=== PATIENT | male | born 1970 | race Caucasian/White ===

== ENCOUNTER → 2016-08-28 | Outpatient (CLI) | payer BC ==
--- NOTE | 2016-08-28 12:12 | EST ---
DATE OF SERVICE: 08/28/2016 AGE: 46Y SEX: M HT: 70" WT: 300 lbs. Protocol Robert: X Other: Stress Stage: 3 Dur. of Exercise: 9:00 *Heart Rate Blood Pressure *Rest: 78 Rest: 154/67 * *Max. Achieved: 151 Maximum BP: 208/93 85% PMHR: 148 100% PMHR: 174 *METS: 10.3 INDICATIONS: Chest pain. MEDICATIONS: Melatonin. Baseline EKG revealed a normal sinus rhythm without significant ST-T changes. Patient walked on standard Robert protocol for 9 minutes, achieved a maximum heart rate of 151 beats per minute, which is more than 85% of predicted maximum. Developed fatigue and shortness of breath, but did not have any angina or arrhythmia. Resting blood pressure was 154/67. Peak heart rate was 151 beats per minute and peak blood pressure was 208/93. By EKG criteria, this is a negative stress test with fair exercise capacity. Patient had a slightly hypertensive response to exercise. There was no evidence of any angina or arrhythmia.
== END | disposition home or self-care (01) ==
LOC: RADNMMAIN 10:29
PROVIDERS: ATTEND Family Medicine
DX: R07.9 Chest pain, unspecified (principal)
CPT/HCPCS: 93017

== ENCOUNTER 2016-11-29 15:57 | Emergency (ER) | payer BC ==
[2016-11-29 16:05] VITALS: RESP 18
[2016-11-29] MEDS ORDERED: RX INFO: IV CONTRAST WAS GIVEN 1 EACH MISC MISCELLANE PRN (16:14)
[2016-11-29] MEDS ORDERED: PANTOPRAZOLE 40 MG/10 ML VIAL IVP STA (16:14)
[2016-11-29] MEDS ORDERED: ONDANSETRON 4 MG/2 ML VIAL IVP STA (16:14)
--- NOTE | 2016-11-29 16:21 | ED ---
Abdominal Pain HPI - General Chief Complaint: Abdominal Pain Stated Complaint: abdominal pain Time Seen by Provider: 11/29/16 16:07 Source: patient Mode of arrival: ambulatory Limitations: no limitations - History of Present Illness Initial Comments: This 46-year-old white male presents complaining of some abdominal pain. This is in his upper abdomen at the midline. He states that he went from a lying to sitting position approximately 4 days ago and felt a pop. He states that the pain has been worse with certain movements and also with any eating or drinking. 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 He states that it is somewhat worse with these activities. He's had multiple previous abdominal surgeries during childhood for Hirschsprung's disease. He has chronic diarrhea and denies any change in his stools. He's had nausea but no vomiting. He denies any fevers or chills. He denies any previous similar incidents. No other complaints or modifying factors. - Related Data Home Medications Medication Instructions Recorded Confirmed Amitriptyline HCl [Elavil] 10 mg PO HS 11/29/16 11/29/16 Previous Rx's Medication Instructions Recorded Naproxen [Naprosyn] 500 mg PO Q12HR #60 tab 05/04/15 Omeprazole [PriLOSEC] 40 mg PO DAILY #30 capsule. 11/29/16 Ondansetron [Zofran ODT] 8 mg PO Q8HR PRN #12 tab 11/29/16 traMADol HCl [Ultram] 50 - 100 mg PO Q6H PRN #15 tab 11/29/16 Allergies Allergy/AdvReac Type Severity Reaction Status Date / Time No Known Allergies Allergy Verified 11/29/16 17:08 Review of Systems ROS Statement: Those systems with pertinent positive or pertinent negative responses have been documented in the HPI. ROS Other: All systems not noted in ROS Statement are negative. Past Medical History Past Medical History: No Reported History Additional Past Medical History / Comment(s): hirshprung disease History of Any Multi-Drug Resistant Organisms: None Reported Past Surgical History: Orthopedic Surgery Additional Past Surgical History / Comment(s): five abdominal surgery, BL knees , right forearm, right ring finger, left shoulder Past Psychological History: No Psychological Hx Reported Smoking Status: Never smoker Past Alcohol Use History: None Reported Past Drug Use History: None Reported General Exam - General Exam Comments Initial Comments: GENERAL: The patient is well nourished and well hydrated. VITAL SIGNS: Heart rate, blood pressure, respiratory rate reviewed as recorded in nurse's notes. EYES: Pupils are round and reactive. Extraocular movements are intact. No conjunctival / lid redness or swelling. ENT: No external evidence of injury, swelling, or ecchymosis. Airway is patent. Throat is clear. NECK: Nontender. No swelling or evidence of injury. No subcutaneous emphysema. Trachea is midline. No thyroid mass. HEART: Regular rate and rhythm. Good peripheral pulses. LUNGS/CHEST: Breath sounds clear and equal bilaterally. No rales, rhonchi, or wheezes. No ecchymosis, subcutaneous emphysema, or tenderness. ABDOMEN: There is some mild tenderness present to the upper abdomen at midline. There is no gross identifiable hernia. There are multiple surgical scars to lower abdomen. No palpable masses or organomegaly. No peritoneal signs. No abdominal wall swelling or ecchymosis. EXTREMITIES: No extremity tenderness. Normal muscle tone and function. No thoracolumbar tenderness. NEUROLOGIC: Sensation is grossly intact. Cranial nerve exam reveals face is symmetrical, tongue is midline, speech is clear. SKIN: No abrasions or ecchymosis is noted. No induration or masses noted. PSYCHIATRIC: Alert and oriented. Appropriate behavior and judgment. Limitations: no limitations Course Vital Signs 11/29/16 11/29/16 16:01 17:39 Temperature 97.2 F L 98.5 F Pulse Rate 85 81 Respiratory 18 18 Rate Blood Pressure 171/108 129/60 O2 Sat by Pulse 97 96 Oximetry Medical Decision Making - Medical Decision Making The patient was seen and examined. All diagnostics were reviewed. The EKG was completed and shows a normal sinus rhythm at a rate of 81. There is no acute ST -T wave changes identified. The CA interval is 184, QRS duration is 94, and the QTc interval is 432. The computed tomography scan showed an abnormal hypodensity/mass on the left kidney and recommended follow-up is warranted. The patient is made aware of this finding and will be given urology follow-up in this regard. He doesn't is standard the possibility of an underlying mass is plausible and is very vital that he follow-up as directed. Overall, it is not felt as though this would be causing his current symptomatology. He has point tenderness to his anterior abdominal wall and is felt that he likely does have an abdominal muscle wall strain. The possibility of an early ventral hernia developing in this area is possible as well. This is not noted on computed tomography scan. They also note that he has a fatty liver on computed tomography scan. He has normal laboratory workup. An IV was started and he did receive some Protonix and Zofran. He is in no distress on recheck. Possibility of some gastritis or peptic ulcer disease certainly is plausible as well. Is felt that he stable for discharge and leaves in no identifiable distress. Return parameters are discussed. - Lab Data Result diagrams: 11/29/16 16:50 11/29/16 16:50 Lab Results 11/29/16 11/29/16 11/29/16 Range/Units 16:50 16:50 16:50 WBC 10.0 (3.8-10.6) k/uL RBC 5.43 (4.30-5.90) m/uL Hgb 16.2 (13.0-17.5) gm/dL Hct 47.5 (39.0-53.0) % MCV 87.4 (80.0-100.0) fL MCH 29.8 (25.0-35.0) pg MCHC 34.1 (31.0-37.0) g/dL RDW 14.6 (11.5-15.5) % Plt Count 206 (150-450) k/uL Neutrophils % 61 % Lymphocytes % 27 % Monocytes % 5 % Eosinophils % 3 % Basophils % 1 % Neutrophils # 6.1 (1.3-7.7) k/uL Lymphocytes # 2.7 (1.0-4.8) k/uL Monocytes # 0.5 (0-1.0) k/uL Eosinophils # 0.3 (0-0.7) k/uL Basophils # 0.1 (0-0.2) k/uL Sodium 140 (137-145) mmol/L Potassium 4.3 (3.5-5.1) mmol/L Chloride 103 (98-107) mmol/L Carbon Dioxide 26 (22-30) mmol/L Anion Gap 11 mmol/L BUN 20 (9-20) mg/dL Creatinine 1.08 (0.66-1.25) mg/dL Est GFR (MDRD) Af Amer >60 (>60 ml/min/1.73 sqM) Est GFR (MDRD) Non-Af >60 (>60 ml/min/1.73 sqM) Glucose 95 (74-99) mg/dL Calcium 9.7 (8.4-10.2) mg/dL Total Bilirubin 0.8 (0.2-1.3) mg/dL AST 40 (17-59) U/L ALT 46 (21-72) U/L Alkaline Phosphatase 91 (38-126) U/L Total Protein 7.3 (6.3-8.2) g/dL Albumin 4.3 (3.5-5.0) g/dL Amylase 56 (30-110) U/L Lipase 67 (23-300) U/L Urine Color Yellow Urine Appearance Clear (Clear) Urine pH 6.5 (5.0-8.0) Ur Specific [place] 1.015 (1.001-1.035) Urine Protein Negative (Negative) Urine Glucose (UA) Negative (Negative) Urine Ketones Negative (Negative) Urine Blood Negative (Negative) Urine Nitrite Negative (Negative) Urine Bilirubin Negative (Negative) Urine Urobilinogen <2.0 (<2.0) mg/dL Ur Leukocyte Esterase Negative (Negative) Disposition Clinical Impression: Abdominal pain, Abdominal muscle strain, Nausea, Renal mass Disposition: HOME SELF-CARE Condition: Good Instructions: Abdominal Pain (ED) Additional Instructions: Please avoid any Motrin, Aleve, aspirin, or Naprosyn medications. The radiologist also noted an abnormality on her left kidney. We would like you to follow-up with the urologist in this regard. Prescriptions: Omeprazole [PriLOSEC] 40 mg PO DAILY #30 capsule. Ondansetron [Zofran ODT] 8 mg PO Q8HR PRN #12 tab PRN Reason: Nausea traMADol HCl [Ultram] 50 - 100 mg PO Q6H PRN #15 tab PRN Reason: Pain Referrals: Nehemias Dorantes MD [STAFF PHYSICIAN] - 12/01/16 Cristopher Bauman MD [Primary Care Provider] - 12/01/16 Time of Disposition: 18:20
[2016-11-29 17:04] LABS: Appearance,Urine Clear (Clear); Basophils # (A) 0.1 k/uL (0-0.2); Basophils % (A) 1 %; Bilirubin,Urine Negative (Negative); CHCM 34.5; Eosinophils # (A) 0.3 k/uL (0-0.7); Eosinophils % (A) 3 %; Glucose,Urine (UA) Negative (Negative); HCT 47.5 % (39.0-53.0); HDW 2.85; HGB 16.2 gm/dL (13.0-17.5); Ketones,Urine Negative (Negative); Leukocyte Esterase,Urine Negative (Negative); Luc # (Auto) 0.24; Luc % (Auto) 2; Lymphocytes # (A) 2.7 k/uL (1.0-4.8); Lymphocytes % (A) 27 %; MCH 29.8 pg (25.0-35.0); MCHC 34.1 g/dL (31.0-37.0); MCV 87.4 fL (80.0-100.0); Mean Platelet Volume 7.2; Monocytes # (A) 0.5 k/uL (0-1.0); Monocytes % (A) 5 %; Neutrophils # (A) 6.1 k/uL (1.3-7.7); Neutrophils % (A) 61 %; Nitrite,Urine Negative (Negative); PH, Urine 6.5 (5.0-8.0); Protein,Urine Negative (Negative); RBC 5.43 m/uL (4.30-5.90); RDW 14.6 % (11.5-15.5); Specific Gravity,Urine 1.015 (1.001-1.035); UA Billing (MACRO vs. MICRO) CHEM; Urobilinogen,Urine <2.0 mg/dL (<2.0); WBC (Perox) 9.88
[2016-11-29 17:16] LABS: ALT 46 U/L (21-72); AST 40 U/L (17-59); Alkaline Phosphatase 91 U/L (38-126); Amylase 56 U/L (30-110); Anion Gap 11 mmol/L; Blood Urea Nitrogen 20 mg/dL (9-20); Calcium 9.7 mg/dL (8.4-10.2); Carbon Dioxide 26 mmol/L (22-30); Chloride 103 mmol/L (98-107); Glucose 95 mg/dL (74-99); Non-African American GFR(MDRD) >60 (>60 ml/min/1.73 sqM); Potassium 4.3 mmol/L (3.5-5.1); Sodium 140 mmol/L (137-145); Total Bilirubin 0.8 mg/dL (0.2-1.3); Total Protein 7.3 g/dL (6.3-8.2)
[2016-11-29 17:40] VITALS: BP 129/60; PULSE 81; TEMP 98.5
--- NOTE | 2016-11-29 17:49 | CT ---
EXAMINATION TYPE: CT abdomen pelvis w con DATE OF EXAM: 11/29/2016 5:33 PM COMPARISON: Previous exam CT abdomen pelvis 03 August 2015 HISTORY: Patient complains of epigastric pain, nausea, and diarrhea. Patient has history of hirschsp rungs disease. CT DLP: 2133.7 mGycm Automated exposure control for dose reduction was used. TECHNIQUE: Helical acquisition of images was performed from the lung bases through the pelvis. CONTRAST: Performed without Oral Contrast and with IV Contrast, patient injected with 100 mL of Omnipaque 300. FINDINGS: LUNG BASES: No significant abnormality is appreciated. LIVER/GB: Liver shows low attenuation possibly due to fatty infiltration. Gallbladder is contracted. PANCREAS: No significant abnormality is seen. SPLEEN: No significant abnormality is seen. ADRENALS: No significant abnormality is seen. KIDNEYS: Small hypodense focus better seen on delayed imaging within the anterior left renal cortex a xial image 36 measures 13 mm and is indeterminate, not felt to be simple cystic RETROPERITONEAL ADENOPATHY: None visualized REPRODUCTIVE ORGANS: No significant abnormality is seen URINARY BLADDER: Somewhat aberrant and appearance is stable extending somewhat cephalad from the pel vis as on prior exam PELVIC ADENOPATHY: None visualized. OSSEOUS STRUCTURES: Stable BOWEL: There are fluid-filled loops of small bowel present. 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 No evident bowel obstruction. OTHER: No pneumoperitoneum. Postop change or possible scar along the anterior abdominal wall to the r ight of midline as on prior exam is stable. IMPRESSION: INDETERMINATE HYPODENSITY IN THE LEFT KIDNEY, FOLLOW-UP IS RECOMMENDED FOR POSSIBLE MASS. POSSIBLE FA TTY INFILTRATION OF LIVER. PARTIAL MALROTATION OF THE MIDGUT.
== END 2016-11-29 18:30 | disposition home or self-care (01) ==
LOC: EC 15:57
DX: S39.011A Strain of muscle, fascia and tendon of abdomen, initial encounter (principal); R11.0 Nausea; N28.89 Other specified disorders of kidney and ureter; K76.0 Fatty (change of) liver, not elsewhere classified; Z79.899 Other long term (current) drug therapy; X50.9XXA Other and unspecified overexertion or strenuous movements or postures, initial encounter
CPT/HCPCS: 99284; 96374; 96375; 36415; 93005; 80053; 82150; 83690; 85025; 81003; 74177; J2405; Q9967; C9113

== ENCOUNTER → 2018-10-06 | Outpatient (CLI) | payer BC ==
--- NOTE | 2018-10-06 14:55 | CONS ---
CONSULTATION DATE OF SERVICE: 10/06/2018 A 48-year-old gentleman who has been evaluated in the sleep center for possible obstructive sleep apnea-hypopnea syndrome. HISTORY OF PRESENT ILLNESS/SLEEP-WAKE EVALUATION: Patient's sleep schedule is fluctuating depending what time he is to start his work. He has to wake up at 5:00 am he goes to bed around 9 or 10 pm no problem with falling asleep, although she has TV in bedroom. He usually sleeps on the side position with his with loud snoring and witnessed episodes of stopped breathing during the sleep. The patient wakes up from sleep around 3 times with nocturia, grinding his teeth in the morning. He wakes up tired, falling asleep during the day. Has episodes of claustrophobia. [place] Sleepiness Scale increased to 10. PAST MEDICAL HISTORY: 1. Jose disease and episodes of increasing blood pressure. 2. Aspirin. PAST SURGICAL HISTORY: Surgery for his lung disease. SOCIAL HISTORY: Negative for smoking. Alcohol consumption rarely. FAMILY HISTORY: Hypertension, heart problems, hyperlipidemia, stroke, fibromyalgia, arthritis, asthma, cancer, snoring, sleep apnea, lung problems, liver problems, diabetes, acid reflux, mental illness. REVIEW OF SYSTEMS: Awakenings from sleep, sleepiness during the day. PHYSICAL EXAM: gentleman without distress. BP 174/117 with repeated measurements more than 200. Neck is heart rate 80, RR 18, height 5 feet 10 inches, weight 323.8 pounds, body mass index 46.3, temperature 98.1, oxygen saturation at room air 95%. OROPHARYNX: Low position of soft palate. Restriction of nasal breathing. Wide neck 20 inches in circumference. ABDOMEN: Obese. EXTREMITIES: Very minimal up to 1+ ankle edema bilaterally. Neck Supple, no JVD. Thyroid is not palpable. LUNGS Clear to percussion and to auscultation. Good air exchange. No wheezing or rhonchi. HEART S1, S2 regular. No murmurs, gallops, or rubs. 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 Cranial nerves 2 to 7 intact. There is no fasciculation or atrophy. noted. No focal deficits observed. MEDICATIONS: Amitriptyline at bedtime, Motrin. IMPRESSION: 1. Snoring, witnessed episodes of stopped breathing during the sleep, low position of soft palate, wide neck, excessive daytime sleepiness, obstructive sleep apnea- hypopnea syndrome. 2. Obesity, body mass index 46.3. 3. Hypertension. 4. History of Hirschsprung disease, status post surgical treatment. 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 PLAN: 1. Polysomnography for evaluation of patient's breathing during sleep. 2. CPAP/BiPAP titration if sleep study confirms obstructive sleep apnea-hypopnea syndrome. 3. Preferable position during sleep on the side. No driving if patient feels any sleepiness. 4. Follow up with the primary care for treatment of hypertension, low-sodium diet, monitoring of blood pressure. 5. I will see patient for follow up visit to explain results of testing and following plan. Thank you very much for referring this patient for consultation. Sincerely, Odilon Gibbs MD, PhD, FAASM Diplomat of [employer] Scientific Programmer Analyst of [facility] [place] MMODL / ANDRESN: [id number] /
== END | disposition home or self-care (01) ==
LOC: SLEEP 13:33
PROVIDERS: ATTEND Internal Medicine
DX: G47.33 Obstructive sleep apnea (adult) (pediatric) (principal); R35.1 Nocturia; F40.240 Claustrophobia; E66.9 Obesity, unspecified; I10 Essential (primary) hypertension; Z68.42 Body mass index [BMI] 45.0-49.9, adult; Z87.19 Personal history of other diseases of the digestive system; Z98.890 Other specified postprocedural states; Z79.82 Long term (current) use of aspirin; Z79.1 Long term (current) use of non-steroidal anti-inflammatories (NSAID); Z79.899 Other long term (current) drug therapy
CPT/HCPCS: 99211

== ENCOUNTER 2019-03-13 13:40 | Emergency (ER) | payer BC ==
[2019-03-13 13:46] VITALS: BP 149/84; PULSE 71; RESP 18; TEMP 98
[2019-03-13] MEDS ORDERED: DEXAMETHASONE SOD PHOSPHATE 10 MG/ML 1 ML VIAL IM STA (14:04)
--- NOTE | 2019-03-13 14:13 | ED ---
General Adult HPI - General Chief complaint: Skin/Abscess/Foreign Body Stated complaint: Bee sting Time Seen by Provider: 03/13/19 13:48 Source: patient Limitations: no limitations - History of Present Illness Initial comments: Patient is a 48-year-old male presents emergency Department with a bee sting. Patient reports he was riding his motorcycle yesterday when he received the bee sting near the right supraorbital region. Patient reports his front removed the stinger and no immediate ALLERGIC reaction occurred but when he woke up this morning he noticed edema at the site. Patient denies any pain with extra ocular movements. Patient denies headache, nausea, vomiting, dyspnea, dysphagia or swelling of the pharynx. Patient reports taking Benadryl earlier today with minimal improvement. - Related Data Home Medications Medication Instructions Recorded Confirmed Amitriptyline HCl [Elavil] 10 mg PO HS 11/29/16 11/29/16 Previous Rx's Medication Instructions Recorded Naproxen [Naprosyn] 500 mg PO Q12HR #60 tab 05/04/15 Omeprazole [PriLOSEC] 40 mg PO DAILY #30 capsule. 11/29/16 Ondansetron [Zofran ODT] 8 mg PO Q8HR PRN #12 tab 11/29/16 traMADol HCl [Ultram] 50 - 100 mg PO Q6H PRN #15 tab 11/29/16 Cephalexin [Keflex] 500 mg PO Q6HR #40 cap 03/13/19 Allergies Allergy/AdvReac Type Severity Reaction Status Date / Time No Known Allergies Allergy Verified 11/29/16 17:08 Review of Systems ROS Statement: Those systems with pertinent positive or pertinent negative responses have been documented in the HPI. ROS Other: All systems not noted in ROS Statement are negative. Past Medical History Past Medical History: No Reported History Additional Past Medical History / Comment(s): hirshprung disease History of Any Multi-Drug Resistant Organisms: None Reported Past Surgical History: Orthopedic Surgery Additional Past Surgical History / Comment(s): five abdominal surgery, BL knees, right forearm, right ring finger, left shoulder Past Psychological History: No Psychological Hx Reported Smoking Status: Never smoker Past Alcohol Use History: None Reported Past Drug Use History: None Reported General Exam - General Exam Comments Initial Comments: General: Well-developed well-nourished distress HEENT: Normocephalic/atraumatic, PERLL, no pain with extraocular movements, oropharyngeal exam exam unremarkable, mild edema near the right supraorbital region extending near the right eye, no periorbital ecchymosis Neck: Supple, nontender, trachea midline Chest/Lungs: Normal respirations, no signs of respiratory distress clear to auscultation bilaterally no wheezes, rales, rhonchi Cardiac: Regular rate and rhythm, normal S1-S2, no murmurs rubs or gallops Abdomen/GI: Soft nontender, bowel sounds equal or quadrant x4, no guarding, no rebound no CVA tenderness Musculoskeletal: Nontender, full range of motion, no edema, strength equal bilaterally Skin: Warmth, no rashes or lesions, no cyanosis or diaphoresis Neurologic: AAO x 3, CN 2-12 intact, Psychiatric: Mood and affect normal, judgment normal Limitations: no limitations Course Vital Signs 03/13/19 13:41 Temperature 98 F Pulse Rate 71 Respiratory 18 Rate Blood Pressure 149/84 O2 Sat by Pulse 99 Oximetry Medical Decision Making - Medical Decision Making She is a 48-year-old male presents emergency Department with a bee sting. Patient was given 10 mg of Decadron with mild immediate improvement. Patient will be discharged with Keflex in case he develops cellulitis. Antibiotic is prescribed based on watch and wait basis. Strict return parameters were thor oughly discussed patient is understanding and agreeable. Patient advised to follow with primary care. Case discussed physician. Disposition Clinical Impression: Bee sting reaction Disposition: HOME SELF-CARE Condition: Stable Instructions (If sedation given, give patient instructions): Insect Bite or Sting (ED) Additional Instructions: Please follow primary care. Please take prescribed medication if symptoms do not improve in 2-3 days. Please return to emergency department if symptoms worsen. Prescriptions: Cephalexin [Keflex] 500 mg PO Q6HR #40 cap Is patient prescribed a controlled substance at d/c from ED?: No Referrals: Cristopher Bauman MD [Primary Care Provider] - 1-2 days Time of Disposition: 14:13
== END 2019-03-13 14:42 | disposition home or self-care (01) ==
LOC: EC 13:40
DX: T63.441A Toxic effect of venom of bees, accidental (unintentional), initial encounter (principal); Z79.899 Other long term (current) drug therapy; Y92.89 Other specified places as the place of occurrence of the external cause
CPT/HCPCS: 99283; 96372; J1100

== ENCOUNTER 2019-10-31 | Emergency (ER) | payer BC | END 2019-10-31 13:27 | disposition home or self-care (01) | CPT/HCPCS: 71046; 87502; 99284 ==

== ENCOUNTER 2020-09-13 09:48 | Emergency (ER) | payer BC ==
[2020-09-13 09:55] VITALS: RESP 18; TEMP 97.6
[2020-09-13] MEDS ORDERED: HYDROmorphone 0.5 MG/0.5 ML SYRINGE IVP STA ×2 (10:23→11:17)
[2020-09-13] MEDS ORDERED: SODIUM CHLORIDE 0.9% 500 ML 500 ML IV STA (10:24)
--- NOTE | 2020-09-13 10:30 | ED ---
General Adult HPI - General Chief complaint: Neck Pain/Injury Stated complaint: neck pain Time Seen by Provider: 09/13/20 10:01 Source: patient Mode of arrival: ambulatory Limitations: no limitations - History of Present Illness Initial comments: 50-year-old male with a past medical history of Hirschsprung's disease presents to the emergency room for a chief complaint of right neck pain. Patient reports the last night it was a little sore. However for the past 2 hours and has been excruciating. Patient states it is a sharp pain in the anterior lateral part of his right neck. States it hurts to press on the area or turn his head. States it radiates down his arm. He has difficulty moving his arm secondary to the pain but denies weakness in the arm. 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 Patient denies any chest pain.Patient has no other complaints at this time including shortness of breath, chest pain, abdominal pain, nausea or vomiting, headache, or visual changes. - Related Data Home Medications Medication Instructions Recorded Confirmed Amitriptyline HCl [Elavil] 10 mg PO QAM 11/29/16 09/13/20 Losartan Potassium 50 mg PO QAM 09/13/20 09/13/20 Meloxicam [Mobic] 15 mg PO QAM 09/13/20 09/13/20 Previous Rx's Medication Instructions Recorded Cyclobenzaprine [Flexeril] 10 mg PO TID #20 tab 09/13/20 Allergies Allergy/AdvReac Type Severity Reaction Status Date / Time No Known Allergies Allergy Verified 09/13/20 11:13 Review of Systems ROS Statement: Those systems with pertinent positive or pertinent negative responses have been documented in the HPI. ROS Other: All systems not noted in ROS Statement are negative. Past Medical History Past Medical History: No Reported History Additional Past Medical History / Comment(s): hirshprung disease History of Any Multi-Drug Resistant Organisms: None Reported Past Surgical History: Orthopedic Surgery Additional Past Surgical History / Comment(s): five abdominal surgery, BL knees, right forearm, right ring finger, left shoulder Past Psychological History: No Psychological Hx Reported Smoking Status: Never smoker Past Alcohol Use History: None Reported Past Drug Use History: None Reported General Exam Limitations: no limitations General appearance: alert Head exam: Present: atraumatic Eye exam: Present: normal appearance, PERRL, EOMI. Absent: scleral icterus ENT exam: Present: normal exam, normal oropharynx, mucous membranes moist Neck exam: Present: tenderness (Tenderness noted to the anterior lateral aspect of patient's right side neck, SCM distribution. There is no tenderness midline to the cervical spine or paraspinal muscles.). Absent: full ROM (Patient has 45 of rotation to the left however range of motion is significantly limited to the right to about 15.), other Respiratory exam: Present: normal lung sounds bilaterally. Absent: respiratory distress, wheezes, chest wall tenderness, other (There is no edema of the chest wall or right arm) Cardiovascular Exam: Present: regular rate, normal rhythm, normal heart sounds. Absent: systolic murmur, diastolic murmur, rubs, gallop, clicks GI/Abdominal exam: Present: soft, normal bowel sounds. Absent: distended, tenderness, guarding, rebound, rigid Extremities exam: Present: normal capillary refill (Capillary refill less than 2 seconds in the right upper extremity, radial pulse 2+,). Absent: full ROM (Patient unable to abduct or flex shoulder past 90 secondary to pain.), joint swelling (No edema in the right arm) Neurological exam: Present: alert, oriented X3 Course Vital Signs 09/13/20 09:49 Temperature 97.6 F Pulse Rate 88 Respiratory 18 Rate Blood Pressure 154/78 O2 Sat by Pulse 98 Oximetry Medical Decision Making - Medical Decision Making Vitals are stable. Patient has right-sided neck tenderness and pain along the distribution of SCM. He is unable to rotate neck laterally to the right side. No neuro deficits in the right arm. Radial pulse 2+. Pain worsens with movement of the right arm or neck. CBC does show minimal leukocytosis however there is no evidence of infection. There is no erythema of the neck. CT soft tissue neck was obtained which was normal. Given pain worsening with movement, inability to rotate neck to the right, and tenderness to touch symptoms are likely torticollis and muscle spasm. Dr. Nunes also evaluated patient and is agreeable to this. Recommends Motrin, Tylenol 3, and Flexeril. On reevaluation patient is sitting up in a chair feeling much improved. Patient we discharged him to follow up with primary care. If he has any worsening symptoms he will return here to the emergency room. - Lab Data Result diagrams: 09/13/20 10:44 09/13/20 10:44 Lab Results 09/13/20 09/13/20 Range/Units 10:44 10:44 WBC 13.8 H (3.8-10.6) k/uL RBC 5.89 (4.30-5.90) m/uL Hgb 17.7 H (13.0-17.5) gm/dL Hct 53.8 H (39.0-53.0) % MCV 91.4 (80.0-100.0) fL MCH 30.1 (25.0-35.0) pg MCHC 32.9 (31.0-37.0) g/dL RDW 13.8 (11.5-15.5) % Plt Count 239 (150-450) k/uL MPV 7.4 Neutrophils % 66 % Lymphocytes % 16 % Monocytes % 6 % Eosinophils % 10 % Basophils % 1 % Neutrophils # 9.1 H (1.3-7.7) k/uL Lymphocytes # 2.2 (1.0-4.8) k/uL Monocytes # 0.8 (0-1.0) k/uL Eosinophils # 1.4 H (0-0.7) k/uL Basophils # 0.2 (0-0.2) k/uL Sodium 136 L (137-145) mmol/L Potassium 4.3 (3.5-5.1) mmol/L Chloride 106 (98-107) mmol/L Carbon Dioxide 21 L (22-30) mmol/L Anion Gap 9 mmol/L BUN 16 (9-20) mg/dL Creatinine 0.93 (0.66-1.25) mg/dL Est GFR (CKD-EPI)AfAm >90 (>60 ml/min/1.73 sqM) Est GFR (CKD-EPI)NonAf >90 (>60 ml/min/1.73 sqM) Glucose 91 (74-99) mg/dL Calcium 9.0 (8.4-10.2) mg/dL Total Bilirubin 0.8 (0.2-1.3) mg/dL AST 56 (17-59) U/L ALT 82 H (4-49) U/L Alkaline Phosphatase 62 (38-126) U/L Total Protein 6.7 (6.3-8.2) g/dL Albumin 3.8 (3.5-5.0) g/dL Disposition Clinical Impression: Neck pain Disposition: HOME SELF-CARE Condition: Good Instructions (If sedation given, give patient instructions): Spasmodic Torticollis (ED), Muscle Spasm (ED) Additional Instructions: Please take Motrin for pain. If pain is severe take Tylenol 3. Take Flexeril as well. You cannot drive while taking Tylenol 3 or Flexeril. Follow-up with your doctor. If you have any worsening symptoms return to the emergency room. Prescriptions: Cyclobenzaprine [Flexeril] 10 mg PO TID #20 tab Is patient prescribed a controlled substance at d/c from ED?: No Referrals: Cristopher Bauman MD [Primary Care Provider] - 1-2 days Time of Disposition: 12:56
[2020-09-13 11:04] LABS: Basophils # (A) 0.2 k/uL (0-0.2); Basophils % (A) 1 %; Eosinophils # (A) 1.4 k/uL (0-0.7); Eosinophils % (A) 10 %; HCT 53.8 % (39.0-53.0); HGB 17.7 gm/dL (13.0-17.5); Lymphocytes # (A) 2.2 k/uL (1.0-4.8); Lymphocytes % (A) 16 %; MCH 30.1 pg (25.0-35.0); MCHC 32.9 g/dL (31.0-37.0); MCV 91.4 fL (80.0-100.0); Mean Platelet Volume 7.4; Monocytes # (A) 0.8 k/uL (0-1.0); Monocytes % (A) 6 %; Neutrophils # (A) 9.1 k/uL (1.3-7.7); Neutrophils % (A) 66 %; Platelet Count 239 k/uL (150-450); RBC 5.89 m/uL (4.30-5.90); RDW 13.8 % (11.5-15.5); WBC 13.8 k/uL (3.8-10.6)
[2020-09-13 11:15] LABS: ALT 82 U/L (4-49); AST 56 U/L (17-59); African American GFR (CKD) >90 (>60 ml/min/1.73 sqM); Albumin 3.8 g/dL (3.5-5.0); Alkaline Phosphatase 62 U/L (38-126); Anion Gap 9 mmol/L; Blood Urea Nitrogen 16 mg/dL (9-20); Carbon Dioxide 21 mmol/L (22-30); Chloride 106 mmol/L (98-107); Glucose 91 mg/dL (74-99); Non-African American GFR(CKD) >90 (>60 ml/min/1.73 sqM); Potassium 4.3 mmol/L (3.5-5.1); Sodium 136 mmol/L (137-145); Total Bilirubin 0.8 mg/dL (0.2-1.3); Total Protein 6.7 g/dL (6.3-8.2)
[2020-09-13] MEDS ORDERED: HYDROmorphone 1 MG/ML 1 ML SYRINGE IVP STA (11:16)
--- NOTE | 2020-09-13 12:24 | CT ---
EXAMINATION TYPE: CT soft tissue neck w con DATE OF EXAM: 09/13/2020 COMPARISON: None HISTORY: Right sided neck pain and spasm CT DLP: 1075.1 mGycm CONTRAST: Patient injected with 100 mL of Isovue 300. TECHNIQUE: Axial images at 3 mm thick sections. Reconstructed images in the coronal plane and sagitt al plane are reviewed. FINDINGS: Limited CT sections are obtained the lung apices. The lung apices appear clear. CT neck: The torus tubarius and fossa of Rosenmuller are normal. Weaver Wire Loom spaces are normal. Para nasal sinuses and mastoid air cells are clear. Parotid glands appear normal and symmetrical. Submandibular glands, are normal. Parapharyngeal spac es are normal. No suspicious adenopathy is evident. The hypopharynx appears within normal limits. Vocal cord level appear symmetrical. Thyroid as visualized is normal. Subglottic airway is normal. Osseous structures are normal. Muscle density appears unremarkable. No muscle asymmetry is evident. IMPRESSIONS: 1. Normal soft tissue neck
[2020-09-13] MEDS ORDERED: KETOROLAC 15 MG/ML 1 ML VIAL IVP STA (12:31)
[2020-09-13] MEDS ORDERED: ORPHENADRINE 30 MG/ML 2 ML VIAL IVP STA (12:40)
[2020-09-13] MEDS ORDERED: ACET/COD 300 MG/30 MG STARTER PACK 6 TAB BTL PO STA (12:56)
[2020-09-13 13:23] VITALS: BP 146/91; PULSE 89
== END 2020-09-13 13:23 | disposition home or self-care (01) ==
LOC: EC 09:48
DX: M54.2 Cervicalgia (principal); D72.829 Elevated white blood cell count, unspecified; Z79.1 Long term (current) use of non-steroidal anti-inflammatories (NSAID); Z79.899 Other long term (current) drug therapy
CPT/HCPCS: 36415; 80053; 85025; 70491; 99284; 96374; 96375 ×2; 96376; 96361; J2360; J1170 ×2; J1885; Q9967

== ENCOUNTER 2020-09-14 12:25 | Inpatient (IN) | payer BC ==
[2020-09-14] MEDS ORDERED: diphenhydrAMINE 50 MG/ML 1 ML VIAL IVP STA (13:07)
[2020-09-14] MEDS ORDERED: SODIUM CHLORIDE 0.9% 1,000 ML IV STA (13:07)
[2020-09-14] MEDS ORDERED: DEXAMETHASONE SOD PHOSPHATE 10 MG/ML 1 ML VIAL IV STA (13:13)
[2020-09-14] MEDS ORDERED: FAMOTIDINE 20 MG/2 ML VIAL IV STA (13:16)
[2020-09-14] MEDS ORDERED: propofoL 50 ML IV ONE (13:34)
[2020-09-14 13:41] LABS: Basophils # (A) 0.1 k/uL (0-0.2); Basophils % (A) 1 %; Eosinophils # (A) 1.2 k/uL (0-0.7); Eosinophils % (A) 13 %; HCT 53.6 % (39.0-53.0); HGB 17.4 gm/dL (13.0-17.5); Lymphocytes % (A) 21 %; MCH 30.1 pg (25.0-35.0); MCHC 32.4 g/dL (31.0-37.0); MCV 92.8 fL (80.0-100.0); Mean Platelet Volume 7.8; Monocytes # (A) 0.5 k/uL (0-1.0); Monocytes % (A) 6 %; Neutrophils # (A) 5.7 k/uL (1.3-7.7); Neutrophils % (A) 58 %; Platelet Count 223 k/uL (150-450); RBC 5.78 m/uL (4.30-5.90); RDW 13.7 % (11.5-15.5); WBC 9.7 k/uL (3.8-10.6)
[2020-09-14 13:55] LABS: ALT 77 U/L (4-49); AST 48 U/L (17-59); African American GFR (CKD) >90 (>60 ml/min/1.73 sqM); Albumin 3.8 g/dL (3.5-5.0); Alkaline Phosphatase 56 U/L (38-126); Anion Gap 8 mmol/L; Blood Urea Nitrogen 14 mg/dL (9-20); Calcium 8.9 mg/dL (8.4-10.2); Carbon Dioxide 24 mmol/L (22-30); Chloride 105 mmol/L (98-107); Glucose 86 mg/dL (74-99); Magnesium 1.8 mg/dL (1.6-2.3); Non-African American GFR(CKD) 88 (>60 ml/min/1.73 sqM); Potassium 4.8 mmol/L (3.5-5.1); Sodium 137 mmol/L (137-145); Total Bilirubin 0.8 mg/dL (0.2-1.3); Total Protein 6.6 g/dL (6.3-8.2)
[2020-09-14 13:56] LABS: INR 1.4 (<1.2); Partial Thromboplastin Time 26.7 sec (22.0-30.0); Prothrombin Time 13.8 sec (9.0-12.0)
[2020-09-14] MEDS ORDERED: MIDAZOLAM 1 MG/ML 5 ML VIAL IV STA (14:08)
--- NOTE | 2020-09-14 14:23 | XR ---
EXAMINATION TYPE: XR chest 1V DATE OF EXAM: 09/14/2020 COMPARISON: Chest x-ray 10/31/2019 HISTORY: Intubated TECHNIQUE: Single frontal view of the chest is obtained. FINDINGS: Endotracheal tube and NG tube have been place, distal tip the NG tube is coursing towards the stomach, endotracheal tube is overlying the tracheal air column. No evident pneumothorax or pleur al effusion. Heart is enlarged. Lung volumes are low. Prominence of the superior mediastinum may be t echnical. Patchy bilateral airspace disease is suspected. IMPRESSION: No evident comp occasions status post intubation. Correlate for pneumonia.
[2020-09-14] MEDS ORDERED: AMPICILLIN-SULBACTAM 3 GM in SODIUM CHLORIDE 0.9% 100 ML IVPB STA (14:40)
--- NOTE | 2020-09-14 14:42 | ED ---
General Adult HPI - General Chief complaint: ENT Stated complaint: revisit - dental infection Time Seen by Provider: 09/14/20 13:02 Source: patient, RN notes reviewed, old records reviewed Mode of arrival: ambulatory Limitations: no limitations - History of Present Illness Initial comments: 50-year-old male presenting for reevaluation of right-sided neck pain. Patient states he developed a sore throat and has a muffled voice. He is seen just shortly after arrival to the emergency department and noted to have a massively enlarged uvula with concern for airway compromise. He was prescribed a muscle relaxer and pain medication with his visit to the emergency department yesterday. At that time he had a CT performed which was negative for an infe ctious process or any acute findings. He denies fever or chills. He is currently on losartan for high blood pressure, no ADÁN inhibitor. - Related Data Home Medications Medication Instructions Recorded Confirmed Amitriptyline HCl [Elavil] 10 mg PO QAM 11/29/16 09/14/20 Losartan Potassium 50 mg PO QAM 09/13/20 09/14/20 Meloxicam [Mobic] 15 mg PO QAM 09/13/20 09/14/20 Previous Rx's Medication Instructions Recorded Cyclobenzaprine [Flexeril] 10 mg PO TID #20 tab 09/13/20 Allergies Allergy/AdvReac Type Severity Reaction Status Date / Time No Known Allergies Allergy Verified 09/14/20 13:37 Review of Systems ROS Statement: Those systems with pertinent positive or pertinent negative responses have been documented in the HPI. ROS Other: All systems not noted in ROS Statement are negative. Past Medical History Past Medical History: No Reported History Additional Past Medical History / Comment(s): hirshprung disease History of Any Multi-Drug Resistant Organisms: None Reported Past Surgical History: Orthopedic Surgery Additional Past Surgical History / Comment(s): five abdominal surgery, BL knees, right forearm, right ring finger, left shoulder Past Psychological History: No Psychological Hx Reported Smoking Status: Never smoker Past Alcohol Use History: None Reported Past Drug Use History: None Reported General Exam Limitations: no limitations General appearance: alert, in distress Head exam: Present: atraumatic, normocephalic Eye exam: Present: normal appearance, PERRL ENT exam: Present: other (There is soft tissue fullness in the right peritonsillar region and a erythematous and swollen uvula measuring at least 3-4 cm across) Neck exam: Present: tenderness (Tenderness over the right sternocleidomastoid) Respiratory exam: Present: normal lung sounds bilaterally, other (Speech is muffled.). Absent: respiratory distress, wheezes, rales, stridor Cardiovascular Exam: Present: normal rhythm, tachycardia GI/Abdominal exam: Present: soft. Absent: distended, tenderness, guarding, rebound Extremities exam: Present: normal inspection, normal capillary refill. Absent: calf tenderness Neurological exam: Present: alert, oriented X3, CN II-XII intact. Absent: motor sensory deficit Psychiatric exam: Present: anxious Skin exam: Present: warm, dry, intact Course Vital Signs 09/14/20 09/14/20 09/14/20 12:40 13:40 13:50 Temperature 98.7 F Pulse Rate 93 118 H 111 H Respiratory 18 20 Rate Blood Pressure 196/96 175/96 O2 Sat by Pulse 95 100 99 Oximetry 09/14/20 09/14/20 09/14/20 14:12 14:25 14:31 Temperature Pulse Rate 109 H 110 H 108 H Respiratory 20 20 20 Rate Blood Pressure 153/83 158/84 124/66 O2 Sat by Pulse 100 98 98 Oximetry 09/14/20 09/14/20 15:09 15:37 Temperature Pulse Rate 114 H 114 H Respiratory 20 20 Rate Blood Pressure 155/79 155/79 O2 Sat by Pulse 99 100 Oximetry - Reevaluation(s) Reevaluation #1: 09/14/20 1400 Anesthesia he is able to intubate the patient without issue. Medical Decision Making - Medical Decision Making Due to the patient's body habitus and massive uvular edema and swelling he is intubated by anesthesia without any difficulty. Laboratory studies are repeated, he has a mild elevation in CRP, as well as blood cell count is down trending. Otherwise his labs are unremarkable. Chest x-ray performed after intubation which shows satisfactory placement of endotracheal tube. He was intubated for airway protection. ENT recommends Decadron 10 mg every 8 after initial dose of 10. Patient has been started on this additionally recommending FFP with chest patient has been given. I did discuss case with the admitting physician Dr. Conti, the ICU traffic rate clerk Dr. Ashley, and the ENT surgeon Dr. Pittman. - Lab Data Result diagrams: 09/14/20 13:30 09/14/20 13:30 Lab Results 09/14/20 09/14/20 09/14/20 Range/Units 13:30 13:30 13:30 WBC 9.7 (3.8-10.6) k/uL RBC 5.78 (4.30-5.90) m/uL Hgb 17.4 (13.0-17.5) gm/dL Hct 53.6 H (39.0-53.0) % MCV 92.8 (80.0-100.0) fL MCH 30.1 (25.0-35.0) pg MCHC 32.4 (31.0-37.0) g/dL RDW 13.7 (11.5-15.5) % Plt Count 223 (150-450) k/uL MPV 7.8 Neutrophils % 58 % Lymphocytes % 21 % Monocytes % 6 % Eosinophils % 13 % Basophils % 1 % Neutrophils # 5.7 (1.3-7.7) k/uL Lymphocytes # 2.0 (1.0-4.8) k/uL Monocytes # 0.5 (0-1.0) k/uL Eosinophils # 1.2 H (0-0.7) k/uL Basophils # 0.1 (0-0.2) k/uL PT 13.8 H (9.0-12.0) sec INR 1.4 H (<1.2) APTT 26.7 (22.0-30.0) sec Sodium 137 (137-145) mmol/L Potassium 4.8 (3.5-5.1) mmol/L Chloride 105 (98-107) mmol/L Carbon Dioxide 24 (22-30) mmol/L Anion Gap 8 mmol/L BUN 14 (9-20) mg/dL Creatinine 0.99 (0.66-1.25) mg/dL Est GFR (CKD-EPI)AfAm >90 (>60 ml/min/1.73 sqM) Est GFR (CKD-EPI)NonAf 88 (>60 ml/min/1.73 sqM) Glucose 86 (74-99) mg/dL Plasma Lactic Acid Joselito (0.7-2.0) mmol/L Calcium 8.9 (8.4-10.2) mg/dL Magnesium 1.8 (1.6-2.3) mg/dL Total Bilirubin 0.8 (0.2-1.3) mg/dL AST 48 (17-59) U/L ALT 77 H (4-49) U/L Alkaline Phosphatase 56 (38-126) U/L C-Reactive Protein 36.0 H (<10.0) mg/L Total Protein 6.6 (6.3-8.2) g/dL Albumin 3.8 (3.5-5.0) g/dL 09/14/20 Range/Units 13:30 WBC (3.8-10.6) k/uL RBC (4.30-5.90) m/uL Hgb (13.0-17.5) gm/dL Hct (39.0-53.0) % MCV (80.0-100.0) fL MCH (25.0-35.0) pg MCHC (31.0-37.0) g/dL RDW (11.5-15.5) % Plt Count (150-450) k/uL MPV Neutrophils % % Lymphocytes % % Monocytes % % Eosinophils % % Basophils % % Neutrophils # (1.3-7.7) k/uL Lymphocytes # (1.0-4.8) k/uL Monocytes # (0-1.0) k/uL Eosinophils # (0-0.7) k/uL Basophils # (0-0.2) k/uL PT (9.0-12.0) sec INR (<1.2) APTT (22.0-30.0) sec Sodium (137-145) mmol/L Potassium (3.5-5.1) mmol/L Chloride (98-107) mmol/L Carbon Dioxide (22-30) mmol/L Anion Gap mmol/L BUN (9-20) mg/dL Creatinine (0.66-1.25) mg/dL Est GFR (CKD-EPI)AfAm (>60 ml/min/1.73 sqM) Est GFR (CKD-EPI)NonAf (>60 ml/min/1.73 sqM) Glucose (74-99) mg/dL Plasma Lactic Acid Joselito 1.5 (0.7-2.0) mmol/L Calcium (8.4-10.2) mg/dL Magnesium (1.6-2.3) mg/dL Total Bilirubin (0.2-1.3) mg/dL AST (17-59) U/L ALT (4-49) U/L Alkaline Phosphatase (38-126) U/L C-Reactive Protein (<10.0) mg/L Total Protein (6.3-8.2) g/dL Albumin (3.5-5.0) g/dL Critical Care Time Critical Care Time: Yes Total Critical Care Time: 35 Disposition Clinical Impression: Angioedema, Uvulitis Disposition: ADMITTED IP TO THIS [facility] Condition: Serious Is patient prescribed a controlled substance at d/c from ED?: No Referrals: Cristopher Bauman MD [Primary Care Provider] - 1-2 days Decision to Admit Reason: Admit from EC Decision Date: 09/14/20 Decision Time: 15:40
--- NOTE | 2020-09-14 15:12 | P.PN ---
Progress Note - Text Progress Note Date: 09/14/20 (0962) Anesthesiology Called to see patient by the ER doctor to help place airway for airway pro tection. Patient has apparent dental infection and upper airway swelling. Obvious swelling of the uvula. Currently patient is not short of breath able to breathe well through the nose. Satting 99% on room air. Due to the potential of decompensation quickly, requested to place endotracheal tube. Interviewed patient and has a history of blood pressure and testosterone replacement therapy. No ALLERGIES Time out 1346 for intubation, patient agreed. Verbally consented answered all questions. 175/96 heart rate of 112 stat 100% on 100% nonrebreather Nonrebreather was placed with 100% oxygen for the previous 5 minutes. When all tools were at the ready, propofol was given 200 mg IV push immediately followed by 140 mg of succinylcholine. [place] scope blade size 4 was used in one attempt to place a 7.5 endotracheal tube at 24 cm. Secured with tape and left and care of nurses. Patient tolerated procedure well blood pressure after was 178/112 heart rate 1:15 satting 99. Sat never dropped below 95% during intubation. Signed out to ER physician
--- NOTE | 2020-09-14 15:17 | CT ---
EXAMINATION TYPE: CT soft tissue neck w con DATE OF EXAM: 09/14/2020 HISTORY: Neck/uvula swelling COMPARISON: CT neck [address] DLP: 858.5 mGycm. Automated Exposure Control for Dose Reduction was Utilized. TECHNIQUE: CT scan of the neck is performed with IV Contrast, patient injected with 100 mL of Isovue 300, axial images are obtained, coronal and sagittal reformatted images are reviewed. FINDINGS: Airway: Endotracheal tube terminates at the level of aortic knob above jessica. Visualized portion of the nasogastric tube unremarkable. Secretions in the nasopharynx are present. There is artifact from patient motion and cavitary fillings makes evaluation of the oral pharynx suboptimal. Epiglottis is n ot well-visualized. Thyroid gland within normal limits. Fullness in her level of the tongue base coul d reflect tonsillar hypertrophy. Visualized upper lungs grossly clear. Parotid/submandibular glands: Suboptimal evaluation, no obvious abnormality seen. Carotid/Vascular Structures: Suboptimal evaluation. Osseous Structures: Suboptimal evaluation, underlying levoconvex scoliosis . Mild to moderate disc sp valorie narrowing and spurring C5-C6 and C6-C7 levels Other: No obvious abnormal greater than 1 cm adenopathy. IMPRESSION: Suboptimal significantly limited study. Satisfactory appearance of new nasogastric and en dotracheal tubes. No obvious mass or adenopathy on study 1 day earlier. Difficult to exclude [place] oedema on current study.
[2020-09-14] MEDS ORDERED: NALOXONE 0.4 MG/ML 1 ML VIAL IV PRN (15:19)
[2020-09-14] MEDS: MIDAZOLAM HCL 50 MG in SODIUM CHLORIDE 0.9% 40 ML IV SCH ×2 (15:41→22:44)
--- NOTE | 2020-09-14 15:42 | P.CNPUL ---
History of Present Illness Consult date: 09/14/20 Requesting physician: Og Rosenbaum Reason for consult: other (Acute hypoxic respiratory failure, acute uvulitis.) Chief complaint: Shortness of breath and neck discomfort History of present illness: This is a 50-year-old white male seen in the ER yesterday mostly with acute onset of right sided neck pain and discomfort, patient was prescribed a muscle relaxant and pain medication and advised to come back to the ER if his condition gets any worse. At that time the patient had a CT performed, was negative for any acute findings. Patient had no fever no chills, he is normally maintained o n losartan for high blood pressure. Patient was prescribed Flexeril yesterday, and milligrams twice a day, however today the patient developed worsening discomfort in the right neck, sore throat, and muffled voice. According to the ER physician, upon examination, he was noted to have extremely large and inflamed uvula. He recommended immediate intubation this was done by SPEECH CLINICIAN. And apparently there was no mention of any difficult intubation. Patient was intubated easily with a glido scope. Based on the note from the SPEECH CLINICIAN, there was no mention of swelling of the vocal cords, and no mention of the uvula being swollen. Patient was intubated with a 7.5 endotracheal tube placed on mechanica l ventilation. Repeat CT of the neck was basically unremarkable. Patient will be admitted to the ICU, I saw him in the ER, I will recommend starting the patient empirically on antibiotics, and on Decadron. As the exact etiology of his uvulitis could be infectious, or could be ALLERGIC in nature. According to the at bedside, patient had no symptoms of fever or chills, no symptoms to suggest any recent infection. The only complaint he had was mostly right neck pain and discomfort described as a muscle spasm in the right neck area. Patient had no symptoms to suggest severe GERD, he does have history of obstructive sleep apnea not very compliant with his CPAP. Labs in the ER including CBC, basic metabolic profile, renal profile were all normal. C-reactive protein was elevated at 36. Review of Systems ROS unobtainable: due to endotracheal tube Past Medical History Past Medical History: No Reported History Additional Past Medical History / Comment(s): hirshprung disease History of Any Multi-Drug Resistant Organisms: None Reported Past Surgical History: Orthopedic Surgery Additional Past Surgical History / Comment(s): five abdominal surgery, BL knees, right forearm, right ring finger, left shoulder Past Psychological History: No Psychological Hx Reported Smoking Status: Never smoker Past Alcohol Use History: None Reported Past Drug Use History: None Reported Medications and Allergies Home Medications Medication Instructions Recorded Confirmed Type Amitriptyline HCl [Elavil] 10 mg PO QAM 11/29/16 09/14/20 History Cyclobenzaprine [Flexeril] 10 mg PO TID #20 tab 09/13/20 09/14/20 Rx Losartan Potassium 50 mg PO QAM 09/13/20 09/14/20 History Meloxicam [Mobic] 15 mg PO QAM 09/13/20 09/14/20 History Allergies Allergy/AdvReac Type Severity Reaction Status Date / Time No Known Allergies Allergy Verified 09/14/20 13:37 Physical Exam Vitals: Vital Signs Temp Pulse Resp BP Pulse Ox 09/14/20 15:09 114 H 20 155/79 99 09/14/20 14:31 108 H 20 124/66 98 09/14/20 14:25 110 H 20 158/84 98 09/14/20 14:12 109 H 20 153/83 100 09/14/20 13:50 111 H 99 09/14/20 13:40 118 H 20 175/96 100 09/14/20 12:40 98.7 F 93 18 196/96 95 Intake and Output 09/14/20 09/14/20 09/14/20 06:59 14:59 22:59 Intake Total 4.626 Balance 4.626 Intake: Intake, IV Titration 4.626 Amount propofoL 500 mg In Empty 4.626 Bag 1 bag @ Titrate IV . Q0M ONE Rx#:[id number] Other: Weight 136.078 kg Physical Exam: Revealed a 50-year-old white male, obese, intubated, sedated, on mechanical ventilation, and on propofol. Head: Atraumatic, normocephalic. Endotracheal tube and orogastric tube are intact. HEENT: Short obese neck. [Neck is supple.] [No neck masses.] [No thyromegaly.] [No JVD.] No evidence of swelling of lips, or tongue. Chest: [Crackles and rhonchi noted bilaterally. No wheezing. Symmetrical chest expansion. Cardiac Exam: [Normal S1 and S2, no S3 gallop, no murmur.] Abdomen: [Obese, Soft, nontender, no megaly, no rebound, no guarding, normal bowel sounds.] Extremities: [No clubbing, no edema, no cyanosis.] Neurological Exam: Could not assess, patient is on propofol, sedated. Psychiatric: Could not assess, patient is sedated maintained on propofol. Skin: No rashes, no cyanosis. Results - Laboratory Findings CBC and BMP: 09/14/20 13:30 09/14/20 13:30 PT/INR, D-dimer PT 13.8 sec (9.0-12.0) H 09/14/20 13:30 INR 1.4 (<1.2) H 09/14/20 13:30 Abnormal lab findings: Abnormal Labs 09/14/20 09/14/20 09/14/20 13:30 13:30 13:30 Hct 53.6 H Eosinophils # 1.2 H PT 13.8 H INR 1.4 H ALT 77 H C-Reactive Protein 36.0 H - Diagnostic Findings Additional studies: CT of the soft tissues of the neck was reviewed, no evidence of significant abnormality. Chest x-ray showed bilateral atelectasis, cannot rule out underlying infiltrates. Assessment and Plan Assessment: Impression: Acute hypoxic respiratory failure requiring intubation and mechanical venti lation. Acute uvulitis, differential diagnoses for acute uvulitis will include infectious or ALLERGIC process. Or possibly angioedema, or could be related to GERD History of benign essential hypertension, not on valorie inhibitors, patient is maintained on losartan. History of obstructive sleep apnea Neck pain, likely secondary to cervical strain or muscle spasm. CT of the neck is reassuring. Recommendation: Continue ventilatory support. Adjust ventilator settings based on next ABG pH Transfer patient to ICU. Start patient empirically on antibiotics and on Medrol. GI and DVT prophylaxis. Reevaluated in the morning for possible weaning and extubation. We'll continue to follow. Time with Patient: Greater than 30
[2020-09-14 15:45] LABS: ABG Base Excess -0.2 mmol/L; ABG HCO3 28 mmol/L (21-25); ABG PCO2 68 mmHg (35-45); ABG PH 7.22 (7.35-7.45); ABG PO2 286 mmHg (83-108); ABG TCO2 30 mmol/L (19-24); Allen Test Performed? Yes
[2020-09-14] MEDS: SODIUM CHLORIDE 0.9% 1,000 ML IV SCH (15:57)
[2020-09-14 16:44] LABS: Glucose,Whole Blood 132 mg/dL (75-99)
[2020-09-14] MEDS ORDERED: INSULIN ASPART (NovoLOG) 100 UNIT/ML VIAL SQ SCH (17:30)
[2020-09-14] MEDS ORDERED: DEXAMETHASONE SOD PHOSPHATE 4 MG/ML 1 ML VIAL IV SCH (18:00)
[2020-09-14] MEDS: INSULIN ASPART (NovoLOG) 100 UNIT/ML VIAL SQ SCH ×2 (18:24→23:32)
[2020-09-14] MEDS: DEXAMETHASONE SOD PHOSPHATE 10 MG/ML 1 ML VIAL IV SCH ×2 (18:24→23:32)
[2020-09-14 19:02] LABS: Glucose,Whole Blood 97 mg/dL (75-99)
[2020-09-14 19:32] LABS: ABG Base Excess -1.1 mmol/L; ABG HCO3 24 mmol/L (21-25); ABG PCO2 41 mmHg (35-45); ABG PH 7.37 (7.35-7.45); ABG PO2 91 mmHg (83-108); ABG TCO2 25 mmol/L (19-24); Allen Test Performed? Yes
--- NOTE | 2020-09-14 19:36 | HP ---
HISTORY AND PHYSICAL DATE OF SERVICE: 09/14/2020 CHIEF COMPLAINTS: Throat swelling and respiratory difficulties. HISTORY OF PRESENT ILLNESS: This 50-year-old gentleman with a past medical history of multiple medical problems, including history of Hirschsprung's disease, history of abdominal surgeries, bilateral DJD, being followed by Dr. 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 The patient is apparently healthy, according to his fiancee, who recently relocated from [place]. The patient apparently came back from a trip to [place] through , and the patient was complaining of pain in the right ear area as well as muscle spasms. Patient came to the ER yesterday. Patient was given pain medications and also Flexeril. The patient took it, and this morning the patient was complaining of significant pain in the throat as well as swelling of the uvula. His voice was also muffled. The patient was complaining of sore throat also. Massively enlarged uvula was visualized. Because of concerns about airway compromise, the patient has been intubated at this time and sedated. Evaluation by Dr. Ashley is also ongoing. The possibility of angioneurotic edema was also being considered. Repeat CT scan of the neck was showing no acute abnormality. The patient is being transferred to the ICU at this time. The patient is unable to give a coherent history. Most of the history is taken from my discussion with the staff, ER physician, review of the chart and discussion with the patient's fiancee at the bedside. The ICU physician is following the patient closely. The patient was also taking losartan previously. There is no history of any fever or rigors. No history of contact with a COVID-19 patient. PAST MEDICAL HISTORY: History of Hirschsprung's disease with 5 abdominal surgeries, DJD. HOME MEDICATIONS: Mobic, losartan, Flexeril, Elavil. ALLERGIES: NONE. Family history, social history, review of systems could not be taken because of the patient's mental status. PHYSICAL EXAMINATION: Patient is mechanically intubated. Vent settings are noted. Pulse 108, blood pressure 155/70, respiration 18, temperature normal, pulse ox 97% on mechanical ventilation. HEENT: Conjunctivae normal. Oral mucosa moist. Endotracheal tube in situ. Throat is hard to visualize. NECK: No jugular venous distention. No carotid bruit. No lymph node enlargement. Minimal swelling appreciated. No erythema. No tenderness. CARDIOVASCULAR SYSTEM: S1, S2 muffled. No S3. No S4. RESPIRATORY SYSTEM: Breath sounds diminished at the bases. No rhonchi. No crackles. ABDOMEN: Soft, obese, non-tender. No mass palpable. LEGS: No edema. No swelling. NERVOUS SYSTEM: Patient is sedated. SKIN: No ulcer, rash, bleeding. JOINTS: No active deforming arthropathy. LYMPHATICS: No lymph node palpable in neck, axillae or groin. LABS: Labs at this time show WBC 9.7, hemoglobin 17.4. INR is 1.4. ABGs noted. AST is 48, ALT 77. C-reactive protein 36. Glucose 132. COVID-19 is negative. ASSESSMENT: 1. Acute hypoxic respiratory failure, possibly secondary to uvular swelling and possible angioneurotic edema. 2. Mild coagulopathy. INR 1.4. 3. Acute hypoxic respiratory failure, on mechanical ventilation. 4. Elevated ALT. 5. Elevated CRP. 6. History of Hirschsprung's disease and multiple abdominal surgeries. 7. History of degenerative joint disease. 8. Obesity with body mass index of 41.8. 9. FULL CODE. RECOMMENDATIONS AND DISCUSSION: In this 50-year-old gentleman who presented with multiple medical issues, at this time I recommend to continue the current medications, continue symptomatic treatment. Stop losartan. Treat with empiric steroids and empiric antibiotics. Otherwise, monitor in ICU. Repeat labs will be arranged. Cultures also will be sought. COVID-19 is negative, as mentioned earlier. Prognosis extremely guarded because of multiple complex medical issues. Further recommendations to follow. A copy of this dictation is being forwarded to Dr. Bauman, who is the primary physician. MMODL / IJN: [id number] /
[2020-09-14] MEDS: FAMOTIDINE 20 MG/2 ML VIAL IV SCH (19:57)
[2020-09-14] MEDS: HEPARIN SODIUM,PORCINE 5,000 UNIT/ML 1 ML VIAL SQ SCH (19:58)
[2020-09-14 20:01] LABS: Appearance,Urine Clear (Clear); Bilirubin,Urine Negative (Negative); Blood,Urine Negative (Negative); Color,Urine Yellow; Glucose,Urine (UA) Negative (Negative); Ketones,Urine Negative (Negative); Leukocyte Esterase,Urine Negative (Negative); Nitrite,Urine Negative (Negative); Protein,Urine Trace (Negative); Urobilinogen,Urine <2.0 mg/dL (<2.0)
[2020-09-14 20:16] LABS: Amphetamine Screen,Urine Not Detected (NotDetected); Barbiturate Screen,Urine Not Detected (NotDetected); Benzodiazepines Screen,Urine Not Detected (NotDetected); Cocaine Screen,Urine Not Detected (NotDetected); Methadone Screen, Urine Not Detected (NotDetected); Opiate Screen,Urine Detected (NotDetected); Oxycodone Screen, Urine Not Detected (NotDetected); Phencyclidine Screen,Urine Not Detected (NotDetected); Tricyclic Antidepressant,Urine Detected (NotDetected); Urn Cannabinoid Scrn Not Detected (NotDetected)
[2020-09-14 23:32] LABS: Glucose,Whole Blood 128 mg/dL (75-99)
[2020-09-14] MEDS: AMPICILLIN-SULBACTAM 3 GM in SODIUM CHLORIDE 0.9% 100 ML IVPB SCH (23:32)
[2020-09-14] MEDS: fentaNYL (PF) 1,000 MCG in SODIUM CHLORIDE 0.9% 80 ML IV SCH (23:40)
[2020-09-15] MEDS: SODIUM CHLORIDE 0.9% 1,000 ML IV SCH ×2 (01:28→12:10)
[2020-09-15 04:21] LABS: Basophils # (A) 0.1 k/uL (0-0.2); Basophils % (A) 1 %; Eosinophils # (A) 0.1 k/uL (0-0.7); Eosinophils % (A) 1 %; HCT 53.9 % (39.0-53.0); HGB 17.4 gm/dL (13.0-17.5); Lymphocytes # (A) 0.8 k/uL (1.0-4.8); Lymphocytes % (A) 6 %; MCH 30.5 pg (25.0-35.0); MCHC 32.4 g/dL (31.0-37.0); MCV 94.3 fL (80.0-100.0); Mean Platelet Volume 7.6; Monocytes # (A) 0.2 k/uL (0-1.0); Monocytes % (A) 1 %; Neutrophils # (A) 12.4 k/uL (1.3-7.7); Neutrophils % (A) 91 %; Platelet Count 235 k/uL (150-450); RBC 5.71 m/uL (4.30-5.90); RDW 13.5 % (11.5-15.5); WBC 13.6 k/uL (3.8-10.6)
[2020-09-15 04:28] LABS: Allen Test Performed? Yes
[2020-09-15 04:29] LABS: ABG Base Excess -1.4 mmol/L; ABG HCO3 24 mmol/L (21-25); ABG PCO2 45 mmHg (35-45); ABG PH 7.34 (7.35-7.45); ABG PO2 104 mmHg (83-108); ABG TCO2 26 mmol/L (19-24)
[2020-09-15 05:02] LABS: Amorphous Sediment,Urine Occasional /hpf; Appearance,Urine Turbid (Clear); Bilirubin,Urine Negative (Negative); Blood,Urine Negative (Negative); Color,Urine Light Red; Glucose,Urine (UA) Negative (Negative); Ketones,Urine Negative (Negative); Leukocyte Esterase,Urine Negative (Negative); Mucus,Urine Rare /hpf; Nitrite,Urine Negative (Negative); Protein,Urine 1+ (Negative); RBC,Urine 12 /hpf (0-5); Urobilinogen,Urine <2.0 mg/dL (<2.0); WBC,Urine 3 /hpf (0-5)
[2020-09-15 05:05] LABS: ALT 77 U/L (4-49); AST 48 U/L (17-59); African American GFR (CKD) >90 (>60 ml/min/1.73 sqM); Albumin 3.5 g/dL (3.5-5.0); Alkaline Phosphatase 50 U/L (38-126); Anion Gap 8 mmol/L; Blood Urea Nitrogen 20 mg/dL (9-20); Calcium 8.4 mg/dL (8.4-10.2); Carbon Dioxide 19 mmol/L (22-30); Chloride 106 mmol/L (98-107); Glucose 128 mg/dL (74-99); Non-African American GFR(CKD) >90 (>60 ml/min/1.73 sqM); Potassium 5.6 mmol/L (3.5-5.1); Sodium 133 mmol/L (137-145); Total Bilirubin 0.5 mg/dL (0.2-1.3); Total Protein 6.4 g/dL (6.3-8.2)
[2020-09-15 05:12] LABS: Specific Gravity,Urine 1.047 (1.001-1.035)
[2020-09-15] MEDS: INSULIN ASPART (NovoLOG) 100 UNIT/ML VIAL SQ SCH ×3 (05:22→18:36)
--- NOTE | 2020-09-15 08:05 | XR ---
EXAMINATION TYPE: XR chest 1V portable DATE OF EXAM: 09/15/2020 COMPARISON: Chest x-ray 09/14/2019 HISTORY: Intubated TECHNIQUE: Single frontal view of the chest is obtained. FINDINGS: Endotracheal tube and NG tube are overlying appropriate positions. No evident pneumothorax or sizable effusion. Bibasilar density is noted within the lungs. Cardiac mediastinal silhouette is within normal limits. Lung volumes are low and the patient is rotated. There are overlying leads. IMPRESSION: Bibasilar atelectasis, correlate to exclude pneumonia.
[2020-09-15] MEDS: HEPARIN SODIUM,PORCINE 5,000 UNIT/ML 1 ML VIAL SQ SCH ×2 (08:24→21:58)
[2020-09-15] MEDS: CHLORHEXIDINE GLUCONATE 15 ML CUP MUCOUS MEM SCH ×2 (08:24→21:58)
[2020-09-15] MEDS: DEXAMETHASONE SOD PHOSPHATE 10 MG/ML 1 ML VIAL IV SCH ×2 (08:24→16:26)
[2020-09-15] MEDS: AMPICILLIN-SULBACTAM 3 GM in SODIUM CHLORIDE 0.9% 100 ML IVPB SCH ×2 (08:24→16:25)
[2020-09-15] MEDS: FAMOTIDINE 20 MG/2 ML VIAL IV SCH ×2 (08:24→22:01)
[2020-09-15] MEDS: fentaNYL (PF) 1,000 MCG in SODIUM CHLORIDE 0.9% 80 ML IV SCH (11:04)
[2020-09-15 11:39] LABS: Glucose,Whole Blood 103 mg/dL (75-99)
--- NOTE | 2020-09-15 12:40 | P.PN ---
Subjective Progress Note Date: 09/15/20 Principal diagnosis: Acute hypoxic respiratory failure secondary to uvulitis This is a 50-year-old white male seen in the ER yesterday mostly with acute onset of right sided neck pain and discomfort, patient was prescribed a muscle relaxant and pain medication and advised to come back to the ER if his condition gets any worse. At that time the patient had a CT performed, was negative for any acute findings. Patient had no fever no chills, he is normally maintained on losartan for high blood pressure. Patient was prescribed Flexeril yesterday, and milligrams twice a day, however today the patient developed worsening discomfort in the right neck, sore throat, and muffled voice. According to the ER physician, upon examination, he was noted to have extremely large and inflamed uvula. He recommended immediate intubation this was done by SAFETY RELIEF VALVE TECHNICIAN. And apparently there was no mention of any difficult intubation. Patient was intubated easily with a glido scope. Based on the note from the SAFETY RELIEF VALVE TECHNICIAN, there was no mention of swelling of the vocal cords, and no mention of the uvula being swollen. Patient was intubated with a 7.5 endotracheal tube placed on mechanical ventilation. Repeat CT of the neck was basically unremarkable. Patient will be admitted to the ICU, I saw him in the ER, I will recommend starting the patient empirically on antibiotics, and on Decadron. As the exact etiology of his uvulitis could be infectious, or could be ALLERGIC in nature. According to the at bedside, patient had no symptoms of fever or chills, no symptoms to suggest any recent infection. The only complaint he had was mostly right neck pain and discomfort described as a muscle spasm in the right neck area. Patient had no symptoms to suggest severe GERD, he does have history of obstructive sleep apnea not very compliant with his CPAP. Labs in the ER including CBC, basic metabolic profile, renal profile were all normal. C- reactive protein was elevated at 36. The patient is seen today 09/15/2020 in follow-up in the intensive care unit. He remains intubated on mechanical ventilator. Current settings CMV at a rate of 20, tidal volume 500, FiO2 50% and a PEEP of 5. Morning blood gases reveal a pO2 104, pCO2 45, pH 7.34 on 50% FiO2. He remains sedated on propofol at 65 mcg/kg/m. He is on fentanyl at 0.5 mcg/kg/m. 0.9 normal saline at 100 ML's per hour. Antibiotics in the form of Unasyn. He remains on Decadron 10 mg IV every 8 hours. Chest x-ray reveals bibasilar atelectasis. Endo tube repositioned. Nasogastric tube in place. White count 13.6. Hemoglobin 17.4. Sodium 133. Potassium 5.6. Bicarb 19. Creatinine 0.96. Objective - Vital Signs Vital signs: Vital Signs Temp 98.5 F 09/15/20 12:00 Pulse 87 09/15/20 12:00 Resp 26 H 09/15/20 12:00 BP 114/54 09/15/20 12:00 Pulse Ox 94 L 09/15/20 12:00 Intake & Output 09/14/20 09/15/20 09/15/20 18:59 06:59 18:59 Intake Total 481.163 1749.002 830.308 Output Total 375 855 645 Balance 41.791 824.002 185.308 Weight 136.078 kg 140.6 kg 140.6 kg Intake: IV 300 1300 600 Ampicillin-Sulbactam 3 gm 100 In Sodium Chloride 0.9% 100 ml @ 200 mls/hr IVPB ONCE STA Rx#:[id number] Sodium Chloride 0.9% 1, 300 1300 500 000 ml @ 100 mls/hr IV . Q10H [facility] Rx#:[id number] Intake, IV Titration 116.791 379.002 230.308 Amount Midazolam HCl 50 mg In 0.25 21.283 Sodium Chloride 0.9% 40 ml @ 1 MG/HR 1 mls/hr IV .Q24H [facility] Rx#:[id number] fentaNYL (PF) 1,000 mcg 77.566 In Sodium Chloride 0.9% 80 ml @ Per Protocol IV . Q0M BETY Rx#:[id number] propofoL 500 mg In Empty 4.626 Bag 1 bag @ Titrate IV . Q0M ONE Rx#:[id number] propofoL 500 mg In Empty 111.915 357.719 152.742 Bag 1 bag @ Titrate IV . Q0M BETY Rx#:[id number] Output: Urine 375 855 645 Other: Voiding Method Indwelling Catheter Indwelling Catheter Indwelling Catheter - Exam GENERAL EXAM: Intubated, sedated 50-year-old gentleman,, comfortable in no apparent distress. HEAD: Normocephalic. EYES: Normal reaction of pupils, equal size. NOSE: Clear with pink turbinates. THROAT: Endotracheal and gastric tube secured in place. NECK: No masses, no JVD. CHEST: No chest wall deformity. LUNGS: Equal air entry with no crackles, wheeze, rhonchi or dullness. CVS: S1 and S2 normal with no audible murmur, regular rhythm. ABDOMEN: No hepatosplenomegaly, normal bowel sounds, no guarding or rigidity. SPINE: No scoliosis or deformity SKIN: No rashes CENTRAL NERVOUS SYSTEM: Sedated, tone is normal in all 4 extremities. EXTREMITIES: There is no peripheral edema. No clubbing, no cyanosis. Peripheral pulses are intact. - Labs CBC & Chem 7: 09/15/20 04:06 09/15/20 04:00 Labs: Abnormal Lab Results - Last 24 Hours (Table) 09/14/20 09/14/20 09/14/20 Range/Units 13:30 13:30 13:30 WBC (3.8-10.6) k/uL Hct 53.6 H (39.0-53.0) % Neutrophils # (1.3-7.7) k/uL Lymphocytes # (1.0-4.8) k/uL Eosinophils # 1.2 H (0-0.7) k/uL PT 13.8 H (9.0-12.0) sec INR 1.4 H (<1.2) ABG pH (7.35-7.45) ABG pCO2 (35-45) mmHg ABG pO2 (83-108) mmHg ABG HCO3 (21-25) mmol/L ABG Total CO2 (19-24) mmol/L ABG O2 Saturation (94-97) % Sodium (137-145) mmol/L Potassium (3.5-5.1) mmol/L Carbon Dioxide (22-30) mmol/L Glucose (74-99) mg/dL POC Glucose (mg/dL) (75-99) mg/dL ALT 77 H (4-49) U/L C-Reactive Protein 36.0 H (<10.0) mg/L Ur Specific [place] (1.001-1.035) Urine Protein (Negative) Urine RBC (0-5) /hpf Amorphous Sediment (None) /hpf Urine Mucus (None) /hpf Urine Opiates Screen (NotDetected) U Tricyclic Antidepress (NotDetected) 09/14/20 09/14/20 09/14/20 Range/Units 15:28 16:42 19:23 WBC (3.8-10.6) k/uL Hct (39.0-53.0) % Neutrophils # (1.3-7.7) k/uL Lymphocytes # (1.0-4.8) k/uL Eosinophils # (0-0.7) k/uL PT (9.0-12.0) sec INR (<1.2) ABG pH 7.22 L (7.35-7.45) ABG pCO2 68 H (35-45) mmHg ABG pO2 286 H (83-108) mmHg ABG HCO3 28 H (21-25) mmol/L ABG Total CO2 30 H 25 H (19-24) mmol/L ABG O2 Saturation 100.0 H 98.0 H (94-97) % Sodium (137-145) mmol/L Potassium (3.5-5.1) mmol/L Carbon Dioxide (22-30) mmol/L Glucose (74-99) mg/dL POC Glucose (mg/dL) 132 H (75-99) mg/dL ALT (4-49) U/L C-Reactive Protein (<10.0) mg/L Ur Specific [place] (1.001-1.035) Urine Protein (Negative) Urine RBC (0-5) /hpf Amorphous Sediment (None) /hpf Urine Mucus (None) /hpf Urine Opiates Screen (NotDetected) U Tricyclic Antidepress (NotDetected) 09/14/20 09/14/20 09/15/20 Range/Units 19:56 23:31 04:00 WBC (3.8-10.6) k/uL Hct (39.0-53.0) % Neutrophils # (1.3-7.7) k/uL Lymphocytes # (1.0-4.8) k/uL Eosinophils # (0-0.7) k/uL PT (9.0-12.0) sec INR (<1.2) ABG pH (7.35-7.45) ABG pCO2 (35-45) mmHg ABG pO2 (83-108) mmHg ABG HCO3 (21-25) mmol/L ABG Total CO2 (19-24) mmol/L ABG O2 Saturation (94-97) % Sodium 133 L (137-145) mmol/L Potassium 5.6 H (3.5-5.1) mmol/L Carbon Dioxide 19 L (22-30) mmol/L Glucose 128 H (74-99) mg/dL POC Glucose (mg/dL) 128 H (75-99) mg/dL ALT 77 H (4-49) U/L C-Reactive Protein (<10.0) mg/L Ur Specific [place] 1.050 H (1.001-1.035) Urine Protein Trace H (Negative) Urine RBC (0-5) /hpf Amorphous Sediment (None) /hpf Urine Mucus (None) /hpf Urine Opiates Screen Detected H (NotDetected) U Tricyclic Antidepress Detected H (NotDetected) 09/15/20 09/15/20 09/15/20 Range/Units 04:06 04:20 04:43 WBC 13.6 H (3.8-10.6) k/uL Hct 53.9 H (39.0-53.0) % Neutrophils # 12.4 H (1.3-7.7) k/uL Lymphocytes # 0.8 L (1.0-4.8) k/uL Eosinophils # (0-0.7) k/uL PT (9.0-12.0) sec INR (<1.2) ABG pH 7.34 L (7.35-7.45) ABG pCO2 (35-45) mmHg ABG pO2 (83-108) mmHg ABG HCO3 (21-25) mmol/L ABG Total CO2 26 H (19-24) mmol/L ABG O2 Saturation (94-97) % Sodium (137-145) mmol/L Potassium (3.5-5.1) mmol/L Carbon Dioxide (22-30) mmol/L Glucose (74-99) mg/dL POC Glucose (mg/dL) (75-99) mg/dL ALT (4-49) U/L C-Reactive Protein (<10.0) mg/L Ur Specific [place] 1.047 H (1.001-1.035) Urine Protein 1+ H (Negative) Urine RBC 12 H (0-5) /hpf Amorphous Sediment Occasional H (None) /hpf Urine Mucus Rare H (None) /hpf Urine Opiates Screen (NotDetected) U Tricyclic Antidepress (NotDetected) 09/15/20 Range/Units 11:37 WBC (3.8-10.6) k/uL Hct (39.0-53.0) % Neutrophils # (1.3-7.7) k/uL Lymphocytes # (1.0-4.8) k/uL Eosinophils # (0-0.7) k/uL PT (9.0-12.0) sec INR (<1.2) ABG pH (7.35-7.45) ABG pCO2 (35-45) mmHg ABG pO2 (83-108) mmHg ABG HCO3 (21-25) mmol/L ABG Total CO2 (19-24) mmol/L ABG O2 Saturation (94-97) % Sodium (137-145) mmol/L Potassium (3.5-5.1) mmol/L Carbon Dioxide (22-30) mmol/L Glucose (74-99) mg/dL POC Glucose (mg/dL) 103 H (75-99) mg/dL ALT (4-49) U/L C-Reactive Protein (<10.0) mg/L Ur Specific [place] (1.001-1.035) Urine Protein (Negative) Urine RBC (0-5) /hpf Amorphous Sediment (None) /hpf Urine Mucus (None) /hpf Urine Opiates Screen (NotDetected) U Tricyclic Antidepress (NotDetected) Microbiology - Last 24 Hours (Table) 09/15/20 01:35 Sputum Culture - Preliminary Sputum Assessment and Plan Assessment: 1 Acute hypoxic respiratory failure requiring intubation and mechanical ventilation. 2 Acute uvulitis, differential diagnoses for acute uvulitis will include infectious or ALLERGIC process. Or possibly angioedema, or could be related to GERD 3 History of benign essential hypertension, not on valorie inhibitors, patient is maintained on losartan. 4 History of obstructive sleep apnea 5 Neck pain, likely secondary to cervical strain or muscle spasm. CT of the neck is reassuring. 6 History of Hirschsprung's disease Plan: The patient was seen and evaluated by Dr. Ashley Chest x-ray, ABGs and labs reviewed We will increase the respiratory rate to 22 Decrease the FiO2 to 45% Continue the current treatment plan for now Awaiting ENT consult Continue Unasyn and Decadron Initiate tube feeds Daily interruption of sedation We will continue to follow and make further recommendations based on his clinical status Critical care time 38 minutes. I, the cosigning physician, performed a history & physical examination of the patient. Lungs sounds are clear. Maintaining good O2 saturations in the 90s on 50% FiO2 via the mechanical ventilator. I discussed the assessment and plan of care with my nurse practitioner, Eva Navarro. I attest to the above note as dictated by her.
[2020-09-15] MEDS ORDERED: CISATRACURIUM 2 MG/ML 5 ML VIAL IV ONE (14:15)
[2020-09-15 18:36] LABS: Glucose,Whole Blood 107 mg/dL (75-99)
--- NOTE | 2020-09-15 20:22 | PN ---
PROGRESS NOTE DATE OF SERVICE: 09/15/2020 This 50-year-old gentleman who was admitted with significant acute hypoxic respiratory failure, had features of throat swelling, possibly indicative of anaphylactic reaction, uvulitis or infective pathology is not completely ruled out. The soft tissue of the neck did not show any significant abnormality, study was suboptimal. The most recent chest x-ray which was done today was reviewed by me personally and shows minimal infiltrates. Past medical history and review of systems could not be taken, the patient mechanically sedated. CURRENT MEDICATIONS: Reviewed include Unasyn, Peridex, Decadron, Pepcid, Narcan, propofol. PHYSICAL EXAM: Patient is mechanically sedated. Pulse is 91, blood pressure 128/60, respiration 20, temperature 98.9, pulse ox 94% on 40% FIO2. HEENT: Conjunctivae normal. Oral mucosa moist. NECK: No jugular venous distention. No lymph node enlargement. CARDIOVASCULAR: S1, S2, muffled. No S3, no S4, RESPIRATORY: Diminished breath sounds at the bases. Bilateral scattered rhonchi and crackles. ABDOMEN: Soft. Multiple healing scars of surgery. LEGS: No edema, no swelling. NERVOUS SYSTEM: Mechanically sedated. LAB STUDIES: WBC 13.6, hemoglobin 17.4, sodium 133, potassium 5.6. UA shows some RBCs. ASSESSMENT: 1. Acute hypoxic respiratory failure possibly secondary to uvular swelling and possible angioneurotic edema. 2. Mild coagulopathy, INR 1.4. 3. Acute hypoxic respiratory failure on mechanical ventilation. 4. Elevated ALT. 5. Elevated CRP. 6. Hirschsprung's disease with multiple abdominal surgeries. 7. History of degenerative joint disease. 8. Obesity with body mass index of 41.8. 9. Hyponatremia. 10.Hyperkalemia. 11.FULL CODE. RECOMMENDATIONS AND DISCUSSION: Recommend to continue current management and symptomatic treatment. Continue with IV steroids. Monitor blood sugars closely. IV Unasyn has been initiated and the cultures are negative so far. I would also recommend Infectious Disease and ENT consultation. Prognosis guarded. Further recommendations to follow. MMODL / IJN: [id number] /
--- NOTE | 2020-09-15 21:07 | CONS ---
CONSULTATION DATE OF ADMISSION: 09/14/2020. DATE OF THE CONSULTATION: September 15, 2020. REASON FOR CONSULTATION: Edema of the uvula, uvulitis. HISTORY OF PRESENT ILLNESS: This patient is a 50-year-old male who is currently in the ICU and is intubated and therefore is not available for any historical information. The historical information has been gleaned from the patient's chart and from the nurses. The patient was apparently seen in the emergency room on September 13, complaining of a sore neck soft tissue x-ray, CT scan were unremarkable and the patient was discharged on Flexeril and Motrin and advised to follow up with his family physician. However, the following day on 09/14/2020, the patient returned to the emergency room and at that time was complaining of having a difficulty swallowing and a formed large foreign body sensation in his throat. The ER physician examined the patient and noted that there was significant soft tissue edema involving the soft palate and the uvula. Both of these structures were tremendously enlarged. A CT scan of the neck only revealed soft tissue swelling of the uvula, but no evidence of any laryngeal edema or base of tongue edema which might suggest any type of mass abscess or epiglottitis. The patient was intubated and I was consulted by the ER physician and advised that the patient would be admitted to the intensive care unit. The patient was intubated on an emergency basis because of concern about his airway. I advised the ER physician that the patient should be covered with some broad-spectrum antibiotic in the event that infection was the source of the tremendous swelling, although this is doubtful. In addition to this, I recommended the patient be placed on a regimen of dexamethasone 10 mg IV q.8 hours x3 doses, followed by 5 mg IV q.8 hours x3 doses, followed by 2 mg IV q.8 hours x3 doses, then stop. The patient remains intubated and sedated. PAST MEDICAL HISTORY: Reveals he has no known allergies. MEDICATIONS: His home medications include Mobic, losartan, Elavil, and the Flexeril that he was given in the emergency room to take at home. IT IS QUITE POSSIBLE THAT HE MAY HAVE HAD AN ALLERGIC REACTION TO THE FLEXERIL. REVIEW OF SYSTEMS: Reveals the cardiovascular system is positive for hypertension and musculoskeletal system is positive for osteoarthritis. The remainder of review of systems is unremarkable. PHYSICAL EXAMINATION: This patient is a 50-year-old male who is currently intubated, on the ventilator, and is sedated and therefore is not available for any historical information. He is afebrile at this time. HEENT examination: Patient is normocephalic. Tympanic membranes are normal. Middle ear spaces are free of any fluid or infection. Intranasal examination reveals moderate septal deviation with compensatory hypertrophy inferior turbinates. Examination of oropharynx with endotracheal tube is intact. Palpation of neck is negative without any neck masses or lymphadenopathy. Attempt to examine the patient's oropharynx, after the patient was given a short-acting paralytic medication intravenously, however, this was suboptimal because of the patient's very short neck and I was not able to get his mouth open very wide. With a little bit of the soft palate that I could see, still remained somewhat edematous. However, there did not appear to be any pushing of the tongue anteriorly by the swelling. Therefore, it is possible that the swelling has started to decrease secondary to the dexamethasone. The remainder of the head and neck exam done unremarkable. Chest/cardiovascular: Lung durán are clear to percussion and auscultation. Patient is in regular sinus rhythm. S1, S2 are present. No murmurs. Abdomen is without any masses, megaly or tenderness. The abdomen is soft. The remainder of physical exam is unremarkable. IMPRESSION: Suspect angioneurotic edema of the soft palate and uvula versus uvulitis secondary to allergic reaction from possibly Flexeril versus allergy ? PLAN: The patient will continue the dexamethasone regimen as outlined above and is currently on an intravenous antibiotic, Unasyn. I will see the patient tomorrow and at that time, we will most likely try giving the patient a slightly larger dose of the paralytic agent. It is quite possible that because of this patient's large size and rather heavy musculature that the dosage of the paralytic that we gave was essentially not large enough to be effective with respect to allowing the patient's jaw muscles to relax. Since the patient is intubated, certainly it is safe to give this patient the short-acting muscle paralytic. I will see the patient on a daily basis and advise with regards to extubation. I want to take this opportunity to thank you for allowing me to participate in the care of your patient. If I could be of any further assistance, please feel free to contact my office. MMODL / IJN: [id number] / MTDD
[2020-09-16 00:04] LABS: Glucose,Whole Blood 114 mg/dL (75-99)
[2020-09-16] MEDS: INSULIN ASPART (NovoLOG) 100 UNIT/ML VIAL SQ SCH ×4 (00:11→17:22)
[2020-09-16] MEDS: AMPICILLIN-SULBACTAM 3 GM in SODIUM CHLORIDE 0.9% 100 ML IVPB SCH ×3 (01:01→15:58)
[2020-09-16] MEDS: DEXAMETHASONE SOD PHOSPHATE 10 MG/ML 1 ML VIAL IV SCH ×4 (01:02→17:25)
[2020-09-16] MEDS: SODIUM CHLORIDE 0.9% 1,000 ML IV SCH ×3 (01:02→18:08)
[2020-09-16] MEDS: fentaNYL (PF) 1,000 MCG in SODIUM CHLORIDE 0.9% 80 ML IV SCH ×2 (02:15→16:16)
[2020-09-16 03:46] LABS: Basophils % (A) 0 %; Eosinophils # (A) 0.1 k/uL (0-0.7); Eosinophils % (A) 0 %; HCT 48.8 % (39.0-53.0); HGB 15.5 gm/dL (13.0-17.5); Lymphocytes # (A) 0.8 k/uL (1.0-4.8); Lymphocytes % (A) 7 %; MCH 29.8 pg (25.0-35.0); MCHC 31.8 g/dL (31.0-37.0); MCV 93.8 fL (80.0-100.0); Mean Platelet Volume 8.2; Monocytes # (A) 0.4 k/uL (0-1.0); Monocytes % (A) 4 %; Neutrophils # (A) 10.3 k/uL (1.3-7.7); Neutrophils % (A) 89 %; Platelet Count 231 k/uL (150-450); RBC 5.21 m/uL (4.30-5.90); RDW 13.4 % (11.5-15.5); WBC 11.6 k/uL (3.8-10.6)
[2020-09-16 03:55] LABS: ALT 65 U/L (4-49); AST 57 U/L (17-59); African American GFR (CKD) >90 (>60 ml/min/1.73 sqM); Albumin 3.1 g/dL (3.5-5.0); Alkaline Phosphatase 40 U/L (38-126); Anion Gap 6 mmol/L; Blood Urea Nitrogen 23 mg/dL (9-20); Carbon Dioxide 23 mmol/L (22-30); Chloride 105 mmol/L (98-107); Glucose 125 mg/dL (74-99); Non-African American GFR(CKD) 81 (>60 ml/min/1.73 sqM); Potassium 5.3 mmol/L (3.5-5.1); Sodium 134 mmol/L (137-145); Total Bilirubin 0.4 mg/dL (0.2-1.3); Total Protein 5.7 g/dL (6.3-8.2)
[2020-09-16 05:41] LABS: ABG Base Excess 0.9 mmol/L; ABG HCO3 26 mmol/L (21-25); ABG Oxygen Saturation 95.8 % (94-97); ABG PCO2 45 mmHg (35-45); ABG PH 7.37 (7.35-7.45); ABG PO2 77 mmHg (83-108); ABG TCO2 28 mmol/L (19-24); Allen Test Performed? Yes
[2020-09-16 06:59] LABS: Glucose,Whole Blood 111 mg/dL (75-99)
--- NOTE | 2020-09-16 07:27 | XR ---
EXAMINATION TYPE: XR chest 1V portable DATE OF EXAM: 09/16/2020 COMPARISON: 09/15/2020 HISTORY: Intubated TECHNIQUE: Single frontal view of the chest is obtained. FINDINGS: Endotracheal tube, NG tube are overlying appropriate positions. Pleural parenchymal change s are similar to prior exam. IMPRESSION: No significant interval change. Correlate for pneumonia, edema, atelectasis
[2020-09-16] MEDS ORDERED: DEXAMETHASONE SOD PHOSPHATE 10 MG/ML 1 ML VIAL IV PRN (09:01)
[2020-09-16] MEDS: CHLORHEXIDINE GLUCONATE 15 ML CUP MUCOUS MEM SCH ×2 (09:27→21:27)
[2020-09-16] MEDS: FAMOTIDINE 20 MG/2 ML VIAL IV SCH ×2 (09:28→21:27)
[2020-09-16] MEDS: HEPARIN SODIUM,PORCINE 5,000 UNIT/ML 1 ML VIAL SQ SCH ×2 (09:28→21:27)
[2020-09-16 11:26] LABS: Glucose,Whole Blood 113 mg/dL (75-99)
[2020-09-16 12:52] LABS: Glucose,Whole Blood 110 mg/dL (75-99)
--- NOTE | 2020-09-16 12:52 | P.PN ---
Subjective Progress Note Date: 09/16/20 Principal diagnosis: Acute hypoxic respiratory failure secondary to airways compromise secondary to acute uvulitis, possible angioedema This is a 50-year-old white male seen in the ER yesterday mostly with acute onset of right sided neck pain and discomfort, patient was prescribed a muscle relaxant and pain medication and advised to come back to the ER if his condition gets any worse. At that time the patient had a CT performed, was negative for any acute findings. Patient had no fever no chills, he is normally maintained on losartan for high blood pressure. Patient was prescribed Flexeril yesterday, and milligrams twice a day, however today the patient developed worsening discomfort in the right neck, sore throat, and muffled voice. According to the ER physician, upon examination, he was noted to have extremely large and inflamed uvula. He recommended immediate intubation this was done by STORAGE WORKER. And apparently there was no mention of any difficult intubation. Patient was intubated easily with a glido scope. Based on the note from the STORAGE WORKER, there was no mention of swelling of the vocal cords, and no mention of the uvula being swollen. Patient was intubated with a 7.5 endotracheal tube placed on mechanical ventilation. Repeat CT of the neck was basically unremarkable. Patient will be admitted to the ICU, I saw him in the ER, I will recommend starting the patient empirically on antibiotics, and on Decadron. As the exact etiology of his uvulitis could be infectious, or could be ALLERGIC in nature. According to the at bedside, patient had no symptoms of fever or chills, no symptoms to suggest any recent infection. The only complaint he had was mostly right neck pain and discomfort described as a muscle spasm in the right neck area. Patient had no symptoms to suggest severe GERD, he does have history of obstructive sleep apnea not very compliant with his CPAP. Labs in the ER including CBC, basic metabolic profile, renal profile were all normal. C- reactive protein was elevated at 36. The patient is seen today 09/15/2020 in follow-up in the intensive care unit. He remains intubated on mechanical ventilator. Current settings CMV at a rate of 20, tidal volume 500, FiO2 50% and a PEEP of 5. Morning blood gases reveal a pO2 104, pCO2 45, pH 7.34 on 50% FiO2. He remains sedated on propofol at 65 mcg/kg/m. He is on fentanyl at 0.5 mcg/kg/m. 0.9 normal saline at 100 ML's per hour. Antibiotics in the form of Unasyn. He remains on Decadron 10 mg IV every 8 hours. Chest x-ray reveals bibasilar atelectasis. Endo tube repositioned. Nasogastric tube in place. White count 13.6. Hemoglobin 17.4. Sodium 133. Potassium 5.6. Bicarb 19. Creatinine 0.96. Patient was reevaluated today on 09/16/2020, remains in the ICU, intubated and mechanically ventilated. Patient is on assist control rate of 22 tidal volume is 500 FiO2 is 45% and PEEP of 5. ABG showed pO2 of 77 pCO2 of 45 pH of 7.37, hence no changes were made with the ventilator settings. Chest x-ray showed mostly bibasilar atelectasis, no evidence of clear-cut pneumonia. Patient remains on propofol at 55 mcg/kg/m, fentanyl at 0.5 mcg/kg/h, and today he was noted to have significant increase in residual from enteral feeding/nasogastric tube. Hence I went ahead and recommended holding the tube feeding, reviewed the notes from the ENT yesterday, he believes that the patient continues to have significant upper airways edema and uvula remains inflamed enlargement. According to him there is slight improvement but he is planning to take another look today, and determine whether we could start addressing weaning and extubation on this patient. Earlier, the restroom therapist noted that there was no evidence of cuff leak. Hence that may imply that the patient continues to have significant airway swelling, and I would hold on weaning and extubation unless notified by ENT that the swelling is significantly improved. In the meantime I plan to continue Decadron, he is now on 6 mg IV push every 8 hours, and I held enteral feeding. Kept him on propofol and fentanyl drip. Objective - Vital Signs Vital signs: Vital Signs Temp 99.9 F H 09/16/20 11:46 Pulse 90 09/16/20 11:00 Resp 22 09/16/20 11:00 BP 106/51 09/16/20 11:00 Pulse Ox 94 L 09/16/20 11:00 Intake & Output 09/15/20 09/16/20 09/16/20 18:59 06:59 18:59 Intake Total 3731.279 8549.385 626.513 Output Total 1100 730 300 Balance 697.084 1098.385 326.513 Weight 140.6 kg Intake: IV 1200 1200 500 Ampicillin-Sulbactam 3 gm 100 In Sodium Chloride 0.9% 100 ml @ 200 mls/hr IVPB ONCE STA Rx#:[id number] Sodium Chloride 0.9% 1, 1100 1200 500 000 ml @ 100 mls/hr IV . Q10H BETY Rx#:[id number] Intake, IV Titration 442.506 460.385 116.513 Amount fentaNYL (PF) 1,000 mcg 77.566 106.464 65.318 In Sodium Chloride 0.9% 80 ml @ Per Protocol IV . Q0M BETY Rx#:[id number] propofoL 500 mg In Empty 364.940 353.921 51.195 Bag 1 bag @ Titrate IV . Q0M BETY Rx#:[id number] Tube Feeding 20 120 10 Other 90 Output: Urine 1100 730 300 Other: Voiding Method Indwelling Catheter Indwelling Catheter Indwelling Catheter - Exam Physical Exam: Revealed a 50-year-old white male, obese, intubated, sedated, on mechanical ventilation, on propofol and fentanyl. Head: Atraumatic, normocephalic. Endotracheal tube and orogastric tube are intact. HEENT: Short obese neck. [Neck is supple.] [No neck masses.] [No thyromegaly.] [No JVD.] No evidence of swelling of lips, or tongue. Chest: [Crackles and rhonchi noted bilaterally. No wheezing. Symmetrical chest expansion. Cardiac Exam: [Normal S1 and S2, no S3 gallop, no murmur.] Abdomen: [Obese, Soft, nontender, no megaly, no rebound, no guarding, normal bowel sounds.] Extremities: [No clubbing, no edema, no cyanosis.] Neurological Exam: Could not assess, patient is on propofol, sedated. Psychiatric: Could not assess, patient is sedated maintained on propofol. Skin: No rashes, no cyanosis. - Labs CBC & Chem 7: 09/16/20 03:03 09/16/20 03:03 Labs: Abnormal Lab Results - Last 24 Hours (Table) 09/15/20 09/15/20 09/15/20 Range/Units 18:16 18:17 18:34 WBC (3.8-10.6) k/uL Neutrophils # (1.3-7.7) k/uL Lymphocytes # (1.0-4.8) k/uL D-Dimer 1.66 H (<0.60) mg/L FEU ABG pO2 (83-108) mmHg ABG HCO3 (21-25) mmol/L ABG Total CO2 (19-24) mmol/L Sodium (137-145) mmol/L Potassium (3.5-5.1) mmol/L BUN (9-20) mg/dL Glucose (74-99) mg/dL POC Glucose (mg/dL) 107 H (75-99) mg/dL Calcium (8.4-10.2) mg/dL ALT (4-49) U/L C-Reactive Protein 24.4 H (<10.0) mg/L Total Protein (6.3-8.2) g/dL Albumin (3.5-5.0) g/dL 09/16/20 09/16/20 09/16/20 Range/Units 00:02 03:03 03:03 WBC 11.6 H (3.8-10.6) k/uL Neutrophils # 10.3 H (1.3-7.7) k/uL Lymphocytes # 0.8 L (1.0-4.8) k/uL D-Dimer (<0.60) mg/L FEU ABG pO2 (83-108) mmHg ABG HCO3 (21-25) mmol/L ABG Total CO2 (19-24) mmol/L Sodium 134 L (137-145) mmol/L Potassium 5.3 H (3.5-5.1) mmol/L BUN 23 H (9-20) mg/dL Glucose 125 H (74-99) mg/dL POC Glucose (mg/dL) 114 H (75-99) mg/dL Calcium 8.0 L (8.4-10.2) mg/dL ALT 65 H (4-49) U/L C-Reactive Protein (<10.0) mg/L Total Protein 5.7 L (6.3-8.2) g/dL Albumin 3.1 L (3.5-5.0) g/dL 09/16/20 09/16/20 09/16/20 Range/Units 05:32 06:57 11:26 WBC (3.8-10.6) k/uL Neutrophils # (1.3-7.7) k/uL Lymphocytes # (1.0-4.8) k/uL D-Dimer (<0.60) mg/L FEU ABG pO2 77 L (83-108) mmHg ABG HCO3 26 H (21-25) mmol/L ABG Total CO2 28 H (19-24) mmol/L Sodium (137-145) mmol/L Potassium (3.5-5.1) mmol/L BUN (9-20) mg/dL Glucose (74-99) mg/dL POC Glucose (mg/dL) 111 H 113 H (75-99) mg/dL Calcium (8.4-10.2) mg/dL ALT (4-49) U/L C-Reactive Protein (<10.0) mg/L Total Protein (6.3-8.2) g/dL Albumin (3.5-5.0) g/dL Microbiology - Last 24 Hours (Table) 09/15/20 01:35 Gram Stain - Preliminary Sputum Sputum Culture - Preliminary 09/14/20 13:30 Blood Culture - Preliminary Blood No Growth after 24 hours Assessment and Plan Assessment: Impression: Acute hypoxic respiratory failure requiring intubation and mechanical ventilation. Acute uvulitis, differential diagnoses for acute uvulitis will include infectious or ALLERGIC process. Or possibly angioedema, or could be related to GERD History of benign essential hypertension, not on valorie inhibitors, patient is maintained on losartan. History of obstructive sleep apnea Neck pain, likely secondary to cervical strain or muscle spasm. CT of the neck is reassuring. Recommendation: Continue ventilatory support. ENT to reevaluate his upper airways today again. Continue to monitor in the ICU. Hold enteral feeding because of high residual. Continue Decadron. Presently on 6 mg IV push every 8 hours. May address weaning parameters and weaning trials later today, otherwise most likely will be left for the next 24 hours. Continue Unasyn. Continue GI and DVT prophylaxis. Patient remains critically ill, and will remain in the ICU Critical care time is 35 minutes We'll continue to follow. Time with Patient: Greater than 30
[2020-09-16] MEDS ORDERED: CISATRACURIUM 2 MG/ML 5 ML VIAL IV ONE (14:58)
[2020-09-16] MEDS ORDERED: DEXAMETHASONE SOD PHOSPHATE 4 MG/ML 1 ML VIAL IV SCH ×2 (16:00)
--- NOTE | 2020-09-16 16:39 | PN ---
PROGRESS NOTE DATE OF SERVICE: 09/16/2020 This 50-year-old gentleman was admitted with significant acute hypoxic respiratory failure with significant throat swelling and uvula swelling and possibly allergic reaction or infection. The patient was mechanically intubated because of acute hypoxic respiratory failure and protection of airway. ENT is following the patient. He is on IV steroids also. The patient being closely monitored. Past medical history reviewed. REVIEW OF SYSTEMS: Could not be taken. The patient mechanically ventilated and sedated. CURRENT MEDICATIONS: Reviewed and include: Unasyn, Peridex, Decadron, Pepcid, Narcan. PHYSICAL EXAMINATION: Patient is mechanically sedated. Vent settings are noted. Pulse 91, blood pressure 122/60. Respiration 22. Temperature 99.9, pulse ox 99% on 40% FiO2. HEENT: Conjunctivae normal. Facial puffiness present. CARDIOVASCULAR: S1, S2. RESPIRATIONS: Breath sounds diminished in the bases. A few scattered rhonchi. ABDOMEN: Soft. Obese. LEGS: No edema. No swelling. NERVOUS SYSTEM sedated. LABS: WBC 11.6. ABG, pH of 7.37, sodium 134, potassium 5.3. Heterophile antibody was negative and D-dimer was 1.66. INR is 1.4. ASSESSMENT: 1. Acute hypoxic respiratory failure possibly secondary to uvula swelling and possible angioneurotic edema. 2. Mild coagulopathy. INR 1.4. 3. Elevated D-dimer. 4. Acute hypoxic respiratory failure on mechanical ventilation. 5. Elevated ALT. 6. Elevated CRP. 7. 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 8. History of degenerative joint disease. 9. Obesity with body mass index of 41.8. 10.Hyponatremia. 11.Hyperkalemia. 12.FULL CODE. RECOMMENDATIONS AND DISCUSSION: I recommend to continue current medications. Continue with monitoring. Symptomatic treatment. Otherwise at this time, continue the mechanical ventilation and consider CT angio of the chest and ultrasound of the legs because of the elevated D-dimer. Otherwise further recommendations regarding mechanical ventilation per Dr. Ashley. Closely follow with ENT and Infectious Disease. Guarded prognosis because of multiple complex medical issues. Further recommendations to follow. MMODL / IJN: [id number] / MTDJose
--- NOTE | 2020-09-16 16:50 | US ---
EXAMINATION TYPE: US venous doppler duplex LE BI DATE OF EXAM: 09/16/2020 4:23 PM COMPARISON: NONE CLINICAL HISTORY: Rule out DVT . ICU patient. Leg swelling. SIDE PERFORMED: Bilateral TECHNIQUE: The lower extremity deep venous system is examined utilizing real time linear array sonog gage with graded compression, doppler sonography and color-flow sonography. VESSELS IMAGED: Common Femoral Vein Deep Femoral Vein Greater Saphenous Vein * Femoral Vein Popliteal Vein Small Saphenous Vein * Proximal Calf Veins (* superficial vessels) Right Leg: Negative for DVT Left Leg: Negative for DVT IMPRESSION: No evidence of deep vein thrombosis in both legs.
[2020-09-16 17:23] LABS: Glucose,Whole Blood 102 mg/dL (75-99)
[2020-09-17 00:05] LABS: Glucose,Whole Blood 104 mg/dL (75-99)
[2020-09-17] MEDS: DEXAMETHASONE SOD PHOSPHATE 10 MG/ML 1 ML VIAL IV SCH ×4 (00:27→23:40)
[2020-09-17] MEDS: AMPICILLIN-SULBACTAM 3 GM in SODIUM CHLORIDE 0.9% 100 ML IVPB SCH ×4 (00:27→23:42)
[2020-09-17] MEDS: INSULIN ASPART (NovoLOG) 100 UNIT/ML VIAL SQ SCH ×5 (00:33→23:42)
[2020-09-17] MEDS: fentaNYL (PF) 1,000 MCG in SODIUM CHLORIDE 0.9% 80 ML IV SCH (03:41)
[2020-09-17 04:03] LABS: Basophils % (A) 0 %; Eosinophils # (A) 0.2 k/uL (0-0.7); Eosinophils % (A) 2 %; HCT 51.8 % (39.0-53.0); HGB 16.8 gm/dL (13.0-17.5); Lymphocytes # (A) 0.9 k/uL (1.0-4.8); Lymphocytes % (A) 8 %; MCH 30.5 pg (25.0-35.0); MCHC 32.5 g/dL (31.0-37.0); Mean Platelet Volume 8.1; Monocytes # (A) 0.4 k/uL (0-1.0); Monocytes % (A) 3 %; Neutrophils % (A) 87 %; Platelet Count 223 k/uL (150-450); RBC 5.52 m/uL (4.30-5.90); WBC 11.6 k/uL (3.8-10.6)
[2020-09-17 04:28] LABS: ALT 56 U/L (4-49); AST 53 U/L (17-59); African American GFR (CKD) >90 (>60 ml/min/1.73 sqM); Albumin 3.2 g/dL (3.5-5.0); Alkaline Phosphatase 30 U/L (38-126); Anion Gap 7 mmol/L; Blood Urea Nitrogen 28 mg/dL (9-20); Calcium 8.1 mg/dL (8.4-10.2); Carbon Dioxide 27 mmol/L (22-30); Chloride 104 mmol/L (98-107); Glucose 113 mg/dL (74-99); Non-African American GFR(CKD) >90 (>60 ml/min/1.73 sqM); Sodium 138 mmol/L (137-145); Total Bilirubin 0.7 mg/dL (0.2-1.3); Total Protein 6.1 g/dL (6.3-8.2)
[2020-09-17 04:35] LABS: Potassium 6.3 mmol/L (3.5-5.1)
[2020-09-17 05:24] LABS: ABG Base Excess 3.3 mmol/L; ABG HCO3 28 mmol/L (21-25); ABG Oxygen Saturation 99.1 % (94-97); ABG PCO2 42 mmHg (35-45); ABG PH 7.43 (7.35-7.45); ABG PO2 119 mmHg (83-108); ABG TCO2 29 mmol/L (19-24); Allen Test Performed? Yes
--- NOTE | 2020-09-17 05:41 | PN ---
PROGRESS NOTE DATE OF SERVICE: 09/16/2020 SUBJECTIVE: Vital signs stable. Patient remains intubated/sedated and on the ventilator. OBJECTIVE: Because of the positioning of the endotracheal tube and its fixation to the patient's upper lip/face, this precluded examination of the soft palate and uvula because the endotracheal tube elevated the soft palate out of view. Therefore, with the assistance of the respiratory therapist, the patient's nurse, and an additional nurse, we were able to temporarily remove the current endotracheal tube strap/brace, with care being taken to guard against dislodging the endotracheal tube. The patient was given a sufficient amount of paralytic agent so as to relax the jaw muscles. Using a metal tongue depressor and with adequate lighting I was able to finally see the patient's soft palate and uvula by simply being able to depress the endotracheal tube along with the patient's tongue. Again care was taken not to dislodge the endotracheal tube. Immediately one could see that all of the swelling of the soft palate and the uvula had resolved. That is to say the soft palate and the uvula appeared to be completely normal. In addition to this, I did not see any evidence of any unusual erythema, edema, or swelling in the region of the tonsils. With respect to the appearance of the uvula and the soft palate, all of the medical personnel present, that is to say the respiratory therapist, the patient's nurse, and an additional nurse, also were able to visualize exactly when I saw and agreed that the soft palate and the uvula appeared to be completely normal and that all of the edema had completely resolved. The remainder of the head and neck exam and chest and cardiovascular exam is unchanged as well. ASSESSMENT: Uvulitis, resolved. PLAN: Recommending continuing whatever medical treatment that the pulmonary/ICU manager documentation considers appropriate at this time. I will sign off from this case since the uvulitis has resolved. My opinion is that the source of the uvulitis was allergic and does not represent any type of infectious process either in the head and neck or elsewhere in the body. Certainly, the patient has been well covered with intravenous antibiotics to cover any type of infection of the head, neck, sinus, etc. If necessary, I may be reconsulted. Again, I would like to take this opportunity to thank you very much for allowing me to assist you in the care of this interesting patient. If I could be of any further assistance, do not hesitate to call my office. MMODL / IJN: [id number] /
[2020-09-17] MEDS ORDERED: SODIUM BICARB 8.4% 50 ML SYR (1 MEQ/ML) IV STA (06:18)
[2020-09-17] MEDS ORDERED: FUROSEMIDE 10 MG/ML 4 ML VIAL IV STA (06:18)
[2020-09-17] MEDS ORDERED: INSULIN REGULAR 100 UNIT/ML VIAL IV ONE (06:18)
[2020-09-17] MEDS ORDERED: CALCIUM GLUCONATE 1 GM in SODIUM CHLORIDE 0.9% 100 ML IVPB ONE (06:30)
[2020-09-17 06:36] LABS: Glucose,Whole Blood 100 mg/dL (75-99)
[2020-09-17] MEDS ORDERED: DEXTROSE 50% SYRINGE 50 ML IVP STA (07:44)
[2020-09-17] MEDS: SODIUM CHLORIDE 0.9% 1,000 ML IV SCH ×2 (07:57→21:59)
[2020-09-17] MEDS: HEPARIN SODIUM,PORCINE 5,000 UNIT/ML 1 ML VIAL SQ SCH ×2 (09:00→21:59)
[2020-09-17] MEDS: CHLORHEXIDINE GLUCONATE 15 ML CUP MUCOUS MEM SCH (09:01)
[2020-09-17] MEDS: FAMOTIDINE 20 MG/2 ML VIAL IV SCH ×2 (09:01→21:59)
--- NOTE | 2020-09-17 10:24 | XR ---
EXAMINATION TYPE: XR chest 1V portable DATE OF EXAM: 09/17/2020 COMPARISON: Chest x-ray 09/16/2020 HISTORY: Intubated TECHNIQUE: Single frontal view of the chest is obtained. FINDINGS: Endotracheal tube and NG tube overlying appropriate positions. There is no evident pneumot horax. Bibasilar increased density is noted, cardiac mediastinal silhouette is stable. Lung volumes a re low and the patient is rotated. There are overlying leads. IMPRESSION: Findings are similar to prior exam. May be basilar pneumonia versus edema, atelectasis, difficult to exclude effusion.
--- NOTE | 2020-09-17 10:56 | P.PN ---
Subjective Progress Note Date: 09/17/20 Principal diagnosis: Acute hypoxic respiratory failure secondary to airway compromise secondary to acute uvulitis possible angioedema This is a 50-year-old white male seen in the ER yesterday mostly with acute onset of right sided neck pain and discomfort, patient was prescribed a muscle relaxant and pain medication and advised to come back to the ER if his condition gets any worse. At that time the patient had a CT performed, was negative for any acute findings. Patient had no fever no chills, he is normally maintained on losartan for high blood pressure. Patient was prescribed Flexeril yesterday, and milligrams twice a day, however today the patient developed worsening discomfort in the right neck, sore throat, and muffled voice. According to the ER physician, upon examination, he was noted to have extremely large and inflamed uvula. He recommended immediate intubation this was done by STATION MANAGER. And apparently there was no mention of any difficult intubation. Patient was intubated easily with a glido scope. Based on the note from the STATION MANAGER, there was no mention of swelling of the vocal cords, and no mention of the uvula being swollen. Patient was intubated with a 7.5 endotracheal tube placed on mechanical ventilation. Repeat CT of the neck was basically unremarkable. Patient will be admitted to the ICU, I saw him in the ER, I will recommend starting the patient empirically on antibiotics, and on Decadron. As the exact etiology of his uvulitis could be infectious, or could be ALLERGIC in nature. According to the at bedside, patient had no symptoms of fever or chills, no symptoms to suggest any recent infection. The only complaint he had was mostly right neck pain and discomfort described as a muscle spasm in the right neck area. Patient had no symptoms to suggest severe GERD, he does have history of obstructive sleep apnea not very compliant with his CPAP. Labs in the ER including CBC, basic metabolic profile, renal profile were all normal. C- reactive protein was elevated at 36. The patient is seen today 09/15/2020 in follow-up in the intensive care unit. He remains intubated on mechanical ventilator. Current settings CMV at a rate of 20, tidal volume 500, FiO2 50% and a PEEP of 5. Morning blood gases reveal a pO2 104, pCO2 45, pH 7.34 on 50% FiO2. He remains sedated on propofol at 65 mcg/kg/m. He is on fentanyl at 0.5 mcg/kg/m. 0.9 normal saline at 100 ML's per hour. Antibiotics in the form of Unasyn. He remains on Decadron 10 mg IV every 8 hours. Chest x-ray reveals bibasilar atelectasis. Endo tube repositioned. Nasogastric tube in place. White count 13.6. Hemoglobin 17.4. Sodium 133. Potassium 5.6. Bicarb 19. Creatinine 0.96. Patient was reevaluated today on 09/16/2020, remains in the ICU, intubated and mechanically ventilated. Patient is on assist control rate of 22 tidal volume is 500 FiO2 is 45% and PEEP of 5. ABG showed pO2 of 77 pCO2 of 45 pH of 7.37, hence no changes were made with the ventilator settings. Chest x-ray showed mostly bibasilar atelectasis, no evidence of clear-cut pneumonia. Patient remains on propofol at 55 mcg/kg/m, fentanyl at 0.5 mcg/kg/h, and today he was noted to have significant increase in residual from enteral feeding/nasogastric tube. Hence I went ahead and recommended holding the tube feeding, reviewed the notes from the ENT yesterday, he believes that the patient continues to have significant upper airways edema and uvula remains inflamed enlargement. According to him there is slight improvement but he is planning to take another look today, and determine whether we could start addressing weaning and extubation on this patient. Earlier, the restroom therapist noted that there was no evidence of cuff leak. Hence that may imply that the patient continues to have significant airway swelling, and I would hold on weaning and extubation unless notified by ENT that the swelling is significantly improved. In the meantime I plan to continue Decadron, he is now on 6 mg IV push every 8 hours, and I held enteral feeding. Kept him on propofol and fentanyl drip. On 09/17/2020 patient seen in follow-up in the intensive care unit, patient remains sedated and intubated currently on assist control mode of ventilation with a rate of 22, tacrolimus 500, FiO2 45% and PEEP of 5, this morning his blood gases show pO2 of 119, pCO2 42 and pH is 7.43. Current IVs include 0.9 normal saline at a rate of 75 ML per hour, Diprivan and is at 50 mics per kilo per minute, and fentanyl is at 0.5 mics per kilo per hour. No tube feedings. Patient is not requiring any vasopressor support. Remains on antibiotics in the form of Unasyn, and patient sputum and blood cultures remain negative thus far. Patient remains on dexamethasone 6 mg every 8 hours. ENT specialist note that the uvulitis was ALLERGIC in nature, and not infectious, and had resolved at this time. Patient continues on IV Decadron, and intravenous antibiotics. Chest x-ray today shows bibasilar density, atelectasis, possible effusion. His labs have been reviewed showing white blood cell count of 11.6, hemoglobin is 16.8, sodium is 138, potassium is 6.3, chloride was 104, CO2 is 27, BUN of 28, creatinine 0.94. Hyperkalemia was treated with 1 dose of IV Lasix, 50% dext laura, 10 units of regular insulin, calcium gluconate and repeat the BMP will be done at 12:30 Objective - Vital Signs Vital signs: Vital Signs Temp 98.3 F 09/17/20 08:00 Pulse 78 09/17/20 10:00 Resp 22 09/17/20 10:00 BP 136/68 09/17/20 10:00 Pulse Ox 96 09/17/20 10:00 Intake & Output 09/16/20 09/17/20 09/17/20 18:59 06:59 18:59 Intake Total 0430.004 5731.799 536.364 Output Total 800 1160 2150 Balance 597.219 395.799 -1613.636 Intake: IV 1025 1050 300 Calcium Gluconate 1 gm In 100 Sodium Chloride 0.9% 100 ml @ 100 mls/hr IVPB ONCE ONE Rx#:[id number] Sodium Chloride 0.9% 1, 1025 900 300 000 ml @ 75 mls/hr IV . [id number] [facility] Rx#:[id number] sodium bicarb amp 50 Intake, IV Titration 362.219 505.799 236.364 Amount Ampicillin-Sulbactam 3 gm 100 In Sodium Chloride 0.9% 100 ml @ 200 mls/hr IVPB Q8HR [facility] Rx#:[id number] fentaNYL (PF) 1,000 mcg 93.536 77.679 42.865 In Sodium Chloride 0.9% 80 ml @ Per Protocol IV . Q0M [facility] Rx#:[id number] propofoL 500 mg In Empty 268.683 428.12 93.499 Bag 1 bag @ Titrate IV . Q0M [facility] Rx#:[id number] Tube Feeding 10 Output: Gastric Drainage 200 50 Urine 837 211 3905 Other: Voiding Method Indwelling Catheter Indwelling Catheter Indwelling Catheter - Exam GENERAL EXAM: sedated, 50-year-old white male on assist-control mode of ventilation with FiO2 of 45% and PEEP of 5 comfortable in no apparent distress. HEAD: Normocephalic/atraumatic. EYES: Normal reaction of pupils, equal size. Conjunctiva pink, sclera white. NOSE: Clear with pink turbinates. THROAT: No erythema or exudates. NECK: No masses, no JVD, no thyroid enlargement, no adenopathy. CHEST: No chest wall deformity. Symmetrical expansion. LUNGS: Equal air entry with no crackles, wheeze, rhonchi or dullness. CVS: Regular rate and rhythm, normal S1 and S2, no gallops, no murmurs, no rubs ABDOMEN: Soft, nontender. No hepatosplenomegaly, normal bowel sounds, no guarding or rigidity. EXTREMITIES: No clubbing, appears generally swollen no cyanosis, 2+ pulses and upper and lower extremities. MUSCULOSKELETAL: Muscle strength and tone normal. SPINE: No scoliosis or deformity SKIN: No rashes CENTRAL NERVOUS SYSTEM: Sedated, intubated. No focal deficits, tone is normal in all 4 extremities. - Labs CBC & Chem 7: 09/17/20 03:27 09/17/20 03:27 Labs: Abnormal Lab Results - Last 24 Hours (Table) 09/16/20 09/16/20 09/16/20 Range/Units 11:26 12:51 17:22 WBC (3.8-10.6) k/uL Neutrophils # (1.3-7.7) k/uL Lymphocytes # (1.0-4.8) k/uL ABG pO2 (83-108) mmHg ABG HCO3 (21-25) mmol/L ABG Total CO2 (19-24) mmol/L ABG O2 Saturation (94-97) % Potassium (3.5-5.1) mmol/L BUN (9-20) mg/dL Glucose (74-99) mg/dL POC Glucose (mg/dL) 113 H 110 H 102 H (75-99) mg/dL Calcium (8.4-10.2) mg/dL ALT (4-49) U/L Alkaline Phosphatase (38-126) U/L Total Protein (6.3-8.2) g/dL Albumin (3.5-5.0) g/dL 09/17/20 09/17/20 09/17/20 Range/Units 00:02 03:27 03:27 WBC 11.6 H (3.8-10.6) k/uL Neutrophils # 10.0 H (1.3-7.7) k/uL Lymphocytes # 0.9 L (1.0-4.8) k/uL ABG pO2 (83-108) mmHg ABG HCO3 (21-25) mmol/L ABG Total CO2 (19-24) mmol/L ABG O2 Saturation (94-97) % Potassium 6.3 H* (3.5-5.1) mmol/L BUN 28 H (9-20) mg/dL Glucose 113 H (74-99) mg/dL POC Glucose (mg/dL) 104 H (75-99) mg/dL Calcium 8.1 L (8.4-10.2) mg/dL ALT 56 H (4-49) U/L Alkaline Phosphatase 30 L (38-126) U/L Total Protein 6.1 L (6.3-8.2) g/dL Albumin 3.2 L (3.5-5.0) g/dL 09/17/20 09/17/20 Range/Units 05:12 06:33 WBC (3.8-10.6) k/uL Neutrophils # (1.3-7.7) k/uL Lymphocytes # (1.0-4.8) k/uL ABG pO2 119 H (83-108) mmHg ABG HCO3 28 H (21-25) mmol/L ABG Total CO2 29 H (19-24) mmol/L ABG O2 Saturation 99.1 H (94-97) % Potassium (3.5-5.1) mmol/L BUN (9-20) mg/dL Glucose (74-99) mg/dL POC Glucose (mg/dL) 100 H (75-99) mg/dL Calcium (8.4-10.2) mg/dL ALT (4-49) U/L Alkaline Phosphatase (38-126) U/L Total Protein (6.3-8.2) g/dL Albumin (3.5-5.0) g/dL Microbiology - Last 24 Hours (Table) 09/15/20 01:35 Gram Stain - Final Sputum Sputum Culture - Final 09/14/20 13:30 Blood Culture - Preliminary Blood No Growth after 48 hours Assessment and Plan Plan: Assessment: #1. Acute hypoxic rest or a failure requiring intubation and mechanical ventilation related to acute uvulitis, the possibilities including ALLERGIC or infectious, could also be related to angioedema or related to GERD/reflux #2. Elevated d-dimer, ultrasound lower extremities was negative for DVT #3. Morbid obesity #4. History of hypertension #5. Hyperkalemia, was treated with calcium gluconate, Lasix, D50, and insulin, follow-up BMP is pending #6. History of DJD #7. 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 Continue current dose of Decadron, and antibiotics. Continue GI and DVT prophylaxis. BMP will be repeated at 12:30 to follow-up on the serum potassium level of 6.3 after he has been treated. Cultures remained negative thus far, patient has had no fevers. Chest x-ray has been reviewed. We'll try to get the patient extubated today. I performed a history & physical examination of the patient and discussed their management with my nurse practitioner, Bella Riddle. I reviewed the nurse practitioner's note and agree with the documented findings and plan of care. Lung sounds are positive for diminished breath sounds. The findings and the impression was discussed with the patient. I attest to the documentation by the nurse practitioner. Time with Patient: Greater than 30
[2020-09-17 11:24] LABS: Glucose,Whole Blood 87 mg/dL (75-99)
[2020-09-17 12:58] LABS: African American GFR (CKD) >90 (>60 ml/min/1.73 sqM); Anion Gap 5 mmol/L; Blood Urea Nitrogen 29 mg/dL (9-20); Calcium 8.3 mg/dL (8.4-10.2); Carbon Dioxide 28 mmol/L (22-30); Chloride 104 mmol/L (98-107); Glucose 104 mg/dL (74-99); Non-African American GFR(CKD) 87 (>60 ml/min/1.73 sqM); Potassium 4.8 mmol/L (3.5-5.1); Sodium 137 mmol/L (137-145)
--- NOTE | 2020-09-17 15:54 | PN ---
PROGRESS NOTE DATE OF SERVICE: 09/17/2020 This 50-year-old gentleman who was admitted with acute hypoxic respiratory failure possibly secondary to uvular swelling, possibly angioneurotic edema also possibly has an infection also. The patient is extubated. Patient is slightly confused. The patient possibly has oral thrush also. Most recent chest x-ray which was reviewed personally by me showed bibasilar infiltrates/atelectasis and a venous Doppler showed no evidence of DVT. PAST MEDICAL HISTORY: Reviewed. REVIEW OF SYSTEMS: Review of systems could not be taken, the patient is mildly confused. CURRENT MEDICATIONS: Current medications are reviewed and include Unasyn IV, Pepcid, fentanyl, Dilaudid, propofol. PHYSICAL EXAMINATION: Patient is conscious, stuporous, was just extubated. Pulse is 94, blood pressure 152/81, respiration 18, temperature normal, pulse ox 93% on 3 L. HEENT: Conjunctivae normal. NECK: No jugular venous distention. CARDIOVASCULAR: S1, S2 muffled. RESPIRATORY: Breath sounds diminished at the bases. A few scattered rhonchi and crackles. ABDOMEN: Soft, nontender. LEGS: No edema, no swelling. NERVOUS SYSTEM: Diffusely weak. LABS: WBC 11.6, hemoglobin 16.8. Potassium 6.3, and 4.8. ASSESSMENT: 1. Acute hypoxic respiratory failure possibly secondary to uvula swelling and possibly angioneurotic edema and allergic reaction. 2. Rule out uvulitis and infection. 3. Mild coagulopathy. INR 1.4. 4. Status post mechanical ventilation. 5. Change in mental status, metabolic encephalopathy, multifactorial. 6. Acute hypoxic respiratory failure secondary to above. 7. Elevated D-Dimer with no evidence of deep vein thrombosis. 8. Increased ALT. 9. Increased CRP. 10.Hirschsprung's disease history with multiple abdominal surgeries. 11.History of degenerative joint disease. 12.Obesity with body mass index of 41.8. 13.Hyponatremia. 14.Hyperkalemia. 15.FULL CODE. RECOMMENDATIONS AND DISCUSSION: Recommend to continue current medications, continue with monitoring and symptomatic treatment. Otherwise continue with empiric antibiotics. Continue with steroids. Monitor closely. Guarded prognosis because of multiple complex medical issues. Closely follow with Dr. Lin. Further recommendations to follow. MMODL / IJN: [id number] /
[2020-09-17 18:23] LABS: Glucose,Whole Blood 96 mg/dL (75-99)
[2020-09-17] MEDS: NYSTATIN 100,000 UNIT/ML SUSP 500,000 UNIT/5 ML CUP PO SCH ×2 (18:24→22:09)
[2020-09-17] MEDS: HYDROmorphone 0.5 MG/0.5 ML SYRINGE IVP PRN (19:26)
[2020-09-17] MEDS ORDERED: hydrALAZINE HCL 20 MG/ML 1 ML VIAL IVP PRN (21:22)
[2020-09-17] MEDS ORDERED: cloNIDine 0.1 MG/24HR PATCH TRANSDERM SCH (22:00)
[2020-09-17 23:37] LABS: Glucose,Whole Blood 98 mg/dL (75-99)
[2020-09-18] MEDS ORDERED: ONDANSETRON 4 MG/2 ML VIAL IVP PRN (00:50)
[2020-09-18] MEDS: HYDROmorphone 0.5 MG/0.5 ML SYRINGE IVP PRN (03:59)
[2020-09-18 04:08] LABS: Basophils # (A) 0.1 k/uL (0-0.2); Basophils % (A) 0 %; Eosinophils # (A) 0.1 k/uL (0-0.7); Eosinophils % (A) 1 %; HGB 17.1 gm/dL (13.0-17.5); Lymphocytes # (A) 0.7 k/uL (1.0-4.8); Lymphocytes % (A) 6 %; MCH 30.9 pg (25.0-35.0); MCHC 34.1 g/dL (31.0-37.0); MCV 90.6 fL (80.0-100.0); Mean Platelet Volume 7.4; Monocytes # (A) 0.6 k/uL (0-1.0); Monocytes % (A) 5 %; Neutrophils # (A) 10.2 k/uL (1.3-7.7); Neutrophils % (A) 87 %; Platelet Count 270 k/uL (150-450); RBC 5.52 m/uL (4.30-5.90); WBC 11.7 k/uL (3.8-10.6)
[2020-09-18 04:16] LABS: ALT 69 U/L (4-49); AST 68 U/L (17-59); African American GFR (CKD) >90 (>60 ml/min/1.73 sqM); Albumin 3.5 g/dL (3.5-5.0); Alkaline Phosphatase 41 U/L (38-126); Anion Gap 7 mmol/L; Blood Urea Nitrogen 35 mg/dL (9-20); Calcium 8.4 mg/dL (8.4-10.2); Carbon Dioxide 28 mmol/L (22-30); Chloride 105 mmol/L (98-107); Glucose 121 mg/dL (74-99); Non-African American GFR(CKD) 87 (>60 ml/min/1.73 sqM); Potassium 4.5 mmol/L (3.5-5.1); Sodium 140 mmol/L (137-145); Total Bilirubin 0.8 mg/dL (0.2-1.3); Total Protein 6.2 g/dL (6.3-8.2)
--- NOTE | 2020-09-18 06:02 | PN ---
PROGRESS NOTE DATE OF SERVICE: 09/18/2020 REASON FOR FOLLOWUP: Uveitis and possible angioedema. INTERVAL HISTORY: Patient is currently afebrile. The patient remains to be intubated on the vent. The patient is hemodynamically stable not on pressor support. No significant purulent secretion that has been reported or any diarrhea. PHYSICAL EXAMINATION: Blood pressure is 154/85 with a pulse of 97, temperature 98.1, he is 94% on 4 L nasal cannula. General description is a middle-aged male intubated on the vent. Respiratory system: Unlabored breathing, decreased breath sounds in the bases, no wheeze. Heart S1, S2. Regular rate and rhythm. Abdomen is soft, no tenderness. LABS: Hemoglobin is 15, white count 11.6, BUN of 29, creatinine 1.0. Sputum has been negative. Blood culture so far negative. DIAGNOSTIC IMPRESSION AND PLAN: Patient admitted to the hospital with acute uveitis, concern for possible allergic reaction. X-ray which shows pneumonia versus edema. The patient's culture has been negative so far and is covered with Unasyn to continue while waiting for condition to stabilize and monitor clinical course closely. MMODL / IJN: [id number] /
[2020-09-18 06:04] LABS: Glucose,Whole Blood 105 mg/dL (75-99)
[2020-09-18] MEDS: INSULIN ASPART (NovoLOG) 100 UNIT/ML VIAL SQ SCH ×4 (06:07→23:57)
--- NOTE | 2020-09-18 08:12 | XR ---
EXAMINATION TYPE: XR chest 1V portable DATE OF EXAM: 09/18/2020 COMPARISON: Chest x-ray 09/17/2020 HISTORY: Extubated, abnormal chest x-ray TECHNIQUE: Single frontal view of the chest is obtained. FINDINGS: There is improved aeration at the lung bases, interval improved visualization of the left hemidiaphragm. There is motion on the exam. Costophrenic angles not entirely included on the film. En dotracheal and NG tube have been removed. There are overlying leads. Heart size is stable and enlarge d. Interstitium mildly increased. IMPRESSION: Interval extubation, improvement in aeration.
--- NOTE | 2020-09-18 09:22 | P.PN ---
Subjective Progress Note Date: 09/18/20 Principal diagnosis: Acute hypoxic respiratory failure secondary to airway compromise secondary to acute uvulitis possible angioedema This is a 50-year-old white male seen in the ER yesterday mostly with acute onset of right sided neck pain and discomfort, patient was prescribed a muscle relaxant and pain medication and advised to come back to the ER if his condition gets any worse. At that time the patient had a CT performed, was negative for any acute findings. Patient had no fever no chills, he is normally maintained on losartan for high blood pressure. Patient was prescribed Flexeril yesterday, and milligrams twice a day, however today the patient developed worsening discomfort in the right neck, sore throat, and muffled voice. According to the ER physician, upon examination, he was noted to have extremely large and inflamed uvula. He recommended immediate intubation this was done by LAB REP. And apparently there was no mention of any difficult intubation. Patient was intubated easily with a glido scope. Based on the note from the LAB REP, there was no mention of swelling of the vocal cords, and no mention of the uvula being swollen. Patient was intubated with a 7.5 endotracheal tube placed on mechanical ventilation. Repeat CT of the neck was basically unremarkable. Patient will be admitted to the ICU, I saw him in the ER, I will recommend starting the patient empirically on antibiotics, and on Decadron. As the exact etiology of his uvulitis could be infectious, or could be ALLERGIC in nature. According to the at bedside, patient had no symptoms of fever or chills, no symptoms to suggest any recent infection. The only complaint he had was mostly right neck pain and discomfort described as a muscle spasm in the right neck area. Patient had no symptoms to suggest severe GERD, he does have history of obstructive sleep apnea not very compliant with his CPAP. Labs in the ER including CBC, basic metabolic profile, renal profile were all normal. C- reactive protein was elevated at 36. The patient is seen today 09/15/2020 in follow-up in the intensive care unit. He remains intubated on mechanical ventilator. Current settings CMV at a rate of 20, tidal volume 500, FiO2 50% and a PEEP of 5. Morning blood gases reveal a pO2 104, pCO2 45, pH 7.34 on 50% FiO2. He remains sedated on propofol at 65 mcg/kg/m. He is on fentanyl at 0.5 mcg/kg/m. 0.9 normal saline at 100 ML's per hour. Antibiotics in the form of Unasyn. He remains on Decadron 10 mg IV every 8 hours. Chest x-ray reveals bibasilar atelectasis. Endo tube repositioned. Nasogastric tube in place. White count 13.6. Hemoglobin 17.4. Sodium 133. Potassium 5.6. Bicarb 19. Creatinine 0.96. Patient was reevaluated today on 09/16/2020, remains in the ICU, intubated and mechanically ventilated. Patient is on assist control rate of 22 tidal volume is 500 FiO2 is 45% and PEEP of 5. ABG showed pO2 of 77 pCO2 of 45 pH of 7.37, hence no changes were made with the ventilator settings. Chest x-ray showed mostly bibasilar atelectasis, no evidence of clear-cut pneumonia. Patient remains on propofol at 55 mcg/kg/m, fentanyl at 0.5 mcg/kg/h, and today he was noted to have significant increase in residual from enteral feeding/nasogastric tube. Hence I went ahead and recommended holding the tube feeding, reviewed the notes from the ENT yesterday, he believes that the patient continues to have significant upper airways edema and uvula remains inflamed enlargement. According to him there is slight improvement but he is planning to take another look today, and determine whether we could start addressing weaning and extubation on this patient. Earlier, the restroom therapist noted that there was no evidence of cuff leak. Hence that may imply that the patient continues to have significant airway swelling, and I would hold on weaning and extubation unless notified by ENT that the swelling is significantly improved. In the meantime I plan to continue Decadron, he is now on 6 mg IV push every 8 hours, and I held enteral feeding. Kept him on propofol and fentanyl drip. On 09/17/2020 patient seen in follow-up in the intensive care unit, patient remains sedated and intubated currently on assist control mode of ventilation with a rate of 22, tacrolimus 500, FiO2 45% and PEEP of 5, this morning his blood gases show pO2 of 119, pCO2 42 and pH is 7.43. Current IVs include 0.9 normal saline at a rate of 75 ML per hour, Diprivan and is at 50 mics per kilo per minute, and fentanyl is at 0.5 mics per kilo per hour. No tube feedings. Patient is not requiring any vasopressor support. Remains on antibiotics in the form of Unasyn, and patient sputum and blood cultures remain negative thus far. Patient remains on dexamethasone 6 mg every 8 hours. ENT specialist note that the uvulitis was ALLERGIC in nature, and not infectious, and had resolved at this time. Patient continues on IV Decadron, and intravenous antibiotics. Chest x-ray today shows bibasilar density, atelectasis, possible effusion. His labs have been reviewed showing white blood cell count of 11.6, hemoglobin is 16.8, sodium is 138, potassium is 6.3, chloride was 104, CO2 is 27, BUN of 28, creatinine 0.94. Hyperkalemia was treated with 1 dose of IV Lasix, 50% dext laura, 10 units of regular insulin, calcium gluconate and repeat the BMP will be done at 12:30. On 09/18/2020 patient seen in follow-up in the intensive care unit, yesterday she was successfully weaned and extubated from the mechanical ventilator, tolerating extubation well so far, he is on 3 L per nasal cannula his pulse ox is 92-93%, he is breathing comfortably, does not appear to be in any acute distress, no stridor, no neck swelling, no lip swelling. No fever or chills, not on any vasopressor support. He continues on IV Decadron 6 mg every 6 hours, which we can discontinue now. Patient is a little encephalopathic, he opens eyes spontaneously however he tends to stare off into space, and at times he may be slow to respond, but no focal neurological deficits noted. Patient thought brandon hopper was at home, he is disoriented to time. But able to answer simple questions, denies any difficulty breathing, no cough, lung sounds are clear, diminished at the bases. Chest x-ray has been reviewed showing improvement in aeration. Today's labs have been reviewed showing white blood cell count 11.7, hemoglobin is 17.1, electrolytes are within normal limits and B1 is 35 with creatinine of 1. His sputum and blood cultures have been negative, he remains on Unasyn for antibiotic coverage. Objective - Vital Signs Vital signs: Vital Signs Temp 98 F 09/18/20 04:00 Pulse 101 H 09/18/20 08:00 Resp 18 09/18/20 08:00 BP 138/82 09/18/20 08:00 Pulse Ox 92 L 09/18/20 08:00 Intake & Output 09/17/20 09/18/20 09/18/20 18:59 06:59 18:59 Intake Total 1275.170 960 75 Output Total 2755 1300 100 Balance -1479.830 -340 -25 Weight 140.1 kg Intake: IV 900 960 75 Ampicillin-Sulbactam 3 gm 325 In Sodium Chloride 0.9% 100 ml @ 200 mls/hr IVPB Q8HR BETY Rx#:[id number] Sodium Chloride 0.9% 1, 900 635 75 000 ml @ 75 mls/hr IV . [id number] BETY Rx#:[id number] Intake, IV Titration 375.170 Amount Ampicillin-Sulbactam 3 gm 200 In Sodium Chloride 0.9% 100 ml @ 200 mls/hr IVPB Q8HR BETY Rx#:[id number] fentaNYL (PF) 1,000 mcg 42.865 In Sodium Chloride 0.9% 80 ml @ Per Protocol IV . Q0M BETY Rx#:[id number] propofoL 500 mg In Empty 132.305 Bag 1 bag @ Titrate IV . Q0M BETY Rx#:[id number] Output: Gastric Drainage 50 Urine 2705 1250 100 Emesis 50 Other: Voiding Method Indwelling Catheter Indwelling Catheter Indwelling Catheter - Exam GENERAL EXAM: Slightly encephalopathic 50-year-old white male on 2 L of oxygen and the pulse ox of 92-93%, a bit slow to respond, opens eyes spontaneously HEAD: Normocephalic/atraumatic. EYES: Normal reaction of pupils, equal size. Conjunctiva pink, sclera white. NOSE: Clear with pink turbinates. THROAT: No erythema or exudates. NECK: No masses, no JVD, no thyroid enlargement, no adenopathy. CHEST: No chest wall deformity. Symmetrical expansion. LUNGS: Equal air entry with no crackles, wheeze, rhonchi or dullness. CVS: Regular rate and rhythm, normal S1 and S2, no gallops, no murmurs, no rubs ABDOMEN: Soft, nontender. No hepatosplenomegaly, normal bowel sounds, no guarding or rigidity. EXTREMITIES: No clubbing, appears generally swollen no cyanosis, 2+ pulses and upper and lower extremities. MUSCULOSKELETAL: Muscle strength and tone normal. SPINE: No scoliosis or deformity SKIN: No rashes CENTRAL NERVOUS SYSTEM: Sedated, intubated. No focal deficits, tone is normal in all 4 extremities. - Labs CBC & Chem 7: 09/18/20 03:51 09/18/20 03:51 Labs: Abnormal Lab Results - Last 24 Hours (Table) 09/17/20 09/18/20 09/18/20 Range/Units 12:29 03:51 03:51 WBC 11.7 H (3.8-10.6) k/uL Neutrophils # 10.2 H (1.3-7.7) k/uL Lymphocytes # 0.7 L (1.0-4.8) k/uL BUN 29 H 35 H (9-20) mg/dL Glucose 104 H 121 H (74-99) mg/dL POC Glucose (mg/dL) (75-99) mg/dL Calcium 8.3 L (8.4-10.2) mg/dL AST 68 H (17-59) U/L ALT 69 H (4-49) U/L Total Protein 6.2 L (6.3-8.2) g/dL 09/18/20 Range/Units 06:01 WBC (3.8-10.6) k/uL Neutrophils # (1.3-7.7) k/uL Lymphocytes # (1.0-4.8) k/uL BUN (9-20) mg/dL Glucose (74-99) mg/dL POC Glucose (mg/dL) 105 H (75-99) mg/dL Calcium (8.4-10.2) mg/dL AST (17-59) U/L ALT (4-49) U/L Total Protein (6.3-8.2) g/dL Microbiology - Last 24 Hours (Table) 09/14/20 13:30 Blood Culture - Preliminary Blood No Growth after 72 hours 09/15/20 01:35 Gram Stain - Final Sputum Sputum Culture - Final Assessment and Plan Plan: Assessment: #1. Acute hypoxic rest or a failure requiring intubation and mechanical ventilation related to acute uvulitis, the possibilities including ALLERGIC or infectious, could also be related to angioedema or related to GERD/reflux #2. Elevated d-dimer, ultrasound lower extremities was negative for DVT #3. Morbid obesity #4. History of hypertension #5. Hyperkalemia, was treated with calcium gluconate, Lasix, D50, and insulin, follow-up BMP is pending #6. History of DJD #7. 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 If he is tolerating oral intake we will Hep-Lock his IV fluids. Continue antibiotics for now per ID service recommendations, from pulmonary/critical care perspective patient is stable for transfer out of intensive care unit to general medical floor today. Continue GI and DVT prophylaxis. I performed a history & physical examination of the patient and discussed their management with my nurse practitioner, Bella Riddle. I reviewed the nurse practitioner's note and agree with the documented findings and plan of care. Lung sounds are positive for diminished breath sounds. The findings and the impression was discussed with the patient. I attest to the documentation by the nurse practitioner. Time with Patient: Less than 30
[2020-09-18] MEDS: FAMOTIDINE 20 MG/2 ML VIAL IV SCH ×2 (09:31→23:41)
[2020-09-18] MEDS: AMPICILLIN-SULBACTAM 3 GM in SODIUM CHLORIDE 0.9% 100 ML IVPB SCH ×3 (09:31→23:54)
[2020-09-18] MEDS: HEPARIN SODIUM,PORCINE 5,000 UNIT/ML 1 ML VIAL SQ SCH ×2 (09:31→23:41)
[2020-09-18] MEDS: NYSTATIN 100,000 UNIT/ML SUSP 500,000 UNIT/5 ML CUP PO SCH ×4 (09:32→23:41)
[2020-09-18 10:26] VITALS: BMI 43.0
[2020-09-18] MEDS: SODIUM CHLORIDE 0.9% 1,000 ML IV SCH ×2 (12:06→23:57)
--- NOTE | 2020-09-18 13:35 | CT ---
EXAMINATION TYPE: CT brain wo con DATE OF EXAM: 09/18/2020 COMPARISON: None INDICATION: AMS DLP: 1123.4 mGycm, Automated exposure control for dose reduction was used. CONTRAST: None CT of the brain is performed utilizing 3 mm thick sections through the posterior fossa and 3 mm thick sections through the remaining calvarium. Study is performed within 24 hours of arrival to the hosp [facility]. No abnormal hyperdensity is present to suggest an acute intracranial hemorrhage. No mass lesion is evident. No acute infarcts are evident. Ventricles and sulci are appropriate for the patient age. Paranasal sinuses and mastoid air cells within the [id number] are clear. IMPRESSIONS: 1. No acute intracranial process.
[2020-09-18] MEDS ORDERED: ASPIRIN 300 MG SUPP RECTAL SCH (15:00)
--- NOTE | 2020-09-18 15:00 | P.CNNES ---
History of Present Illness Consult date: 09/18/20 Requesting physician: Namrata Conti Reason for Consult: altered mental status History of Present Illness: This is a 50-year-old gentleman medical history of hypertention, obstructive sleep apnea and noncompliant with the CPAP Hirschsprung's disease that presented to the emergency department on 09/14/2020 for revaluation of worsening of right neck pain. History was obtained from medical records and the patient's nurse s ari patient could not provide me with that information. Neurology is consulted for altered mental status. The patient developed sore throat a muffled voice. He was previously given muscle relaxants then and pain medication and advised to come back to the ER of his condition gets worse. He was noted to have massively enlarged uvula and inflamed with concern for airway compromise on this visit. The patient is not on any ADÁN inhibitor's. He is on losartan for high blood pressure. As a result the patient had immediate intubation. Also was noted in the medical record there is no swelling of the vocal cords and there is no mention of the uvula being swollen from RECOOPERER note. Per the ICU note it was felt that patient had Acute uvulitis with a possibly including ALLERGIC or infection and it could be related to angioedema or GERD as a result causing acute hypoxia requiring intubation. The patient was started on Decadron. He is on Decadron 6 mg IV every 6 hours. Also the patient is on Unasyn IV every hours. While the patient was intubated and on ventilator the patient was on sedation (Diprivan and Fentanyl IV) Yesterday the patient was extubated and sedation was stopped but seemed to be altered mentation and slow to respond but there is no focal neurological deficits as noted by the ICU team. His Decadron was discontinued. Per the patient nurse and he seems to be staring off but there is no fixed gaze deviation or any seizure-like activity. Workup in the hospital consisted of: On initial presentation the patient's white blood cell was 9.7 and the last one blood cell is 11.7. His most recent the electrolytes is the sodium is 140 which is normal. The BUN is 35 which is slightly elevated from the day prior but the creatinine is 1.0 which is normal. The serum glucose is 121. The AST is 68 and the ALT is 69. On presentation the AST was 48. And that ALT on presentation is 77 Calcium is 8.4. Urinalysis is negative for urinary tract infection. On presentation the urine toxicology screen is positive for opiates as well as tricyclic antidepressant that. Coronavirus PCR was checked twice and is negative. TSH is 2.43 and the free T4 is 1.10 and both are normal and dose were performed on 09-29-2019. Hemoglobin A1c is 5.2 and that was checked on 09-29-2019. Review of Systems Review of system: The 12 point system was reviewed and apparent positive and negative per HPI. Past Medical History Past Medical History: No Reported History Additional Past Medical History / Comment(s): hirshprung disease, HTN,. Per pts daughter, pt takes testosterone shots, he was also in stage 3 kidney failure at one time and has a mass on liver. History of Any Multi-Drug Resistant Organisms: None Reported Past Surgical History: Orthopedic Surgery Additional Past Surgical History / Comment(s): five abdominal surgery, BL knees, right forearm, right ring finger, left shoulder Past Psychological History: No Psychological Hx Reported Smoking Status: Never smoker Past Alcohol Use History: None Reported Past Drug Use History: None Reported Medications and Allergies Home Medications Medication Instructions Recorded Confirmed Type Amitriptyline HCl [Elavil] 10 mg PO QAM 11/29/16 09/14/20 History Cyclobenzaprine [Flexeril] 10 mg PO TID #20 tab 09/13/20 09/14/20 Rx Losartan Potassium 50 mg PO QAM 09/13/20 09/14/20 History Meloxicam [Mobic] 15 mg PO QAM 09/13/20 09/14/20 History Allergies Allergy/AdvReac Type Severity Reaction Status Date / Time No Known Allergies Allergy Verified 09/14/20 13:37 Physical Examination - Vital Signs Vital Signs: Vital Signs Temp Pulse Resp BP Pulse Ox 09/18/20 08:00 101 H 18 138/82 92 L 09/18/20 07:00 105 H 13 142/82 93 L 09/18/20 06:00 104 H 13 151/94 92 L 09/18/20 05:00 113 H 15 148/83 93 L 09/18/20 04:00 98 F 106 H 16 159/87 92 L 09/18/20 03:00 97 13 150/82 93 L 09/18/20 02:00 100 13 176/93 92 L 09/18/20 01:00 124 H 22 176/93 92 L 09/18/20 00:00 98.3 F 111 H 13 148/89 93 L 09/17/20 23:00 106 H 14 161/95 94 L 09/17/20 22:00 92 12 173/97 93 L 09/17/20 21:00 98 13 162/94 94 L 09/17/20 20:00 99.1 F 97 12 154/85 94 L 09/17/20 19:00 101 H 18 152/82 95 09/17/20 18:00 103 H 19 155/85 93 L 09/17/20 17:00 105 H 16 160/93 93 L 09/17/20 16:00 99.1 F 97 16 161/98 93 L 09/17/20 15:00 115 H 14 151/91 95 09/17/20 14:00 94 18 152/81 93 L Intake and Output 09/17/20 09/18/20 09/18/20 22:59 06:59 14:59 Intake Total 700 660 75 Output Total 545 955 100 Balance 155 -295 -25 Intake: IV 600 660 75 Ampicillin-Sulbactam 3 gm 325 In Sodium Chloride 0.9% 100 ml @ 200 mls/hr IVPB Q8HR BETY Rx#:[id number] Sodium Chloride 0.9% 1, 600 335 75 000 ml @ 75 mls/hr IV . [id number] BETY Rx#:[id number] Intake, IV Titration 100 Amount Ampicillin-Sulbactam 3 gm 100 In Sodium Chloride 0.9% 100 ml @ 200 mls/hr IVPB Q8HR BETY Rx#:[id number] Output: Urine 545 905 100 Emesis 50 Other: Voiding Method Indwelling Catheter Indwelling Catheter Indwelling Catheter Weight 140.1 kg 140.1 kg GENERAL: The patient is lying in bed and seems somewhat in distress. CHEST: The heart rate is regular rate rhythm. No murmurs to auscultation. No carotid bruit bilaterally. LUNG: Clear to auscultation bilaterally no wheezing noted throughout. Not labored breathing. ABDOMEN/GI: Bowel sounds present in all 4 quadrants. No tenderness to palpation throughout. NEUROLOGICAL: Higher mental function: The patient is awake, alert, oriented to self. But could not tell me the place or time. Patient is able to identify objects such as pen, cup and glassess. Patient is following simple commands but seem slow to respond. He has preservation. Which is very limited. No neglect. Cranial nerves: The pupils are round, equal and reactive to light. Visual durán are full to threat throughout. Extraocular movement is limited but upon looking to far right or left there is no nystagmus noted. Facial sensation is normal to touch throughout. The facial strength is normal throughout. Hearing is normal bilaterally to hand rub. Tongue is midline and moved [id number] without any difficulty. No dysarthria is noted from limited language. Shoulder shrug is normal bilaterally. Motor: Gait is deferred. The strength is 5 over 5 throughout. Normal tone and bulk. Cerebellum: Normal finger to nose bilaterally. Sensation: Sensation is normal to touch throughout. Reflexes (right/left): 3+ bilateral ankles but 2+ throughout. Plantars are downgoing bilaterally. Results - Laboratory Findings CBC and BMP: 09/18/20 03:51 09/18/20 03:51 Abnormal Lab Findings: Abnormal Labs 09/14/20 09/14/20 09/14/20 13:30 13:30 13:30 WBC Hct 53.6 H Neutrophils # Lymphocytes # Eosinophils # 1.2 H PT 13.8 H INR 1.4 H D-Dimer ABG pH ABG pCO2 ABG pO2 ABG HCO3 ABG Total CO2 ABG O2 Saturation Sodium Potassium Carbon Dioxide BUN Glucose POC Glucose (mg/dL) Calcium AST ALT 77 H Alkaline Phosphatase C-Reactive Protein 36.0 H Total Protein Albumin Ur Specific Cascade Urine Protein Urine RBC Amorphous Sediment Urine Mucus Urine Opiates Screen U Tricyclic Antidepress 09/14/20 09/14/20 09/14/20 15:28 16:42 19:23 WBC Hct Neutrophils # Lymphocytes # Eosinophils # PT INR D-Dimer ABG pH 7.22 L ABG pCO2 68 H ABG pO2 286 H ABG HCO3 28 H ABG Total CO2 30 H 25 H ABG O2 Saturation 100.0 H 98.0 H Sodium Potassium Carbon Dioxide BUN Glucose POC Glucose (mg/dL) 132 H Calcium AST ALT Alkaline Phosphatase C-Reactive Protein Total Protein Albumin Ur Specific Cascade Urine Protein Urine RBC Amorphous Sediment Urine Mucus Urine Opiates Screen U Tricyclic Antidepress 09/14/20 09/14/20 09/15/20 19:56 23:31 04:00 WBC Hct Neutrophils # Lymphocytes # Eosinophils # PT INR D-Dimer ABG pH ABG pCO2 ABG pO2 ABG HCO3 ABG Total CO2 ABG O2 Saturation Sodium 133 L Potassium 5.6 H Carbon Dioxide 19 L BUN Glucose 128 H POC Glucose (mg/dL) 128 H Calcium AST ALT 77 H Alkaline Phosphatase C-Reactive Protein Total Protein Albumin Ur Specific Cascade 1.050 H Urine Protein Trace H Urine RBC Amorphous Sediment Urine Mucus Urine Opiates Screen Detected H U Tricyclic Antidepress Detected H 09/15/20 09/15/20 09/15/20 04:06 04:20 04:43 WBC 13.6 H Hct 53.9 H Neutrophils # 12.4 H Lymphocytes # 0.8 L Eosinophils # PT INR D-Dimer ABG pH 7.34 L ABG pCO2 ABG pO2 ABG HCO3 ABG Total CO2 26 H ABG O2 Saturation Sodium Potassium Carbon Dioxide BUN Glucose POC Glucose (mg/dL) Calcium AST ALT Alkaline Phosphatase C-Reactive Protein Total Protein Albumin Ur Specific Cascade 1.047 H Urine Protein 1+ H Urine RBC 12 H Amorphous Sediment Occasional H Urine Mucus Rare H Urine Opiates Screen U Tricyclic Antidepress 09/15/20 09/15/20 09/15/20 11:37 18:16 18:17 WBC Hct Neutrophils # Lymphocytes # Eosinophils # PT INR D-Dimer 1.66 H ABG pH ABG pCO2 ABG pO2 ABG HCO3 ABG Total CO2 ABG O2 Saturation Sodium Potassium Carbon Dioxide BUN Glucose POC Glucose (mg/dL) 103 H Calcium AST ALT Alkaline Phosphatase C-Reactive Protein 24.4 H Total Protein Albumin Ur Specific Cascade Urine Protein Urine RBC Amorphous Sediment Urine Mucus Urine Opiates Screen U Tricyclic Antidepress 09/15/20 09/16/20 09/16/20 18:34 00:02 03:03 WBC 11.6 H Hct Neutrophils # 10.3 H Lymphocytes # 0.8 L Eosinophils # PT INR D-Dimer ABG pH ABG pCO2 ABG pO2 ABG HCO3 ABG Total CO2 ABG O2 Saturation Sodium Potassium Carbon Dioxide BUN Glucose POC Glucose (mg/dL) 107 H 114 H Calcium AST ALT Alkaline Phosphatase C-Reactive Protein Total Protein Albumin Ur Specific Cascade Urine Protein Urine RBC Amorphous Sediment Urine Mucus Urine Opiates Screen U Tricyclic Antidepress 09/16/20 09/16/20 09/16/20 03:03 05:32 06:57 WBC Hct Neutrophils # Lymphocytes # Eosinophils # PT INR D-Dimer ABG pH ABG pCO2 ABG pO2 77 L ABG HCO3 26 H ABG Total CO2 28 H ABG O2 Saturation Sodium 134 L Potassium 5.3 H Carbon Dioxide BUN 23 H Glucose 125 H POC Glucose (mg/dL) 111 H Calcium 8.0 L AST ALT 65 H Alkaline Phosphatase C-Reactive Protein Total Protein 5.7 L Albumin 3.1 L Ur Specific Cascade Urine Protein Urine RBC Amorphous Sediment Urine Mucus Urine Opiates Screen U Tricyclic Antidepress 09/16/20 09/16/20 09/16/20 11:26 12:51 17:22 WBC Hct Neutrophils # Lymphocytes # Eosinophils # PT INR D-Dimer ABG pH ABG pCO2 ABG pO2 ABG HCO3 ABG Total CO2 ABG O2 Saturation Sodium Potassium Carbon Dioxide BUN Glucose POC Glucose (mg/dL) 113 H 110 H 102 H Calcium AST ALT Alkaline Phosphatase C-Reactive Protein Total Protein Albumin Ur Specific Cascade Urine Protein Urine RBC Amorphous Sediment Urine Mucus Urine Opiates Screen U Tricyclic Antidepress 09/17/20 09/17/20 09/17/20 00:02 03:27 03:27 WBC 11.6 H Hct Neutrophils # 10.0 H Lymphocytes # 0.9 L Eosinophils # PT INR D-Dimer ABG pH ABG pCO2 ABG pO2 ABG HCO3 ABG Total CO2 ABG O2 Saturation Sodium Potassium 6.3 H* Carbon Dioxide BUN 28 H Glucose 113 H POC Glucose (mg/dL) 104 H Calcium 8.1 L AST ALT 56 H Alkaline Phosphatase 30 L C-Reactive Protein Total Protein 6.1 L Albumin 3.2 L Ur Specific Cascade Urine Protein Urine RBC Amorphous Sediment Urine Mucus Urine Opiates Screen U Tricyclic Antidepress 09/17/20 09/17/20 09/17/20 05:12 06:33 12:29 WBC Hct Neutrophils # Lymphocytes # Eosinophils # PT INR D-Dimer ABG pH ABG pCO2 ABG pO2 119 H ABG HCO3 28 H ABG Total CO2 29 H ABG O2 Saturation 99.1 H Sodium Potassium Carbon Dioxide BUN 29 H Glucose 104 H POC Glucose (mg/dL) 100 H Calcium 8.3 L AST ALT Alkaline Phosphatase C-Reactive Protein Total Protein Albumin Ur Specific Cascade Urine Protein Urine RBC Amorphous Sediment Urine Mucus Urine Opiates Screen U Tricyclic Antidepress 09/18/20 09/18/20 09/18/20 03:51 03:51 06:01 WBC 11.7 H Hct Neutrophils # 10.2 H Lymphocytes # 0.7 L Eosinophils # PT INR D-Dimer ABG pH ABG pCO2 ABG pO2 ABG HCO3 ABG Total CO2 ABG O2 Saturation Sodium Potassium Carbon Dioxide BUN 35 H Glucose 121 H POC Glucose (mg/dL) 105 H Calcium AST 68 H ALT 69 H Alkaline Phosphatase C-Reactive Protein Total Protein 6.2 L Albumin Ur Specific Cascade Urine Protein Urine RBC Amorphous Sediment Urine Mucus Urine Opiates Screen U Tricyclic Antidepress Assessment and Plan Assessment: This is a 50-year-old gentleman that presented to the emergency department on 09/14/2020 for reevaluation of worsening right neck pain. Was noted that the patient's had massively enlarged uvula and was inflamed by the ED team concerning for airway compromise. As a result the patient was intubated and was started on IV Decadron as well as IV Unasyn. Patient seems to have preservation and slow to response as well as I felt there is hypointensity over the left frontal on the CT of the head. Therefore I feel possibly the patient had acute/subacute ischemic stroke Also component of Altered mental status seems component of Toxic-metabolic encephalopathy (elevated LFT's, and use of Decadron). Acute uvulitis with a possibly including ALLERGIC or infection and it could be related to angioedema or GERD as a result causing acute hypoxia requied intubation History of hypertension History of Hirschsprung's disease status post multiple abdominal surgeries History of Osteoarthritis Morbid obesity Plan: CT of the head is ordered by the primary team and was reported as no acute intracranial process. I personally reviewed the CT of the head and felt there is hypointensity over the left frontal and the that seemed to be subacute to acute. I personally reviewed the images with the reading radiologist and he does agree there is some subtotal hypointensity and he felt like it was nonspecific. However he did feel like acute ischemic change however could be considered with a differential. I ordered MRI of the brain URGENT. I ordered lipid panel Per the patient nurse the patient cannot swallow at this time and will be further evaluated by speech therapy. In the meantime I'll start the patient on rectal aspirin 300 mg daily until the patient can handle by mouth as well as the once the patient is able to swallow was struck the Lipitor 40 mg daily. Physical therapy, occupational therapy, and speech therapy are CONSULTED. I'll order a routine EEG. I'll not start the patient on antiepileptic drugs unless there is epidural from discharges or seizure on the EEG. I ordered ammonia level and TSH. Infection disease team is on board. We'll defer the rest of the medical measure to the primary team and ICU team. The plan was discussed with the patient's nurse. Thank you for the consultation. Jason Lin MD Neuro-Hospitalist Time with Patient: Greater than 30
--- NOTE | 2020-09-18 15:08 | PN ---
PROGRESS NOTE DATE OF SERVICE: 09/18/2020 This 50-year-old gentleman was admitted with acute hypoxic respiratory failure, had significant swelling of the uvula, the possible allergic reaction or uvulitis is being considered. The patient is extubated. Patient is confused. Patient being closely monitored. PAST MEDICAL HISTORY: Reviewed. REVIEW OF SYSTEMS: Could not be taken, the patient is still confused. CURRENT MEDICATIONS: Current medications are reviewed and include Unasyn, q.6, clonidine, Pepcid, heparin, Apresoline, NovoLog, Narcan, Mycostatin, Zofran. PHYSICAL EXAMINATION: The patient is conscious, confused. Pulse is 101, restless. Blood pressure is 138/82, respiration 18, temperature normal, pulse ox 92% on 2 L. HEENT: Conjunctivae normal. NECK: No jugular venous distention. CARDIOVASCULAR: S1, S2 muffled. RESPIRATORY SYSTEM: Breath sounds diminished at the bases. A few scattered rhonchi and crackles. ABDOMEN: Soft. NERVOUS SYSTEM: Diffusely weak. LABS: WBC 11.7, hemoglobin 17.1, sodium 140, potassium 4.5 and AST 68, ALT 69. ASSESSMENT: 1. Acute hypoxic respiratory failure secondary to uvula swelling and possibly angioneurotic edema and allergic reaction. 2. Rule out uvulitis and infection. 3. Mild coagulopathy. INR 1.4. 4. Change in mental status, metabolic encephalopathy. 5. Status post mechanical ventilation. 6. Acute hypoxic respiratory failure secondary to above. 7. Elevated D-dimer with no evidence of deep vein thrombosis. 8. Increased ALT. 9. Increased CRP. 10.Hirschsprung's disease history with multiple abdominal surgeries. 11.History of degenerative joint disease. 12.Obesity with body mass index 41.8. 13.Hyponatremia. 14.Hyperkalemia. 15.FULL CODE. RECOMMENDATIONS AND DISCUSSION: Recommend to continue current medications and continue symptomatic treatment. Otherwise, continue with empiric antibiotics. Continue with steroids. Otherwise, I would also recommend a CT scan of the brain, which will be repeated and also a neurology evaluation also. Closely follow with Pulmonary and closely follow with Infectious Disease as well. ENT has already seen the patient. The cultures are negative so far. Prognosis guarded. Further recommendations to follow. MMODL / IJN: [id number] /
--- NOTE | 2020-09-18 17:04 | US ---
EXAMINATION TYPE: US carotid duplex BILAT DATE OF EXAM: 09/18/2020 COMPARISON: NONE CLINICAL HISTORY: stroke. AMS EXAM MEASUREMENTS: RIGHT: Peak Systolic Velocity (PSV) cm/sec ----- Right CCA: 167.3 ----- Right ICA: 121.0 ----- Right ECA: 206.5 ICA/CCA ratio: 0.7 RIGHT: End Diastole cm/sec ----- Right CCA: 25.4 ----- Right ICA: 9.5 ----- Right ECA: 20.7 LEFT: Peak Systolic Velocity (PSV) cm/sec ----- Left CCA: 139.7 ----- Left ICA: 73.6 ----- Left ECA: 157.4 ICA/CCA ratio: 0.5 LEFT: End Diastole cm/sec ----- Left CCA: 9.7 ----- Left ICA: 19.3 ----- Left ECA: 31.3 VERTEBRALS (direction of flow): Right Vertebral: Antegrade Left Vertebral: Antegrade Rhythm: Normal Technical limitations, ICU patient, unable to hold still. Generally increased velocities bilaterall y. IMPRESSION: There is antegrade flow in the vertebral arteries. The images and measurements suggest 50-70% stenosi s in the right internal and common carotid artery as well as the left common carotid artery. There is mild to moderate plaque formation. Limited exam. Criteria for Assigning % of Stenosis / Diameter reduction (Estimation based on the indirect measurements of the internal carotid artery velocities (ICA PSV). 1. Normal (no stenosis)=ICA PSV < 125 cm/s: ratio < 2.0: ICA EDV<40 cm/s. 2. Less than 50% stenosis=ICA PSV < 125 cm/s: ratio < 2.0: ICA EDV<40 cm/s. 3. 50 to 69% stenosis=ICA PSV of 125 to 230 cm/s: ration 2.0 ? 4.0: ICA EDV 40-100 cm/s. 4. Greater than 70% stenosis to near occlusion= ICA PSV > 230 cm/s: ratio > 4.0: ICA EDV > 100 cm/s. 5. Near occlusion= ICA PSV velocities may be low or undetectable: variable ratio and ICA EDV. 6. Total occlusion=unable to detect flow.
--- NOTE | 2020-09-18 17:44 | PN ---
PROGRESS NOTE DATE OF SERVICE: 09/18/2020 REASON FOR FOLLOWUP: 1. Uveitis. 2. pain. INTERVAL HISTORY: The patient was extubated yesterday. The patient seemed to have some confusion that has been noticed. The patient specifically denies having any headache. No chest pain. No cough. No abdominal pain. No diarrhea. Now specifically when he is where he is, he will not answer. No bloody diarrhea or any changes reported by the nursing staff. PHYSICAL EXAMINATION: Blood pressure 132/82 with a pulse of 101, temperature 98. He is 92% on 2 L nasal cannula. General description is a middle-aged male lying in bed in no distress. RESPIRATORY SYSTEM: Unlabored breathing with decreased intensity of breath sounds. No wheeze. HEART: S1, S2. Regular rate and rhythm. ABDOMEN: Soft. No tenderness. LABS: Hemoglobin is 17.9, white count 11.7 and BUN of 35. Creatinine 1.0. DIAGNOSTIC IMPRESSION AND PLAN: Patient with uveitis in this patient who was intubated, status post extubation. Sputum has been negative. Now with concern for mental status changes. He did have an abnormal CT. An MRI is pending. Will keep the patient on Unasyn. The patient neck rigidity or fever. Suspicion is low for meningitis or encephalitis; however, if MRI is negative, may recommended doing an LP. Will discuss further with the primary team. Continue supportive care. GORDON / EDUARDA: [id number] /
[2020-09-18 17:50] LABS: Glucose,Whole Blood 85 mg/dL (75-99)
[2020-09-18] MEDS: LACTULOSE 20 GM/30 ML CUP PO SCH ×2 (18:27→23:41)
--- NOTE | 2020-09-18 18:46 | EEG ---
ELECTROENCEPHALOGRAM REPORT DATE OF SERVICE: 09/18/2020. CLINICAL HISTORY: This is a 50-year-old gentleman with altered mental status. This video EEG is obtained to evaluate for seizure and epileptiform activity. RELEVANT MEDICATION: The patient is not on any antiepileptic drug. EEG TYPE: A routine 21-channel EEG is performed with video using the 10/20 electrode placement system. DESCRIPTION: Only wakefulness is obtained. There is no posterior-dominant rhythm seen. During wakefulness, the background consists of diffuse moderate voltage 1.5 to 2.5 hertz nonrhythmic activity intermixed with theta activity. There is no physiological stage II sleep seen. EEG is obscured by electrode artifact as well as sweat artifact throughout the study. As well, the patient was agitated and restless during the study. INTERICTAL AND ICTAL: None. ACTIVATION PROCEDURE: Photic stimulation did not evoke a posterior driving response. Again there is significant artifact as mentioned above during the photic stimulation. Hyperventilation is not performed. CLINICAL INTERPRETATION: This is an abnormal routine EEG. The background slowing is suggestive of moderate to severe encephalopathy of unspecified etiology. There are no focal slowing, epileptiform discharge or seizure during the study. There is artifact during the study as described above. Clinical correlation is recommended. MMODL / IJN: [id number] / DIANE
[2020-09-18 23:56] LABS: Glucose,Whole Blood 88 mg/dL (75-99)
[2020-09-19] MEDS ORDERED: RX INFO: IV CONTRAST WAS GIVEN 1 EACH MISC MISCELLANE PRN (02:04)
--- NOTE | 2020-09-19 03:13 | CT ---
EXAM: CT Angiography Head With Intravenous Contrast CLINICAL HISTORY: ITS.REASON CT Reason: Rule out stroke TECHNIQUE: Axial computed tomographic angiography images of the head with intravenous contrast. CTDI is 35.79 mGy and DLP is 1031 mGy-cm. This CT exam was performed using one or more of the following dose reduction techniques: automated exposure control, adjustment of the mA and/or kV according to patient size, and/or use of iterative reconstruction technique. MIP reconstructed images were created and reviewed. COMPARISON: No relevant prior studies available. FINDINGS: Right internal carotid artery: Intracranial segment is patent with no significant stenosis. No aneurysm. Right anterior cerebral artery: No occlusion or significant stenosis. No aneurysm. Right middle cerebral artery: No occlusion or significant stenosis. No aneurysm. Right posterior cerebral artery: No occlusion or significant stenosis. No aneurysm. Right vertebral artery: Unremarkable. Left internal carotid artery: Intracranial segment is patent with no significant stenosis. No aneurysm. Left anterior cerebral artery: No occlusion or significant stenosis. No aneurysm. Left middle cerebral artery: No occlusion or significant stenosis. No aneurysm. Left posterior cerebral artery: No occlusion or significant stenosis. No aneurysm. Left vertebral artery: Unremarkable. Basilar artery: No occlusion or significant stenosis. No aneurysm. IMPRESSION: No significant stenosis. EXAM: CT Angiography Neck With Intravenous Contrast CLINICAL HISTORY: ITS.REASON CT Reason: Rule out stroke TECHNIQUE: Axial computed tomographic angiography images of the neck with intravenous contrast. CTDI is 35.79 mGy and DLP is 1031 mGy-cm. This CT exam was performed using one or more of the following dose reduction techniques: automated exposure control, adjustment of the mA and/or kV according to patient size, and/or use of iterative reconstruction technique. MIP reconstructed images were created and reviewed. COMPARISON: No relevant prior studies available. FINDINGS: VASCULATURE: Right common carotid artery: No significant stenosis. No dissection. Right internal carotid artery: Extracranial has no significant stenosis. No dissection. Right vertebral artery: No significant stenosis. No dissection. Left common carotid artery: No significant stenosis. No dissection. Left internal carotid artery: Extracranial has no significant stenosis. No dissection. Left vertebral artery: No significant stenosis. No dissection. NECK: Bones/joints: No acute fracture. No dislocation. CAROTID STENOSIS REFERENCE USING NASCET CRITERIA: % ICA stenosis = (1 - narrowest ICA diameter/diameter of distal cervical ICA) x 100. Mild - <50% stenosis. Moderate - 50-69% stenosis. Severe - 70-94% stenosis. Near occlusion - 95-99% stenosis. Occluded - 100% stenosis. IMPRESSION: No significant stenosis.
--- NOTE | 2020-09-19 03:13 | CT ---
EXAM: CT Head Without Intravenous Contrast CLINICAL HISTORY: ITS.REASON CT Reason: rule out stroke TECHNIQUE: Axial computed tomography images of the head/brain without intravenous contrast. CTDI is 35.79 mGy and DLP is 1031 mGy-cm. This CT exam was performed using one or more of the following dose reduction techniques: automated exposure control, adjustment of the mA and/or kV according to patient size, and/or use of iterative reconstruction technique. COMPARISON: No relevant prior studies available. FINDINGS: Brain: No hemorrhage or mass effect. Ventricles: No hydrocephalus. Bones/joints: Unremarkable. Soft tissues: Unremarkable. Sinuses: Unremarkable. Mastoid air cells: Clear. IMPRESSION: No acute hemorrhage, hydrocephalus, or mass effect.
[2020-09-19 04:34] LABS: Basophils # (A) 0.1 k/uL (0-0.2); Basophils % (A) 1 %; Eosinophils # (A) 0.2 k/uL (0-0.7); Eosinophils % (A) 1 %; HGB 17.4 gm/dL (13.0-17.5); Lymphocytes # (A) 0.9 k/uL (1.0-4.8); Lymphocytes % (A) 7 %; MCH 30.2 pg (25.0-35.0); MCHC 33.5 g/dL (31.0-37.0); MCV 90.3 fL (80.0-100.0); Mean Platelet Volume 7.4; Monocytes # (A) 1.1 k/uL (0-1.0); Monocytes % (A) 9 %; Neutrophils # (A) 10.1 k/uL (1.3-7.7); Neutrophils % (A) 81 %; Platelet Count 214 k/uL (150-450); RBC 5.76 m/uL (4.30-5.90); RDW 13.1 % (11.5-15.5); WBC 12.5 k/uL (3.8-10.6)
[2020-09-19 04:43] LABS: ALT 166 U/L (4-49); AST 142 U/L (17-59); African American GFR (CKD) >90 (>60 ml/min/1.73 sqM); Albumin 3.4 g/dL (3.5-5.0); Alkaline Phosphatase 34 U/L (38-126); Anion Gap 7 mmol/L; Blood Urea Nitrogen 32 mg/dL (9-20); Calcium 8.2 mg/dL (8.4-10.2); Carbon Dioxide 22 mmol/L (22-30); Chloride 110 mmol/L (98-107); Glucose 96 mg/dL (74-99); Non-African American GFR(CKD) >90 (>60 ml/min/1.73 sqM); Potassium 4.9 mmol/L (3.5-5.1); Sodium 139 mmol/L (137-145); Total Bilirubin 1.2 mg/dL (0.2-1.3); Total Protein 6.3 g/dL (6.3-8.2)
[2020-09-19] MEDS: INSULIN ASPART (NovoLOG) 100 UNIT/ML VIAL SQ SCH (07:42)
--- NOTE | 2020-09-19 07:53 | P.PN ---
Subjective Progress Note Date: 09/19/20 Principal diagnosis: Acute hypoxic respiratory failure secondary to airway compromise secondary to acute uvulitis possible angioedema This is a 50-year-old white male seen in the ER yesterday mostly with acute onset of right sided neck pain and discomfort, patient was prescribed a muscle relaxant and pain medication and advised to come back to the ER if his condition gets any worse. At that time the patient had a CT performed, was negative for any acute findings. Patient had no fever no chills, he is normally maintained on losartan for high blood pressure. Patient was prescribed Flexeril yesterday, and milligrams twice a day, however today the patient developed worsening discomfort in the right neck, sore throat, and muffled voice. According to the ER physician, upon examination, he was noted to have extremely large and inflamed uvula. He recommended immediate intubation this was done by POLYMER TESTER. And apparently there was no mention of any difficult intubation. Patient was intubated easily with a glido scope. Based on the note from the POLYMER TESTER, there was no mention of swelling of the vocal cords, and no mention of the uvula being swollen. Patient was intubated with a 7.5 endotracheal tube placed on mechanical ventilation. Repeat CT of the neck was basically unremarkable. Patient will be admitted to the ICU, I saw him in the ER, I will recommend starting the patient empirically on antibiotics, and on Decadron. As the exact etiology of his uvulitis could be infectious, or could be ALLERGIC in nature. According to the at bedside, patient had no symptoms of fever or chills, no symptoms to suggest any recent infection. The only complaint he had was mostly right neck pain and discomfort described as a muscle spasm in the right neck area. Patient had no symptoms to suggest severe GERD, he does have history of obstructive sleep apnea not very compliant with his CPAP. Labs in the ER including CBC, basic metabolic profile, renal profile were all normal. C- reactive protein was elevated at 36. The patient is seen today 09/15/2020 in follow-up in the intensive care unit. He remains intubated on mechanical ventilator. Current settings CMV at a rate of 20, tidal volume 500, FiO2 50% and a PEEP of 5. Morning blood gases reveal a pO2 104, pCO2 45, pH 7.34 on 50% FiO2. He remains sedated on propofol at 65 mcg/kg/m. He is on fentanyl at 0.5 mcg/kg/m. 0.9 normal saline at 100 ML's per hour. Antibiotics in the form of Unasyn. He remains on Decadron 10 mg IV every 8 hours. Chest x-ray reveals bibasilar atelectasis. Endo tube repositioned. Nasogastric tube in place. White count 13.6. Hemoglobin 17.4. Sodium 133. Potassium 5.6. Bicarb 19. Creatinine 0.96. Patient was reevaluated today on 09/16/2020, remains in the ICU, intubated and mechanically ventilated. Patient is on assist control rate of 22 tidal volume is 500 FiO2 is 45% and PEEP of 5. ABG showed pO2 of 77 pCO2 of 45 pH of 7.37, hence no changes were made with the ventilator settings. Chest x-ray showed mostly bibasilar atelectasis, no evidence of clear-cut pneumonia. Patient remains on propofol at 55 mcg/kg/m, fentanyl at 0.5 mcg/kg/h, and today he was noted to have significant increase in residual from enteral feeding/nasogastric tube. Hence I went ahead and recommended holding the tube feeding, reviewed the notes from the ENT yesterday, he believes that the patient continues to have significant upper airways edema and uvula remains inflamed enlargement. According to him there is slight improvement but he is planning to take another look today, and determine whether we could start addressing weaning and extubation on this patient. Earlier, the restroom therapist noted that there was no evidence of cuff leak. Hence that may imply that the patient continues to have significant airway swelling, and I would hold on weaning and extubation unless notified by ENT that the swelling is significantly improved. In the meantime I plan to continue Decadron, he is now on 6 mg IV push every 8 hours, and I held enteral feeding. Kept him on propofol and fentanyl drip. On 09/17/2020 patient seen in follow-up in the intensive care unit, patient remains sedated and intubated currently on assist control mode of ventilation with a rate of 22, tacrolimus 500, FiO2 45% and PEEP of 5, this morning his blood gases show pO2 of 119, pCO2 42 and pH is 7.43. Current IVs include 0.9 normal saline at a rate of 75 ML per hour, Diprivan and is at 50 mics per kilo per minute, and fentanyl is at 0.5 mics per kilo per hour. No tube feedings. Patient is not requiring any vasopressor support. Remains on antibiotics in the form of Unasyn, and patient sputum and blood cultures remain negative thus far. Patient remains on dexamethasone 6 mg every 8 hours. ENT specialist note that the uvulitis was ALLERGIC in nature, and not infectious, and had resolved at this time. Patient continues on IV Decadron, and intravenous antibiotics. Chest x-ray today shows bibasilar density, atelectasis, possible effusion. His labs have been reviewed showing white blood cell count of 11.6, hemoglobin is 16.8, sodium is 138, potassium is 6.3, chloride was 104, CO2 is 27, BUN of 28, creatinine 0.94. Hyperkalemia was treated with 1 dose of IV Lasix, 50% dext laura, 10 units of regular insulin, calcium gluconate and repeat the BMP will be done at 12:30. On 09/18/2020 patient seen in follow-up in the intensive care unit, yesterday she was successfully weaned and extubated from the mechanical ventilator, tolerating extubation well so far, he is on 3 L per nasal cannula his pulse ox is 92-93%, he is breathing comfortably, does not appear to be in any acute distress, no stridor, no neck swelling, no lip swelling. No fever or chills, not on any vasopressor support. He continues on IV Decadron 6 mg every 6 hours, which we can discontinue now. Patient is a little encephalopathic, he opens eyes spontaneously however he tends to stare off into space, and at times he may be slow to respond, but no focal neurological deficits noted. Patient thought brandon hopper was at home, he is disoriented to time. But able to answer simple questions, denies any difficulty breathing, no cough, lung sounds are clear, diminished at the bases. Chest x-ray has been reviewed showing improvement in aeration. Today's labs have been reviewed showing white blood cell count 11.7, hemoglobin is 17.1, electrolytes are within normal limits and B1 is 35 with creatinine of 1. His sputum and blood cultures have been negative, he remains on Unasyn for antibiotic coverage. On 09/19/2020 patient seen in follow-up in the intensive care unit. Patient is much more awake and alert on today's exam, he is answering questions appropriately, has been stable overnight, she is on room air, with a pulse ox of 97%, T-max is 99.6F in the last 24 hours, blood pressure has been stable, breathing is nonlabored, there has been stridor, no difficulty breathing, no cough, lung sounds are clear. Yesterday neurologic consultation was requested related to patient's altered mentation. Brain CT was negative, angiography CT of the brain showed no occlusion or significant stenosis. EEG was abnormal with background slowing suggestive of moderate to severe encephalopathy of uncertain etiology. Neurology service felt there is a possibility of acute or subacute CVA, as the CT of the head showed hypointensity over the left frontal lobe, when reviewed by the neurologist. However patient's mentation is much better today, patient opens eyes spontaneously, answers questions appropriately. We discontinued his Decadron, he continues on Unasyn, his cultures have been negative, his labs have been reviewed showing white blood cell count of 12.5, hemoglobin of 17.4, sodium is 139, potassium is 4.9, chloride is 110, pO2 32, creatinine 0.8, liver enzymes seem to be trending up with AST of 142, ALT of 166, alkaline phosphatase is 34. He is awaiting swallow evaluation. MRI of the brain is pending, echocardiogram is pending Objective - Vital Signs Vital signs: Vital Signs Temp 98.6 F 09/19/20 02:00 Pulse 99 09/19/20 02:00 Resp 16 09/19/20 02:00 BP 139/51 09/19/20 02:00 Pulse Ox 97 09/19/20 02:00 Intake & Output 09/18/20 09/19/20 09/19/20 18:59 06:59 18:59 Intake Total 475 Output Total 350 Balance 125 Weight 140.1 kg Intake: IV 475 Ampicillin-Sulbactam 3 gm 100 In Sodium Chloride 0.9% 100 ml @ 200 mls/hr IVPB Q8HR BETY Rx#:[id number] Sodium Chloride 0.9% 1, 375 000 ml @ 75 mls/hr IV . [id number] BETY Rx#:[id number] Output: Urine 350 Other: Voiding Method Indwelling Catheter Indwelling Catheter - Exam GENERAL EXAM: 50-year-old white male on room air awake and alert, answered questions properly, on room air with pulse ox of 97%, opens eyes spontaneously HEAD: Normocephalic/atraumatic. EYES: Normal reaction of pupils, equal size. Conjunctiva pink, sclera white. NOSE: Clear with pink turbinates. THROAT: No erythema or exudates. NECK: No masses, no JVD, no thyroid enlargement, no adenopathy. CHEST: No chest wall deformity. Symmetrical expansion. LUNGS: Equal air entry with no crackles, wheeze, rhonchi or dullness. CVS: Regular rate and rhythm, normal S1 and S2, no gallops, no murmurs, no rubs ABDOMEN: Soft, nontender. No hepatosplenomegaly, normal bowel sounds, no guarding or rigidity. EXTREMITIES: No clubbing, appears generally swollen no cyanosis, 2+ pulses and upper and lower extremities. MUSCULOSKELETAL: Muscle strength and tone normal. SPINE: No scoliosis or deformity SKIN: No rashes CENTRAL NERVOUS SYSTEM: Awake and alert, No focal deficits, tone is normal in all 4 extremities. - Labs CBC & Chem 7: 09/19/20 03:54 09/19/20 03:54 Labs: Abnormal Lab Results - Last 24 Hours (Table) 09/18/20 09/18/20 09/19/20 Range/Units 03:51 14:58 03:54 WBC 12.5 H (3.8-10.6) k/uL Neutrophils # 10.1 H (1.3-7.7) k/uL Lymphocytes # 0.9 L (1.0-4.8) k/uL Monocytes # 1.1 H (0-1.0) k/uL Chloride (98-107) mmol/L BUN (9-20) mg/dL Calcium (8.4-10.2) mg/dL AST (17-59) U/L ALT (4-49) U/L Alkaline Phosphatase (38-126) U/L Ammonia 52 H (<30) umol/L Albumin (3.5-5.0) g/dL Triglycerides 177 H (<150) mg/dL LDL Cholesterol, Calc 143 H (0-99) mg/dL HDL Cholesterol 21 L (40-60) mg/dL 09/19/20 09/19/20 Range/Units 03:54 03:54 WBC (3.8-10.6) k/uL Neutrophils # (1.3-7.7) k/uL Lymphocytes # (1.0-4.8) k/uL Monocytes # (0-1.0) k/uL Chloride 110 H (98-107) mmol/L BUN 32 H (9-20) mg/dL Calcium 8.2 L (8.4-10.2) mg/dL AST 142 H (17-59) U/L ALT 166 H (4-49) U/L Alkaline Phosphatase 34 L (38-126) U/L Ammonia 60 H (<30) umol/L Albumin 3.4 L (3.5-5.0) g/dL Triglycerides (<150) mg/dL LDL Cholesterol, Calc (0-99) mg/dL HDL Cholesterol (40-60) mg/dL Microbiology - Last 24 Hours (Table) 09/14/20 13:30 Blood Culture - Preliminary Blood No Growth after 96 hours Assessment and Plan Plan: Assessment: #1. Acute hypoxic respirator failure requiring intubation and mechanical ventilation related to acute uvulitis, the possibilities including ALLERGIC or infectious, could also be related to angioedema or related to GERD/reflux, successfully extubated on 09/17/2020 #2. Altered mental status, possibly related to acute/subacute ischemic stroke, and component of toxic metabolic encephalopathy #3. Elevated d-dimer, ultrasound lower extremities was negative for DVT #4. Morbid obesity #5. History of hypertension #6. Hyperkalemia, was treated with calcium gluconate, Lasix, D50, and insulin, improved #7. History of DJD #8. 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 Elevated liver enzymes, related to medications, we will follow Plan: Continue monitoring patient's neurological status, MRI of the brain is pending, echocardiogram is pending, neurology service is following. Speech evaluation is pending. However hemodynamically patient has been stable, and stable from the respiratory standpoint. Vital signs have been stable, cultures have been negative, we'll discontinue Unasyn. Continue GI and DVT prophylaxis. Patient has been started on lactulose for elevated ammonia level. We will follow LFTs. Maintain safety precautions. Maintain aspiration precautions. Patient is stable transferred to [facility] care today. I performed a history & physical examination of the patient and discussed their management with my nurse practitioner, Bella Riddle. I reviewed the nurse practitioner's note and agree with the documented findings and plan of care. Lung sounds are positive for diminished breath sounds. The findings and the impression was discussed with the patient. I attest to the documentation by the nurse practitioner. Time with Patient: Greater than 30
--- NOTE | 2020-09-19 08:12 | XR ---
EXAMINATION TYPE: XR chest 1V portable DATE OF EXAM: 09/19/2020 COMPARISON: Chest x-ray 09-18-20 HISTORY: Abnormal chest x-ray TECHNIQUE: Single frontal view of the chest is obtained. FINDINGS: There is no focal air space opacity, pleural effusion, or pneumothorax seen. The cardiac silhouette size is within normal limits. There is some persistent mild prominence of interstitium. The osseous structures are intact. IMPRESSION: Findings are similar to prior exam.
[2020-09-19 08:42] LABS: Cholesterol 190 mg/dL (<200); HDL Cholesterol 17 mg/dL (40-60); LDL Cholesterol,Calculated 134 mg/dL (0-99); Triglycerides 193 mg/dL (<150)
[2020-09-19] MEDS: HEPARIN SODIUM,PORCINE 5,000 UNIT/ML 1 ML VIAL SQ SCH ×2 (08:59→20:37)
[2020-09-19] MEDS: LACTULOSE 20 GM/30 ML CUP PO SCH ×3 (08:59→20:37)
[2020-09-19] MEDS: FAMOTIDINE 20 MG/2 ML VIAL IV SCH (08:59)
[2020-09-19] MEDS: ATORVASTATIN 40 MG TAB PO SCH (09:03)
[2020-09-19] MEDS: ASPIRIN 81 MG PO SCH (09:03)
[2020-09-19] MEDS: NYSTATIN 100,000 UNIT/ML SUSP 500,000 UNIT/5 ML CUP PO SCH ×4 (09:05→22:28)
--- NOTE | 2020-09-19 10:00 | ECHOF ---
Referral Reason:stroke MEASUREMENTS -------- HEIGHT: 180.3 cm WEIGHT: 139.7 kg BP: 166/101 RVIDd: 3.7 cm (< 3.3) IVSd: 1.4 cm (0.6 - 1.1) LVIDd: 4.8 cm (3.9 - 5.3) LVPWd: 1.4 cm (0.6 - 1.1) IVSs: 1.9 cm LVIDs: 3.1 cm LVPWs: 1.8 cm LA Diam: 3.7 cm (2.7 - 3.8) Ao Diam: 3.6 cm (2.0 - 3.7) AV Cusp: 2.4 cm (1.5 - 2.6) MV EXCURSION: 14.230 mm (> 18.000) MV EF SLOPE: 173 mm/s (70 - 150) EPSS: 0.5 cm MV E Max: 0.84 m/s MV DecT: 91 ms MV A Max: 1.43 m/s MV E/A Ratio: 0.59 FINDINGS -------- Resting tachycardia (HR>100bpm). This was a technically adequate study. The left ventricular size is normal. There is moderate concentric left ventricular hypertrophy. O verall left ventricular systolic function is normal with, an EF between 60 - 65 %. The right ventricle is mildly enlarged. The left atrium is normal in size. The right atrium is normal in size. Interatrial and interventricular septum intact. The aortic valve is trileaflet and appears structurally normal. The mitral valve is normal. The tricuspid valve appears structurally normal. The pulmonic valve was not well visualized. The aortic root size is normal. Normal inferior vena cava with normal inspiratory collapse consistent with estimated right atrial pre ssure of 5 mmHg. There is no pericardial effusion. CONCLUSIONS -------- 1. Resting tachycardia (HR>100bpm). 2. The left ventricular size is normal. 3. There is moderate concentric left ventricular hypertrophy. 4. Overall left ventricular systolic function is normal with, an EF between 60 - 65 %. 5. The right ventricle is mildly enlarged. 6. There is no pericardial effusion. SLURRY TANK OPERATOR: Marzena Oconnor RDCS
[2020-09-19 11:50] LABS: Glucose,Whole Blood 91 mg/dL (75-99)
--- NOTE | 2020-09-19 12:53 | P.PN ---
Subjective Progress Note Date: 09/19/20 The patient was seen at bedside and he said he feels much better today compared to yesterday. His speech is back to baseline and not repeating himself. He denies of any focal weakness, numbness or visual disturbance. He was transferred from ICU to regular floor. He refused to get MRI Brain since he is claustrophobic and refuses to get not matter what. Objective - Vital Signs Vital signs: Vital Signs Temp 98.8 F 09/19/20 10:45 Pulse 88 09/19/20 10:45 Resp 20 09/19/20 10:45 BP 163/84 09/19/20 10:45 Pulse Ox 97 09/19/20 10:45 Intake & Output 09/18/20 09/19/20 09/19/20 18:59 06:59 18:59 Intake Total 475 75 260 Output Total 350 125 Balance 125 -50 260 Weight 140.1 kg Intake: IV 475 75 10 Ampicillin-Sulbactam 3 gm 100 In Sodium Chloride 0.9% 100 ml @ 200 mls/hr IVPB Q8HR [facility] Rx#:[id number] Invasive Line 4 10 Sodium Chloride 0.9% 1, 375 75 000 ml @ 75 mls/hr IV . [id number] [facility] Rx#:[id number] Oral 250 Output: Urine 350 125 Other: Voiding Method Indwelling Catheter Indwelling Catheter Indwelling Catheter - Exam GENERAL: The patient is lying in bed and is not in acute distress. NEUROLOGICAL: Higher mental function: The patient is awake, alert, oriented to self, place and time. Patient is following commands. No aphasia and no neglect. Cranial nerves: The pupils are round, equal and reactive to light and accommodation. Visual durán are full to confrontation throughout. Extraocular movement is intact no nystagmus is noted. Facial sensation is normal to touch throughout. The facial strength is normal throughout. Hearing is normal bilaterally to hand rub. Tongue is midline and moved [id number] without any difficulty. No dysarthria is noted. Shoulder shrug is normal bilaterally. Motor: Gait is deferred. The strength is left side is slight minimal weakness 5- (according to patient this is chronic). Otherwise 5 over 5 throughout. Normal tone and bulk. Cerebellum: Normal finger to nose bilaterally. Sensation: Sensation is normal to touch throughout. Reflexes (right/left): 2+. Plantars are downgoing bilaterally. - Labs CBC & Chem 7: 09/19/20 03:54 09/19/20 03:54 Labs: Abnormal Lab Results - Last 24 Hours (Table) 09/18/20 09/18/20 09/19/20 Range/Units 03:51 14:58 03:54 WBC 12.5 H (3.8-10.6) k/uL Neutrophils # 10.1 H (1.3-7.7) k/uL Lymphocytes # 0.9 L (1.0-4.8) k/uL Monocytes # 1.1 H (0-1.0) k/uL Chloride (98-107) mmol/L BUN (9-20) mg/dL Calcium (8.4-10.2) mg/dL AST (17-59) U/L ALT (4-49) U/L Alkaline Phosphatase (38-126) U/L Ammonia 52 H (<30) umol/L Albumin (3.5-5.0) g/dL Triglycerides 177 H (<150) mg/dL LDL Cholesterol, Calc 143 H (0-99) mg/dL HDL Cholesterol 21 L (40-60) mg/dL 09/19/20 09/19/20 09/19/20 Range/Units 03:54 03:54 03:54 WBC (3.8-10.6) k/uL Neutrophils # (1.3-7.7) k/uL Lymphocytes # (1.0-4.8) k/uL Monocytes # (0-1.0) k/uL Chloride 110 H (98-107) mmol/L BUN 32 H (9-20) mg/dL Calcium 8.2 L (8.4-10.2) mg/dL AST 142 H (17-59) U/L ALT 166 H (4-49) U/L Alkaline Phosphatase 34 L (38-126) U/L Ammonia 60 H (<30) umol/L Albumin 3.4 L (3.5-5.0) g/dL Triglycerides 193 H (<150) mg/dL LDL Cholesterol, Calc 134 H (0-99) mg/dL HDL Cholesterol 17 L (40-60) mg/dL Microbiology - Last 24 Hours (Table) 09/14/20 13:30 Blood Culture - Preliminary Blood No Growth after 96 hours Assessment and Plan Assessment: This is a 50-year-old gentleman that presented to the emergency department on 09/14/2020 for reevaluation of worsening right neck pain. Was noted that the patient's had massively enlarged uvula and was inflamed by the ED team concerning for airway compromise. As a result the patient was intubated and was started on IV Decadron as well as IV Unasyn. * Transient episode of preservation, altered mental status: This could be Transient ischemic attack vs acute ischemic stroke. I felt there is hypointesity over the left frontal and right cerebellar which seems possibly acute to subacute stroke but not definetly. Another possibility is toxic- metabolic encephalopathy. * Also component of Altered mental status seems component of Toxic-metabolic encephalopathy (elevated LFT's, elevated ammonia and use of Decadron). * Dyslipidemia * Acute uvulitis with a possibly including ALLERGIC or infection and it could be related to angioedema or GERD as a result causing acute hypoxia requied intubation * History of hypertension * History of Hirschsprung's disease status post multiple abdominal surgeries * History of Osteoarthritis * Plan: CT of the head is ordered by the primary team and was reported as no acute intracranial process. I personally reviewed the CT of the head and felt there is hypointensity over the left frontal and the that seemed to be subacute to acute. I personally reviewed the images with the reading radiologist and he does agree there is some subtotal hypointensity and he felt like it was nonspecific. However he did feel like acute ischemic change however could be considered with a differential. I ordered MRI of the brain URGENT yesterday but patient refused. I attempted multiple times to convince him to get MRI Brain today but he refused. Carotid duplex is reported as there is antegrade flow in the vertebral artery. The images and measurements suggest 50-70% stenosis in the right internal carotid, and carotid artery as well as the left common carotid artery. There is mild to moderate plaque formation. Limited exam. CTA of the head and neck is reported as no significant stenosis. CT of the head that was done on 09/19/2020 ordered by the primary team to rule out stroke is reported as no acute hemorrhage, hydrocephalus or mass effect. I personally reviewed the imaging with the radiologist's that's reading today and he is in agreement there is hypomobile intensity over the left frontal as well as the right cerebellar and this could be acute subacute findings but not definitive. Lipid panel: Triglyceride 193, cholesterol is 190, LDL is 134 HDL is 17. LDL goal and stroke/TIA is less than 70. I Started the patient on dual antiplatelet aspirin 81 mg and Plavix 75 mg and for the patient to be on them for 21 days then discontinue Plavix after that. I also started the patient on Lipitor 40 mg daily. For secondary stroke prophylaxis 2-D echo was reported as moderate concentric left ventricular hypertrophy. Ejection fraction of 60-65%. Left atrium, is normal in size. Physical therapy, occupational therapy and speech therapy are on board I ordered an event monitor and for patient to follow-up with cheese pancake roller as outpatient Routine EEG on 09/18/2020 is abnormal. The back is on this is as above moderate to severe encephalopathy of unspecified etiology. There are no focal slowing, rapid from discharges or seizure on EEG. There is also artifact during the EEG study. AST of 142 and ALT of 166. Ammonia level is 60. Infection disease team is on board. We'll defer the rest of the medical measure to the primary team. From a neurology as effective since the patient refuses further neurological workup there is nothing further needed at this time. The patient needs to follow-up with a neurologist as an outpatient within 1-2 weeks upon discharge. The plan was discussed with the patient's nurse. Jason Lin MD Neuro-Hospitalist Time with Patient: Greater than 30
[2020-09-19] MEDS: CLOPIDOGREL 75 MG TAB PO SCH (13:02)
--- NOTE | 2020-09-19 17:48 | P.PN ---
Progress Note - Text Progress Note Date: 09/19/20 Presenting complaint: Sore throat, muffled voice. History presenting complaint: This 50-year-old patient presented with right-sided neck pain and discomfort, computed tomography scan was negative initially. Symptoms worsen. Patient is found to extremely large and inflamed uvula. Patient was intubated. Patient did not have any infectious symptoms on presentation. Patient was in the ICU. Treated with propofol, fentanyl, Decadron. Patient was extubated on September 18. Following extubation patient had some altered mentation is hence neurology was consulted. Patient is felt to have toxic metabolic encephalopathy. Computed tomography scan did show area of hypointensity over the left frontal lobe. Patient declined MRI. Today-patient moved to the medical floor. Advanced this morning to full liquid diet. Some swelling of the dorsum of the left hand had an IV site. No shortness of breath. Is a bit tired. Review of systems: Was done for constitutional, cardiovascular, GI, pulmonary. relevant finding as above Active Medications Aspirin (Aspirin 81 Mg) 81 mg PO DAILY [facility] Last Admin: 09/19/20 09:03 Dose: 81 mg Documented by: Atorvastatin Calcium (Atorvastatin 40 Mg Tab) 40 mg PO DAILY [facility] Last Admin: 09/19/20 09:03 Dose: 40 mg Documented by: Clonidine HCl (Clonidine 0.1 Mg/24hr Patch) 1 patch TRANSDERM Q7D [facility] Last Admin: 09/17/20 22:06 Dose: 1 patch Documented by: Clopidogrel Bisulfate (Clopidogrel 75 Mg Tab) 75 mg PO DAILY [facility] Last Admin: 09/19/20 13:02 Dose: 75 mg Documented by: Famotidine (Famotidine 20 Mg/2 Ml Vial) 20 mg IV Q12HR [facility] Last Admin: 09/19/20 08:59 Dose: 20 mg Documented by: Heparin Sodium (Porcine) (Heparin Sodium,Porcine 5,000 Unit/Ml 1 Ml Vial) 5,000 unit SQ Q12HR [facility] Last Admin: 09/19/20 08:59 Dose: 5,000 unit Documented by: Hydralazine HCl (Hydralazine Hcl 20 Mg/Ml 1 Ml Vial) 5 mg IVP Q6HR PRN PRN Reason: Blood Pressure - High Last Admin: 09/18/20 18:28 Dose: 5 mg Documented by: Cefazolin Sodium 1,000 mg/ (Sodium Chloride) 50 mls @ 100 mls/hr IVPB Q8H [facility] Last Admin: 09/19/20 15:02 Dose: 100 mls/hr Documented by: Lactulose (Lactulose 20 Gm/30 Ml Cup) 20 gm PO TID [facility] Last Admin: 09/19/20 15:47 Dose: 20 gm Documented by: Miscellaneous Information (Rx Info: Iv Contrast Was Given 1 Each Misc) 1 each MISCELLANE DAILY PRN PRN Reason: Per Protocol Stop: 09/21/20 02:04 Naloxone HCl (Naloxone 0.4 Mg/Ml 1 Ml Vial) 0.2 mg IV Q2M PRN PRN Reason: Opioid Reversal Nystatin (Nystatin 100,000 Unit/Ml Susp 500,000 Unit/5 Ml Cup) 500,000 unit PO QID [facility] Last Admin: 09/19/20 15:45 Dose: Not Given Documented by: Ondansetron HCl (Ondansetron 4 Mg/2 Ml Vial) 4 mg IVP Q6HR PRN PRN Reason: Nausea And Vomiting Last Admin: 09/18/20 01:22 Dose: 4 mg Documented by: On examination: VITAL SIGNS: 98.8, 88, 20, 163/84, 97% room air GENERAL APPEARANCE: BMI 45.5, declining in bed, awake comfortable HEENT: Normal external appearance of nose and ear. Oral cavity normal EYES: Pupils equal. Conjunctiva normal. NECK: JVD not raised. Mass not palpable. RESPIRATORY: Respiratory effort normal. Lungs clear to auscultation. CARDIOVASCULAR: First and second sounds normal. No edema. ABDOMEN: Soft. Liver and spleen not palpable. No tenderness. No mass palpable. PSYCHIATRY: Alert and oriented x3. Mood and affect normal. EXTREMITY: Tenderness slight swelling slight redness over the dorsum of the left hand at the IV access site with some more swelling proximally. And redness INVESTIGATIONS, reviewed in the clinical context: White count 12.5 hemoglobin 17.4 potassium 4.9 creatinine 0.81 LDL 134 CRP 36 Coronavirus [PCR]-not detected Heterophile antibody-negative CT soft tissue neck with contrast-nonspecific finding Doppler ultrasound bilateral lower extremity-negative for DVT Computed tomography scan of the brain without contrast-subtle hyperdensity along the left frontal region. 2-D echocardiogram-E of 60-75%, moderate concentric LVH, Carotid Fanjwus-14-73% stenosis in the right internal and common carotid artery as a left common candidate artery. Sjcu-[id number]-[id number] plaque formation. EEG-negative for epileptic activity. Finding suggestive of encephalopathy Assessment: -Acute uvula-itis, cause unknown causing respiratory compromise, acute respi ratory failure -Acute hypoxic respiratory failure needing ventilator assistance, extubated September 18 -Left hand cellulitis at IV site -Essential hypertension -Left frontal lobe possible stroke -Hyperlipidemia -Morbid obesity BMI 45.5 Plan: Patient remains on IV Ancef. Left arm will be wrapped up and and elevated to decrease edema. He is off steroids. We'll take the patient off Catapres and re sume patient on losartan, also add amlodipine.
[2020-09-19] MEDS: LOSARTAN 50 MG TAB PO SCH (20:37)
--- NOTE | 2020-09-19 22:17 | PN ---
PROGRESS NOTE DATE OF SERVICE: 09/19/2020 REASON FOR FOLLOWUP: Uveitis. INTERVAL HISTORY: The patient is currently afebrile. The patient is more awake and alert. He is breathing comfortably. He knows that he is at [facility]. He denies having any chest pain, shortness of breath or cough. No abdominal pain or any diarrhea. PHYSICAL EXAMINATION: Blood pressure 133/63 with a pulse of 86, temperature 97.2. He is 96% on room air. General description is a middle-aged male lying in bed in no distress. RESPIRATORY SYSTEM: Unlabored breathing. Clear to auscultation anteriorly. HEART: S1, S2. Regular rate and rhythm. ABDOMEN: Soft. No tenderness. LABS: Hemoglobin 17.4, white count 12.5, BUN of 22, creatinine 0.81. Culture has been negative so far. DIAGNOSTIC IMPRESSION AND PLAN: Patient admitted to hospital with acute uveitis and respiratory failure requiring intubation. The patient was subsequently extubated and has shown overall clinical improvement. Cultures have been so far. Antibiotic has been switched to cefazolin; to continue and transition to oral Augmentin for a short course on discharge. Continue with supportive care. MMODL / IJN: [id number] /
[2020-09-20] MEDS: ASPIRIN 81 MG PO SCH (08:51)
[2020-09-20] MEDS: ATORVASTATIN 40 MG TAB PO SCH (08:52)
[2020-09-20] MEDS: LACTULOSE 20 GM/30 ML CUP PO SCH ×2 (08:52→11:17)
[2020-09-20] MEDS: HEPARIN SODIUM,PORCINE 5,000 UNIT/ML 1 ML VIAL SQ SCH ×2 (08:52→21:03)
[2020-09-20] MEDS: amLODIPine 2.5 MG TAB PO SCH (08:52)
[2020-09-20] MEDS: CLOPIDOGREL 75 MG TAB PO SCH (08:55)
[2020-09-20] MEDS: NYSTATIN 100,000 UNIT/ML SUSP 500,000 UNIT/5 ML CUP PO SCH ×4 (08:55→21:19)
--- NOTE | 2020-09-20 11:10 | P.PN ---
Subjective Progress Note Date: 09/20/20 The patient was seen at bedside and he feels he continues to be neurologically back to baseline. Denies new weakness, numbness, difficulty getting his words out or visual disturbance. He stills does not want to pursue with MRI Brain. Objective - Vital Signs Vital signs: Vital Signs Temp 98.2 F 09/20/20 07:45 Pulse 92 09/20/20 07:45 Resp 16 09/20/20 07:45 BP 116/77 09/20/20 07:45 Pulse Ox 98 09/20/20 07:45 Intake & Output 09/19/20 09/20/20 09/20/20 18:59 06:59 18:59 Intake Total 1380 932 570 Balance 1380 932 570 Weight 135.6 kg 134.2 kg Intake: IV 30 110 10 Ampicillin-Sulbactam 3 gm 100 In Sodium Chloride 0.9% 100 ml @ 200 mls/hr IVPB Q8HR [facility] Rx#:[id number] Invasive Line 4 10 Invasive Line 5 10 Invasive Line 6 10 10 10 Oral 1350 822 560 Other: Voiding Method Toilet Toilet Toilet # Voids 4 2 # Bowel Movements 3 2 - Exam GENERAL: The patient is lying in bed and is not in acute distress. NEUROLOGICAL: Higher mental function: The patient is awake, alert, oriented to self, place and time. Patient is following commands. No aphasia and no neglect. Cranial nerves: The pupils are round, equal and reactive to light and accommodation. Visual durán are full to confrontation throughout. Extraocular movement is intact no nystagmus is noted. Facial sensation is normal to touch throughout. The facial strength is normal throughout. Hearing is normal bilaterally to hand rub. Tongue is midline and moved [id number] without any difficulty. No dysarthria is noted. Shoulder shrug is normal bilaterally. Motor: Gait is deferred. The strength is left side is slight minimal weakness 5- (according to patient this is chronic). Otherwise 5 over 5 throughout. Normal tone and bulk. Cerebellum: Normal finger to nose bilaterally. Sensation: Sensation is normal to touch throughout. Reflexes (right/left): 2+. Plantars are downgoing bilaterally. - Labs CBC & Chem 7: 09/19/20 03:54 09/19/20 03:54 Labs: Microbiology - Last 24 Hours (Table) 09/14/20 13:30 Blood Culture - Preliminary Blood No Growth after 120 hours Assessment and Plan Assessment: This is a 50-year-old gentleman that presented to the emergency department on 09/14/2020 for reevaluation of worsening right neck pain. Was noted that the patient's had massively enlarged uvula and was inflamed by the ED team concerning for airway compromise. As a result the patient was intubated and was started on IV Decadron as well as IV Unasyn. * Transient episode of preservation, altered mental status: This could be Transient ischemic attack vs acute ischemic stroke. I felt there is hypointesity over the left frontal and right cerebellar which seems possibly acute to subacute stroke but not definetly. Another possibility is toxic- metabolic encephalopathy. * Also component of Altered mental status seems component of Toxic-metabolic encephalopathy (elevated LFT's, elevated ammonia and use of Decadron). * Dyslipidemia * Acute uvulitis with a possibly including ALLERGIC or infection and it could be related to angioedema or GERD as a result causing acute hypoxia requied intubation * History of hypertension * History of Hirschsprung's disease status post multiple abdominal surgeries * History of Osteoarthritis * Plan: CT of the head is ordered by the primary team and was reported as no acute intracranial process. I personally reviewed the CT of the head and felt there is hypointensity over the left frontal and the that seemed to be subacute to acute. I personally reviewed the images with the reading radiologist and he do es agree there is some subtotal hypointensity and he felt like it was nonspecific. However he did feel like acute ischemic change however could be considered with a differential. Carotid duplex is reported as there is antegrade flow in the vertebral artery. The images and measurements suggest 50-70% stenosis in the right internal carotid, and carotid artery as well as the left common carotid artery. There is mild to moderate plaque formation. Limited exam. CTA of the head and neck is reported as no significant stenosis. CT of head on 09/18/20: 40 as no acute intracranial process.Addendum is there is some mild septal hypo-density along the left frontal region images 21-22. This is nonspecific. In the sagittal and coronal a plain this may lie along a fissu re. Some acute ischemic change however could be considered within the differential. Recommend MRI. CT of the head that was done on 09/19/2020 ordered by the primary team: No acute hemorrhage, hydrocphalus or mass effect. I personally reviewed the CT of the head and I felt there is hypodensity possibly over the left frontal and questionable light the cerebellar. I spoke with the reading radiologist Dr. Barroso which on 9 09/20/2020 and he felt was questionable he did agree that possibly was seen on 09/18/2020 and he did the recommended MRI. Patient refused MRI Brain. Lipid panel: Triglyceride 193, cholesterol is 190, LDL is 134 HDL is 17. LDL goal and stroke/TIA is less than 70. I Started the patient on dual antiplatelet aspirin 81 mg and Plavix 75 mg and for the patient to be on them for 21 days then discontinue Plavix after that. I also started the patient on Lipitor 40 mg daily. For secondary stroke prophylaxis 2-D echo was reported as moderate concentric left ventricular hypertrophy. Ejection fraction of 60-65%. Left atrium, is normal in size. Physical therapy, occupational therapy and speech therapy are on board I ordered an event monitor and for patient to follow-up with welfare project manager as outpatient Routine EEG on 09/18/2020 is abnormal. The back is on this is as above moderate to severe encephalopathy of unspecified etiology. There are no focal slowing, rapid from discharges or seizure on EEG. There is also artifact during the EEG study. AST of 142 and ALT of 166. Ammonia level is 60. Infection disease team is on board. We'll defer the rest of the medical measure to the primary team. The patient needs to follow-up with a neurologist as an outpatient within 1-2 weeks upon discharge. Will sign off. Please reconsult if needed. The plan was discussed with the patient and his primary care. Jason Lin MD Neuro-Hospitalist Time with Patient: Less than 30
--- NOTE | 2020-09-20 11:54 | P.PN ---
Subjective Progress Note Date: 09/20/20 Principal diagnosis: Acute hypoxic respiratory failure secondary to uvulitis This is a 50-year-old white male seen in the ER yesterday mostly with acute onset of right sided neck pain and discomfort, patient was prescribed a muscle relaxant and pain medication and advised to come back to the ER if his condition gets any worse. At that time the patient had a CT performed, was negative for any acute findings. Patient had no fever no chills, he is normally maintained on losartan for high blood pressure. Patient was prescribed Flexeril yesterday, and milligrams twice a day, however today the patient developed worsening discomfort in the right neck, sore throat, and muffled voice. According to the ER physician, upon examination, he was noted to have extremely large and inflamed uvula. He recommended immediate intubation this was done by PRO[employer] ENGINE[employer]. And apparently there was no mention of any difficult intubation. Patient was intubated easily with a glido scope. Based on the note from the PROJ ENGINEER, there was no mention of swelling of the vocal cords, and no mention of the uvula being swollen. Patient was intubated with a 7.5 endotracheal tube placed on mechanical ventilation. Repeat CT of the neck was basically unremarkable. Patient will be admitted to the ICU, I saw him in the ER, I will recommend starting the patient empirically on antibiotics, and on Decadron. As the exact etiology of his uvulitis could be infectious, or could be ALLERGIC in nature. According to the at bedside, patient had no symptoms of fever or chills, no symptoms to suggest any recent infection. The only complaint he had was mostly right neck pain and discomfort described as a muscle spasm in the right neck area. Patient had no symptoms to suggest severe GERD, he does have history of obstructive sleep apnea not very compliant with his CPAP. Labs in the ER including CBC, basic metabolic profile, renal profile were all normal. C- reactive protein was elevated at 36. The patient is seen today 09/15/2020 in follow-up in the intensive care unit. He remains intubated on mechanical ventilator. Current settings CMV at a rate of 20, tidal volume 500, FiO2 50% and a PEEP of 5. Morning blood gases reveal a pO2 104, pCO2 45, pH 7.34 on 50% FiO2. He remains sedated on propofol at 65 mcg/kg/m. He is on fentanyl at 0.5 mcg/kg/m. 0.9 normal saline at 100 ML's per hour. Antibiotics in the form of Unasyn. He remains on Decadron 10 mg IV every 8 hours. Chest x-ray reveals bibasilar atelectasis. Endo tube repositioned. Nasogastric tube in place. White count 13.6. Hemoglobin 17.4. Sodium 133. Potassium 5.6. Bicarb 19. Creatinine 0.96. Patient was reevaluated today on 09/16/2020, remains in the ICU, intubated and mechanically ventilated. Patient is on assist control rate of 22 tidal volume is 500 FiO2 is 45% and PEEP of 5. ABG showed pO2 of 77 pCO2 of 45 pH of 7.37, hence no changes were made with the ventilator settings. Chest x-ray showed mostly bibasilar atelectasis, no evidence of clear-cut pneumonia. Patient remains on propofol at 55 mcg/kg/m, fentanyl at 0.5 mcg/kg/h, and today he was noted to have significant increase in residual from enteral feeding/nasogastric tube. Hence I went ahead and recommended holding the tube feeding, reviewed the notes from the ENT yesterday, he believes that the patient continues to have significant upper airways edema and uvula remains inflamed enlargement. According to him there is slight improvement but he is planning to take another look today, and determine whether we could start addressing weaning and extubation on this patient. Earlier, the restroom therapist noted that there was no evidence of cuff leak. Hence that may imply that the patient continues to have significant airway swelling, and I would hold on weaning and extubation unless notified by ENT that the swelling is significantly improved. In the meantime I plan to continue Decadron, he is now on 6 mg IV push every 8 hours, and I held enteral feeding. Kept him on propofol and fentanyl drip. On 09/17/2020 patient seen in follow-up in the intensive care unit, patient remains sedated and intubated currently on assist control mode of ventilation with a rate of 22, tacrolimus 500, FiO2 45% and PEEP of 5, this morning his blood gases show pO2 of 119, pCO2 42 and pH is 7.43. Current IVs include 0.9 normal saline at a rate of 75 ML per hour, Diprivan and is at 50 mics per kilo per minute, and fentanyl is at 0.5 mics per kilo per hour. No tube feedings. Patient is not requiring any vasopressor support. Remains on antibiotics in the form of Unasyn, and patient sputum and blood cultures remain negative thus far. Patient remains on dexamethasone 6 mg every 8 hours. ENT specialist note that the uvulitis was ALLERGIC in nature, and not infectious, and had resolved at this time. Patient continues on IV Decadron, and intravenous antibiotics. Chest x-ray today shows bibasilar density, atelectasis, possible effusion. His labs have been reviewed showing white blood cell count of 11.6, hemoglobin is 16.8, sodium is 138, potassium is 6.3, chloride was 104, CO2 is 27, BUN of 28, creatinine 0.94. Hyperkalemia was treated with 1 dose of IV Lasix, 50% dextrose, 10 units of regular insulin, calcium gluconate and repeat the BMP will be done at 12:30. On 09/18/2020 patient seen in follow-up in the intensive care unit, yesterday she was successfully weaned and extubated from the mechanical ventilator, tolerating extubation well so far, he is on 3 L per nasal cannula his pulse ox is 92-93%, he is breathing comfortably, does not appear to be in any acute distress, no stridor, no neck swelling, no lip swelling. No fever or chills, not on any vasopressor support. He continues on IV Decadron 6 mg every 6 hours, which we can discontinue now. Patient is a little encephalopathic, he opens eyes spontaneously however he tends to stare off into space, and at times he may be slow to respond, but no focal neurological deficits noted. Patient thought he was at home, he is disoriented to time. But able to answer simple questions, denies any difficulty breathing, no cough, lung sounds are clear, diminished at the bases. Chest x-ray has been reviewed showing improvement in aeration. Today's labs have been reviewed showing white blood cell count 11.7, hemoglobin is 17.1, electrolytes are within normal limits and B1 is 35 with creatinine of 1. His sputum and blood cultures have been negative, he remains on Unasyn for antibiotic coverage. On 09/19/2020 patient seen in follow-up in the intensive care unit. Patient is much more awake and alert on today's exam, he is answering questions appropriately, has been stable overnight, she is on room air, with a pulse ox of 97%, T-max is 99.6F in the last 24 hours, blood pressure has been stable, breathing is nonlabored, there has been stridor, no difficulty breathing, no cough, lung sounds are clear. Yesterday neurologic consultation was requested related to patient's altered mentation. Brain CT was negative, angiography CT of the brain showed no occlusion or significant stenosis. EEG was abnormal with background slowing suggestive of moderate to severe encephalopathy of uncertain etiology. Neurology service felt there is a possibility of acute or subacute CVA, as the CT of the head showed hypointensity over the left frontal lobe, when reviewed by the neurologist. However patient's mentation is much better today, patient opens eyes spontaneously, answers questions appropriately. We discontinued his Decadron, he continues on Unasyn, his cultures have been negative, his labs have been reviewed showing white blood cell count of 12.5, hemoglobin of 17.4, sodium is 139, potassium is 4.9, chloride is 110, pO2 32, creatinine 0.8, liver enzymes seem to be trending up with AST of 142, ALT of 166, alkaline phosphatase is 34. He is awaiting swallow evaluation. MRI of the brain is pending, echocardiogram is pending The patient is seen today 09/20/2020 in follow-up on the selective care unit. He is currently awake and alert in no acute distress. He's been up ambulating with assistance. He denies any shortness of breath, cough or congestion. He is maintaining O2 saturation in the 90s on room air. He is back to his baseline as far as he is concerned. He denies any new numbness, weakness, dysphagia. Alert and oriented 3. He declines MRI of the brain. Echocardiogram within normal limits. Blood culture revealed no growth. Sputum cultures reveal no growth. White count 12.5. Hemoglobin 17.4. Sodium 139. Potassium 4.9. Creatinine 0.81. AST 142. ALT 166. He is currently on Plavix and aspirin. Antibiotics in the form of cefazolin. Heparin for DVT prophylaxis. Objective - Vital Signs Vital signs: Vital Signs Temp 98.2 F 09/20/20 07:45 Pulse 92 09/20/20 07:45 Resp 16 09/20/20 07:45 BP 116/77 09/20/20 07:45 Pulse Ox 98 09/20/20 07:45 Intake & Output 09/19/20 09/20/20 09/20/20 18:59 06:59 18:59 Intake Total 1380 932 570 Balance 1380 932 570 Weight 135.6 kg 134.2 kg Intake: IV 30 110 10 Ampicillin-Sulbactam 3 gm 100 In Sodium Chloride 0.9% 100 ml @ 200 mls/hr IVPB Q8HR [facility] Rx#:[id number] Invasive Line 4 10 Invasive Line 5 10 Invasive Line 6 10 10 10 Oral 1350 822 560 Other: Voiding Method Toilet Toilet Toilet # Voids 4 2 # Bowel Movements 3 2 - Exam GENERAL EXAM: Awake, very pleasant 50-year-old gentleman, on room air, comfortable in no apparent distress. HEAD: Normocephalic. EYES: Normal reaction of pupils, equal size. NOSE: Clear with pink turbinates. THROAT: Endotracheal and gastric tube secured in place. NECK: No masses, no JVD. CHEST: No chest wall deformity. LUNGS: Equal air entry with no crackles, wheeze, rhonchi or dullness. CVS: S1 and S2 normal with no audible murmur, regular rhythm. ABDOMEN: No hepatosplenomegaly, normal bowel sounds, no guarding or rigidity. SPINE: No scoliosis or deformity SKIN: No rashes CENTRAL NERVOUS SYSTEM: Sedated, tone is normal in all 4 extremities. EXTREMITIES: There is no peripheral edema. No clubbing, no cyanosis. P eripheral pulses are intact. - Labs CBC & Chem 7: 09/19/20 03:54 09/19/20 03:54 Labs: Microbiology - Last 24 Hours (Table) 09/14/20 13:30 Blood Culture - Preliminary Blood No Growth after 120 hours Assessment and Plan Assessment: 1 Acute hypoxic respiratory failure requiring intubation and mechanical ventilation. Recovered and on room air. 2 Acute uvulitis, differential diagnoses for acute uvulitis will include infectious or ALLERGIC process. Or possibly angioedema, or could be related to GERD 3 History of benign essential hypertension, not on valorie inhibitors, patient is maintained on losartan. 4 History of obstructive sleep apnea 5 Neck pain, likely secondary to cervical strain or muscle spasm. CT of the neck is reassuring. 6 History of Hirschsprung's disease 7 TIA Plan: The patient was seen and evaluated by Dr. Lin Currently stable from the pulmonary and critical care standpoint Continue the current treatment plan I, the cosigning physician, performed a history & physical examination of the patient. Lungs sounds are clear. Maintaining good O2 saturations in the 90s on room air. I discussed the assessment and plan of care with my nurse practitioner, Eva Navarro. I attest to the above note as dictated by her.
--- NOTE | 2020-09-20 13:58 | PN ---
PROGRESS NOTE DATE OF SERVICE: 09/20/2020 REASON FOR FOLLOWUP: Uveitis. INTERVAL HISTORY: The patient is currently afebrile. The patient is breathing comfortably. Currently on 100% room air. The patient denies having any chest pain, no shortness of breath, minimal cough. No abdominal pain or diarrhea. PHYSICAL EXAMINATION: Blood pressure 156/88 with pulse of 81, temperature 97.5. He is 100% on room air. General description is a middle-aged male lying in bed in no distress. RESPIRATORY SYSTEM: Unlabored breathing, clear to auscultation anteriorly. HEART: S1, S2. Regular rate and rhythm. ABDOMEN: Soft, no tenderness. LABS: Hemoglobin 17.4, white count 12.5. DIAGNOSTIC IMPRESSION AND PLAN: Patient admitted to the hospital with uveitis and acute respiratory failure. Patient successfully extubated. The patient is currently doing well. Cultures were negative. A short course of oral Augmentin and to monitor his clinical course closely. MMODL / IJN: [id number] /
[2020-09-20] MEDS ORDERED: AMOXIC-POT CLAV 875-125MG 1 EACH TAB PO SCH (21:00)
[2020-09-20] MEDS: LOSARTAN 50 MG TAB PO SCH (21:03)
--- NOTE | 2020-09-20 21:09 | P.PN ---
Progress Note - Text Progress Note Date: 09/20/20 Presenting complaint: Sore throat, muffled voice. History presenting complaint: This 50-year-old patient presented with right-sided neck pain and discomfort, computed tomography scan was negative initially. Symptoms worsen. Patient is found to extremely large and inflamed uvula. Patient was intubated. Patient did not have any infectious symptoms on presentation. Patient was in the ICU. Treated with propofol, fentanyl, Decadron. Patient was extubated on September 18. Following extubation patient had some altered mentation is hence neurology was consulted. Patient is felt to have toxic metabolic encephalopathy. Computed tomography scan did show area of hypointensity over the left frontal lobe. Patient declined MRI. Developed some swelling cellulitis of the left hand IV site. Starting IV Ancef. An limb elevation. Today-feeling much better. Left hand pain swelling redness coming down. On IV Ancef. Feeling better. No neurological symptoms. Resting in bed Review of systems: Was done for constitutional, cardiovascular, GI, pulmonary. relevant finding as above Active Medications Amlodipine Besylate (Amlodipine 2.5 Mg Tab) 2.5 mg PO DAILY ON LICENSE OF [facility] Last Admin: 09/20/20 08:52 Dose: 2.5 mg Documented by: Aspirin (Aspirin 81 Mg) 81 mg PO DAILY ON LICENSE OF [facility] Last Admin: 09/20/20 08:51 Dose: 81 mg Documented by: Clopidogrel Bisulfate (Clopidogrel 75 Mg Tab) 75 mg PO DAILY ON LICENSE OF [facility] Last Admin: 09/20/20 08:55 Dose: 75 mg Documented by: Heparin Sodium (Porcine) (Heparin Sodium,Porcine 5,000 Unit/Ml 1 Ml Vial) 5,000 unit SQ Q12HR ON LICENSE OF [facility] Last Admin: 09/20/20 08:52 Dose: 5,000 unit Documented by: Hydralazine HCl (Hydralazine Hcl 20 Mg/Ml 1 Ml Vial) 5 mg IVP Q6HR PRN PRN Reason: Blood Pressure - High Last Admin: 09/18/20 18:28 Dose: 5 mg Documented by: Cefazolin Sodium 2 gm/ Sodium (Chloride) 50 mls @ 100 mls/hr IVPB Q8H ON LICENSE OF [facility] Last Admin: 09/20/20 17:55 Dose: 100 mls/hr Documented by: Lactulose (Lactulose 20 Gm/30 Ml Cup) 20 gm PO TID ON LICENSE OF [facility] Last Admin: 09/20/20 11:17 Dose: Not Given Documented by: Losartan Potassium (Losartan 50 Mg Tab) 50 mg PO HS ON LICENSE OF [facility] Last Admin: 09/19/20 20:37 Dose: 50 mg Documented by: Miscellaneous Information (Rx Info: Iv Contrast Was Given 1 Each Misc) 1 each MISCELLANE DAILY PRN PRN Reason: Per Protocol Stop: 09/21/20 02:04 Naloxone HCl (Naloxone 0.4 Mg/Ml 1 Ml Vial) 0.2 mg IV Q2M PRN PRN Reason: Opioid Reversal Nystatin (Nystatin 100,000 Unit/Ml Susp 500,000 Unit/5 Ml Cup) 500,000 unit PO QID ON LICENSE OF [facility] Last Admin: 09/20/20 16:26 Dose: Not Given Documented by: Ondansetron HCl (Ondansetron 4 Mg/2 Ml Vial) 4 mg IVP Q6HR PRN PRN Reason: Nausea And Vomiting Last Admin: 09/18/20 01:22 Dose: 4 mg Documented by: On examination: VITAL SIGNS: 97.5, 81, 16, 156/88, 100% on room air GENERAL APPEARANCE: Reclining in bed, awake, comfortable HEENT: Normal external appearance of nose and ear. Oral cavity normal EYES: Pupils equal. Conjunctiva normal. NECK: JVD not raised. Mass not palpable. RESPIRATORY: Respiratory effort normal. Lungs clear to auscultation. CARDIOVASCULAR: First and second sounds normal. No edema. ABDOMEN: Soft. Liver and spleen not palpable. No tenderness. No mass palpable. PSYCHIATRY: Alert and oriented x3. Mood and affect normal. EXTREMITY: [Tenderness slight swelling slight redness over the dorsum of the left hand at the IV access site with some more swelling proximally. And redness]-all improved INVESTIGATIONS, reviewed in the clinical context: White count 12.5 hemoglobin 17.4 potassium 4.9 creatinine 0.81 LDL 134 CRP 36 Coronavirus [PCR]-not detected Heterophile antibody-negative CT soft tissue neck with contrast-nonspecific finding Doppler ultrasound bilateral lower extremity-negative for DVT Computed tomography scan of the brain without contrast-subtle hyperdensity along the left frontal region. 2-D echocardiogram-E of 60-75%, moderate concentric LVH, Carotid Usaasob-43-23% stenosis in the right internal and common carotid artery as a left common candidate artery. [id number] plaque formation. EEG-negative for epileptic activity. Finding suggestive of encephalopathy Assessment: -Acute uvula-itis, cause unknown causing respiratory compromise, acute respiratory failure-improved -Acute hypoxic respiratory failure needing ventilator assistance, extubated September 18-result -Left hand cellulitis at IV site-responding well to IV Ancef -Essential hypertension -Left frontal lobe possible stroke -Hyperlipidemia -Morbid obesity BMI 45.5 -Acute hepatitis possibly drug induced could be from Lipitor. Plan: Patient is responding well to IV Ancef was given another 24 hours. We'll hold off the Lipitor today. Patient has already taken the morning dose. Recheck LFTs in the morning. Discussed with the patient. Hopefully DC tomorrow. Increase activity
[2020-09-21 08:00] LABS: ALT 104 U/L (4-49); AST 53 U/L (17-59); African American GFR (CKD) >90 (>60 ml/min/1.73 sqM); Albumin 3.2 g/dL (3.5-5.0); Alkaline Phosphatase 48 U/L (38-126); Anion Gap 8 mmol/L; Blood Urea Nitrogen 18 mg/dL (9-20); Calcium 8.4 mg/dL (8.4-10.2); Carbon Dioxide 19 mmol/L (22-30); Chloride 106 mmol/L (98-107); Glucose 77 mg/dL (74-99); Non-African American GFR(CKD) >90 (>60 ml/min/1.73 sqM); Potassium 4.2 mmol/L (3.5-5.1); Sodium 133 mmol/L (137-145); Total Bilirubin 0.9 mg/dL (0.2-1.3); Total Protein 5.9 g/dL (6.3-8.2)
[2020-09-21] MEDS: ASPIRIN 81 MG PO SCH (08:05)
[2020-09-21] MEDS: CLOPIDOGREL 75 MG TAB PO SCH (08:05)
[2020-09-21] MEDS: amLODIPine 2.5 MG TAB PO SCH (08:05)
[2020-09-21] MEDS: HEPARIN SODIUM,PORCINE 5,000 UNIT/ML 1 ML VIAL SQ SCH (08:06)
[2020-09-21 08:32] VITALS: TEMP 96.7
[2020-09-21] MEDS: NYSTATIN 100,000 UNIT/ML SUSP 500,000 UNIT/5 ML CUP PO SCH ×2 (09:12→12:51)
[2020-09-21 11:12] VITALS: BP 138/74; PULSE 84; RESP 16
--- NOTE | 2020-09-21 11:39 | P.PN ---
Subjective Progress Note Date: 09/21/20 Principal diagnosis: Acute hypoxic respiratory failure secondary to uvulitis This is a 50-year-old white male seen in the ER yesterday mostly with acute onset of right sided neck pain and discomfort, patient was prescribed a muscle relaxant and pain medication and advised to come back to the ER if his condition gets any worse. At that time the patient had a CT performed, was negative for any acute findings. Patient had no fever no chills, he is normally maintained on losartan for high blood pressure. Patient was prescribed Flexeril yesterday, and milligrams twice a day, however today the patient developed worsening discomfort in the right neck, sore throat, and muffled voice. According to the ER physician, upon examination, he was noted to have extremely large and inflamed uvula. He recommended immediate intubation this was done by [facility]. And apparently there was no mention of any difficult intubation. Patient was intubated easily with a glido scope. Based on the note from the POT P[facility]CHER, there was no mention of swelling of the vocal cords, and no mention of the uvula being swollen. Patient was intubated with a 7.5 endotracheal tube placed on mechanical ventilation. Repeat CT of the neck was basically unremarkable. Patient will be admitted to the ICU, I saw him in the ER, I will recommend starting the patient empirically on antibiotics, and on Decadron. As the exact etiology of his uvulitis could be infectious, or could be ALLERGIC in nature. According to the at bedside, patient had no symptoms of fever or chills, no symptoms to suggest any recent infection. The only complaint he had was mostly right neck pain and discomfort described as a muscle spasm in the right neck area. Patient had no symptoms to suggest severe GERD, he does have history of obstructive sleep apnea not very compliant with his CPAP. Labs in the ER including CBC, basic metabolic profile, renal profile were all normal. C- reactive protein was elevated at 36. The patient is seen today 09/15/2020 in follow-up in the intensive care unit. He remains intubated on mechanical ventilator. Current settings CMV at a rate of 20, tidal volume 500, FiO2 50% and a PEEP of 5. Morning blood gases reveal a pO2 104, pCO2 45, pH 7.34 on 50% FiO2. He remains sedated on propofol at 65 mcg/kg/m. He is on fentanyl at 0.5 mcg/kg/m. 0.9 normal saline at 100 ML's per hour. Antibiotics in the form of Unasyn. He remains on Decadron 10 mg IV every 8 hours. Chest x-ray reveals bibasilar atelectasis. Endo tube repositioned. Nasogastric tube in place. White count 13.6. Hemoglobin 17.4. Sodium 133. Potassium 5.6. Bicarb 19. Creatinine 0.96. Patient was reevaluated today on 09/16/2020, remains in the ICU, intubated and mechanically ventilated. Patient is on assist control rate of 22 tidal volume is 500 FiO2 is 45% and PEEP of 5. ABG showed pO2 of 77 pCO2 of 45 pH of 7.37, hence no changes were made with the ventilator settings. Chest x-ray showed mostly bibasilar atelectasis, no evidence of clear-cut pneumonia. Patient remains on propofol at 55 mcg/kg/m, fentanyl at 0.5 mcg/kg/h, and today he was noted to have significant increase in residual from enteral feeding/nasogastric tube. Hence I went ahead and recommended holding the tube feeding, reviewed the notes from the ENT yesterday, he believes that the patient continues to have significant upper airways edema and uvula remains inflamed enlargement. According to him there is slight improvement but he is planning to take another look today, and determine whether we could start addressing weaning and extubation on this patient. Earlier, the restroom therapist noted that there was no evidence of cuff leak. Hence that may imply that the patient continues to have significant airway swelling, and I would hold on weaning and extubation unless notified by ENT that the swelling is significantly improved. In the meantime I plan to continue Decadron, he is now on 6 mg IV push every 8 hours, and I held enteral feeding. Kept him on propofol and fentanyl drip. On 09/17/2020 patient seen in follow-up in the intensive care unit, patient remains sedated and intubated currently on assist control mode of ventilation with a rate of 22, tacrolimus 500, FiO2 45% and PEEP of 5, this morning his blood gases show pO2 of 119, pCO2 42 and pH is 7.43. Current IVs include 0.9 normal saline at a rate of 75 ML per hour, Diprivan and is at 50 mics per kilo per minute, and fentanyl is at 0.5 mics per kilo per hour. No tube feedings. Patient is not requiring any vasopressor support. Remains on antibiotics in the form of Unasyn, and patient sputum and blood cultures remain negative thus far. Patient remains on dexamethasone 6 mg every 8 hours. ENT specialist note that the uvulitis was ALLERGIC in nature, and not infectious, and had resolved at this time. Patient continues on IV Decadron, and intravenous antibiotics. Chest x-ray today shows bibasilar density, atelectasis, possible effusion. His labs have been reviewed showing white blood cell count of 11.6, hemoglobin is 16.8, sodium is 138, potassium is 6.3, chloride was 104, CO2 is 27, BUN of 28, creatinine 0.94. Hyperkalemia was treated with 1 dose of IV Lasix, 50% dextrose, 10 units of regular insulin, calcium gluconate and repeat the BMP will be done at 12:30. On 09/18/2020 patient seen in follow-up in the intensive care unit, yesterday she was successfully weaned and extubated from the mechanical ventilator, tolerating extubation well so far, he is on 3 L per nasal cannula his pulse ox is 92-93%, he is breathing comfortably, does not appear to be in any acute distress, no stridor, no neck swelling, no lip swelling. No fever or chills, not on any vasopressor support. He continues on IV Decadron 6 mg every 6 hours, which we can discontinue now. Patient is a little encephalopathic, he opens eyes spontaneously however he tends to stare off into space, and at times he may be slow to respond, but no focal neurological deficits noted. Patient thought he was at home, he is disoriented to time. But able to answer simple questions, denies any difficulty breathing, no cough, lung sounds are clear, diminished at the bases. Chest x-ray has been reviewed showing improvement in aeration. Today's labs have been reviewed showing white blood cell count 11.7, hemoglobin is 17.1, electrolytes are within normal limits and B1 is 35 with creatinine of 1. His sputum and blood cultures have been negative, he remains on Unasyn for antibiotic coverage. On 09/19/2020 patient seen in follow-up in the intensive care unit. Patient is much more awake and alert on today's exam, he is answering questions appropriately, has been stable overnight, she is on room air, with a pulse ox of 97%, T-max is 99.6F in the last 24 hours, blood pressure has been stable, breathing is nonlabored, there has been stridor, no difficulty breathing, no cough, lung sounds are clear. Yesterday neurologic consultation was requested related to patient's altered mentation. Brain CT was negative, angiography CT of the brain showed no occlusion or significant stenosis. EEG was abnormal with background slowing suggestive of moderate to severe encephalopathy of uncertain etiology. Neurology service felt there is a possibility of acute or subacute CVA, as the CT of the head showed hypointensity over the left frontal lobe, when reviewed by the neurologist. However patient's mentation is much better today, patient opens eyes spontaneously, answers questions appropriately. We discontinued his Decadron, he continues on Unasyn, his cultures have been negative, his labs have been reviewed showing white blood cell count of 12.5, hemoglobin of 17.4, sodium is 139, potassium is 4.9, chloride is 110, pO2 32, creatinine 0.8, liver enzymes seem to be trending up with AST of 142, ALT of 166, alkaline phosphatase is 34. He is awaiting swallow evaluation. MRI of the brain is pending, echocardiogram is pending The patient is seen today 09/20/2020 in follow-up on the selective care unit. He is currently awake and alert in no acute distress. He's been up ambulating with assistance. He denies any shortness of breath, cough or congestion. He is maintaining O2 saturation in the 90s on room air. He is back to his baseline as far as he is concerned. He denies any new numbness, weakness, dysphagia. Alert and oriented 3. He declines MRI of the brain. Echocardiogram within normal limits. Blood culture revealed no growth. Sputum cultures reveal no growth. White count 12.5. Hemoglobin 17.4. Sodium 139. Potassium 4.9. Creatinine 0.81. AST 142. ALT 166. He is currently on Plavix and aspirin. Antibiotics in the form of cefazolin. Heparin for DVT prophylaxis. The patient is seen today 09/21/2020 in follow-up on the selective care unit. He is currently sitting up at the bedside. Awake and alert in no acute distress. Oriented 3. Working with physical therapy. He is maintaining good O2 saturations in the mid 90s on room air. He's afebrile. Hemodynamically stable. Blood culture revealed no growth. Sputum cultures revealed no growth. Sodium 133. Potassium 4.2. Bicarb 19. Creatinine 0.85. AST 53. ALT 104. He is quite anxious to go home. Objective - Vital Signs Vital signs: Vital Signs Temp 96.7 F L 09/21/20 08:00 Pulse 84 09/21/20 11:09 Resp 16 09/21/20 11:09 BP 138/74 09/21/20 11:09 Pulse Ox 96 09/21/20 11:09 Intake & Output 09/20/20 09/21/20 09/21/20 18:59 06:59 18:59 Intake Total 1380 322 336 Balance 1380 322 336 Weight 132.8 kg Intake: IV 20 Invasive Line 6 20 Intake, IV Titration 100 100 Amount ceFAZolin 2 gm In Sodium 100 100 Chloride 0.9% 50 ml @ 100 mls/hr IVPB Q8H [facility] Rx#: [id number] Oral 1360 222 236 Other: Voiding Method Toilet Toilet # Voids 1 2 2 # Bowel Movements 2 - Exam GENERAL EXAM: Awake, very pleasant 50-year-old gentleman, on room air, comfortable in no apparent distress. HEAD: Normocephalic. EYES: Normal reaction of pupils, equal size. NOSE: Clear with pink turbinates. THROAT: Endotracheal and gastric tube secured in place. NECK: No masses, no JVD. CHEST: No chest wall deformity. LUNGS: Equal air entry with no crackles, wheeze, rhonchi or dullness. CVS: S1 and S2 normal with no audible murmur, regular rhythm. ABDOMEN: No hepatosplenomegaly, normal bowel sounds, no guarding or rigidity. SPINE: No scoliosis or deformity SKIN: No rashes CENTRAL NERVOUS SYSTEM: Sedated, tone is normal in all 4 extremities. EXTREMITIES: There is no peripheral edema. No clubbing, no cyanosis. Peripheral pulses are intact. - Labs CBC & Chem 7: 09/19/20 03:54 09/21/20 06:35 Labs: Abnormal Lab Results - Last 24 Hours (Table) 09/21/20 Range/Units 06:35 Sodium 133 L (137-145) mmol/L Carbon Dioxide 19 L (22-30) mmol/L ALT 104 H (4-49) U/L Total Protein 5.9 L (6.3-8.2) g/dL Albumin 3.2 L (3.5-5.0) g/dL Microbiology - Last 24 Hours (Table) 09/14/20 13:30 Blood Culture - Final Blood No Growth after 144 hours Assessment and Plan Assessment: 1 Acute hypoxic respiratory failure requiring intubation and mechanical ventilation. Recovered and on room air. 2 Acute uvulitis, differential diagnoses for acute uvulitis will include infectious or ALLERGIC process. Or possibly angioedema, or could be related to GERD 3 History of benign essential hypertension, not on valorie inhibitors, patient is maintained on losartan. 4 History of obstructive sleep apnea 5 Neck pain, likely secondary to cervical strain or muscle spasm. CT of the neck is reassuring. 6 History of Hirschsprung's disease 7 TIA 8 Elevated liver enzymes possibly related to statins, improved Plan: The patient was seen and evaluated by Dr. Lin Cleared for discharge from the pulmonary and critical care standpoint I, the cosigning physician, performed a history & physical examination of the patient. Lungs sounds are clear. Maintaining good O2 saturations in the 90s on room air. I discussed the assessment and plan of care with my nurse practitioner, Eva Navarro. I attest to the above note as dictated by her.
--- NOTE | 2020-09-21 14:06 | PN ---
PROGRESS NOTE DATE OF SERVICE: 09/21/2020 REASON FOR FOLLOWUP: Left hand IV site cellulitis. INTERVAL HISTORY: The patient is currently afebrile. The patient is breathing comfortably. He did have some occasional cough and sputum, but no worsening. Denies having any nausea, vomiting, abdominal pain. Overall, pain and discomfort to the left hand dorsum area has decreased. PHYSICAL EXAMINATION: Blood pressure 138/74 with a pulse of 84, temperature 96.7. He is 96% on room air. General description is a middle-aged male lying in bed in no distress. RESPIRATORY SYSTEM: Unlabored breathing, clear to auscultation anteriorly. HEART: S1, S2. Regular rate and rhythm. ABDOMEN: Soft, no tenderness. Left hand dorsum area swelling and redness has decreased, no drainage. LABS: Creatinine 0.85. DIAGNOSTIC IMPRESSION AND PLAN: Patient with left hand dorsum area IV site cellulitis, which has been discontinued. Overall improvement on cefazolin. Finish therapy with oral Keflex. Prescription sent to pharmacy. GORDON / ANDRESN: [id number] /
--- NOTE | 2020-09-21 23:10 | P.DS ---
Providers Date of admission: 09/14/20 15:21 Expected date of discharge: 09/21/20 Attending physician: Og Rosenbaum Consults: 09/14/20 15:20 Consult Physician Urgent Consulting Provider: Arabella Ashley Consult Reason/Comments: Uvulitis, angioedema Do you want consulting provider notified?: Already Contacted Consult Physician Urgent Consulting Provider: Shivam Pittman Consult Reason/Comments: Uvulitis, angioedema Do you want consulting provider notified?: Already Contacted 09/15/20 18:02 Consult Physician Routine Consulting Provider: Kellie Lewis Consult Reason/Comments: uvulitis?? Do you want consulting provider notified?: Yes 09/18/20 11:58 Consult Physician Routine Consulting Provider: Jason Lin Consult Reason/Comments: altered mental status Do you want consulting provider notified?: Yes Primary care physician: [facility] Course: Presenting complaint: Sore throat, muffled voice. History presenting complaint: This 50-year-old patient presented with right-sided neck pain and discomfort, computed tomography scan was negative initially. Symptoms worsen. Patient is found to extremely large and inflamed uvula. Patient was intubated. Patient did not have any infectious symptoms on presentation. Patient was in the ICU. Treated with propofol, fentanyl, Decadron. Patient was extubated on September 18. Following extubation patient had some altered mentation is hence neurology was consulted. Patient is felt to have toxic metabolic encephalopathy. Computed tomography scan did show area of hypointensity over the left frontal lobe. Patient declined MRI. Could be a possible small stroke. Developed some swelling cellulitis of the left hand IV site. Starting IV Ancef. An limb elevation. Today-feeling much better. Tolerating diet. Left hand pain swelling redness greatly improved. Keen to go home. Has been out of bed in the room. Patient had elevation of LFTs. His Lipitor was discontinued. This can be resumed by his PCP and LFTs can be followed. Discussed with the patient. Questions were answered. He may follow with Dr. Shivam Pittman from ENT. Patient may follow up with neurology as an outpatient as can be further evaluated. By his family doctor. Also to have arranged follow-up outpatient by vascular for carotids down the road. Through his PCP. Discussion and discharge planning more than 35 minutes Teaching Supervisor: Dr. Oliveira from ID Dr. Lin from pulmonary Dr. Lin from neurology Dr. Shivam Pittman from ENT On examination: VITAL SIGNS: 96.7, 88, 18, 135/67, 98% room air GENERAL APPEARANCE: Reclining in bed, awake, comfortable HEENT: Normal external appearance of nose and ear. Oral cavity normal EYES: Pupils equal. Conjunctiva normal. NECK: JVD not raised. Mass not palpable. RESPIRATORY: Respiratory effort normal. Lungs clear to auscultation. CARDIOVASCULAR: First and second sounds normal. No edema. ABDOMEN: Soft. Liver and spleen not palpable. No tenderness. No mass palpable. PSYCHIATRY: Alert and oriented x3. Mood and affect normal. EXTREMITY: [Tenderness slight swelling slight redness over the dorsum of the left hand at the IV access site with some more swelling proximally. And redness]-greatly improved INVESTIGATIONS, reviewed in the clinical context: September 21: Potassium 4.2 creatinine 0.85 AST decreased to 53 ALT decreased to 104 September 20: AST 142 ALT 166 LDL 134 White count 12.5 hemoglobin 17.4 potassium 4.9 creatinine 0.81 LDL 134 CRP 36 Coronavirus [PCR]-not detected Heterophile antibody-negative CT soft tissue neck with contrast-nonspecific finding Doppler ultrasound bilateral lower extremity-negative for DVT Computed tomography scan of the brain without contrast-subtle hyperdensity along the left frontal region. 2-D echocardiogram-E of 60-75%, moderate concentric LVH, Carotid Oouldru-00-18% stenosis in the right internal and common carotid artery as a left common candidate artery. [id number] plaque formation. EEG-negative for epileptic activity. Finding suggestive of encephalopathy Assessment: -Acute uvula-itis, cause unknown causing respiratory compromise, acute respiratory failure-improved -Acute hypoxic respiratory failure needing ventilator assistance, extubated September 18-result -Left hand cellulitis at IV site-responding well to IV Ancef -Essential hypertension -Left frontal lobe possible stroke. Placed on aspirin. Started Lipitor. LFTs window. Lipitor discontinued for now. -Hyperlipidemia. Lipitor) for right now. -Morbid obesity BMI 45.5 -Acute hepatitis possibly drug induced could be from Lipitor.-Improved Disposition: Home Plan - Discharge Summary Discharge Rx Participant: Yes New Discharge Prescriptions: New Cephalexin [Keflex] 500 mg PO Q6HR 7 Days #28 cap Aspirin 81 mg PO DAILY chew Amoxicillin/Potassium Clav [Augmentin 875-125 Tablet] 1 tab PO Q12HR 1 Days #10 tab amLODIPine [Norvasc] 2.5 mg PO DAILY #30 tab Clopidogrel [Plavix] 75 mg PO DAILY #30 tab Changed Amitriptyline HCl [Elavil] 10 mg PO HS #0 Losartan Potassium 50 mg PO HS #0 Discontinued Meloxicam [Mobic] 15 mg PO QAM Discharge Medication List Amitriptyline HCl [Elavil] 10 mg PO HS #0 09/21/20 [Rx] Amoxicillin/Potassium Clav [Augmentin 875-125 Tablet] 1 tab PO Q12HR 1 Days #10 tab 09/21/20 [Rx] Aspirin 81 mg PO DAILY chew 09/21/20 [Rx] Cephalexin [Keflex] 500 mg PO Q6HR 7 Days #28 cap 09/21/20 [Rx] Clopidogrel [Plavix] 75 mg PO DAILY #30 tab 09/21/20 [Rx] Losartan Potassium 50 mg PO HS #0 09/21/20 [Rx] amLODIPine [Norvasc] 2.5 mg PO DAILY #30 tab 09/21/20 [Rx] Follow up Appointment(s)/Referral(s): Eric Peng MD [STAFF PHYSICIAN] - 4 Weeks ([facility] will call patient with follow up appointment time and physician. I did mention he was going home on an event monitor. Spoke to Ramila/[facility]. ) Cristopher Bauman MD [Primary Care Provider] - 1 Week Kenny Lin DO [Doctor of Osteopathic Medicine] - 1 Week Patient Instructions/Handouts: Angioedema (GEN), Hypertension (DC) Discharge Disposition: HOME SELF-CARE
== END 2020-09-21 13:59 | disposition home or self-care (01) | DRG 915 ==
LOC: EC 12:25 → 2SICU 15:21 → 3SCARD 09-19 10:18
PROVIDERS: ADMIT Hospitalist; ATTEND Hospitalist
PROC: 0BH17EZ Insertion of Endotracheal Airway into Trachea, Via Natural or Artificial Opening (ICD-10-PCS; principal; 2020-09-14)
PROC: 5A1945Z Respiratory Ventilation, 24-96 Consecutive Hours (ICD-10-PCS; 2020-09-14)
PROC: 0DH67UZ Insertion of Feeding Device into Stomach, Via Natural or Artificial Opening (ICD-10-PCS; 2020-09-14)
PROC: 3E0G76Z Introduction of Nutritional Substance into Upper GI, Via Natural or Artificial Opening (ICD-10-PCS; 2020-09-15)
PROC: 05HD33Z Insertion of Infusion Device into Right Cephalic Vein, Percutaneous Approach (ICD-10-PCS; 2020-09-19)
DX: T78.3XXA Angioneurotic edema, initial encounter (principal); J96.01 Acute respiratory failure with hypoxia; G92 Toxic encephalopathy; I63.9 Cerebral infarction, unspecified; Z68.41 Body mass index [BMI] 40.0-44.9, adult; Q43.1 Hirschsprung's disease; D68.9 Coagulation defect, unspecified; J98.11 Atelectasis; E87.1 Hypo-osmolality and hyponatremia; L03.114 Cellulitis of left upper limb; T80.29XA Infection following other infusion, transfusion and therapeutic injection, initial encounter; K71.2 Toxic liver disease with acute hepatitis; N18.30 Chronic kidney disease, stage 3 unspecified; I13.10 Hypertensive heart and chronic kidney disease without heart failure, with stage 1 through stage 4 chronic kidney disease, or unspecified chronic kidney disease; E66.01 Morbid (severe) obesity due to excess calories; Z20.822 Contact with and (suspected) exposure to COVID-19; K04.7 Periapical abscess without sinus; M19.90 Unspecified osteoarthritis, unspecified site; R79.82 Elevated C-reactive protein (CRP); G47.33 Obstructive sleep apnea (adult) (pediatric); K21.9 Gastro-esophageal reflux disease without esophagitis; E87.5 Hyperkalemia; S16.1XXA Strain of muscle, fascia and tendon at neck level, initial encounter; M62.838 Other muscle spasm; R79.89 Other specified abnormal findings of blood chemistry; R74.8 Abnormal levels of other serum enzymes; F40.240 Claustrophobia; E78.5 Hyperlipidemia, unspecified; T46.6X5A Adverse effect of antihyperlipidemic and antiarteriosclerotic drugs, initial encounter; Y84.8 Other medical procedures as the cause of abnormal reaction of the patient, or of later complication, without mention of misadventure at the time of the procedure; Z71.3 Dietary counseling and surveillance; Z79.899 Other long term (current) drug therapy; Z91.19 Patient's noncompliance with other medical treatment and regimen; Z53.29 Procedure and treatment not carried out because of patient's decision for other reasons; Z88.8 Allergy status to other drugs, medicaments and biological substances
CPT/HCPCS: 31500; 36410; 36415; 36600; 70450; 70491; 70496; 70498; 71045; 76937; 80048; 80053; 80061; 80306; 81001; 81003; 82140; 82805; 83605; 83735; 84443; 84478; 85025; 85379; 85610; 85652; 85730; 86140; 86308; 86850; 86900; 86901; 87040; 87070; 87205; 87635; 93270; 93306; 93880; 93970; 94002; 94003; 95816; 96365; 96375; 99291

== ENCOUNTER 2020-09-24 17:20 | Emergency (ER) | payer BC ==
[2020-09-24 17:24] VITALS: RESP 18; TEMP 98.2
--- NOTE | 2020-09-24 17:26 | US ---
EXAMINATION TYPE: US venous doppler duplex UE LT DATE OF EXAM: 09/24/2020 COMPARISON: NONE CLINICAL HISTORY: L03.119 CELLULITIS PART OF LIMB. IV removed from left hand 1 week ago. Pain and maricruz ma left arm SIDE PERFORMED: left Left Arm: *positive for DVT left radial vein, no color flow or compression noted within 1 of the rad ial veins. Superficial thrombus left lower arm IMPRESSION: DVT of the left radial vein. Thrombophlebitis of the left distal arm superficial veins. Preliminary findings were reported to Dr. Bauman by technologist at the time of study.
--- NOTE | 2020-09-24 17:42 | ED ---
General Adult HPI - General Chief complaint: Extremity Problem,Nontraumatic Stated complaint: +DVT Time Seen by Provider: 09/24/20 17:26 Source: patient Mode of arrival: ambulatory Limitations: no limitations - History of Present Illness Initial comments: Dictation was produced using [employer] dictation software. please excuse any grammatical, word or spelling errors. This patient was cared for during a federal and state declared state of emergenc y secondary to Covid 19 Chief Complaint: 50-year-old male with past medical history of hypertension Hirschsprung's disease presents with abnormal outpatient ultrasound History of Present Illness: 50-year-old male who presents today with abnormal outpatient ultrasound. Patient a venous Doppler study of his left upper extremity showing thrombophlebitis and DVT of the left radial vein. Patient denies any chest pain or shortness of breath. Recently was hospitalized for uvulitis. He was admitted to the ICU. Patient has a fever, chills or night sweats. Denies any exertional dyspnea or exertional chest pain. Does not have any symptoms of pleurisy. The ROS documented in this emergency department record has been reviewed and confirmed by me. Those systems with pertinent positive or negative responses have been documented in the HPI. All other systems are other negative and/or noncontributory. PHYSICAL EXAM: General Impression: Alert and oriented x3, not in acute distress HEENT: Normocephalic atraumatic, extra-ocular movements intact, pupils equal and reactive to light bilaterally, mucous membranes moist. Cardiovascular: Heart regular rate and rhythm Chest: Able to complete full sentences, no retractions, no tachypnea Abdomen: abdomen soft, non-tender, non-distended, no organomegaly Musculoskeletal: Pulses present and equal in all extremities, no peripheral edema Motor: no focal deficits noted Neurological: CN II-XII grossly intact, no focal motor or sensory deficits noted Skin: Intact with no visualized rashes Psych: Normal affect and mood ED course: 50-year-old male presents with DVT of the left upper extremity. Vital signs upon arrival are within acceptable limits. Patient denies any symptoms of pulmonary embolus. Patient given prescription for apixaban and 30 day trial offer packet for apixaban. Laboratory evaluation obtained. Hemoglobin 18.1. Coag panel metabolic panel is unremarkable. Patient will be discharged. Instructed to follow-up with his primary care physician. - Related Data Previous Rx's Medication Instructions Recorded Amitriptyline HCl [Elavil] 10 mg PO HS #0 09/21/20 Amoxicillin/Potassium Clav 1 tab PO Q12HR 1 Days #10 tab 09/21/20 [Augmentin 875-125 Tablet] Aspirin 81 mg PO DAILY chew 09/21/20 Cephalexin [Keflex] 500 mg PO Q6HR 7 Days #28 cap 09/21/20 Clopidogrel [Plavix] 75 mg PO DAILY #30 tab 09/21/20 Losartan Potassium 50 mg PO HS #0 09/21/20 amLODIPine [Norvasc] 2.5 mg PO DAILY #30 tab 09/21/20 Apixaban [Eliquis Starter Pack 0 mg PO DIRECTED 30 Days #1 pack 09/24/20 (for VTE)] Allergies Allergy/AdvReac Type Severity Reaction Status Date / Time cyclobenzaprine Allergy Anaphylaxis Verified 09/24/20 17:22 [From Flexeril] Review of Systems ROS Statement: Those systems with pertinent positive or pertinent negative responses have been documented in the HPI. ROS Other: All systems not noted in ROS Statement are negative. Past Medical History Past Medical History: No Reported History Additional Past Medical History / Comment(s): hirshprung disease, HTN,. Per pts daughter, pt takes testosterone shots, he was also in stage 3 kidney failure at one time and has a mass on liver. History of Any Multi-Drug Resistant Organisms: None Reported Past Surgical History: Orthopedic Surgery Additional Past Surgical History / Comment(s): five abdominal surgery, BL knees, right forearm, right ring finger, left shoulder Past Psychological History: No Psychological Hx Reported Smoking Status: Never smoker Past Alcohol Use History: Occasional Past Drug Use History: None Reported General Exam Limitations: no limitations Course Vital Signs 09/24/20 17:22 Temperature 98.2 F Pulse Rate 86 Respiratory 18 Rate Blood Pressure 171/73 O2 Sat by Pulse 99 Oximetry Medical Decision Making - Lab Data Result diagrams: 09/24/20 18:24 09/24/20 18:24 Lab Results 09/24/20 09/24/20 09/24/20 Range/Units 18:24 18:24 18:24 WBC 11.5 H (3.8-10.6) k/uL RBC 6.17 H (4.30-5.90) m/uL Hgb 18.1 H (13.0-17.5) gm/dL Hct 55.7 H (39.0-53.0) % MCV 90.2 (80.0-100.0) fL MCH 29.4 (25.0-35.0) pg MCHC 32.6 (31.0-37.0) g/dL RDW 13.7 (11.5-15.5) % Plt Count 252 (150-450) k/uL MPV 7.7 Neutrophils % 70 % Lymphocytes % 18 % Monocytes % 7 % Eosinophils % 2 % Basophils % 0 % Neutrophils # 8.0 H (1.3-7.7) k/uL Lymphocytes # 2.1 (1.0-4.8) k/uL Monocytes # 0.8 (0-1.0) k/uL Eosinophils # 0.2 (0-0.7) k/uL Basophils # 0.0 (0-0.2) k/uL PT 11.7 (9.0-12.0) sec INR 1.1 (<1.2) APTT 24.8 (22.0-30.0) sec Sodium 136 L (137-145) mmol/L Potassium 4.1 (3.5-5.1) mmol/L Chloride 101 (98-107) mmol/L Carbon Dioxide 27 (22-30) mmol/L Anion Gap 8 mmol/L BUN 14 (9-20) mg/dL Creatinine 0.93 (0.66-1.25) mg/dL Est GFR (CKD-EPI)AfAm >90 (>60 ml/min/1.73 sqM) Est GFR (CKD-EPI)NonAf >90 (>60 ml/min/1.73 sqM) Glucose 94 (74-99) mg/dL Calcium 9.4 (8.4-10.2) mg/dL Disposition Clinical Impression: DVT (deep venous thrombosis) Disposition: HOME SELF-CARE Condition: Good Instructions (If sedation given, give patient instructions): Deep Vein Thrombosis (ED) Prescriptions: Apixaban [Eliquis Starter Pack (for VTE)] 0 mg PO DIRECTED 30 Days #1 pack Is patient prescribed a controlled substance at d/c from ED?: No Referrals: Cristopher Bauman MD [Primary Care Provider] - 1-2 days Time of Disposition: 19:01
[2020-09-24 18:41] LABS: African American GFR (CKD) >90 (>60 ml/min/1.73 sqM); Anion Gap 8 mmol/L; Blood Urea Nitrogen 14 mg/dL (9-20); Calcium 9.4 mg/dL (8.4-10.2); Carbon Dioxide 27 mmol/L (22-30); Chloride 101 mmol/L (98-107); Glucose 94 mg/dL (74-99); Non-African American GFR(CKD) >90 (>60 ml/min/1.73 sqM); Potassium 4.1 mmol/L (3.5-5.1); Sodium 136 mmol/L (137-145)
[2020-09-24 18:44] LABS: Basophils % (A) 0 %; Eosinophils # (A) 0.2 k/uL (0-0.7); Eosinophils % (A) 2 %; HGB 18.1 gm/dL (13.0-17.5); INR 1.1 (<1.2); Lymphocytes # (A) 2.1 k/uL (1.0-4.8); Lymphocytes % (A) 18 %; MCH 29.4 pg (25.0-35.0); MCHC 32.6 g/dL (31.0-37.0); MCV 90.2 fL (80.0-100.0); Mean Platelet Volume 7.7; Monocytes # (A) 0.8 k/uL (0-1.0); Monocytes % (A) 7 %; Neutrophils % (A) 70 %; Partial Thromboplastin Time 24.8 sec (22.0-30.0); Platelet Count 252 k/uL (150-450); Prothrombin Time 11.7 sec (9.0-12.0); RBC 6.17 m/uL (4.30-5.90); RDW 13.7 % (11.5-15.5); WBC 11.5 k/uL (3.8-10.6)
[2020-09-24 18:50] LABS: HCT 55.7 % (39.0-53.0)
[2020-09-24 19:15] VITALS: BP 139/86; PULSE 90
== END 2020-09-24 19:15 | disposition home or self-care (01) ==
LOC: EC 17:20
DX: I82.622 Acute embolism and thrombosis of deep veins of left upper extremity (principal); Z88.8 Allergy status to other drugs, medicaments and biological substances
CPT/HCPCS: 36415; 80048; 85025; 85610; 85730; 99283

== ENCOUNTER 2020-09-30 13:14 | Emergency (ER) | payer BC ==
[2020-09-30 13:29] VITALS: RESP 18; TEMP 98.2
--- NOTE | 2020-09-30 14:41 | ED ---
General Adult HPI - General Chief complaint: Extremity Problem,Nontraumatic Stated complaint: L Arm Infection Time Seen by Provider: 09/30/20 13:33 Source: patient, RN notes reviewed, old records reviewed Mode of arrival: ambulatory Limitations: no limitations - History of Present Illness Initial comments: 50-year-old male presenting for evaluation of left hand swelling, and numbness in his left shoulder. Patient was diagnosed with left for DVT is started on Eliquis. He has been compliant with his medication. He denies any worsening swelling. He states that this had initially begun greater than 2 weeks ago after an IV was placed in his left hand. He was discharged from the hospital after a complicated medical course including lightheadedness, respiratory failure with the patient was on a ventilator. He was also evaluated for altered mental status and found to have CT evidence suggestive of stroke. He was seen by neurology and it was recommended that the patient get an MRI however due to claustrophobia he was unable to perform this test. He was started on medications for TIA and CVA at that time. He was recommended to follow-up with urology as an outpatient but has been unable to do so secondary to an issue with his primary care physician being out of town. No fever. States he has had some weakness in the left shoulder as well as some numbness over the lateral aspect of the shoulder for the past 2 weeks. This has been unchanged over the past 2 weeks, has not gotten better and has not worsened. - Related Data Home Medications Medication Instructions Recorded Confirmed Amitriptyline HCl [Elavil] 30 mg PO HS 09/30/20 09/30/20 Apixaban [Eliquis Starter Pack 5 mg PO BID 09/30/20 09/30/20 (for VTE)] Omeprazole 20 mg PO DAILY 09/30/20 09/30/20 Previous Rx's Medication Instructions Recorded Amoxicillin/Potassium Clav 1 tab PO Q12HR 1 Days #10 tab 09/21/20 [Augmentin 875-125 Tablet] Clopidogrel [Plavix] 75 mg PO DAILY #30 tab 09/21/20 amLODIPine [Norvasc] 2.5 mg PO DAILY #30 tab 09/21/20 Cephalexin [Keflex] 500 mg PO Q6HR 10 Days #40 cap 09/30/20 Doxycycline [Vibramycin] 100 mg PO BID 7 Days #14 capsule 09/30/20 Allergies Allergy/AdvReac Type Severity Reaction Status Date / Time cyclobenzaprine Allergy Anaphylaxis Verified 09/30/20 14:36 [From Flexeril] Review of Systems ROS Statement: Those systems with pertinent positive or pertinent negative responses have been documented in the HPI. ROS Other: All systems not noted in ROS Statement are negative. Past Medical History Past Medical History: No Reported History Additional Past Medical History / Comment(s): hirshprung disease, HTN,. Per pts daughter, pt takes testosterone shots, he was also in stage 3 kidney failure at one time and has a mass on liver. History of Any Multi-Drug Resistant Organisms: None Reported Past Surgical History: Orthopedic Surgery Additional Past Surgical History / Comment(s): five abdominal surgery, BL knees, right forearm, right ring finger, left shoulder Past Psychological History: No Psychological Hx Reported Smoking Status: Never smoker Past Alcohol Use History: Occasional Past Drug Use History: None Reported General Exam Limitations: no limitations General appearance: alert, in no apparent distress Head exam: Present: atraumatic, normocephalic Eye exam: Present: normal appearance, PERRL ENT exam: Present: normal exam Neck exam: Present: normal inspection. Absent: tenderness, meningismus Respiratory exam: Present: normal lung sounds bilaterally. Absent: respiratory distress Cardiovascular Exam: Present: regular rate, normal rhythm GI/Abdominal exam: Present: soft. Absent: distended, tenderness Extremities exam: Present: full ROM, other (Left hand and wrist are swollen, no significant erythema, minimal warmth, distal pulses intact, normal cap refill, normal cna hospice strength, ). Absent: tenderness Neurological exam: Present: alert, oriented X3, CN II-XII intact, motor sensory deficit (Patient is unable to abduct the left arm above 45, there is some numbness on the deltoid.) Psychiatric exam: Present: normal affect, normal mood Skin exam: Present: warm, dry, intact. Absent: cyanosis, diaphoretic Course Vital Signs 09/30/20 09/30/20 09/30/20 13:27 14:29 14:56 Temperature 98.2 F 98.2 F 98.2 F Pulse Rate 101 H 86 86 Respiratory 18 18 18 Rate Blood Pressure 148/82 171/104 171/104 O2 Sat by Pulse 96 96 96 Oximetry Medical Decision Making - Medical Decision Making 50-year-old male with left hand swelling, recent diagnosis of DVT. Patient is scheduled to finish his antibiotics and one day treating a concurrent cellulitis of the left hand. He has been on Eliquis. Regarding the patient's weakness, review the medical record does indicate the patient may have had a stroke. He is only able to abduct his left arm to approximately 45. He states this has been present for 2 weeks. I suspect this may either be related to his stroke or peripheral nerve injury. I offered admission for further evaluation including MRI. Patient prefers outpatient follow-up is given referral to multiple neurologists that he can arrange outpatient follow-up. I did refill antibiotics for this patient for his cellulitis, status post significantly improved and nearly completely resolved. He's given strict return parameters Disposition Clinical Impression: Deep vein thrombosis (DVT) of upper extremity, Cellulitis Disposition: HOME SELF-CARE Condition: Fair Instructions (If sedation given, give patient instructions): Cellulitis (ED), Deep Vein Thrombosis (ED) Additional Instructions: Please follow up with neurology as soon as possible. Please return to the emergency department with worsening or changing symptoms. Prescriptions: Cephalexin [Keflex] 500 mg PO Q6HR 10 Days #40 cap Doxycycline [Vibramycin] 100 mg PO BID 7 Days #14 capsule Is patient prescribed a controlled substance at d/c from ED?: No Referrals: Cristopher Bauman MD [Primary Care Provider] - 1-2 days Carolyn Gutierrez MD [REFERRING] - 1-2 days Huang Oliva DO [STAFF PHYSICIAN] - 1-2 days Roslyn Cavazos MD [Medical Doctor] - 1-2 days Time of Disposition: 14:41
[2020-09-30 14:56] VITALS: BP 171/104; PULSE 86
== END 2020-09-30 14:59 | disposition home or self-care (01) ==
LOC: EC 13:14
DX: I82.622 Acute embolism and thrombosis of deep veins of left upper extremity (principal); L03.114 Cellulitis of left upper limb; Z79.899 Other long term (current) drug therapy; Z79.01 Long term (current) use of anticoagulants; Z88.8 Allergy status to other drugs, medicaments and biological substances
CPT/HCPCS: 99283

== ENCOUNTER 2020-10-11 00:30 | Observation (INO) | payer BC ==
--- NOTE | 2020-10-11 00:35 | ED ---
Chest Pain HPI - General Chief Complaint: Chest Pain Stated Complaint: Chest Pain Time Seen by Provider: 10/11/20 00:34 Source: patient, family, RN notes reviewed, old records reviewed Mode of arrival: ambulatory Limitations: no limitations - History of Present Illness Initial Comments: This is a 50-year-old male DF for evaluation presents today for evaluation of chest pain sudden onset of chest pain. A half hour prior to arrival. Heaviness in chest. Complex recent medical history as he is on blood thinners and aspirin for recent left upper extremity DVT coming significant weakness in the left side of his chest, left arm. Numbness and tingling as well. Patient also had left arm pain as well as the chest pain and heaviness today with episode of diaphoresis and shortness of breath MD Complaint: chest pain -: hour(s) (0.5) Onset: during rest Pain Location: left chest Pain Radiation: LUE Severity: severe Severity scale (1-10): 9 Quality: tightness, heaviness Improves With: nothing Worsens With: nothing Anginal Symptoms: diaphoresis, dyspnea, sense of impending doom Other Symptoms: palpitations Treatments Prior to Arrival: none - Related Data Home Medications Medication Instructions Recorded Confirmed Amitriptyline HCl [Elavil] 30 mg PO HS 09/30/20 09/30/20 Apixaban [Eliquis Starter Pack 5 mg PO BID 09/30/20 09/30/20 (for VTE)] Omeprazole 20 mg PO DAILY 09/30/20 09/30/20 Previous Rx's Medication Instructions Recorded Amoxicillin/Potassium Clav 1 tab PO Q12HR 1 Days #10 tab 09/21/20 [Augmentin 875-125 Tablet] Clopidogrel [Plavix] 75 mg PO DAILY #30 tab 09/21/20 amLODIPine [Norvasc] 2.5 mg PO DAILY #30 tab 09/21/20 Cephalexin [Keflex] 500 mg PO Q6HR 10 Days #40 cap 09/30/20 Doxycycline [Vibramycin] 100 mg PO BID 7 Days #14 capsule 09/30/20 Allergies Allergy/AdvReac Type Severity Reaction Status Date / Time cyclobenzaprine Allergy Anaphylaxis Verified 10/11/20 00:33 [From Flexeril] Review of Systems ROS Statement: Those systems with pertinent positive or pertinent negative responses have been documented in the HPI. ROS Other: All systems not noted in ROS Statement are negative. EKG Findings - EKG Comments: EKG Findings:: EKG shows sinus rhythm 86 NV 182 QRS 98 QTc 435 Past Medical History Past Medical History: No Reported History Additional Past Medical History / Comment(s): hirshprung disease, HTN,. Per pts daughter, pt takes testosterone shots, he was also in stage 3 kidney failure at one time and has a mass on liver. History of Any Multi-Drug Resistant Organisms: None Reported Past Surgical History: Orthopedic Surgery Additional Past Surgical History / Comment(s): five abdominal surgery, BL knees, right forearm, right ring finger, left shoulder Past Psychological History: No Psychological Hx Reported Smoking Status: Never smoker Past Alcohol Use History: Occasional Past Drug Use History: None Reported General Exam Limitations: no limitations General appearance: anxious Head exam: Present: atraumatic, normocephalic, normal inspection Eye exam: Present: normal appearance, PERRL, EOMI. Absent: scleral icterus, conjunctival injection, periorbital swelling ENT exam: Present: normal exam, mucous membranes moist Neck exam: Present: normal inspection. Absent: tenderness, meningismus, lymphadenopathy Respiratory exam: Present: normal lung sounds bilaterally. Absent: respiratory distress, wheezes, rales, rhonchi, stridor Cardiovascular Exam: Present: regular rate, normal rhythm, normal heart sounds. Absent: systolic murmur, diastolic murmur, rubs, gallop, clicks GI/Abdominal exam: Present: soft, normal bowel sounds. Absent: distended, tenderness, guarding, rebound, rigid Extremities exam: Present: normal inspection, full ROM, normal capillary refill. Absent: tenderness, pedal edema, joint swelling, calf tenderness Back exam: Present: normal inspection Neurological exam: Present: alert, oriented X3, CN II-XII intact Psychiatric exam: Present: normal affect, normal mood Skin exam: Present: warm, dry, intact, normal color. Absent: rash Course Vital Signs 10/11/20 10/11/20 10/11/20 00:31 01:00 01:30 Temperature 97.6 F Pulse Rate 94 80 80 Respiratory 24 18 18 Rate Blood Pressure 200/121 174/107 170/97 O2 Sat by Pulse 98 95 95 Oximetry 10/11/20 02:00 Temperature Pulse Rate 80 Respiratory 18 Rate Blood Pressure 158/83 O2 Sat by Pulse 95 Oximetry - Reevaluation(s) Reevaluation #1: 10/11/20 01:48 Medical records are reviewed Reevaluation #2: 10/11/20 02:43 Patient has no recurrent chest pain here in the ER will was scheduled for cardiology appointment tomorrow, will admit for cardiology to see Reevaluation #3: 10/11/20 02:44 Spoke patient and family regarding results, questions have been answered - Consultations Consultation #1: Spoke with Dr. silver agrees to admit this patient Chest Pain MDM - MDM 50 male DF for evaluation patient presents today for evaluation of chest pain. Patient has negative troponin with a negative EKG. CT chest is negative for acute disease a patient will be admitted for further evaluation management, cardiology to see, patient is on anticoagulation Critical Care Time Critical Care Time: Yes Total Critical Care Time: 31 Disposition Clinical Impression: Chest pain Disposition: ADMITTED IP TO THIS [facility] Condition: Undetermined Is patient prescribed a controlled substance at d/c from ED?: No Referrals: Cristophre Bauman MD [Primary Care Provider] - 1-2 days
[2020-10-11 01:14] LABS: Basophils # (A) 0.1 k/uL (0-0.2); Basophils % (A) 1 %; Eosinophils # (A) 0.4 k/uL (0-0.7); Eosinophils % (A) 5 %; HCT 54.2 % (39.0-53.0); HGB 18.7 gm/dL (13.0-17.5); Lymphocytes # (A) 2.4 k/uL (1.0-4.8); Lymphocytes % (A) 28 %; MCHC 34.6 g/dL (31.0-37.0); MCV 86.7 fL (80.0-100.0); Mean Platelet Volume 7.9; Monocytes # (A) 0.7 k/uL (0-1.0); Monocytes % (A) 8 %; Neutrophils # (A) 4.9 k/uL (1.3-7.7); Neutrophils % (A) 57 %; Platelet Count 188 k/uL (150-450); RBC 6.26 m/uL (4.30-5.90); RDW 13.1 % (11.5-15.5); WBC 8.6 k/uL (3.8-10.6)
--- NOTE | 2020-10-11 01:14 | XR ---
EXAM: XR Chest, 2 Views CLINICAL HISTORY: ITS.REASON XR Reason: Chest Pain TECHNIQUE: Frontal and lateral views of the chest. COMPARISON: CXR 09/19/20 FINDINGS: Lungs: No consolidation. Interstitial prominence is decreased from prior. Pleural space: No pleural effusion or pneumothorax. Heart: Unremarkable. No cardiomegaly or pulmonary vascular congestion. Mediastinum: Unremarkable. Bones/joints: No acute fracture. No dislocation. IMPRESSION: No acute cardiopulmonary process.
[2020-10-11 01:23] LABS: D-Dimer 0.49 mg/L FEU (<0.60); Partial Thromboplastin Time 24.9 sec (22.0-30.0); Prothrombin Time 10.4 sec (9.0-12.0)
[2020-10-11 01:25] LABS: ALT 45 U/L (4-49); AST 37 U/L (17-59); African American GFR (CKD) >90 (>60 ml/min/1.73 sqM); Albumin 4.2 g/dL (3.5-5.0); Alkaline Phosphatase 123 U/L (38-126); Anion Gap 11 mmol/L; Blood Urea Nitrogen 20 mg/dL (9-20); Calcium 9.5 mg/dL (8.4-10.2); Carbon Dioxide 24 mmol/L (22-30); Chloride 103 mmol/L (98-107); Creatine Kinase 176 U/L (55-170); Glucose 89 mg/dL (74-99); Lipase 222 U/L (23-300); Magnesium 1.9 mg/dL (1.6-2.3); Non-African American GFR(CKD) 86 (>60 ml/min/1.73 sqM); Potassium 4.2 mmol/L (3.5-5.1); Sodium 138 mmol/L (137-145); Total Bilirubin 0.4 mg/dL (0.2-1.3)
[2020-10-11] MEDS ORDERED: MORPHINE SULFATE 4 MG/ML SYRINGE IVP PRN (01:33)
[2020-10-11] MEDS ORDERED: LABETALOL 5 MG/ML VIAL MDV IVP STA (01:33)
[2020-10-11] MEDS ORDERED: SODIUM CHLORIDE 0.9% 1,000 ML IV STA ×2 (01:33)
[2020-10-11] MEDS ORDERED: MORPHINE SULFATE 4 MG/ML SYRINGE IVP STA (01:33)
--- NOTE | 2020-10-11 02:17 | CT ---
EXAM: CT Angiography Chest With Intravenous Contrast CLINICAL HISTORY: ITS.REASON CT Reason: cp TECHNIQUE: Axial computed tomographic angiography images of the chest with intravenous contrast. CTDI is 31.984 mGy and DLP is 883.1 mGy-cm. This CT exam was performed using one or more of the following dose reduction techniques: automated exposure control, adjustment of the mA and/or kV according to patient size, and/or use of iterative reconstruction technique. MIP reconstructed images were created and reviewed. COMPARISON: No relevant prior studies available. FINDINGS: Pulmonary arteries: Adequate opacification of the pulmonary arteries. Main pulmonary artery is normal in caliber. No evidence of acute pulmonary embolism. Aorta: No thoracic aortic aneurysm or dissection. Lungs: Lungs appear clear. No airspace consolidation. No pulmonary parenchymal mass or central endobronchial lesion. Pleural space: No pleural effusion or pneumothorax. Heart: Normal heart size. No pericardial effusion. No evidence of RV dysfunction. Thyroid: Normal thyroid gland. Bones/joints: No acute fracture or dislocation. Multilevel degenerative disc disease in the thoracic spine. Mild osteopenia. Soft tissues: Unremarkable. Lymph nodes: No adenopathy by size criteria. IMPRESSION: No evidence of acute pulmonary embolism.
[2020-10-11] MEDS ORDERED: NITROGLYCERIN SL TABS 0.4 MG TAB SUBLINGUAL PRN (02:42)
[2020-10-11] MEDS ORDERED: DOBUTamine DRIP for NUC MED 500 MG in DEXTROSE/WATER 1 250ML.BAG IV PRN (08:20)
[2020-10-11] MEDS: amLODIPine 2.5 MG TAB PO SCH (09:19)
[2020-10-11] MEDS: CLOPIDOGREL 75 MG TAB PO SCH (09:19)
[2020-10-11] MEDS: APIXABAN 5 MG TAB PO SCH ×2 (09:19→20:31)
--- NOTE | 2020-10-11 10:15 | ECHOF ---
Referral Reason:chest pain, left arm numbness MEASUREMENTS -------- HEIGHT: 157.5 cm WEIGHT: 127.0 kg BP: 139/81 IVSd: 1.6 cm (0.6 - 1.1) LVIDd: 4.3 cm (3.9 - 5.3) LVPWd: 1.1 cm (0.6 - 1.1) IVSs: 2.1 cm LVIDs: 3.1 cm LVPWs: 1.7 cm LAESV Index (A-L): 33.04 ml/m Ao Diam: 3.7 cm (2.0 - 3.7) AV Cusp: 1.8 cm (1.5 - 2.6) LA Diam: 3.8 cm (2.7 - 3.8) MV EXCURSION: 18.438 mm (> 18.000) MV EF SLOPE: 91 mm/s (70 - 150) EPSS: 0.3 cm MV E Max: 0.64 m/s MV DecT: 186 ms MV A Max: 0.67 m/s MV E/A Ratio: 0.95 RAP: 5.00 mmHg RVSP: 26.56 mmHg FINDINGS -------- Sinus rhythm. This was a technically adequate study. The left ventricular size is normal. There is moderate concentric left ventricular hypertrophy. O verall left ventricular systolic function is low-normal with, an EF between 50 - 55 %. The right ventricle is normal in size. LA is midly dilated 29-33ml/m2. The right atrial size is normal. The aortic valve is trileaflet, and appears structurally normal. No aortic stenosis or regurgitation. Mild mitral regurgitation is present. Mild tricuspid regurgitation present. Right ventricular systolic pressure is normal at < 35 mmHg. There is no pulmonic regurgitation present. The aortic root size is normal. There is no pericardial effusion. CONCLUSIONS -------- 1. The left ventricular size is normal. 2. There is moderate concentric left ventricular hypertrophy. 3. Overall left ventricular systolic function is low-normal with, an EF between 50 - 55 %. 4. The right ventricle is normal in size. 5. LA is midly dilated 29-33ml/m2. 6. The right atrial size is normal. 7. Mild mitral regurgitation is present. 8. Mild tricuspid regurgitation present. 9. The aortic root size is normal. 10. There is no pericardial effusion. OFFBEARER: Zaira Santiago RDCS
--- NOTE | 2020-10-11 10:59 | P.CRDCN ---
History of Present Illness Consult date: 10/11/20 History of present illness: CHIEF COMPLAINT: Chest pain and left arm numbness HISTORY OF PRESENT ILLNESS: This is a 50-year-old male with a past medical history significant for hypertension, hirshsprungs disease, and previous fistula with occasional rectal bleeding. Patient was scheduled to see Dr. Feliz in the office today to establish care. We have been asked to see the patient in consultation for chest pain. Patient was recently hospitalized secondary to acute uvulitis and was placed on mechanical ventilation secondary to airway compromise. Patient was evaluated by neurology at that time and was felt to have a acute/subacute ischemic stroke. Patient reports he was started on aspirin and Plavix. Patient also developed cellulitis of his left upper extremity during his hospitalization. He was found to have a left upper extremity DVT and was placed on Eliquis as well. He reports he has had numbness in his left upper extremity since been in the hospital but it has progressed up to his shoulder. Patient states yesterday night he was laying in bed when he began to feel increased numbness of his left upper extremity and a squeezing sensation on the left side of his chest. He reports feeling diaphoretic and slightly nauseous. He states this feeling lasted for approximately 15 minutes and he decided to come to the emergency room. He was given morphine which he states relieved his discomfort. DIAGNOSTICS: EKG reveals sinus mechanism with no signs of acute ischemia Chest xray negative for acute process Laboratory data: WBC 8.6 hemoglobin 18.7. Platelet count 188. D-dimer 0.49. Sodium 138. Potassium 4.2. BUN 20. Creatinine 1.02. Magnesium 1.9. Troponin negative 3. BNP 36. Current home cardiac medications include aspirin 81 mg daily, Plavix 75 mg daily, Eliquis 5 mg twice a day, and amlodipine 2.5 mg daily Echocardiogram completed revealed ejection fraction 50-55%, mild mitral regurgitation, and mild tricuspid regurgitation. REVIEW OF SYSTEMS: At the time of my exam: CONSTITUTIONAL: Denies fever or chills. HEENT: Denies blurred vision, vision changes, or eye pain. Denies hemoptysis CARDIOVASCULAR: Denies chest pain, orthopnea, PND or palpitations RESPIRATORY: No shortness of breath. GASTROINTESTINAL: Denies abdominal pain. Denies nausea or vomiting. HEMATOLOGIC: Denies bleeding disorders. GENITOURINARY: Denies any blood in urine. SKIN: Denies pruitis. Denies rash. PHYSICAL EXAM: VITAL SIGNS: Reviewed. GENERAL: Well-developed in no acute distress. HEENT: Head is normocephalic. Pupils are equal, round. Sclerae anicteric. Mucous membranes of the mouth are moist. Neck supple. No JVD or thyromegaly LUNGS: Respirations even and unlabored. Lungs essentially clear to auscultation bilaterally. HEART: Regular rate and rhythm. S1 and S2 heard. ABDOMEN: Soft. Nondistended. Nontender. EXTREMITIES: Normal range of motion. No clubbing or cyanosis. Peripheral pulses intact. No lower extremity edema. Left upper extremity numbness. NEUROLOGIC: Awake and alert. Oriented x 3. ASSESSMENT: Chest pain, troponin negative 3 Left upper extremity numbness Recent diagnosis of left upper extremity DVT, on Eliquis Recent acute/subacute ischemic stroke, discharged home on Aspirin and Plavix Recent hospitalization for acute uvulitis requiring mechanical ventilation secondary to airway compromise Hypertension Hirshsprungs disease History of fistula with occasional rectal bleeding PLAN: Echo obtained and reviewed Patient was on triple therapy at home. Will discontinue aspirin and continue with Eliquis and Plavix only Consult neurology for further evaluation Patient to undergo stress echo today Further recommendations pending patient course Nurse practitioner note has been reviewed by physician. Signing provider agrees with the documented findings, assessment, and plan of care. Past Medical History Past Medical History: No Reported History Additional Past Medical History / Comment(s): hirshprung disease, HTN,. Per pts daughter, pt takes testosterone shots, he was also in stage 3 kidney failure at one time and has a mass on liver. History of Any Multi-Drug Resistant Organisms: None Reported Past Surgical History: Orthopedic Surgery Additional Past Surgical History / Comment(s): five abdominal surgery, BL knees, right forearm, right ring finger, left shoulder Past Anesthesia/Blood Transfusion Reactions: No Reported Reaction Past Psychological History: No Psychological Hx Reported Smoking Status: Never smoker Past Alcohol Use History: Occasional Past Drug Use History: None Reported Medications and Allergies Home Medications Medication Instructions Recorded Confirmed Type Clopidogrel [Plavix] 75 mg PO DAILY #30 tab 09/21/20 10/11/20 Rx amLODIPine [Norvasc] 2.5 mg PO DAILY #30 tab 09/21/20 10/11/20 Rx Amitriptyline HCl [Elavil] 20 mg PO HS@0000 09/30/20 10/11/20 History Apixaban [Eliquis Starter Pack 5 mg PO BID 09/30/20 10/11/20 History (for VTE)] Allergies Allergy/AdvReac Type Severity Reaction Status Date / Time cyclobenzaprine Allergy Anaphylaxis Verified 10/11/20 08:07 [From Flexeril] Physical Exam Vitals: Vital Signs Temp Pulse Pulse Resp BP BP Pulse Ox 10/11/20 07:00 97.5 F L 75 18 139/81 95 10/11/20 02:49 97.5 F L 70 18 151/82 97 10/11/20 02:00 80 18 158/83 95 10/11/20 01:30 80 18 170/97 95 10/11/20 01:00 80 18 174/107 95 10/11/20 00:31 97.6 F 94 24 200/121 98 Intake and Output 10/10/20 10/11/20 10/11/20 22:59 06:59 14:59 Other: # Voids 1 Weight 127.006 kg Results 10/11/20 00:56 10/11/20 00:56 Cardiac Enzymes 10/11/20 10/11/20 10/11/20 Range/Units 00:56 00:56 04:35 AST 37 (17-59) U/L Troponin I <0.012 <0.012 (0.000-0.034) ng/mL 10/11/20 Range/Units 06:35 AST (17-59) U/L Troponin I <0.012 (0.000-0.034) ng/mL Coagulation 10/11/20 Range/Units 00:56 PT 10.4 (9.0-12.0) sec APTT 24.9 (22.0-30.0) sec CBC 10/11/20 Range/Units 00:56 WBC 8.6 (3.8-10.6) k/uL RBC 6.26 H (4.30-5.90) m/uL Hgb 18.7 H (13.0-17.5) gm/dL Hct 54.2 H (39.0-53.0) % Plt Count 188 (150-450) k/uL Comprehensive Metabolic Panel 10/11/20 Range/Units 00:56 Sodium 138 (137-145) mmol/L Potassium 4.2 (3.5-5.1) mmol/L Chloride 103 (98-107) mmol/L Carbon Dioxide 24 (22-30) mmol/L BUN 20 (9-20) mg/dL Creatinine 1.02 (0.66-1.25) mg/dL Glucose 89 (74-99) mg/dL Calcium 9.5 (8.4-10.2) mg/dL AST 37 (17-59) U/L ALT 45 (4-49) U/L Alkaline Phosphatase 123 (38-126) U/L Total Protein 7.0 (6.3-8.2) g/dL Albumin 4.2 (3.5-5.0) g/dL Current Medications Generic Name Dose Route Start Last Admin Trade Name Freq PRN Reason Stop Dose Admin Amlodipine Besylate 2.5 mg 10/11/20 09:00 10/11/20 09:19 Amlodipine 2.5 Mg Tab PO 2.5 mg DAILY BETY Administration Apixaban 5 mg 10/11/20 09:00 10/11/20 09:19 Apixaban 5 Mg Tab PO 5 mg BID BETY Administration Clopidogrel Bisulfate 75 mg 10/11/20 09:00 10/11/20 09:19 Clopidogrel 75 Mg Tab PO 75 mg DAILY BETY Administration Dobutamine HCl/Dextrose 500 mg 250 mls @ 38.102 mls/hr 10/11/20 08:20 / IV Solution IV 10/11/20 12:20 [id number] PRN Per Protocol Protocol 10 MCG/KG/MIN Morphine Sulfate 4 mg 10/11/20 01:33 Morphine Sulfate 4 Mg/Ml Syringe IVP Q4HR PRN Pain Nitroglycerin 0.4 mg 10/11/20 02:42 Nitroglycerin Sl Tabs 0.4 Mg Tab SUBLINGUAL Q5M PRN Chest Pain Intake and Output 10/10/20 10/11/20 10/11/20 22:59 06:59 14:59 Other: # Voids 1 Weight 127.006 kg 10/11/20 00:56 10/11/20 00:56
--- NOTE | 2020-10-11 13:25 | P.CNNES ---
History of Present Illness Consult date: 10/11/20 Requesting physician: Dalia Garcia Reason for Consult: TIA/CVA History of Present Illness: Patient is a 50-year-old male came to the hospital early this morning shortly after midnight at 12:30 AM for evaluation of chest pain. Patient recently had left upper extremity DVT. Patient states that he went to lay down in the bed and was tossing and turning, laying on the left side when he suddenly noticed severe pain in the left arm, then had a huge cramp in the left side of the chest as if an elephant was sitting on the chest. He broke out in sweat, and felt "vomit although did not. Patient denied any slurred speech, facial droop problem with the vision or any symptoms in the lower extremities. Vital signs on arrival blood pressure 200/121, pulse rate 94 temperature 97.6. Most recent blood pressure is 139/81. Patient was given morphine and symptoms improved. He still feels slight cramp in the left side of the arm and chest. Patient notices that the numbness of the left arm has extended from deltoid insertion point up to anterior axillary fold region. He however has noticed that his shoulder abduction has improved, as he was not able to move his shoulder at all, but now can bring all the way up to the shoulder level, but still not all the way up to the head. Chest x-ray showed no acute cardiopulmonary process. CTA of the chest shows no pulmonary embolism. EKG with normal sinus rhythm. 2-D echo showed normal left- ventricular size. Moderate concentric LVH, EF is 50-55%. Left atrium is mildly dilated. Patient had a normal CTA of head and neck on 09/19/2020. Patient takes Plavix 75 mg, amlodipine 2.5 mg, Eliquis 5 mg twice a day and Elavil 20 mg at bedtime. Patient recently was admitted to the hospital on 09/13/2020 for uvulitis, which affected his airway, requiring placement on mechanical ventilation on 09/14/2020. He was extubated on 09/17/2020. Patient states that when he came out of the ventilator, he notices left arm was numb pointing from deltoid insertion region all the way to the hand circumferentially. He also had weakness of the left arm. He also developed cellulitis of the left hand with DVT in the left upper extremity. He was seen by Dr. Jason Lin, who performed computed tomography scan of the head, which reportedly showed no acute stroke, but there was some concern about possible CVA. MRI was recommended but he declined. Patient was placed on Eliquis, aspirin and Plavix. Patient was discharged on 09/21/2020. Patient already has schedule for open MRI of the brain at Dr. Ruiz office on 10/25/2020. Review of Systems As above in detail. All other 14 point of review of systems unremarkable. Patient does have swelling of the left hand. Patient has history of anal fistula, for which she had surgery. He sometimes bleeds, when it fissures. Past Medical History Past Medical History: No Reported History Additional Past Medical History / Comment(s): hirshprung disease, HTN,. Per pts daughter, pt takes testosterone shots, he was also in stage 3 kidney failure at one time and has a mass on liver. History of Any Multi-Drug Resistant Organisms: None Reported Past Surgical History: Orthopedic Surgery Additional Past Surgical History / Comment(s): five abdominal surgery, BL knees, right forearm, right ring finger, left shoulder Past Anesthesia/Blood Transfusion Reactions: No Reported Reaction Past Psychological History: No Psychological Hx Reported Smoking Status: Never smoker Past Alcohol Use History: Occasional Past Drug Use History: None Reported Medications and Allergies Home Medications Medication Instructions Recorded Confirmed Type Clopidogrel [Plavix] 75 mg PO DAILY #30 tab 09/21/20 10/11/20 Rx amLODIPine [Norvasc] 2.5 mg PO DAILY #30 tab 09/21/20 10/11/20 Rx Amitriptyline HCl [Elavil] 20 mg PO HS@0000 09/30/20 10/11/20 History Apixaban [Eliquis Starter Pack 5 mg PO BID 09/30/20 10/11/20 History (for VTE)] Allergies Allergy/AdvReac Type Severity Reaction Status Date / Time cyclobenzaprine Allergy Anaphylaxis Verified 10/11/20 08:07 [From Flexeril] Physical Examination - Vital Signs Vital Signs: Vital Signs Temp Pulse Pulse Resp BP BP Pulse Ox 10/11/20 07:00 97.5 F L 75 18 139/81 95 10/11/20 02:49 97.5 F L 70 18 151/82 97 10/11/20 02:00 80 18 158/83 95 10/11/20 01:30 80 18 170/97 95 10/11/20 01:00 80 18 174/107 95 10/11/20 00:31 97.6 F 94 24 200/121 98 Intake and Output 10/10/20 10/11/20 10/11/20 22:59 06:59 14:59 Other: # Voids 1 Weight 127.006 kg On examination patient's mental status, speech and language functions are normal. Attention, concentration and fund of knowledge is adequate. Cranial exemption pupils are round and reactive to light, visual durán are full on confrontation, extraocular muscles are intact with no nystagmus. No Pedro Pablo syndrome. Face is symmetric, tongue protrudes to the midline. Palatal elevation and sensation, hearing and shoulder shrug normal, facial sensation normal. On muscle strength testing the strength is normal in the right arm and both lower extremities. On the left side his deltoid is 5-4+, biceps 5, triceps 5, brachioradialis 5, wrist extension 5-, wrist flexion 5-, finger extension 4+5-, finger flexion 5-4+, interossei 5, FDP 5-. Sensory to touch is decreased in the left C5 and C6 dermatomes more than C7 or C8. T1 dermatome is normal. Deep tendon reflexes are (right/left) biceps trace/trace, brachioradialis 0/0, triceps 1+/trace, knee 2/2, ankles 1+/1+ and plantars downgoing. No ataxia for [id number] testing, tone and bulk of muscles normal. Tone and bulk of muscles normal. He does have mild swelling of the left hand. No peripheral edema. Chest is clear, abdomen soft nontender. No carotid bruit, S1 and S2 audible. No rash. Results - Laboratory Findings CBC and BMP: 10/11/20 00:56 10/11/20 00:56 Abnormal Lab Findings: Abnormal Labs 10/11/20 10/11/20 00:56 00:56 RBC 6.26 H Hgb 18.7 H Hct 54.2 H Creatine Kinase 176 H Assessment and Plan Assessment: * Left arm weakness with pain in the left C5 dermatome, and numbness in left C5 and C6 dermatome. Probable left C5-6 radiculopathy versus left brachial plexopathy. CVA much less likely. Symptoms started since patient was e xtubated last admission on 09/17/2020. * Uncontrolled hypertension * Chest pain, status post stress test. * History of left upper extremity DVT, on Eliquis * History of anal fistula, with occasional rectal bleeding Plan: * I spoke to radiologist Dr. Kaye, who reviewed CTA of the chest. He states that there is no apical lung mass, no hematoma, therefore brachial plexopathy appears very unlikely. On review of his CTA of the head and neck from 09/18/2020, he mentions that patient has very significant degenerative disks, bulging disks and spinal stenosis at C5 6 and C6 7 levels. * Recommend MRI of the cervical spine evaluate for cervical spinal stenosis, disc herniation. Patient agrees to have it done in the hospital.
--- NOTE | 2020-10-11 14:33 | ECHOS ---
STRESS ECHOCARDIOGRAM LUMASON: N/A Vial INDICATIONS: Chest pain. MEDICATIONS: BASELINE HEART RATE: 83 BASELINE BLOOD PRESSURE: 145/96 MAXIMUM HEART RATE: 145 MAXIMUM BLOOD PRESSURE: 238/76 85% MPHR: 145 100% MPHR: 170 METS: 10 MAXIMUM STAGE REACHED: 3 TOTAL EXERCISE TIME: 9 minutes CLINICAL INFORMATION: Baseline EKG shows sinus rhythm, normal axis, normal intervals. Patient exercised on Robert protocol for a total of 9 minutes achieving 10 METs, 85% of predicted maximal heart rate without chest pain or diagnostic ST-segment depression. Baseline echo shows normal left ventricular size, wall motion and systolic function. Postexercise, there is normal hyperdynamic response of all segments of myocardium noted. The patient was given on contrast to improve endocardial visualization. CONCLUSIONS: 1. Good exercise tolerance. 2. Negative stress test by EKG criteria. 3. Negative stress echo. MMODL / IJN: [id number] /
[2020-10-11] MEDS ORDERED: LORazepam 2 MG/ML INJ IV STA (14:36)
--- NOTE | 2020-10-11 20:51 | P.HPIM ---
History of Present Illness H&P Date: 10/11/20 Chief Complaint: Left arm pain History of presenting complaint: This is a pleasant 50-year-old patient, Dr. molina. Patient hospital over 3 weeks ago. Was then admitted with a enlarged and inflamed uvula. Was intubated. In the ICU. Patient also felt to have left frontal lobe small stroke. Patient had declined the MRI then. Patient now presents with cramping in the left arm and left precordial chest cramping while sleeping. Patient also broke out into a sweat and also had some nausea. Symptoms lasted for over 30 minutes. Decided to come to the ER. No fever no chills. No cough. Review of systems: GEN.: [Tired EYES: None HEENT: None NECK: None RESPIRATORY: None CARDIOVASCULAR: As above GASTROINTESTINAL: None GENITOURINARY: None MUSCULOSKELETAL: None LYMPHATICS: None HEMATOLOGICAL: None PSYCHIATRY: None NEUROLOGICAL: None Past medical history to include: Hirschsprung disease, hypertension, hypotension tested organism, essential hypertension, possible left frontal lobe stroke, hyperlipidemia Social history: Does not smoke. Alcohol occasionally. Family history: Reviewed, noncontributory to presentation Physical examination: VITAL SIGNS: 97.6, 94, 24, 1 74 x 1 07, 98% room air GENERAL: BMI 39.1, sitting up, a bit tired. EYES: Pupils equal. Conjunctiva normal. HEENT: External appearance of nose and ears normal, oral cavity grossly normal. NECK: JVD not raised; masses not palpable. HEART: First and second heart sounds are normal; no edema. LUNGS: Respiratory rate normal; clear to auscultation. ABDOMEN: Soft, nontender, liver spleen not palpable, no masses palpable. PSYCH: Alert and oriented x3; mood and affect normal. NEUROLOGICAL: Cranial nerves grossly intact; no facial asymmetry, power and sensation grossly intact. LYMPHATICS: No lymph nodes palpable in the axilla and neck INVESTIGATIONS, reviewed in the clinical context: White count 8.6 hemoglobin 8.7 platelets 188 potassium 4.2 creatinine 1.02 Potassium 4.2 creatinine 1.02 Troponin I 3 negative Coronavirus [P/Cr-not detected EKG tracing personally reviewed by me-normal sinus rhythm Chest x-ray film personally reviewed by me-negative Chest CT-negative for PE 2-D echocardiogram-moderate concentric LVH, EF 50-55% Assessment and plan: -This is a patient who woke up with left arm cramping left precordial pain brachial and a sweat nausea. Possible unstable angina. Troponin and EKGs negative. Cardiology consulted. Obesity BMI 39.1. Follow-up with PCP for weight loss measures -Essential hypertension -History of recent left frontal lobe stroke about 3 weeks ago. Continue with aspirin Plavix. Add Lipitor. Patient had elevated liver enzymes with last admission. Patient now normalized. -Chronic insomnia uses Elavil Past Medical History Past Medical History: No Reported History Additional Past Medical History / Comment(s): hirshprung disease, HTN,. Per pts daughter, pt takes testosterone shots, he was also in stage 3 kidney failure at one time and has a mass on liver. History of Any Multi-Drug Resistant Organisms: None Reported Past Surgical History: Orthopedic Surgery Additional Past Surgical History / Comment(s): five abdominal surgery, BL knees, right forearm, right ring finger, left shoulder Past Anesthesia/Blood Transfusion Reactions: No Reported Reaction Past Psychological History: No Psychological Hx Reported Smoking Status: Never smoker Past Alcohol Use History: Occasional Past Drug Use History: None Reported Medications and Allergies Home Medications Medication Instructions Recorded Confirmed Type Clopidogrel [Plavix] 75 mg PO DAILY #30 tab 09/21/20 10/11/20 Rx amLODIPine [Norvasc] 2.5 mg PO DAILY #30 tab 09/21/20 10/11/20 Rx Amitriptyline HCl [Elavil] 20 mg PO HS@0000 09/30/20 10/11/20 History Apixaban [Eliquis Starter Pack 5 mg PO BID 09/30/20 10/11/20 History (for VTE)] Allergies Allergy/AdvReac Type Severity Reaction Status Date / Time cyclobenzaprine Allergy Anaphylaxis Verified 10/11/20 08:07 [From Flexeril] Physical Exam Vitals: Vital Signs Temp Pulse Pulse Resp BP BP Pulse Ox 10/11/20 07:00 97.5 F L 75 18 139/81 95 10/11/20 02:49 97.5 F L 70 18 151/82 97 10/11/20 02:00 80 18 158/83 95 10/11/20 01:30 80 18 170/97 95 10/11/20 01:00 80 18 174/107 95 10/11/20 00:31 97.6 F 94 24 200/121 98 Intake and Output 10/10/20 10/11/20 10/11/20 22:59 06:59 14:59 Other: # Voids 1 Weight 127.006 kg Results CBC & Chem 7: 10/11/20 00:56 10/11/20 00:56 Labs: Abnormal Lab Results - Last 24 Hours (Table) 10/11/20 10/11/20 Range/Units 00:56 00:56 RBC 6.26 H (4.30-5.90) m/uL Hgb 18.7 H (13.0-17.5) gm/dL Hct 54.2 H (39.0-53.0) % Creatine Kinase 176 H (55-170) U/L Thrombosis Risk Factor Assmnt - Choose All That Apply Each Factor Represents 1 point: Age 41-60 years Thrombosis Risk Factor Assessment Total Risk Factor Score: 1 Thrombosis Risk Factor Assessment Level: Low Risk
[2020-10-11] MEDS ORDERED: MELATONIN 1 MG TAB PO SCH (21:00)
[2020-10-11] MEDS ORDERED: ATORVASTATIN 40 MG TAB PO SCH (21:00)
[2020-10-12] MEDS ORDERED: AMITRIPTYLINE HCL 10 MG TAB PO SCH
--- NOTE | 2020-10-12 04:24 | MR ---
EXAMINATION TYPE: MR cervical spine wo con DATE OF EXAM: 10/11/2020 COMPARISON: None HISTORY: Left arm pain, weakness, numbness Multiplanar multiecho imaging of the cervical spine was performed with no contrast. There is mild degenerative disc space narrowing from C2 to C7. There is posterior disc herniation at C4-5 and C5-6 and C6-7 with some impingement on the spinal canal and cervical spinal cord. The canal measures 6.5 mm at C4-5. The canal measures 7.5 mm at C5-6. Cervical spinal cord shows no edema. Ther e is some mild effacement of the cord on the left side at C5-6 with uncovertebral spurring. There is mild flattening of the cord at C4-5. I see no bony destructive process. There is no compression fracture. IMPRESSION: Multilevel mild posterior disc herniation. Mild narrowing of the spinal canal as above. Left side C5- 6 neural foraminal impingement. This appears to correlate with the patient's history of left arm pain .
[2020-10-12 08:13] VITALS: BP 156/107; PULSE 83; TEMP 98.8
[2020-10-12] MEDS ORDERED: ASPIRIN 325 MG TAB PO SCH (09:00)
[2020-10-12] MEDS: CLOPIDOGREL 75 MG TAB PO SCH (09:10)
[2020-10-12] MEDS: amLODIPine 2.5 MG TAB PO SCH (09:10)
[2020-10-12] MEDS: APIXABAN 5 MG TAB PO SCH (09:10)
[2020-10-12 09:42] LABS: Chol/HDL Ratio 4.87; LDL Cholesterol,Calculated 74.6 mg/dL (0.0-131.0); VLDL Calculation 45.4 mg/dL (5.00-40.00)
[2020-10-12 10:09] VITALS: RESP 17
--- NOTE | 2020-10-12 13:05 | P.DS ---
Providers Date of admission: 10/11/20 02:43 Attending physician: Og Rosenbaum Consults: 10/11/20 02:42 Consult Physician Urgent Consulting Provider: Carlo Ramsey Consult Reason/Comments: cp Do you want consulting provider notified?: Yes 10/11/20 10:20 Consult Physician Routine Consulting Provider: Jason Lin Consult Reason/Comments: left arm numbness, recent TIA/CVA Do you want consulting provider notified?: Yes 10/11/20 18:29 Consult Physician Routine Consulting Provider: Jarrell Queen Consult Reason/Comments: Cerv spondylosis, left C5-6 herniation with left arm weakness, radiculopath Do you want consulting provider notified?: Yes Primary care physician: Cristopher Duncanqvi Hospital Course: Patient is admitted for chest pain and left arm crampiness weakness. Patient was evaluated by cardiology and had a stress test which was negative patient was also valid by neurology and patient had an MRI which showed multilevel left posterior discomfort herniation with foraminal impingement. Patient was evaluated by orthopedic surgery for this patient will follow with orthopedic surgery as an outpatient and patient will be discharged on anti-inflammatory medications. PHYSICAL EXAMINATION: GENERAL: The patient is alert and oriented x3, not in any acute distress. Obese HEENT: Pupils are round and equally reacting to light. EOMI. No scleral icterus. No conjunctival pallor. Normocephalic, atraumatic. No pharyngeal erythema. No thyromegaly. CARDIOVASCULAR: S1 and S2 present. No murmurs, rubs, or gallops. PULMONARY: Chest is clear to auscultation, no wheezing or crackles. ABDOMEN: Soft, nontender, nondistended, normoactive bowel sounds. No palpable organomegaly. MUSCULOSKELETAL: No joint swelling or deformity. EXTREMITIES: No cyanosis, clubbing, or pedal edema. NEUROLOGICAL: Gross neurological examination did not reveal any focal deficits. SKIN: No rashes. For rest of the medical problems and has physician course please refer to the HPI from Dr. العلي from yesterday Patient Condition at Discharge: Undetermined Plan - Discharge Summary Discharge Rx Participant: No New Discharge Prescriptions: New Meloxicam [Mobic] 15 mg PO DAILY #30 tab No Action amLODIPine [Norvasc] 2.5 mg PO DAILY #30 tab Clopidogrel [Plavix] 75 mg PO DAILY #30 tab Apixaban [Eliquis Starter Pack (for VTE)] 5 mg PO BID Amitriptyline HCl [Elavil] 20 mg PO HS@0000 Discharge Medication List Clopidogrel [Plavix] 75 mg PO DAILY #30 tab 09/21/20 [Rx] amLODIPine [Norvasc] 2.5 mg PO DAILY #30 tab 09/21/20 [Rx] Amitriptyline HCl [Elavil] 20 mg PO HS@0000 09/30/20 [History] Apixaban [Eliquis Starter Pack (for VTE)] 5 mg PO BID 09/30/20 [History] Meloxicam [Mobic] 15 mg PO DAILY #30 tab 10/12/20 [Rx] Follow up Appointment(s)/Referral(s): Cristopher Bauman MD [Primary Care Provider] - 3 Days Hany Feliz MD [STAFF PHYSICIAN] - 6 Weeks Discharge Disposition: HOME SELF-CARE
--- NOTE | 2020-10-12 14:33 | P.PN ---
Subjective Progress Note Date: 10/12/20 CHIEF COMPLAINT: Chest pain and left arm numbness HISTORY OF PRESENT ILLNESS: 10/11/2020 This is a 50-year-old male with a past medical history significant for hypertension, hirshsprungs disease, and previous fistula with occasional rectal bleeding. Patient was scheduled to see Dr. Feliz in the office today to establish care. We have been asked to see the patient in consultation for chest pain. Patient was recently hospitalized secondary to acute uvulitis and was placed on mechanical ventilation secondary to airway compromise. Patient was evaluated by neurology at that time and was felt to have a acute/subacute ischemic stroke. Patient reports he was started on aspirin and Plavix. Patient also developed cellulitis of his left upper extremity during his hospitalization. He was found to have a left upper extremity DVT and was placed on Eliquis as well. He reports he has had numbness in his left upper extremity since been in the hospital but it has progressed up to his shoulder. Patient states yesterday night he was laying in bed when he began to feel increased numbness of his left upper extremity and a squeezing sensation on the left side of his chest. He reports feeling diaphoretic and slightly nauseous. He states this feeling lasted for approximately 15 minutes and he decided to come to the emergency room. He was given morphine which he states relieved his discomfort. 10/12/2020 Patient examined this morning at the bedside. He denies chest pain or pressure. Denies shortness of breath. He underwent a stress test yesterday which was negative for reversible ischemia. PHYSICAL EXAM: VITAL SIGNS: Reviewed. GENERAL: Well-developed in no acute distress. HEENT: Head is normocephalic. Pupils are equal, round. Sclerae anicteric. Mucous membranes of the mouth are moist. Neck supple. No JVD or thyromegaly LUNGS: Respirations even and unlabored. Lungs essentially clear to auscultation bilaterally. HEART: Regular rate and rhythm. S1 and S2 heard. ABDOMEN: Soft. Nondistended. Nontender. EXTREMITIES: Normal range of motion. No clubbing or cyanosis. Peripheral pulses intact. No lower extremity edema. Left upper extremity numbness. NEUROLOGIC: Awake and alert. Oriented x 3. ASSESSMENT: Chest pain, troponin negative 3 Left upper extremity numbness Recent diagnosis of left upper extremity DVT, on Eliquis Recent acute/subacute ischemic stroke, discharged home on Aspirin and Plavix Recent hospitalization for acute uvulitis requiring mechanical ventilation secondary to airway compromise Hypertension Hirshsprungs disease History of fistula with occasional rectal bleeding PLAN: Continue current cardiac medications Continue Eliquis for left upper extremity DVT Patient is concerned regarding taking Plavix in addition to Eliquis and is requesting to only take Eliquis. Patient was started on Plavix during previous hospitalization secondary to acute/subacute ischemic stroke. Will defer to neurology regarding discontinuation of Plavix. Patient is stable for discharge home today from a cardiac standpoint. We will sign off. Please reconsult if needed. Nurse practitioner note has been reviewed by physician. Signing provider agrees with the documented findings, assessment, and plan of care. Objective - Vital Signs Vital signs: Vital Signs Temp 98.8 F 10/12/20 07:00 Pulse 83 10/12/20 07:00 Resp 17 10/12/20 08:00 BP 156/107 10/12/20 07:00 Pulse Ox 100 10/12/20 07:00 Intake & Output 10/11/20 10/12/20 10/12/20 18:59 06:59 18:59 Intake Total 840 Balance 840 Weight 127.01 kg Intake: Oral 840 Other: Voiding Method Toilet # Voids 2 3 # Bowel Movements 1 - Labs CBC & Chem 7: 10/11/20 00:56 10/11/20 00:56 Labs: Abnormal Lab Results - Last 24 Hours (Table) 10/11/20 Range/Units 00:56 Triglycerides 227.0 H (0.0-149.0) mg/dL VLDL Cholesterol, Calc 45.40 H (5.00-40.00) mg/dL HDL Cholesterol 31.0 L (40.0-60.0) mg/dL
--- NOTE | 2020-10-12 14:47 | P.CNOR ---
History of Present Illness - HPI Consult date: 10/12/20 Consult reason: other History of present illness: Patient's a very pleasant 50-year-old male who is seen and examined at bedside. He has had significant issues over the past several weeks as he was admitted to the hospital with an enlarged inflamed uvula. He had to be intubated in intensive care and was in the intensive care unit and he was also felt to have a small frontal stroke. He had actually declined some workup at that point. Since that time the patient has been having some issues in his left upper extremity with cramping and pain at his deltoid and his difficulty lifting his arm to his side. He says that he can flex his arm in front of him but he has difficulty with abduction. He had cellulitis and superficial clots at his left upper extremity and is being treated with anticoagulants. Patient feels he is making some progress in terms of his pain is still having some weakness at his left shoulder. 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 He has been managed with medicine over the past couple of weeks and is preparing to be discharged home today. He had a new MRI of the cervical spine which showed significant stenosis at multiple levels in his cervical spine and we are counseled in this regard. Review of Systems As stated per HPI. Currently denies any fevers chills. Denies any shortness breath. He admits to some weakness at his left shoulder Past Medical History Past Medical History: No Reported History Additional Past Medical History / Comment(s): hirshprung disease, HTN,. Per pts daughter, pt takes testosterone shots, he was also in stage 3 kidney failure at one time and has a mass on liver. History of Any Multi-Drug Resistant Organisms: None Reported Past Surgical History: Orthopedic Surgery Additional Past Surgical History / Comment(s): five abdominal surgery, BL knees, right forearm, right ring finger, left shoulder Past Anesthesia/Blood Transfusion Reactions: No Reported Reaction Past Psychological History: No Psychological Hx Reported Smoking Status: Never smoker Past Alcohol Use History: Occasional Past Drug Use History: None Reported Medications and Allergies Home Medications Medication Instructions Recorded Confirmed Type Clopidogrel [Plavix] 75 mg PO DAILY #30 tab 09/21/20 10/11/20 Rx amLODIPine [Norvasc] 2.5 mg PO DAILY #30 tab 09/21/20 10/11/20 Rx Amitriptyline HCl [Elavil] 20 mg PO HS@0000 09/30/20 10/11/20 History Apixaban [Eliquis Starter Pack 5 mg PO BID 09/30/20 10/11/20 History (for VTE)] Meloxicam [Mobic] 15 mg PO DAILY #30 tab 10/12/20 Rx Allergies Allergy/AdvReac Type Severity Reaction Status Date / Time cyclobenzaprine Allergy Anaphylaxis Verified 10/11/20 08:07 [From Flexeril] Physical Examination Osteopathic Statement: *. No significant issues noted on an osteopathic structural exam other than those noted in the History and Physical/Consult. - C Spine: dermatomal strength & reflexes left Shoulder strength: abduction: 3/5 (His vessel master strength wrist biceps and triceps are 5 out of 5. Abduction at his left shoulder is 3+ out of 5. Right upper extremity is 5 out of 5 throughout. His neck is nontender. There is no open wounds lacerations or abrasions. His left shoulder strength is his only deficit) Results - Labs Labs: Abnormal Lab Results - Last 24 Hours (Table) 10/11/20 Range/Units 00:56 Triglycerides 227.0 H (0.0-149.0) mg/dL VLDL Cholesterol, Calc 45.40 H (5.00-40.00) mg/dL HDL Cholesterol 31.0 L (40.0-60.0) mg/dL H & H 10/11/20 Range/Units 00:56 Hgb 18.7 H (13.0-17.5) gm/dL Hct 54.2 H (39.0-53.0) % Coagulation 10/11/20 Range/Units 00:56 INR 1.0 (<1.2) Result Diagrams: 10/11/20 00:56 10/11/20 00:56 - Diagnostic results Cervical MRI with/without contrast: report reviewed, image reviewed (New imaging of the cervical spine MRI shows significant disc degeneration at C4 5 C5 6 C6 7. There is some congenital stenosis. There is disc protrusion with evidence of left stenosis at C5 6 and C6 7. There is some effacement anterior thecal sac at C4 5) Assessment and Plan Assessment: Left upper extremity radiculopathy left upper extremity weakness Cervical stenosis C5 6 C6 7 with some moderate stenosis C4 5 Congenital stenosis with degenerative disc disease Cervical disc herniation C5 6 C6 7 Recent history of uvulitis requiring intubation Recent history of left upper extremity superficial venous thrombosis and cellulitis Plan: Left upper extremity radiculopathy left upper extremity weakness Cervical stenosis C5 6 C6 7 with some moderate stenosis C4 5 Congenital stenosis with degenerative disc disease Cervical disc herniation C5 6 C6 7 Recent history of uvulitis requiring intubation Recent history of left upper extremity superficial venous thrombosis and cellulitis The patient was seen by me as well as with our physician after 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 He does have some weakness in his left upper extremity but this seems to be stabilized at this point. He shows evidence of cervical stenosis with disc herniation at C5 6 C6 7 and moderately at C45. It is difficult to fully ascertain the nature of his issues but his cervical spine does seem to be a significant cause of his left upper extremity symptoms. He is managing fairly well in terms of his pain in his function and would like to hold off as much as possible for pursuing any sort of surgical intervention. I would like to see how he does with continued conservative treatment at this point. We will start him on some oral steroids see if that helps settle down some of the symptoms and potentially add in physical therapy to see if that can improve some of his strength. He may be a candidate for interventional pain management and for surgical intervention for decompression and fusion if his symptoms persist. I think it is okay for the follow-up on an outpatient basis. He is scheduled to go home today and I think that is appropriate. I can see him back in 1-2 weeks for recheck evaluation and to see how it started with the oral steroids. I answered his questions best my ability healing he can understand he is agreeable. [facility]
--- NOTE | 2020-10-12 15:23 | P.PN ---
Subjective Progress Note Date: 10/12/20 No change. No new symptoms. Patient's was also present. Objective - Vital Signs Vital signs: Vital Signs Temp 98.8 F 10/12/20 07:00 Pulse 83 10/12/20 07:00 Resp 17 10/12/20 08:00 BP 156/107 10/12/20 07:00 Pulse Ox 100 10/12/20 07:00 Intake & Output 10/11/20 10/12/20 10/12/20 18:59 06:59 18:59 Intake Total 840 Balance 840 Weight 127.01 kg Intake: Oral 840 Other: Voiding Method Toilet # Voids 2 3 # Bowel Movements 1 - Exam Deferred - Labs CBC & Chem 7: 10/11/20 00:56 10/11/20 00:56 Labs: Abnormal Lab Results - Last 24 Hours (Table) 10/11/20 Range/Units 00:56 Triglycerides 227.0 H (0.0-149.0) mg/dL VLDL Cholesterol, Calc 45.40 H (5.00-40.00) mg/dL HDL Cholesterol 31.0 L (40.0-60.0) mg/dL Assessment and Plan Assessment: * Left C5 and left C6 radiculopathy with left arm weakness, numbness * Cervical spinal stenosis at C5-6, C6-7. * Uncontrolled hypertension * Chest pain, status post stress test. * History of left upper extremity DVT, on Eliquis * History of anal fistula, with occasional rectal bleeding Plan: * MRI of the cervical spine was performed, which revealed posterior disc herniation at C4 5, C5 6 and C6 7 with some impingement on the spinal canal in the cervical spinal cord. The canal measures 6.5 mm at C4 5, and major 7.5 mm at C5 6. No abnormal cord signal. There is left paracentral disc herniation, probably compressing the nerve root at C5 6. Patient's symptoms are very well consistent with left C5 and C6 radiculopathy. * Orthopedic spine surgery input appreciated. * From neurological standpoint, patient does not need antiplatelet medication, as patient did not have a stroke. May continue Eliquis for DVT. * Neurologically clear for discharge. Follow up with orthopedic spine. * Suggest physical therapy and occupational therapy for left upper extremity.
== END 2020-10-12 15:26 | disposition home or self-care (01) ==
LOC: EC 00:30 → 6NMEDSUR 02:43
PROVIDERS: ADMIT Hospitalist; ATTEND Hospitalist
DX: R07.89 Other chest pain (principal); R20.0 Anesthesia of skin; R20.2 Paresthesia of skin; M79.602 Pain in left arm; R06.02 Shortness of breath; R61 Generalized hyperhidrosis; R00.2 Palpitations; R06.00 Dyspnea, unspecified; R11.0 Nausea; R07.2 Precordial pain; R53.1 Weakness; I10 Essential (primary) hypertension; Q43.1 Hirschsprung's disease; R16.0 Hepatomegaly, not elsewhere classified; E78.5 Hyperlipidemia, unspecified; M50.10 Cervical disc disorder with radiculopathy, unspecified cervical region; M48.02 Spinal stenosis, cervical region; E66.9 Obesity, unspecified; Z68.39 Body mass index [BMI] 39.0-39.9, adult; F51.04 Psychophysiologic insomnia; Z79.82 Long term (current) use of aspirin; Z79.02 Long term (current) use of antithrombotics/antiplatelets; Z86.718 Personal history of other venous thrombosis and embolism; Z87.19 Personal history of other diseases of the digestive system; Z79.899 Other long term (current) drug therapy; Z79.1 Long term (current) use of non-steroidal anti-inflammatories (NSAID); Z88.8 Allergy status to other drugs, medicaments and biological substances; Z86.73 Personal history of transient ischemic attack (TIA), and cerebral infarction without residual deficits; Z20.822 Contact with and (suspected) exposure to COVID-19; Z86.19 Personal history of other infectious and parasitic diseases
CPT/HCPCS: 96361 ×3; 96375; 93005 ×2; 96374; 99291; 36415; 93306; 93351; 85379; 83880; 80061; 80053; 82550; 83690; 83735; 84484; 85025; 85610; 85730; 87635; 71046; 71275; 72141; G0378 ×2; J2060; J2270; Q9950; Q9967

== ENCOUNTER → 2020-11-30 | Outpatient (CLI) | payer BC ==
--- NOTE | 2020-11-30 11:27 | US ---
EXAMINATION TYPE: US venous doppler duplex UE LT DATE OF EXAM: 11/30/2020 COMPARISON: 09/24/2020 CLINICAL HISTORY: 50 year-old male R22.32 Localized swelling, mass and lump, left upp. SIDE PERFORMED: left TECHNIQUE: Grayscale, color doppler, spectral doppler imaging performed of the deep veins of the upp er extremities. FINDINGS: Left Arm: Negative for DVT Nonocclusive clot of superficial vein seen in forearm. Previous thrombus within the radial vein has c leared. IMPRESSION: 1. No evidence for left upper extremity DVT. The previous DVT within the radial vein has cleared. 2. However, there is some chronic DVT that remains within the previously seen superficial forearm vekris n.
== END | disposition home or self-care (01) ==
LOC: RADUSWWP 10:24
PROVIDERS: ATTEND Internal Medicine Hematology & Oncology
DX: I82.411 Acute embolism and thrombosis of right femoral vein (principal)

== ENCOUNTER 2021-05-29 10:16 | Inpatient (IN) | payer BC ==
[2021-05-29] MEDS ORDERED: ONDANSETRON 4 MG/2 ML VIAL IVP STA (10:39)
[2021-05-29] MEDS ORDERED: HYDROmorphone 0.5 MG/0.5 ML SYRINGE IVP STA (10:39)
[2021-05-29] MEDS ORDERED: SODIUM CHLORIDE 0.9% 1,000 ML IV STA (10:39)
--- NOTE | 2021-05-29 10:44 | ED ---
General Adult HPI - General Chief complaint: Nausea/Vomiting/Diarrhea Stated complaint: abd pain Time Seen by Provider: 05/29/21 10:33 Source: patient, RN notes reviewed, old records reviewed Mode of arrival: wheelchair Limitations: no limitations - History of Present Illness Initial comments: This is a 50-year-old white male that presents to the emergency room with 1 day of nausea, vomiting and abdominal pain. Patient states last night he had brocco li and chicken but states that he ate more broccoli than he normally does. He states that he started to develop abdominal pain 10 out of 10. He has vomited 3 times today states that he was brown in color but he thinks it may be the protein bar he ate States that he did not have bowel movement today and he normally has several bowel movements daily. He states that he is burping and passing gas. He has a history of Hirschsprung's disease with abdominal surgeries and colostomy at age 5. He had an intestinal fistula in 1996. All of his abdominal surgeries were done at [facility]. He states that he was hospitalized here in August of this year for swollen uvula that occluded his ai rway and was put on life support. He denies any fevers, difficulty breathing or chest pain. -: days(s) (1) Location: abdomen Severity scale (1-10): 10 Quality: other (Squeezing) Consistency: constant Improves with: none Worsens with: movement, other (Palpation) Associated Symptoms: nausea/vomiting Treatments Prior to Arrival: none - Related Data Home Medications Medication Instructions Recorded Confirmed Losartan Potassium 50 mg PO DAILY 05/29/21 05/29/21 amLODIPine [Norvasc] 5 mg PO DAILY 05/29/21 05/29/21 Allergies Allergy/AdvReac Type Severity Reaction Status Date / Time cyclobenzaprine Allergy Anaphylaxis Verified 05/29/21 13:25 [From Flexeril] Review of Systems ROS Statement: Those systems with pertinent positive or pertinent negative responses have been documented in the HPI. ROS Other: All systems not noted in ROS Statement are negative. Past Medical History Past Medical History: No Reported History Additional Past Medical History / Comment(s): hirshprung disease, HTN,. Per pts daughter, pt takes testosterone shots, he was also in stage 3 kidney failure at one time and has a mass on liver. History of Any Multi-Drug Resistant Organisms: None Reported Past Surgical History: Orthopedic Surgery Additional Past Surgical History / Comment(s): five abdominal surgery, BL knees, right forearm, right ring finger, left shoulder Past Anesthesia/Blood Transfusion Reactions: No Reported Reaction Past Psychological History: No Psychological Hx Reported Smoking Status: Never smoker Past Alcohol Use History: Occasional Past Drug Use History: None Reported General Exam Limitations: no limitations General appearance: alert, in no apparent distress Head exam: Present: atraumatic, normocephalic, normal inspection Eye exam: Present: normal appearance, PERRL, EOMI. Absent: scleral icterus, conjunctival injection, periorbital swelling ENT exam: Present: normal oropharynx, other (White sticky mucous membranes) Neck exam: Present: normal inspection, full ROM Respiratory exam: Present: normal lung sounds bilaterally. Absent: respiratory distress, wheezes, rales, rhonchi, stridor, chest wall tenderness, accessory muscle use Cardiovascular Exam: Present: regular rate, normal rhythm, normal heart sounds. Absent: systolic murmur, diastolic murmur, rubs, gallop, clicks GI/Abdominal exam: Present: distended, tenderness, other (Significant abdominal scarring) Extremities exam: Present: normal inspection, full ROM, normal capillary refill. Absent: tenderness, pedal edema, joint swelling, calf tenderness Neurological exam: Present: alert, oriented X3 Psychiatric exam: Present: normal affect, normal mood Skin exam: Present: warm, dry, intact, normal color. Absent: rash, cyanosis, diaphoretic Course Vital Signs 05/29/21 10:20 Temperature 97.1 F L Pulse Rate 95 Respiratory 16 Rate Blood Pressure 147/85 O2 Sat by Pulse 97 Oximetry Medical Decision Making - Medical Decision Making CT the abdomen shows multilevel dilated small bowel loops to the level of the distal ileum. There is right-sided dilated small bowel loops with air-fluid levels and there appears to be rotation of the mesenteric vasculature may be on the basis of a partial obstruction. There does appear to be caliber change of the small bowel loops in the distal ileum. Malrotation or adhesion his differen tial diagnosis. He has had multiple abdominal surgeries as a child for Hirschsprung's. He'll be admitted to the hospital I did speak with Dr. Noe was agreeable to this plan. NG tube was placed at her request. White blood cell count is 13.6. Case was discussed with Dr. Huitron. - Lab Data Result diagrams: 05/29/21 10:58 05/29/21 10:58 Lab Results 05/29/21 05/29/21 05/29/21 Range/Units 10:58 10:58 10:58 WBC 13.6 H (3.8-10.6) k/uL RBC 6.19 H (4.30-5.90) m/uL Hgb 18.6 H (13.0-17.5) gm/dL Hct 52.1 (39.0-53.0) % MCV 84.2 (80.0-100.0) fL MCH 30.1 (25.0-35.0) pg MCHC 35.7 (31.0-37.0) g/dL RDW 14.2 (11.5-15.5) % Plt Count 256 (150-450) k/uL MPV 8.1 Neutrophils % 72 % Lymphocytes % 18 % Monocytes % 5 % Eosinophils % 2 % Basophils % 0 % Neutrophils # 9.9 H (1.3-7.7) k/uL Lymphocytes # 2.4 (1.0-4.8) k/uL Monocytes # 0.7 (0-1.0) k/uL Eosinophils # 0.3 (0-0.7) k/uL Basophils # 0.1 (0-0.2) k/uL PT 11.2 (9.0-12.0) sec INR 1.1 (<1.2) APTT 23.5 (22.0-30.0) sec Sodium 135 L (137-145) mmol/L Potassium 4.1 (3.5-5.1) mmol/L Chloride 103 (98-107) mmol/L Carbon Dioxide 22 (22-30) mmol/L Anion Gap 10 mmol/L BUN 28 H (9-20) mg/dL Creatinine 1.16 (0.66-1.25) mg/dL Est GFR (CKD-EPI)AfAm 85 (>60 ml/min/1.73 sqM) Est GFR (CKD-EPI)NonAf 74 (>60 ml/min/1.73 sqM) Glucose 102 H (74-99) mg/dL Plasma Lactic Acid Joselito (0.7-2.0) mmol/L Calcium 9.9 (8.4-10.2) mg/dL Total Bilirubin 1.0 (0.2-1.3) mg/dL AST 45 (17-59) U/L ALT 45 (4-49) U/L Alkaline Phosphatase 72 (38-126) U/L Total Protein 6.9 (6.3-8.2) g/dL Albumin 4.2 (3.5-5.0) g/dL Amylase 71 (30-110) U/L Lipase 123 (23-300) U/L 05/29/21 Range/Units 10:58 WBC (3.8-10.6) k/uL RBC (4.30-5.90) m/uL Hgb (13.0-17.5) gm/dL Hct (39.0-53.0) % MCV (80.0-100.0) fL MCH (25.0-35.0) pg MCHC (31.0-37.0) g/dL RDW (11.5-15.5) % Plt Count (150-450) k/uL MPV Neutrophils % % Lymphocytes % % Monocytes % % Eosinophils % % Basophils % % Neutrophils # (1.3-7.7) k/uL Lymphocytes # (1.0-4.8) k/uL Monocytes # (0-1.0) k/uL Eosinophils # (0-0.7) k/uL Basophils # (0-0.2) k/uL PT (9.0-12.0) sec INR (<1.2) APTT (22.0-30.0) sec Sodium (137-145) mmol/L Potassium (3.5-5.1) mmol/L Chloride (98-107) mmol/L Carbon Dioxide (22-30) mmol/L Anion Gap mmol/L BUN (9-20) mg/dL Creatinine (0.66-1.25) mg/dL Est GFR (CKD-EPI)AfAm (>60 ml/min/1.73 sqM) Est GFR (CKD-EPI)NonAf (>60 ml/min/1.73 sqM) Glucose (74-99) mg/dL Plasma Lactic Acid Joselito 1.0 (0.7-2.0) mmol/L Calcium (8.4-10.2) mg/dL Total Bilirubin (0.2-1.3) mg/dL AST (17-59) U/L ALT (4-49) U/L Alkaline Phosphatase (38-126) U/L Total Protein (6.3-8.2) g/dL Albumin (3.5-5.0) g/dL Amylase (30-110) U/L Lipase (23-300) U/L Disposition Clinical Impression: Partial small bowel obstruction Disposition: ADMITTED IP TO THIS [facility] Decision Date: 05/29/21 Decision Time: 12:28
[2021-05-29 11:21] LABS: Basophils # (A) 0.1 k/uL (0-0.2); Basophils % (A) 0 %; Eosinophils # (A) 0.3 k/uL (0-0.7); Eosinophils % (A) 2 %; HCT 52.1 % (39.0-53.0); HGB 18.6 gm/dL (13.0-17.5); Lymphocytes # (A) 2.4 k/uL (1.0-4.8); Lymphocytes % (A) 18 %; MCH 30.1 pg (25.0-35.0); MCHC 35.7 g/dL (31.0-37.0); MCV 84.2 fL (80.0-100.0); Mean Platelet Volume 8.1; Monocytes # (A) 0.7 k/uL (0-1.0); Monocytes % (A) 5 %; Neutrophils # (A) 9.9 k/uL (1.3-7.7); Neutrophils % (A) 72 %; Platelet Count 256 k/uL (150-450); RBC 6.19 m/uL (4.30-5.90); RDW 14.2 % (11.5-15.5); WBC 13.6 k/uL (3.8-10.6)
[2021-05-29 11:29] LABS: INR 1.1 (<1.2); Partial Thromboplastin Time 23.5 sec (22.0-30.0); Prothrombin Time 11.2 sec (9.0-12.0)
[2021-05-29 11:41] LABS: Albumin 4.2 g/dL (3.5-5.0); Calcium 9.9 mg/dL (8.4-10.2); Potassium 4.1 mmol/L (3.5-5.1); Total Protein 6.9 g/dL (6.3-8.2)
--- NOTE | 2021-05-29 11:50 | CT ---
EXAMINATION TYPE: CT abdomen pelvis wo con DATE OF EXAM: 05/29/2021 COMPARISON: 11/29/2016 HISTORY: Abd pain CT DLP: 1397 mGycm Automated exposure control for dose reduction was used. TECHNIQUE: Helical acquisition of images was performed from the lung bases through the pelvis. FINDINGS: LUNG BASES: Subsegmental changes lung bases. Most likely related atelectasis. LIVER/GB: No significant abnormality is appreciated. PANCREAS: No significant abnormality is seen. SPLEEN: No significant abnormality is seen. ADRENALS: No significant abnormality is seen. KIDNEYS: Punctate calcifications measuring 1 mm in the left kidney likely vascular.. ADENOPATHY: None visualized. OSSEOUS STRUCTURES: Hypertrophic and degenerative changes spine. Arthropathy of the hips. BOWEL: Multilevel dilated small bowel loops to the level of the distal ileum. Or normal caliber of t he distal ileum. OTHER: There is rotation and mesenteric vasculature. Small bowel is seen right and left abdomen. IMPRESSION: RIGHT-SIDED DILATED SMALL BOWEL LOOPS WITH AIR-FLUID LEVELS. THERE APPEARS TO BE ROTATION OF THE MESE NTERIC VASCULATURE. THIS MAY BE ON THE BASIS OF A PARTIAL OBSTRUCTION. THERE DOES APPEAR TO BE CALIBE R CHANGE OF THE SMALL BOWEL LOOPS OF THE DISTAL ILEUM RELATIVE TO THE PROXIMAL SMALL BOWEL LOOPS. MAL ROTATION OR ADHESION IN THE DIFFERENTIAL DIAGNOSIS CORRELATE CLINICALLY.
[2021-05-29] MEDS ORDERED: HYDROmorphone 1 MG/ML 1 ML SYRINGE IVP STA (12:08)
[2021-05-29] MEDS ORDERED: NALOXONE 0.4 MG/ML 1 ML VIAL IV PRN (12:29)
[2021-05-29] MEDS ORDERED: HYDROmorphone 0.5 MG/0.5 ML SYRINGE IVP PRN (12:29)
[2021-05-29] MEDS ORDERED: ONDANSETRON 4 MG/2 ML VIAL IVP PRN (12:29)
[2021-05-29] MEDS ORDERED: LORazepam 2 MG/ML INJ IV STA (12:44)
--- NOTE | 2021-05-29 14:47 | XR ---
EXAMINATION TYPE: XR chest 1V portable DATE OF EXAM: 05/29/2021 COMPARISON: 10/11/2020 HISTORY: NG tube placement TECHNIQUE: Single frontal view of the chest is obtained. FINDINGS: There is no focal air space opacity, pleural effusion, or pneumothorax seen. The cardiac silhouette size is within normal limits. The osseous structures are intact. Heart is enlarged and t here is hyperinflation. NG tube noted. Tip is somewhat difficult to see due to technique. IMPRESSION: 1. COPD and cardiomegaly. NG tube is seen coursing to left abdomen. Distal tip not well seen
[2021-05-29] MEDS: MORPHINE SULFATE 4 MG/ML SYRINGE IVP PRN ×3 (15:54→23:07)
[2021-05-29] MEDS: BENZOCAINE/MENTHOL LOZENG 1 EACH LOZENGE MUCOUS MEM PRN ×2 (20:02→23:11)
[2021-05-29 22:12] LABS: Appearance,Urine Clear (Clear); Bilirubin,Urine Negative (Negative); Blood,Urine Negative (Negative); Color,Urine Yellow; Glucose,Urine (UA) Negative (Negative); Ketones,Urine 2+ (Negative); Leukocyte Esterase,Urine Negative (Negative); Mucus,Urine Many /hpf; Nitrite,Urine Negative (Negative); Protein,Urine 1+ (Negative); RBC,Urine 54 /hpf (0-5); Specific Gravity,Urine 1.036 (1.001-1.035); WBC,Urine 149 /hpf (0-5)
--- NOTE | 2021-05-29 23:32 | P.GSHP ---
History of Present Illness H&P Date: 05/29/21 CHIEF COMPLAINT: Abdominal pain HISTORY OF PRESENT ILLNESS: The patient is a 50 year old male with congenital history of Hirschsprung's disease including malrotation as a child including multiple abdominal surgeries until 1974, over 46 years ago. Reports earlier this morning that he had chicken with broccoli. He was eating steam broccoli. Three hours, he later developed acute onset generalized abdominal pain including abdominal distention. Patient reports that he is currently on a diet. O therwise he is relatively fit. He denies any prior history of bowel obstructions. He reports multiple abdominal surgeries with peritonitis and fistulas within the abdomen which was treated conservatively. Last hospitalization was at [facility] less than 10 years ago for abdominal fistula. Since admission, nasogastric tube decompression was performed. Patient is passing some flatus. Last bowel movement was yesterday. Abdominal pain has improved. Patient reports extremes of bowel habits including chronic diarrhea and fast transit time. Patient is admitted for bowel obstruction. PAST MEDICAL HISTORY: See list and reviewed PAST SURGICAL HISTORY: See list and reviewed MEDICATIONS: See list and reviewed ALLERGIES: See list and reviewed SOCIAL HISTORY: See list and reviewed FAMILY HISTORY: See list and reviewed REVIEW OF ORGAN SYSTEMS: CONSTITUTIONAL: No fevers or chills. BMI over 40 with morbid obesity. EYES: Denies any trouble with vision. No glasses. HEENT: No difficulties with hearing. No nosebleeds. No difficulty swallowing. RESPIRATORY: History of uvulitis requiring prolonged ventilation for 1 week in August 2020, 9 to 10 months ago. CARDIOVASCULAR: Denies any chest pain, palpitations, or recent heart attacks. Hypertensive heart disease. GASTROINTESTINAL: History of multiple abdominal surgeries including colostomy with colostomy reversal, fistulas, peritonitis. Last surgery 19 75/46 years ago. Has chronic diarrhea. GENITOURINARY: Denies any blood in urine or increased urinary frequency. NEUROLOGICAL: Denies any numbness or tingling along the distal extremities. No seizure disorders or headaches. MUSCULOSKELETAL: Denies any back pain, stiffness or joint arthritis. SKIN: No current skin cancer. No rash. PSYCHIATRIC: Denies current depression or suicidal thoughts. ENDOCRINE: Denies current thyroid disorders. Denies any blood sugar glucose intolerance. HEME/LYMPHATIC: Denies any lumps and bumps around the neck. No recent deep venous thrombosis. ALLERGY/IMMUNOLOGY: No immunoglobulin therapy. No immune deficiencies. BREAST: Denies current breast lumps, pain or nipple discharge. PHYSICAL EXAM: VITALS: Reviewed CONSTITUTIONAL: Well developed and in no acute distress. EYES: Conjuctivae without sclera icterus. Extraocular movements grossly intact. HEAD, EARS, NOSE, THROAT: Moist buccal mucosa. Head is atraumatic, n ormocephalic. Hears conversational speech. No nasal drainage. NECK: Supple. No JV distention. No thyroidomegaly. RESPIRATORY: Non-labored respirations and equal bilateral excursions. No gross wheezes. CARDIOVASCULAR: Regular rate and rhythm. Extremities without moderate edema. Palpable 2+ radial pulses. ABDOMEN: Multiple transverse scarring along the right lower quadrant and left lower quadrant, midline and disfigurement of the abdominal wall. Minimal distention. LYMPH: No visible neck lymphadenopathy. MUSCULOSKELETAL: Nail and fingers with good capillary refill. SKIN: Warm and well perfused with good skin turgor. NEUROLOGIC: Cranial nerves II through XII grossly intact. Sensation upper and extremities intact. No focal or lateralizing signs. PSYCH: Appropriate affect. Alert and oriented to person, place and time. Displays appropriate insight. CLINCAL LABS: Reviewed. WBC on admission of 13,000. Lactate normal. IMAGING: Independently reviewed alongside with patient of CT of the pelvis demonstrated small bowel loops with dilation along the right upper right lower abdomen. Small bowel decompression along the left abdomen. No gross free air. Study limited due to noncontrast study. This is my independent interpretation. RADIOLOGY: Report reviewed a CT of the pelvis of questionable mesenteric swirl. ASSESSMENT: 1. Abnormal computed tomography scan for small bowel obstruction 2. Congenital malrotation: Hirschsprung disease with multiple abdominal surgeri es 3. 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 With his multiple abdominal surgeries including peritonitis, fistula formation, malrotation and Hirschsprung disease, patient has high risk for frozen abdomen. Recommend only conservative management with nasogastric tube decompression. Clinically he has improved following decompression. 2. I have discussed with him ideal management of congenital malrotation disease with the pediatric surgeon at [facility]. Additionally, patient wishes for any surgical procedures to be done at [facility]. Again conservative management at this time. 3. IV fluid hydration 4. Continue NG tube. 5. Surgical options reviewed including surgical care plan. 6. Patient's extremely high-risk for any surgical operations. 7. Inpatient hospitalization more than 2 days described. Past Medical History Past Medical History: No Reported History Additional Past Medical History / Comment(s): hirshprung disease, HTN,. Per pts daughter, pt takes testosterone shots, he was also in stage 3 kidney failure at one time and has a mass on liver. History of Any Multi-Drug Resistant Organisms: None Reported Past Surgical History: Orthopedic Surgery Additional Past Surgical History / Comment(s): five abdominal surgery, BL knees, right forearm, right ring finger, left shoulder Past Anesthesia/Blood Transfusion Reactions: No Reported Reaction Past Psychological History: No Psychological Hx Reported Smoking Status: Never smoker Past Alcohol Use History: Occasional Past Drug Use History: None Reported Medications and Allergies Home Medications Medication Instructions Recorded Confirmed Type Losartan Potassium 50 mg PO DAILY 05/29/21 05/29/21 History amLODIPine [Norvasc] 5 mg PO DAILY 05/29/21 05/29/21 History Allergies Allergy/AdvReac Type Severity Reaction Status Date / Time cyclobenzaprine Allergy Anaphylaxis Verified 05/29/21 13:25 [From Flexeril] Surgical - Exam Vital Signs Temp Pulse Resp BP Pulse Ox 97.1 F L 95 16 147/85 97 05/29/21 10:20 05/29/21 10:20 05/29/21 10:20 05/29/21 10:20 05/29/21 10:20 Results - Labs 05/29/21 10:58 05/29/21 10:58 Abnormal Lab Results - Last 24 Hours (Table) 05/29/21 05/29/21 05/29/21 Range/Units 10:58 10:58 21:34 WBC 13.6 H (3.8-10.6) k/uL RBC 6.19 H (4.30-5.90) m/uL Hgb 18.6 H (13.0-17.5) gm/dL Neutrophils # 9.9 H (1.3-7.7) k/uL Sodium 135 L (137-145) mmol/L BUN 28 H (9-20) mg/dL Glucose 102 H (74-99) mg/dL Ur Specific [place] 1.036 H (1.001-1.035) Urine Protein 1+ H (Negative) Urine Ketones 2+ H (Negative) Urine RBC 54 H (0-5) /hpf Urine WBC 149 H (0-5) /hpf Urine WBC Clumps Many H (None) /hpf Urine Mucus Many H (None) /hpf Diabetes panel 05/29/21 Range/Units 10:58 Sodium 135 L (137-145) mmol/L Potassium 4.1 (3.5-5.1) mmol/L Chloride 103 (98-107) mmol/L Carbon Dioxide 22 (22-30) mmol/L BUN 28 H (9-20) mg/dL Creatinine 1.16 (0.66-1.25) mg/dL Glucose 102 H (74-99) mg/dL Calcium 9.9 (8.4-10.2) mg/dL AST 45 (17-59) U/L ALT 45 (4-49) U/L Alkaline Phosphatase 72 (38-126) U/L Total Protein 6.9 (6.3-8.2) g/dL Albumin 4.2 (3.5-5.0) g/dL Calcium panel 05/29/21 Range/Units 10:58 Calcium 9.9 (8.4-10.2) mg/dL Albumin 4.2 (3.5-5.0) g/dL Pituitary panel 05/29/21 Range/Units 10:58 Sodium 135 L (137-145) mmol/L Potassium 4.1 (3.5-5.1) mmol/L Chloride 103 (98-107) mmol/L Carbon Dioxide 22 (22-30) mmol/L BUN 28 H (9-20) mg/dL Creatinine 1.16 (0.66-1.25) mg/dL Glucose 102 H (74-99) mg/dL Calcium 9.9 (8.4-10.2) mg/dL Adrenal panel 05/29/21 Range/Units 10:58 Sodium 135 L (137-145) mmol/L Potassium 4.1 (3.5-5.1) mmol/L Chloride 103 (98-107) mmol/L Carbon Dioxide 22 (22-30) mmol/L BUN 28 H (9-20) mg/dL Creatinine 1.16 (0.66-1.25) mg/dL Glucose 102 H (74-99) mg/dL Calcium 9.9 (8.4-10.2) mg/dL Total Bilirubin 1.0 (0.2-1.3) mg/dL AST 45 (17-59) U/L ALT 45 (4-49) U/L Alkaline Phosphatase 72 (38-126) U/L Total Protein 6.9 (6.3-8.2) g/dL Albumin 4.2 (3.5-5.0) g/dL Assessment and Plan (1) Small bowel obstruction due to adhesions Current Visit: Yes Status: Acute Code(s): K56.50 - INTESTNL ADHESIONS, UNSP TO PARTIAL VERSUS COMPLETE OBST SNOMED Code(s): 221854659 (2) Hirschsprung disease of rectosigmoid region Current Visit: Yes Status: Acute Code(s): Q43.1 - HIRSCHSPRUNG'S DISEASE SNOMED Code(s): 669763669 (3) Morbid obesity due to excess calories Current Visit: Yes Status: Acute Code(s): E66.01 - MORBID (SEVERE) OBESITY DUE TO EXCESS CALORIES SNOMED Code(s): 764432494 (4) BMI 40.0-44.9, adult Current Visit: Yes Status: Acute Code(s): Z68.41 - BODY MASS INDEX [BMI]40.0-44.9, ADULT SNOMED Code(s): 591096857
[2021-05-30] MEDS ORDERED: HYDROmorphone 1 MG/ML 1 ML SYRINGE IVP PRN (03:37)
[2021-05-30] MEDS: SODIUM CHLORIDE 0.9% 1,000 ML IV SCH ×2 (03:50→10:12)
[2021-05-30] MEDS ORDERED: ACETAMINOPHEN IV (For NPO) 1,000 MG in EMPTY BAG 1 BAG IVPB SCH (06:00)
[2021-05-30 07:51] LABS: Basophils % (A) 0 %; Eosinophils # (A) 0.2 k/uL (0-0.7); Eosinophils % (A) 1 %; HCT 50.8 % (39.0-53.0); Lymphocytes # (A) 1.7 k/uL (1.0-4.8); Lymphocytes % (A) 13 %; MCH 29.5 pg (25.0-35.0); MCHC 33.4 g/dL (31.0-37.0); MCV 88.4 fL (80.0-100.0); Mean Platelet Volume 7.8; Monocytes # (A) 0.7 k/uL (0-1.0); Monocytes % (A) 6 %; Neutrophils # (A) 9.8 k/uL (1.3-7.7); Neutrophils % (A) 78 %; Platelet Count 235 k/uL (150-450); RBC 5.75 m/uL (4.30-5.90); RDW 13.8 % (11.5-15.5); WBC 12.6 k/uL (3.8-10.6)
--- NOTE | 2021-05-30 08:25 | XR ---
2 view abdomen HISTORY: Bowel obstruction 2 views the abdomen on [address] scan dated 05/29/[address]21 NG tube is in place the distal tip in the stomach. Lung bases are clear. There is no evident pneumope ritoneum. Scattered bowel loops are noted without significant distention. No pathologic calcification . IMPRESSION: NG tube in place, nonspecific bowel gas pattern.
[2021-05-30] MEDS ORDERED: ENOXAPARIN 30 MG/0.3 ML SYRINGE SQ SCH (09:00)
[2021-05-30] MEDS ORDERED: amLODIPine 5 MG TAB PO SCH (09:00)
[2021-05-30] MEDS ORDERED: PANTOPRAZOLE 40 MG/10 ML VIAL IVP SCH (09:00)
[2021-05-30] MEDS ORDERED: LOSARTAN 50 MG TAB PO SCH (09:00)
[2021-05-30] MEDS: MORPHINE SULFATE 4 MG/ML SYRINGE IVP PRN (09:03)
[2021-05-30] MEDS ORDERED: MORPHINE SULFATE 4 MG/ML SYRINGE IVP PRN (09:08)
--- NOTE | 2021-05-30 10:51 | P.PN ---
Subjective Progress Note Date: 05/30/21 CHIEF COMPLAINT: Abdominal pain HISTORY OF PRESENT ILLNESS: The patient is a 50 year old male with congenital history of Hirschsprung's disease including malrotation as a child including multiple abdominal surgeries until 1974, over 46 years ago with frozen abdomen. He is passing moderate flatus. Abdominal pain resolved. REVIEW OF ORGAN SYSTEMS: No fevers or chills. No chest pain. No nausea and vo miting. PHYSICAL EXAM: VITALS: Reviewed CONSTITUTIONAL: Well developed and in no acute distress. EYES: Conjuctivae without sclera icterus. Extraocular movements grossly intact. HEAD, EARS, NOSE, THROAT: Moist buccal mucosa. Head is atraumatic, normocephalic. Hears conversational speech. No nasal drainage. RESPIRATORY: Non-labored respirations and equal bilateral excursions. No gross wheezes. CARDIOVASCULAR: Regular rate and rhythm. Extremities without moderate edema. Palpable 2+ radial pulses. ABDOMEN: No peritonitis. Nontender. Multiple abdominal scarring. MUSCULOSKELETAL: No clubbing cyanosis or edema. SKIN: Warm and well perfused with good skin turgor. NEUROLOGIC: Cranial nerves II through XII grossly intact. No focal or lateralizing signs. PSYCH: Appropriate affect. Alert and oriented to person, place and time. Displays appropriate insight. CLINCAL LABS: Reviewed. WBC on admission of 13.0 decreased 12.6. RADIOLOGY: Abdominal x-ray independently reviewed demonstrating nonspecific bowel gas patternwith resolved small bowel obstruction. ASSESSMENT: 1. Abnormal computed tomography scan for small bowel obstruction 2. Congenital malrotation: Hirschsprung disease with multiple abdominal surgeries 3. 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 I personally discontinue the nasogastric tube at bedside. 2. Trial of diet including full liquid diet including sandwich described 3. Dietary changes including low fiberdiet reviewed 4. Anticipated discharge today once tolerating diet. Objective - Vital Signs Vital signs: Vital Signs Temp 98.7 F 05/30/21 04:45 Pulse 78 05/30/21 04:45 Resp 20 05/30/21 04:45 BP 152/71 05/30/21 04:45 Pulse Ox 94 L 05/30/21 04:45 Intake & Output 05/29/21 05/30/21 05/30/21 18:59 06:59 18:59 Intake Total 0 Output Total 700 350 Balance -700 -350 Weight 127.006 kg 127.006 kg Intake: Oral 0 Output: Gastric Drainage 700 350 Other: Voiding Method Toilet # Voids 1 - Labs CBC & Chem 7: 05/30/21 06:44 05/29/21 10:58 Labs: Abnormal Lab Results - Last 24 Hours (Table) 05/29/21 05/29/21 05/29/21 Range/Units 10:58 10:58 21:34 WBC 13.6 H (3.8-10.6) k/uL RBC 6.19 H (4.30-5.90) m/uL Hgb 18.6 H (13.0-17.5) gm/dL Neutrophils # 9.9 H (1.3-7.7) k/uL Sodium 135 L (137-145) mmol/L BUN 28 H (9-20) mg/dL Glucose 102 H (74-99) mg/dL Ur Specific [place] 1.036 H (1.001-1.035) Urine Protein 1+ H (Negative) Urine Ketones 2+ H (Negative) Urine RBC 54 H (0-5) /hpf Urine WBC 149 H (0-5) /hpf Urine WBC Clumps Many H (None) /hpf Urine Mucus Many H (None) /hpf 05/30/21 Range/Units 06:44 WBC 12.6 H (3.8-10.6) k/uL RBC (4.30-5.90) m/uL Hgb (13.0-17.5) gm/dL Neutrophils # 9.8 H (1.3-7.7) k/uL Sodium (137-145) mmol/L BUN (9-20) mg/dL Glucose (74-99) mg/dL Ur Specific [place] (1.001-1.035) Urine Protein (Negative) Urine Ketones (Negative) Urine RBC (0-5) /hpf Urine WBC (0-5) /hpf Urine WBC Clumps (None) /hpf Urine Mucus (None) /hpf Microbiology - Last 24 Hours (Table) 05/29/21 21:34 Urine Culture - Preliminary Urine,Voided Assessment and Plan (1) Small bowel obstruction due to adhesions Current Visit: Yes Status: Acute Code(s): K56.50 - INTESTNL ADHESIONS, UNSP TO PARTIAL VERSUS COMPLETE OBST SNOMED Code(s): 976172587 (2) Hirschsprung disease of rectosigmoid region Current Visit: Yes Status: Acute Code(s): Q43.1 - HIRSCHSPRUNG'S DISEASE SNOMED Code(s): 777807882 (3) Morbid obesity due to excess calories Current Visit: Yes Status: Acute Code(s): E66.01 - MORBID (SEVERE) OBESITY D UE TO EXCESS CALORIES SNOMED Code(s): 254116182 (4) BMI 40.0-44.9, adult Current Visit: Yes Status: Acute Code(s): Z68.41 - BODY MASS INDEX [BMI]40.0-44.9, ADULT SNOMED Code(s): 758589797 (5) Malrotation of intestine Current Visit: Yes Status: Acute Code(s): Q43.3 - CONGENITAL MALFORMATIONS OF INTESTINAL FIXATION SNOMED Code(s): 74641815
--- NOTE | 2021-05-30 10:55 | P.DS ---
Providers Date of admission: 05/29/21 13:07 Expected date of discharge: 05/30/21 Attending physician: Simona Noe Primary care physician: Joel Mclaughlin MD - Discharge Diagnosis(es) (1) Small bowel obstruction due to adhesions Current Visit: Yes Status: Acute (2) Hirschsprung disease of rectosigmoid region Current Visit: Yes Status: Acute (3) Morbid obesity due to excess calories Current Visit: Yes Status: Acute (4) BMI 40.0-44.9, adult Current Visit: Yes Status: Acute (5) Malrotation of intestine Current Visit: Yes Status: Acute Hospital Course: HOSPITAL COURSE: The patient is a 50 year old male with congenital history of Hirschsprung's disease including malrotation as a child including multiple abdominal surgeries until 1974, over 46 years ago with frozen abdomen who presented with bowel obstruction. He gives a complicated history including prior fistulas of the intestine treated conservatively at an outside institution over 5 years ago. Patient reports eating large amount of broccoli and developing acute onset abdominal painyesterday. He presented to the emergency room with features consistent with bowel obstruction. Nasogastric tube decompression was performed. The abdominal pain resolved. He had increased passage of flatus. Prior to discharge, trial of diet was given. Patient felt well and was stable for discharge. Discharge instructions: Follow-up in the office reviewed. Discharge diet also reviewed in detail. All questions were addressed. Patient Condition at Discharge: Good Plan - Discharge Summary New Discharge Prescriptions: Continue amLODIPine [Norvasc] 5 mg PO DAILY Losartan Potassium 50 mg PO DAILY Discharge Medication List Losartan Potassium 50 mg PO DAILY 05/29/21 [History] amLODIPine [Norvasc] 5 mg PO DAILY 05/29/21 [History] Follow up Appointment(s)/Referral(s): Simona Noe MD [STAFF PHYSICIAN] - 06/11/21 Joel Mclaughlin MD [Primary Care Provider] - 1-2 days Patient Instructions/Handouts: Low Fiber Diet (DC), Bowel Obstruction (DC) Discharge Disposition: HOME SELF-CARE
[2021-05-30 11:32] VITALS: BP 128/75; PULSE 80; RESP 18; TEMP 97.9
[2021-05-30 11:56] LABS: African American GFR (CKD) 86.4 (60.0-200.0); Anion Gap 12.9 mmol/L (4.00-12.00); BUN/Creat Ratio 20.61 Ratio (12.00-20.00); Blood Urea Nitrogen 23.5 mg/dL (9.0-27.0); Calcium 8.5 mg/dL (8.7-10.3); Carbon Dioxide 22.4 mmol/L (21.6-31.8); Non-African American GFR(CKD) 74.6 (60.0-200.0); Potassium 3.9 mmol/L (3.5-5.5)
== END 2021-05-30 11:36 | disposition home or self-care (01) | DRG 389 ==
LOC: EC 10:16 → 5NMEDONC 13:07
PROVIDERS: ADMIT Surgery Plastic and Reconstructive Surgery; ATTEND Surgery Plastic and Reconstructive Surgery
PROC: 0D9670Z Drainage of Stomach with Drainage Device, Via Natural or Artificial Opening (ICD-10-PCS; principal; 2021-05-29)
DX: K56.51 Intestinal adhesions [bands], with partial obstruction (principal); Q43.1 Hirschsprung's disease; Q43.3 Congenital malformations of intestinal fixation; Z68.41 Body mass index [BMI] 40.0-44.9, adult; E66.01 Morbid (severe) obesity due to excess calories; R16.0 Hepatomegaly, not elsewhere classified; N18.30 Chronic kidney disease, stage 3 unspecified; I12.9 Hypertensive chronic kidney disease with stage 1 through stage 4 chronic kidney disease, or unspecified chronic kidney disease; K52.9 Noninfective gastroenteritis and colitis, unspecified; Z79.899 Other long term (current) drug therapy; Z93.3 Colostomy status; Z20.822 Contact with and (suspected) exposure to COVID-19; Z88.8 Allergy status to other drugs, medicaments and biological substances; Z98.890 Other specified postprocedural states
CPT/HCPCS: 36415; 71045; 74019; 74176; 80048; 80053; 81001; 82150; 83605; 83690; 85025; 85610; 85730; 87086; 87635; 96361; 96374; 96375; 96376; 99285

== ENCOUNTER 2021-10-11 18:14 | Emergency (ER) | payer BC ==
[2021-10-11 18:18] VITALS: BP 149/93; PULSE 83; RESP 18; TEMP 98.2
--- NOTE | 2021-10-11 18:33 | XR ---
EXAMINATION TYPE: XR shoulder complete RT DATE OF EXAM: 10/11/2021 COMPARISON: NONE HISTORY: 51 years Male. STUDY INDICATION GIVEN: right should pain from fall . TECHNIQUE: AP internal rotation, AP external rotation Y-view is of the right shoulder IMPRESSION: AC joint and glenohumeral joint osteoarthrosis. No acute osseous or articular abnormalities. Tiny calcification at the insertion of the rotator cuff. Mild soft tissue swelling overlying the deltoid.
[2021-10-11] MEDS ORDERED: MORPHINE SULFATE 4 MG/ML SYRINGE IM STA (19:40)
[2021-10-11] MEDS ORDERED: LIDOCAINE 5% PATCH TOPICAL STA (19:48)
--- NOTE | 2021-10-11 19:48 | ED ---
General Adult HPI - General Chief complaint: Extremity Injury, Upper Stated complaint: Fall/right arm injury Time Seen by Provider: 10/11/21 19:18 Source: patient, RN notes reviewed, old records reviewed Mode of arrival: ambulatory Limitations: no limitations - History of Present Illness Initial comments: Patient is a 51-year-old male with past medical history for prior shoulder issues who presents emergency Department complaining of right shoulder pain following a fall at home. Patient states he slipped on ice, and found his bottom. He jammed his right elbow into the ground which seem to affect his right shoulder at that time. Denies hitting his head or experiencing loss of consciousness. Primary complaint at this time is right shoulder pain. Denies any elbow pain or other injuries. He is concerned regarding a possible rotator cuff injury. I evaluated the patient and he was placed in a room. - Related Data Home Medications Medication Instructions Recorded Confirmed Losartan Potassium 50 mg PO DAILY 05/29/21 05/29/21 amLODIPine [Norvasc] 5 mg PO DAILY 05/29/21 05/29/21 Previous Rx's Medication Instructions Recorded HYDROcodone/APAP 10-325MG [[place] 1 tab PO Q6HR PRN 3 Days #12 tab 10/11/21 10-325] Lidocaine 5% Patch [Lidoderm 5% 1 patch TOPICAL DAILY PRN 7 Days 10/11/21 Patch] #7 patch Methocarbamol [Robaxin-750] 750 mg PO BID PRN 7 Days #14 tablet 10/11/21 Allergies Allergy/AdvReac Type Severity Reaction Status Date / Time cyclobenzaprine Allergy Anaphylaxis Verified 05/29/21 13:25 [From Flexeril] Review of Systems ROS Statement: Those systems with pertinent positive or pertinent negative responses have been documented in the HPI. Review of Systems: CONST: Denies fever EYES: Denies blurry vision ENT: Denies nasal congestion C/V: Denies Chest pain RESP: Denies shortness of breath GI: Denies abdominal pain : Denies dysuria SKIN: Denies rash. MSK: Endorses right shoulder pain. NEURO: Denies headache ROS Other: All systems not noted in ROS Statement are negative. Past Medical History Past Medical History: No Reported History Additional Past Medical History / Comment(s): hirshprung disease, HTN,. Per pts daughter, pt takes testosterone shots, he was also in stage 3 kidney failure at one time and has a mass on liver. History of Any Multi-Drug Resistant Organisms: None Reported Past Surgical History: Orthopedic Surgery Additional Past Surgical History / Comment(s): five abdominal surgery, BL knees, right forearm, right ring finger, left shoulder Past Anesthesia/Blood Transfusion Reactions: No Reported Reaction Past Psychological History: No Psychological Hx Reported Smoking Status: Never smoker Past Alcohol Use History: Occasional Past Drug Use History: None Reported General Exam - General Exam Comments Initial Comments: General: Appears in mild to moderate distress secondary to right shoulder pain. HEAD: Normal with no signs of head trauma. EYES: PERRLA, EOMI, conjunctiva normal, no discharge. Pupils are 3 mm and equal bilaterally. ENT: Hearing grossly intact, normal oropharynx. RESPIRATORY: Clear breath sounds bilaterally. No wheezes, rales, or rhonchi. C/V: Regular rate and rhythm. S1 and S2 auscultated. Peripheral pulses are 2+ and intact. ABD: Abd is soft, nontender, nondistended EXT: Reduced range of motion of the right shoulder. Patient with a deep flexion, extension, abduction over 90. No obvious tenderness to palpation in the shoulder is at rest. Pain seems to be primarily over the superior deltoid sent over the posterior aspect of the shoulder girdle. Pain is only present with movement. No obvious bony deformity. No pain on bony palpation. SKIN: No lesions or injuries appreciated. NEURO: Alert and oriented 4. Neurovascularly intact throughout. Limitations: no limitations Course Vital Signs 10/11/21 18:16 Temperature 98.2 F Pulse Rate 83 Respiratory 18 Rate Blood Pressure 149/93 O2 Sat by Pulse 98 Oximetry Medical Decision Making - Medical Decision Making Based on patient's presentation and physical exam, I'm concerned for an acute i njury to the patient's right shoulder. X-ray was completed by the time I evaluated the patient showed no acute injury. I discussed this with the patient, and I believe he likely experiencing a rotator cuff injury. He was in agreement. He'll be given a sling, as well as analgesia here in the department. I will also provide him with home analgesia. I recommended they follow up with orthopedic surgery to obtain an MRI. He was in agreement with this plan. Patient was given a [place] prescription and he filled out the opiate form. I will provide the patient with a prescription for [place], lidocaine patch, Robaxin. I instructed the patient to follow up with their PCP in the next 3 days. [I provided contact information for follow up with] orthopedic surgery. I explained that the patient should return to the emergency department if they experience any worsening symptoms. Strict return precautions were discussed with the patient. The patient expressed understanding of these instructions. I answered all questions that the patient had. The patient was discharged home in fair condition with their prescriptions and follow up information. Disposition Clinical Impression: Right shoulder injury, Rotator cuff injury, Fall Disposition: HOME SELF-CARE Condition: Fair Instructions (If sedation given, give patient instructions): Rotator Cuff Injury (ED) Prescriptions: Lidocaine 5% Patch [Lidoderm 5% Patch] 1 patch TOPICAL DAILY PRN 7 Days #7 patch PRN Reason: Pain HYDROcodone/APAP 10-325MG [[place] 10-325] 1 tab PO Q6HR PRN 3 Days #12 tab PRN Reason: Pain Methocarbamol [Robaxin-750] 750 mg PO BID PRN 7 Days #14 tablet PRN Reason: Pain Is patient prescribed a controlled substance at d/c from ED?: Yes When asked, does pt state using other controlled substances?: No If prescribed controlled substance>3 days was MAPS reviewed?: Prescribed <3 Days If opioid is for acute pain is fill amount 7 days or less?: No If Rx opioid, was Start Talking consent form obtained?: Yes Referrals: Cristopher Bauman MD [Primary Care Provider] - 1-2 days Virgil Mahmood MD [Medical Doctor] - 1-2 days
== END 2021-10-11 20:00 | disposition home or self-care (01) ==
LOC: EC 18:14
DX: S49.91XA Unspecified injury of right shoulder and upper arm, initial encounter (principal); S46.001A Unspecified injury of muscle(s) and tendon(s) of the rotator cuff of right shoulder, initial encounter; I10 Essential (primary) hypertension; Z88.2 Allergy status to sulfonamides; W00.0XXA Fall on same level due to ice and snow, initial encounter
CPT/HCPCS: 96372; 73030; 99284; J2270

== ENCOUNTER 2021-10-13 17:48 | Emergency (ER) | payer BC ==
[2021-10-13 17:56] VITALS: TEMP 98
--- NOTE | 2021-10-13 18:07 | ED ---
General Adult HPI - General Chief complaint: Extremity Injury, Upper Stated complaint: R shoulder pain Time Seen by Provider: 10/13/21 17:58 Source: patient, RN notes reviewed Mode of arrival: ambulatory Limitations: no limitations - History of Present Illness Initial comments: Patient is a pleasant 51-year-old male presenting to the emergency department with concern for right shoulder pain. Patient did have a fall and landed on his elbow just a couple days ago. Patient came here yesterday and had x-rays done. Patient did see a friend of his today who is a retired orthopedic doctor had concern for dislocation of the shoulder and recommend further evaluation. Patient denies secondary injury. No other areas of injury or concern. Discomfort is greatly increased with movement. - Related Data Home Medications Medication Instructions Recorded Confirmed Losartan Potassium 50 mg PO DAILY 05/29/21 10/13/21 amLODIPine [Norvasc] 5 mg PO DAILY 05/29/21 10/13/21 Amitriptyline HCl [Elavil] 20 mg PO HS 10/13/21 10/13/21 Fluticasone Nasal [place] [Flonase 1 spray EA NOSTRIL DAILY PRN 10/13/21 10/13/21 Nasal [place]] Previous Rx's Medication Instructions Recorded HYDROcodone/APAP 10-325MG [[place] 1 tab PO Q6HR PRN 3 Days #12 tab 10/11/21 10-325] Methocarbamol [Robaxin-750] 750 mg PO BID PRN 7 Days #14 tablet 10/11/21 Ibuprofen [Motrin] 600 mg PO Q6HR PRN #20 tab 10/13/21 Allergies Allergy/AdvReac Type Severity Reaction Status Date / Time cyclobenzaprine Allergy Anaphylaxis Verified 10/13/21 18:57 [From Flexeril] Review of Systems ROS Statement: Those systems with pertinent positive or pertinent negative responses have been documented in the HPI. ROS Other: All systems not noted in ROS Statement are negative. Constitutional: Denies: fever Eyes: Denies: eye pain ENT: Denies: ear pain Respiratory: Denies: cough Cardiovascular: Denies: chest pain Endocrine: Denies: fatigue Gastrointestinal: Denies: abdominal pain Genitourinary: Denies: dysuria Musculoskeletal: Reports: arthralgia Skin: Denies: rash Neurological: Denies: weakness Past Medical History Past Medical History: No Reported History Additional Past Medical History / Comment(s): hirshprung disease, HTN,. Per pts daughter, pt takes testosterone shots, he was also in stage 3 kidney failure at one time and has a mass on liver. History of Any Multi-Drug Resistant Organisms: None Reported Past Surgical History: Orthopedic Surgery Additional Past Surgical History / Comment(s): five abdominal surgery, BL knees, right forearm, right ring finger, left shoulder Past Anesthesia/Blood Transfusion Reactions: No Reported Reaction Past Psychological History: No Psychological Hx Reported Smoking Status: Never smoker Past Alcohol Use History: Occasional Past Drug Use History: None Reported General Exam Limitations: no limitations General appearance: alert, in no apparent distress Head exam: Present: normocephalic Eye exam: Present: normal appearance Neck exam: Present: normal inspection. Absent: tenderness Respiratory exam: Present: normal lung sounds bilaterally Cardiovascular Exam: Present: regular rate, normal rhythm Expanded Peripheral pulses: 2+: Radial (R) GI/Abdominal exam: Present: soft. Absent: tenderness Extremities exam: Present: tenderness (Right anterior shoulder tenderness and fullness), other (Distally extremity is neurovascular intact). Absent: full ROM (Limited range of motion secondary to discomfort) Neurological exam: Present: alert. Absent: motor sensory deficit Psychiatric exam: Present: normal affect, normal mood Skin exam: Present: normal color Course Vital Signs 10/13/21 17:53 Temperature 98 F Pulse Rate 79 Respiratory 16 Rate Blood Pressure 212/92 O2 Sat by Pulse 95 Oximetry Medical Decision Making - Medical Decision Making Patient reevaluated and updated - Radiology Data Radiology results: image reviewed (X-ray and CT right shoulder reveal no acute abnormality) Disposition Clinical Impression: Right shoulder injury Disposition: HOME SELF-CARE Condition: Stable Instructions (If sedation given, give patient instructions): Rotator Cuff Injury (ED), Shoulder Sprain (ED) Additional Instructions: Please follow-up with primary care physician and orthopedics in the next couple days for recheck. Return for fever, increased pain or swelling, worsening or change in symptoms or other concerns. Prescription for anti-inflammatories has been sent to your pharmacy. Use your sling. Prescriptions: Ibuprofen [Motrin] 600 mg PO Q6HR PRN #20 tab PRN Reason: Pain Is patient prescribed a controlled substance at d/c from ED?: No Referrals: Cristopher Bauman MD [Primary Care Provider] - 1-2 days Virgil Mahmood MD [Medical Doctor] - 1-2 days Time of Disposition: 19:06
[2021-10-13] MEDS ORDERED: HYDROmorphone 1 MG/ML 1 ML SYRINGE IM STA (18:16)
--- NOTE | 2021-10-13 18:24 | XR ---
EXAMINATION TYPE: XR shoulder complete RT DATE OF EXAM: 10/13/2021 COMPARISON: 10/11/2021 HISTORY: Pain. Injury TECHNIQUE: 3 views FINDINGS: The AC joint is intact. Glenohumeral joint is anatomic. I see no fracture or dislocation. T here is 1 mm calcification at the greater tuberosity that could relate to some calcific tendinitis. IMPRESSION: No acute abnormality of the right shoulder. No change.
--- NOTE | 2021-10-13 18:57 | CT ---
EXAMINATION TYPE: CT shoulder RT wo con DATE OF EXAM: 10/13/2021 COMPARISON: None HISTORY: Right shoulder pain after fall. CT DLP: 1246.6 mGycm Automated exposure control for dose reduction was used. Images obtained from the top of the shoulder to the mid humerus without contrast. There is spurring at the AC joint. The glenohumeral joint is intact. Femoral neck is intact. There is no evidence of a soft tissue mass. Scapula appears intact. IMPRESSION: No acute abnormality of the right shoulder. No fracture. Mild spurring at the AC joint.
[2021-10-13] MEDS ORDERED: KETOROLAC 15 MG/ML 1 ML VIAL IM STA (19:08)
[2021-10-13] MEDS ORDERED: ORPHENADRINE 30 MG/ML 2 ML VIAL IM STA (19:08)
[2021-10-13 19:51] VITALS: BP 178/77; PULSE 82; RESP 18
== END 2021-10-13 19:59 | disposition home or self-care (01) ==
LOC: EC 17:48
DX: S49.91XA Unspecified injury of right shoulder and upper arm, initial encounter (principal); I10 Essential (primary) hypertension; Z88.2 Allergy status to sulfonamides
CPT/HCPCS: 73030; 73200; 99284; 96374; 96372; J2360; J1170; J1885

== ENCOUNTER 2024-04-28 04:00 | Emergency (ER) | payer BC ==
[2024-04-28 04:07] VITALS: RESP 18; TEMP 97.9
[2024-04-28] MEDS: HYDROmorphone 1 MG/ML 1 ML SYRINGE IM STA ×2 (04:23→05:19)
--- NOTE | 2024-04-28 04:28 | ED ---
Lower Extremity Injury HPI - General Chief Complaint: Extremity Injury, Lower Stated Complaint: Hip Pain Time Seen by Provider: 04/28/24 04:09 Source: patient Mode of arrival: wheelchair - History of Present Illness Initial Comments: This patient is a 53-year-old man who presents to have evaluation of left hip pain. The patient states that he woke from sleep yesterday in the morning and had moderate to severe left hip pain. He indicates posterior aspect. He did not have any type of injury prior to going to sleep. Patient states that he saw the chiropractor who states that he "put my hip back in" and then he states that he ran some errands. Tonight he tried to go back to sleep and then noticed that he was having increasing pain to that hip. He states that now he is not able to move his leg without any pain. Patient states that this is not similar to sciatic pain which she has had. Patient denies weakness or numbness of the leg. Onset/Timin -: days(s) Injury: Hip: Left Place: home Severity: severe Improves With: nothing Worsens With: nothing Context: other - Related Data Home Medications Medication Instructions Recorded Confirmed Losartan Potassium 50 mg PO DAILY 05/29/21 10/13/21 amLODIPine [Norvasc] 5 mg PO DAILY 05/29/21 10/13/21 Amitriptyline HCl [Elavil] 20 mg PO HS 10/13/21 10/13/21 Fluticasone Nasal [place] [Flonase 1 spray EA NOSTRIL DAILY PRN 10/13/21 10/13/21 Nasal [place]] Previous Rx's Medication Instructions Recorded HYDROcodone/APAP 10-325MG [[place] 1 tab PO Q6HR PRN 3 Days #12 tab 10/11/21 10-325] methocarbamoL [Robaxin-750] 750 mg PO BID PRN 7 Days #14 tablet 10/11/21 Ibuprofen [Motrin] 600 mg PO Q6HR PRN #20 tab 10/13/21 HYDROcodone/APAP 5-325MG [[place] 1 tab PO Q4HR PRN 3 Days #18 tab 04/28/24 5-325] Ibuprofen 800 mg PO Q8H #24 tab 04/28/24 Allergies Allergy/AdvReac Type Severity Reaction Status Date / Time cyclobenzaprine Allergy Anaphylaxis Verified 04/28/24 04:08 [From Flexeril] morphine AdvReac Itching Verified 04/28/24 04:08 Review of Systems ROS Statement: Those systems with pertinent positive or pertinent negative responses have been documented in the HPI. ROS Other: All systems not noted in ROS Statement are negative. Constitutional: Denies: fever, chills, weakness Respiratory: Denies: cough, dyspnea Cardiovascular: Denies: chest pain, palpitations Gastrointestinal: Denies: abdominal pain Musculoskeletal: Reports: arthralgia. Denies: joint swelling Skin: Denies: rash Neurological: Denies: headache, weakness, numbness, paresthesias Past Medical History Past Medical History: No Reported History Additional Past Medical History / Comment(s): hirshprung disease, HTN,. Per pts daughter, pt takes testosterone shots, he was also in stage 3 kidney failure at one time. History of Any Multi-Drug Resistant Organisms: None Reported Past Surgical History: Orthopedic Surgery Additional Past Surgical History / Comment(s): five abdominal surgery, BL knees, right forearm, right ring finger, left shoulder Past Anesthesia/Blood Transfusion Reactions: No Reported Reaction Past Psychological History: Anxiety, PTSD Smoking Status: Never smoker Past Alcohol Use History: Occasional Past Drug Use History: None Reported General Exam General appearance: alert, in no apparent distress Head exam: Present: atraumatic, normocephalic GI/Abdominal exam: Present: soft. Absent: distended, tenderness, guarding, rebound Extremities exam: Present: normal inspection, normal capillary refill. Absent: full ROM, tenderness, pedal edema, joint swelling, calf tenderness Neurological exam: Present: alert. Absent: motor sensory deficit Skin exam: Present: warm, dry, intact, normal color. Absent: rash Course Vital Signs 04/28/24 04/28/24 04:02 07:12 Temperature 97.9 F Pulse Rate 96 94 Respiratory 18 18 Rate Blood Pressure 150/93 137/80 O2 Sat by Pulse 98 96 Oximetry Medical Decision Making - Medical Decision Making The patient had hip and pelvis x-ray that I interpreted as negative for acute fracture or subluxation. Was pt. sent in by a medical professional or institution (, PA, SECTIONIZER, urgent care, hospital, or long term...) When possible be specific @ -[No] Did you speak to anyone other than the patient for history (EMS, parent, family, police, friend...)? What history was obtained from this source @ -[No] Did you review nursing and triage notes (agree or disagree)? Why? @ -[I reviewed and agree with nursing and triage notes] Were old charts reviewed (outside hosp., previous admission, EMS record, old EKG, old radiological studies, urgent care reports/EKG's, long term records)? Report findings @ -[No old charts were reviewed] Differential Diagnosis (chest pain, altered mental status, abdominal pain women, abdominal pain men, vaginal bleeding, weakness, fever, dyspnea, syncope, headache, dizziness, GI bleed, back pain, seizure, CVA, palpatations, mental health, musculoskeletal)? @ -Differential Musculoskeletal Muscular strain, contusion, ligament sprain, fracture, arthritis, septic arthritis, bursitis, cellulitis, muscle spasm, nerve compression, DVT, arterial occlusion, herpes zoster, electrolyte abnormality, tumor.... This is not meant to be in all inclusive list EKG interpreted by me (3pts min.). @ -[As above] X-rays interpreted by me (1pt min.). @ -[I interpreted CT interpreted by me (1pt min.). @ -[None done] U/S interpreted by me (1pt. min.). @ -[None done] What testing was considered but not performed or refused? (CT, X-rays, U/S, labs)? Why? @ -[None] What meds were considered but not given or refused? Why? @ -[None] Did you discuss the management of the patient with other professionals (professionals i.e. , PA, SECTIONIZER, lab, RT, psych nurse, 7th grade social studies teacher, lawyers, teacher, ski patrol officer, case folder)? Give summary @ -[No] Was smoking cessation discussed for >3mins.? @ -[No] Was critical care preformed (if so, how long)? @ -[No] Were there social determinants of health that impacted care today? How? (Homeles sness, low income, unemployed, alcoholism, drug addiction, transportation, low edu. Level, literacy, decrease access to med. care, [facility], rehab)? @ -[No] Was there de-escalation of care discussed even if they declined (Discuss DNR or withdrawal of care, Hospice)? DNR status @ -[No] What co-morbidities impacted this encounter? (DM, HTN, Smoking, COPD, CAD, Cancer, CVA, ARF, Chemo, Hep., AIDS, mental health diagnosis, sleep apnea, morbid obesity)? @ -[None] Was patient admitted / discharged? Hospital course, mention meds given and route, prescriptions, significant lab abnormalities, going to OR and other pertinent info. @ -[Patient is 53-year-old man here to have evaluation of left hip pain. The patient had x-ray that did not reveal acute bony injury. The patient is feeling better following analgesia. At this point the patient stable to have further outpatient management. Discussed appropriate further care as well as return parameters Undiagnosed new problem with uncertain prognosis? @ -[No] Drug Therapy requiring intensive monitoring for toxicity (Heparin, Nitro, Insulin, Cardizem)? @ -[No] Were any procedures done? @ -[No] Diagnosis/symptom? @ -[Acute left hip pain Acute, or Chronic, or Acute on Chronic? @ -[Acute Uncomplicated (without systemic symptoms) or Complicated (systemic symptoms)? @ -[Uncomplicated Side effects of treatment? @ -[No] Exacerbation, Progression, or Severe Exacerbation? @ -[No] Poses a threat to life or bodily function? How? (Chest pain, [place], DC, pneumonia, PE, COPD, DKA, ARF, appy, cholecystitis, CVA, Diverticulitis, Homicidal, Suicidal, threat to staff... and all critical care pts) @ -[No] - Lab Data Result diagrams: 04/28/24 05:20 04/28/24 05:20 Lab Results 04/28/24 04/28/24 Range/Units 05:20 05:20 WBC 10.8 H (3.8-10.6) k/uL RBC 5.81 (4.30-5.90) m/uL Hgb 17.2 (13.0-17.5) gm/dL Hct 49.6 (39.0-53.0) % MCV 85.3 (80.0-100.0) fL MCH 29.6 (25.0-35.0) pg MCHC 34.7 (31.0-37.0) g/dL RDW 14.1 (11.5-15.5) % Plt Count 229 (150-450) k/uL MPV 8.2 Neutrophils % 66 % Lymphocytes % 24 % Monocytes % 6 % Eosinophils % 3 % Basophils % 1 % Neutrophils # 7.2 (1.3-7.7) k/uL Lymphocytes # 2.6 (1.0-4.8) k/uL Monocytes # 0.6 (0-1.0) k/uL Eosinophils # 0.3 (0-0.7) k/uL Basophils # 0.1 (0-0.2) k/uL Sodium 140 (137-145) mmol/L Potassium 4.0 (3.5-5.1) mmol/L Chloride 105 (98-107) mmol/L Carbon Dioxide 27 (22-30) mmol/L Anion Gap 8 mmol/L BUN 19 (9-20) mg/dL Creatinine 1.09 (0.66-1.25) mg/dL Est GFR (CKD-EPI)AfAm 89 (>60 ml/min/1.73 sqM) Est GFR (CKD-EPI)NonAf 77 (>60 ml/min/1.73 sqM) Glucose 91 (74-99) mg/dL Calcium 9.4 (8.4-10.2) mg/dL Total Bilirubin 1.2 (0.2-1.3) mg/dL AST 28 (17-59) U/L ALT 25 (4-49) U/L Alkaline Phosphatase 74 (38-126) U/L C-Reactive Protein 3.2 H (<1.0) mg/dL Total Protein 6.7 (6.3-8.2) g/dL Albumin 4.1 (3.5-5.0) g/dL Disposition Clinical Impression: Acute pain of left hip Disposition: HOME SELF-CARE Condition: Good Instructions (If sedation given, give patient instructions): Hip Pain (ED) Prescriptions: Ibuprofen 800 mg PO Q8H #24 tab HYDROcodone/APAP 5-325MG [[place] 5-325] 1 tab PO Q4HR PRN 3 Days #18 tab PRN Reason: Pain Is patient prescribed a controlled substance at d/c from ED?: Yes Referrals: Cristopher Bauman MD [Primary Care Provider] - 1-2 days
--- NOTE | 2024-04-28 05:31 | XR ---
EXAMINATION TYPE: XR Hip LT and AP Pelvis DATE OF EXAM: 04/28/2024 COMPARISON: CT abdomen and pelvis May 29, 2021 HISTORY: Increasing pain since chiropractic visit TECHNIQUE: A single AP view of the pelvis is obtained. Two views of the left hip are obtained. FINDINGS: There is no acute fracture/dislocation evident in the pelvis. Mild axial joint space loss and acetabular spurring of both hips. Sacral iliac joints are symmetric and within normal limits. Sa cralized right L5 segment noted. Pubic symphysis is intact. Two views of left hip show no acute fracture or dislocation. No focal lytic or sclerotic lesion seen in the proximal left femur. Overlying zipper partially imaged. IMPRESSION: There is no acute fracture or dislocation in the pelvis or left hip.
[2024-04-28] MEDS: HYDROmorphone 1 MG/ML 1 ML SYRINGE IVP STA (05:38)
[2024-04-28 05:42] LABS: Basophils # (A) 0.1 k/uL (0-0.2); Basophils % (A) 1 %; Eosinophils # (A) 0.3 k/uL (0-0.7); Eosinophils % (A) 3 %; HCT 49.6 % (39.0-53.0); HGB 17.2 gm/dL (13.0-17.5); Lymphocytes # (A) 2.6 k/uL (1.0-4.8); Lymphocytes % (A) 24 %; MCH 29.6 pg (25.0-35.0); MCHC 34.7 g/dL (31.0-37.0); MCV 85.3 fL (80.0-100.0); Mean Platelet Volume 8.2; Monocytes # (A) 0.6 k/uL (0-1.0); Monocytes % (A) 6 %; Neutrophils # (A) 7.2 k/uL (1.3-7.7); Neutrophils % (A) 66 %; Platelet Count 229 k/uL (150-450); RBC 5.81 m/uL (4.30-5.90); RDW 14.1 % (11.5-15.5); WBC 10.8 k/uL (3.8-10.6)
[2024-04-28 06:07] LABS: ALT 25 U/L (4-49); AST 28 U/L (17-59); African American GFR (CKD) 89 (>60 ml/min/1.73 sqM); Albumin 4.1 g/dL (3.5-5.0); Alkaline Phosphatase 74 U/L (38-126); Anion Gap 8 mmol/L; Blood Urea Nitrogen 19 mg/dL (9-20); Calcium 9.4 mg/dL (8.4-10.2); Carbon Dioxide 27 mmol/L (22-30); Chloride 105 mmol/L (98-107); Glucose 91 mg/dL (74-99); Non-African American GFR(CKD) 77 (>60 ml/min/1.73 sqM); Sodium 140 mmol/L (137-145); Total Bilirubin 1.2 mg/dL (0.2-1.3); Total Protein 6.7 g/dL (6.3-8.2)
[2024-04-28 06:34] LABS: C Reactive Protein 3.2 mg/dL (<1.0)
[2024-04-28 07:15] VITALS: BP 137/80; PULSE 94
== END 2024-04-28 07:21 | disposition home or self-care (01) ==
LOC: EC 04:00
DX: M25.552 Pain in left hip (principal); Z88.5 Allergy status to narcotic agent; Z88.8 Allergy status to other drugs, medicaments and biological substances
CPT/HCPCS: 36415; 80053; 85025; 86140; 73502; 99284; 96374; 96372; J1170

== ENCOUNTER 2025-01-02 13:36 | Emergency (ER) | payer BC ==
--- NOTE | 2025-01-02 14:41 | ED ---
General Adult HPI - General Source: patient Mode of arrival: ambulatory Limitations: no limitations <Amrit Chan - Last Filed: 01/02/25 15:57> - General Source: patient, RN notes reviewed, old records reviewed Mode of arrival: ambulatory Limitations: no limitations - History of Present Illness Location: back Radiation: non-radiation Severity scale (1-10): 7 Quality: sharp Consistency: intermittent Improves with: none Worsens with: none Associated Symptoms: denies other symptoms Treatments Prior to Arrival: none <Adam Giraldo - Last Filed: 01/03/25 18:48> - General Chief complaint: Back Pain/Injury Stated complaint: Back pain Time Seen by Provider: 01/02/25 14:24 - History of Present Illness Initial comments: Dictation was produced using [employer] dictation software. please excuse any grammatical, word or spelling errors. Chief Complaint: 54-year-old male with back pain History of Present Illness: Patient 54-year-old male presents emergency department back pain. States that his symptoms began approximately 1 week ago when he was brushing his teeth. He reached to grab something when he felt a strain in his back. Patient went to the chiropractor felt like his symptoms improved. He did end up doing some weight lifting was feeling well. The following day he woke up with worsening pain. Was seen at the urgent care was given a IM injection and some pills. Went back to the chiropractor and feels like his symptoms are not improving. Denies any loss of bowel or bladder control. Symptoms radiate down bilateral hamstrings. Denies any fevers. No history of IV drug use. Denies any saddle anesthesia The ROS documented in this emergency department record has been reviewed and confirmed by me. Those systems with pertinent positive or negative responses have been documented in the HPI. All other systems are other negative and/or noncontributory. (Amrit Chan) This is a 54-year-old male to ER for evaluation of back pain 1 week with back pain no trauma. Patient is having worse pain for the last few days able to ambulate no loss of bowel or bladder patient has no fevers or other complaints (Adam Giraldo) - Related Data Home Medications Medication Instructions Recorded Confirmed Losartan Potassium 50 mg PO DAILY 05/29/21 10/13/21 amLODIPine [Norvasc] 5 mg PO DAILY 05/29/21 10/13/21 Amitriptyline HCl [Elavil] 20 mg PO HS 10/13/21 10/13/21 Fluticasone Nasal [place] [Flonase 1 spray EA NOSTRIL DAILY PRN 10/13/21 10/13/21 Nasal [place]] Previous Rx's Medication Instructions Recorded HYDROcodone/APAP 10-325MG [[place] 1 tab PO Q6HR PRN 3 Days #12 tab 10/11/21 10-325] methocarbamoL [Robaxin-750] 750 mg PO BID PRN 7 Days #14 tablet 10/11/21 Ibuprofen [Motrin] 600 mg PO Q6HR PRN #20 tab 10/13/21 HYDROcodone/APAP 5-325MG [[place] 1 tab PO Q4HR PRN 3 Days #18 tab 04/28/24 5-325] Ibuprofen 800 mg PO Q8H #24 tab 04/28/24 HYDROcodone/APAP 5-325MG [[place] 1 tab PO Q6HR PRN 3 Days #12 tab 01/02/25 5-325] Ketorolac [Toradol] 10 mg PO Q6HR #30 tab 01/02/25 methylPREDNISolone Dose Pack 4 mg PO DIRECTED #1 packet 01/02/25 [Medrol Dose Pack] Allergies Allergy/AdvReac Type Severity Reaction Status Date / Time morphine AdvReac Itching Verified 01/02/25 13:52 Review of Systems ROS Other: All systems not noted in ROS Statement are negative. <Amrit Chan - Last Filed: 01/02/25 15:57> ROS Other: All systems not noted in ROS Statement are negative. <Adam Giraldo - Last Filed: 01/03/25 18:48> ROS Statement: Those systems with pertinent positive or pertinent negative responses have been documented in the HPI. Past Medical History Past Medical History: No Reported History Additional Past Medical History / Comment(s): hirshprung disease, HTN,. Per pts daughter, pt takes testosterone shots, he was also in stage 3 kidney failure at one time. History of Any Multi-Drug Resistant Organisms: None Reported Past Surgical History: Orthopedic Surgery Additional Past Surgical History / Comment(s): five abdominal surgery, BL knees, right forearm, right ring finger, left shoulder Past Anesthesia/Blood Transfusion Reactions: No Reported Reaction Past Psychological History: Anxiety, PTSD Smoking Status: Never smoker Past Alcohol Use History: Occasional Past Drug Use History: None Reported <Amrit Chan - Last Filed: 01/02/25 15:57> General Exam Limitations: no limitations <Amrit Chan - Last Filed: 01/02/25 15:57> General appearance: alert, in no apparent distress Head exam: Present: atraumatic, normocephalic, normal inspection Eye exam: Present: normal appearance, PERRL, EOMI. Absent: scleral icterus, conjunctival injection, periorbital swelling ENT exam: Present: normal exam, mucous membranes moist Neck exam: Present: normal inspection. Absent: tenderness, meningismus, lymphadenopathy Respiratory exam: Present: normal lung sounds bilaterally. Absent: respiratory distress, wheezes, rales, rhonchi, stridor Cardiovascular Exam: Present: regular rate, normal rhythm, normal heart sounds. Absent: systolic murmur, diastolic murmur, rubs, gallop, clicks GI/Abdominal exam: Present: soft, normal bowel sounds. Absent: distended, tenderness, guarding, rebound, rigid Extremities exam: Present: normal inspection, full ROM, normal capillary refill. Absent: tenderness, pedal edema, joint swelling, calf tenderness Back exam: Present: normal inspection Neurological exam: Present: alert, oriented X3, CN II-XII intact Psychiatric exam: Present: normal affect, normal mood Skin exam: Present: warm, dry, intact, normal color. Absent: rash <Adam Giraldo - Last Filed: 01/03/25 18:48> - General Exam Comments Initial Comments: General: Well-appearing, nontoxic, no acute distress. Head: Normocephalic, atraumatic Eyes: PERRLA, EOMI ENT: Airway patent Chest: Nonlabored breathing Skin: No visual rash, normal skin tone Neuro: Alert and oriented 3 Musculoskeletal: No gross abnormalities (Amrit Chan) Course <Adam Giraldo - Last Filed: 01/03/25 18:48> Vital Signs 01/02/25 01/02/25 13:47 17:18 Temperature 97.5 F L 97.9 F Pulse Rate 83 73 Respiratory 18 20 Rate Blood Pressure 183/98 162/76 O2 Sat by Pulse 98 99 Oximetry - Reevaluation(s) Reevaluation #1: 01/02/25 16:48 Medical records reviewed (Adam Giraldo) Reevaluation #2: 01/02/25 16:48 Symptoms are improved (Adam Giraldo) Medical Decision Making <Amrit Chan - Last Filed: 01/02/25 15:57> - Radiology Data Radiology results: report reviewed (CT LS spine positive for degenerative disc disease), image reviewed <Adam Giraldo - Last Filed: 01/03/25 18:48> - Medical Decision Making Was pt. sent in by a medical professional or institution (, PA, UTILITY INSPECTOR, urgent care, hospital, or custodial...) When possible be specific @ -No Did you speak to anyone other than the patient for history (EMS, parent, family, police, friend...)? What history was obtained from this source @ -No Did you review nursing and triage notes (agree or disagree)? Why? @ -I reviewed and agree with nursing and triage notes Were old charts reviewed (outside hosp., previous admission, EMS record, old EKG, old radiological studies, urgent care reports/EKG's, custodial records)? Report findings @ -No old charts were reviewed Differential Diagnosis (chest pain, altered mental status, abdominal pain women, abdominal pain men, vaginal bleeding, musculoskeletal, weakness, fever, dyspnea, syncope, headache, dizziness, GI bleed, back pain, seizure, CVA, palpatations, mental health)? @ -Differential Back Pain: Strain, zoster, cauda equina syndrome, epidural abscess, vertebral osteomy elitis, discitis, fracture, subluxation, disc herniation, DJD, spinal stenosis, dissection, AAA, pancreatitis, peptic ulcer disease, pyelonephritis, kidney stone, this is not meant to be an all-inclusive list. EKG interpreted by me (3pts min.). @ -None done X-rays interpreted by me (1pt min.). @ -None done CT interpreted by me (1pt min.). @ - U/S interpreted by me (1pt. min.). @ -None done What testing was considered but not performed or refused? (CT, X-rays, U/S, labs)? Why? @ -None What meds were considered but not given or refused? Why? @ -None Was smoking cessation discussed for >3mins.? @ -No Were there social determinants of health that impacted care today? How? (Homelessness, low income, unemployed, alcoholism, drug addiction, transportation, low edu. Level, literacy, decrease access to med. care, correction, rehab)? @ -No Was there de-escalation of care discussed even if they declined (Discuss DNR or withdrawal of care, Hospice)? DNR status @ -No What co-morbidities impacted this encounter? (DM, HTN, Smoking, COPD, CAD, Cancer, CVA, ARF, Chemo, Hep., AIDS, mental health diagnosis, sleep apnea, morbid obesity)? @ -None Was patient admitted / discharged? Hospital course, mention meds given and route, prescriptions, significant lab abnormalities, going to OR and other pertinent info. @ -See above Did you discuss the management of the patient with other professionals (professionals i.e. , PA, UTILITY INSPECTOR, lab, RT, psych nurse, social media executive, energy operations vice president, teacher, forestry technical officer, egg caser)? Give summary @ -54-year-old male presents emergency department with musculoskeletal back pain. Vital signs stable. Patient has no high risk features or red flag symptoms. CT ordered. Patient given Toradol. Was critical care preformed (if so, how long)? @ -No Undiagnosed new problem with uncertain prognosis? @ -No Drug Therapy requiring intensive monitoring for toxicity (Heparin, Nitro, Insulin, Cardizem)? @ -No Were any procedures done? @ -No Diagnosis/symptom? Acute, or Chronic, or Acute on Chronic? Uncomplicated (without systemic symptoms) or Complicated (systemic symptoms)? @ -Back pain Side effects of treatment? @ -No Exacerbation, Progression, or Severe Exacerbation? @ -No Poses a threat to life or bodily function? How? (Chest pain, [place], [place], pneumonia, PE, COPD, DKA, ARF, appy, cholecystitis, CVA, Diverticulitis, Homicidal, Suicidal, threat to staff... and all critical care pts) @ -yes Patient care signed out to Dr. Giraldo at 4:00 PM (Amrit Chan) 54 male to ER for evaluation of back pain. Patient is able to ambulate here in the ER back pain is well-controlled CT scan is negative and patient can be discharged home (Adam Giraldo) Disposition Is patient prescribed a controlled substance at d/c from ED?: Yes If prescribed controlled substance>3 days was MAPS reviewed?: Prescribed <3 Days Time of Disposition: 15:44 <Amrit Chan - Last Filed: 01/02/25 15:57> Is patient prescribed a controlled substance at d/c from ED?: Yes <Adam Giraldo - Last Filed: 01/03/25 18:48> Clinical Impression: Back pain Disposition: HOME SELF-CARE Condition: Good Instructions (If sedation given, give patient instructions): Acute Low Back Pain (ED) Prescriptions: methylPREDNISolone Dose Pack [Medrol Dose Pack] 4 mg PO DIRECTED #1 packet HYDROcodone/APAP 5-325MG [[place] 5-325] 1 tab PO Q6HR PRN 3 Days #12 tab PRN Reason: Severe Pain Ketorolac [Toradol] 10 mg PO Q6HR #30 tab Referrals: Jarrell Queen DO [Doctor of Osteopathic Medicine] - 1-2 days Jann Edward DO [Doctor of Osteopathic Medicine] - 1-2 days
[2025-01-02] MEDS: KETOROLAC 15 MG/ML 1 ML VIAL IM STA (15:43)
--- NOTE | 2025-01-02 16:33 | CT ---
EXAMINATION TYPE: CT lumbar spine wo con CT DLP: 1760.4 mGycm, Automated exposure control for dose reduction was used. DATE OF EXAM: 01/02/2025 4:25 PM COMPARISON: CT abdomen and pelvis 05/29/2021. CLINICAL INDICATION:Male, 54 years old with history of musculoskeletal back pain; PHH, musculoskeleta l back pain, pain TECHNIQUE: Multiple axial images were obtained from the midportion of T11 through the sacroiliac barber nts. Soft tissue and bone windows in coronal and sagittal planes were obtained and reviewed. Contrast used: none. Oral contrast used: none. FINDINGS: Alignment: There are 5 lumbar type vertebral bodies within normal alignment. Bone: No evidence of fracture is identified. Multilevel anterior osteophytosis. Discs: T12-L1: No spinal canal or neural foraminal stenosis is identified. L1-L2: No spinal canal or neural foraminal stenosis is identified. L2-L3: No significant central canal stenosis. Bilateral facet arthropathy. Mild right and mild-to-mod erate left neural foraminal stenosis. L3-L4: Broad-based disc bulge with mild central canal stenosis. Incidental pneumorrhacis from the dis c. Bilateral facet arthropathy. Mild bilateral neural foraminal stenosis. L4-L5: Vacuum disc disease. Broad-based disc bulge with bilateral facet arthropathy. Mild central can al stenosis. Mild bilateral neural foraminal stenosis. L5-S1: No spinal canal or neural foraminal stenosis is identified. Other: None IMPRESSION: 1. No evidence for spinal fracture. 2. Multilevel degenerative disc disease and facet arthropathy of the lumbar spine as described above. No evidence for disc herniation. [facility], , 01/02/2025 4:30 PM
[2025-01-02] MEDS: dexAMETHasone 2 MG TAB PO STA (17:01)
[2025-01-02] MEDS: HYDROmorphone 1 MG/ML 1 ML SYRINGE IM STA ×2 (17:01→17:13)
[2025-01-02] MEDS: traMADol 50 MG STARTER PACK 3 TAB BTL PO STA (17:02)
[2025-01-02 17:23] VITALS: BP 162/76; PULSE 73; RESP 20; TEMP 97.9
== END 2025-01-02 18:35 ==
LOC: EC 13:36
DX: M54.9 Dorsalgia, unspecified (principal); M51.35 Other intervertebral disc degeneration, thoracolumbar region; Z88.5 Allergy status to narcotic agent
CPT/HCPCS: 72131; 99284; 96372 ×2; J1171; J8540; J1885

== ENCOUNTER 2025-01-25 14:07 | Observation (INO) | payer BC ==
[2025-01-25 14:23] VITALS: TEMP 98.6
[2025-01-25] MEDS: SODIUM CHLORIDE 0.9% 1,000 ML IV STA (14:59)
[2025-01-25] MEDS: NITROGLYCERIN OINT 1 INCH/GM PACKET TOPICAL STA (14:59)
[2025-01-25] MEDS: ASPIRIN 81 MG PO STA (15:00)
[2025-01-25 15:01] LABS: Basophils # (A) 0.06 10*3/uL (0.00-0.10); Basophils % (A) 0.4 %; Eosinophils # (A) 0.08 10*3/uL (0.04-0.35); Eosinophils % (A) 0.5 %; HCT 54.7 % (39.6-50.0); Lymphocytes % (A) 13.7 %; MCH 31.8 pg (27.0-32.0); MCHC 34.7 g/dL (32.0-37.0); MCV 91.6 fL (80.0-97.0); Mean Platelet Volume 9.6 fL (9.5-12.2); Monocytes # (A) 1.41 10*3/uL (0.20-1.00); Monocytes % (A) 8.8 %; Neutrophils # (A) 12.08 10*3/uL (1.80-7.70); Neutrophils % (A) 75.2 %; Platelet Count 238 10*3/uL (140-440); RBC 5.97 10*6/uL (4.40-5.60); RDW 14.9 % (11.5-14.5); WBC 16.05 10*3/uL (4.50-10.00)
[2025-01-25 15:16] LABS: Partial Thromboplastin Time 23.4 sec (22.0-30.0); Prothrombin Time 11.3 sec (10.0-12.5)
--- NOTE | 2025-01-25 15:27 | XR ---
EXAMINATION TYPE: XR chest 2V DATE OF EXAM: 01/25/2025 3:22 PM COMPARISON: None. CLINICAL INDICATION: Male, 54 years old with history of Chest Pain, TECHNIQUE: XR chest 2V view(s) obtained. FINDINGS: The heart size is normal. The pulmonary vasculature is normal. The lungs are clear. IMPRESSION: 1. No acute pulmonary process. [facility], , 01/25/2025 3:25 PM
[2025-01-25 15:46] LABS: ALT 33 U/L (4-49); AST 34 U/L (17-59); African American GFR (CKD) 87 (>60 ml/min/1.73 sqM); Albumin 4.3 g/dL (3.5-5.0); Alkaline Phosphatase 68 U/L (38-126); Anion Gap 13 mmol/L; Blood Urea Nitrogen 24 mg/dL (9-20); Calcium 10.2 mg/dL (8.4-10.2); Carbon Dioxide 23 mmol/L (22-30); Chloride 103 mmol/L (98-107); Glucose 89 mg/dL (74-99); Non-African American GFR(CKD) 75 (>60 ml/min/1.73 sqM); Potassium 4.4 mmol/L (3.5-5.1); Sodium 139 mmol/L (137-145); Total Bilirubin 1.1 mg/dL (0.2-1.3); Total Protein 7.2 g/dL (6.3-8.2)
--- NOTE | 2025-01-25 16:50 | CT ---
EXAMINATION TYPE: CT chest angio for PE DATE OF EXAM: 01/25/2025 4:37 PM COMPARISON: Chest radiograph from same day. Multiple CTs of the chest with most recent on 10/11/2020 . CLINICAL INDICATION: Male, 54 years old with history of Elevated D-dimer, short of breath, diaphoreti c; Elevated D-dimer, short of breath, diaphoretic TECHNIQUE/CONTRAST: CTA scan of the thorax is performed with IV Contrast, patient injected with 100 ml mL of Isovue 370, MIP images are created and reviewed these are created on a separate workstation.. CT DLP: 768.8 mGycm, Automated exposure control for dose reduction was used. FINDINGS: Lungs/Pleura: No evidence of focal consolidation, pleural effusion or pneumothorax. Airway: Large airways are patent. Heart: Size within normal limits. No significant coronary artery calcifications. Vasculature: Limited evaluation due to bolus timing, no evidence for central pulmonary embolus. The lobar, segmental and subsegmental branches are limited due to bolus timing. The pulmonary artery is o f normal size. Mediastinum: No gross evidence of adenopathy. Musculoskeletal: Mild disc degeneration changes are present throughout the thoracolumbar spine second gabriela to osteophyte formation and facet joint arthropathy. Soft Tissues/lymph nodes: Unremarkable. Lower neck: No significant findings. Upper Abdomen: No significant findings. IMPRESSION: No evidence of central pulmonary embolism. Limited evaluation of the segmental and subsegmental branc hes. [facility], , 01/25/2025 4:47 PM
--- NOTE | 2025-01-25 17:08 | ED ---
General Adult HPI - General Chief complaint: Chest Pain Stated complaint: Chest pain Time Seen by Provider: 01/25/25 14:25 Source: patient, family, RN notes reviewed, old records reviewed Mode of arrival: ambulatory Limitations: no limitations - History of Present Illness Initial comments: This is a 54-year-old male who presents to the emergency department complaining of being extremely short of breath today when he walked a very short distance became diaphoretic and had some left-sided chest pain. Patient states as he lies in bed he is no longer short of breath but he still has a little bit of a left-sided chest pain. Patient states he also noted that he had very high blood pressure and so he came to the emergency department. Patient also complains of being just overall fatigued. Patient has been lately having some back issues which she has been to the ER on multiple occasions. - Related Data Home Medications Medication Instructions Recorded Confirmed amLODIPine [Norvasc] 5 mg PO DAILY 05/29/21 01/18/25 Azithromycin [Zithromax Z Pack] See Taper PO DAILY 01/18/25 01/18/25 Benzonatate [Tessalon Perle] 200 mg PO TID PRN 01/18/25 01/18/25 Tamsulosin [Flomax] 0.4 mg PO DAILY 01/18/25 01/18/25 methylPREDNISolone Dose Pack See Taper PO DIRECTED 01/18/25 01/18/25 [Medrol Dose Pack] Previous Rx's Medication Instructions Recorded Cyclobenzaprine [Flexeril] 10 mg PO TID PRN #15 tab 01/08/25 HYDROcodone/APAP 10-325MG [[place] 1 tab PO Q6HR PRN 3 Days #12 tab 01/08/25 10-325] Allergies Allergy/AdvReac Type Severity Reaction Status Date / Time morphine AdvReac Itching Verified 01/18/25 13:57 Review of Systems ROS Statement: Those systems with pertinent positive or pertinent negative responses have been documented in the HPI. ROS Other: All systems not noted in ROS Statement are negative. Past Medical History Past Medical History: No Reported History Additional Past Medical History / Comment(s): hirshprung disease, HTN,. Per pts daughter, pt takes testosterone shots, he was also in stage 3 kidney failure at one time. History of Any Multi-Drug Resistant Organisms: None Reported Past Surgical History: Orthopedic Surgery Additional Past Surgical History / Comment(s): five abdominal surgery, BL knees, right forearm, right ring finger, left shoulder Past Anesthesia/Blood Transfusion Reactions: No Reported Reaction Past Psychological History: Anxiety, PTSD Smoking Status: Never smoker Past Alcohol Use History: Occasional Past Drug Use History: None Reported General Exam - General Exam Comments Initial Comments: GENERAL: Patient is well-developed and well-nourished. Patient is nontoxic and well- hydrated and is in mild distress. ENT: Neck is soft and supple. No significant lymphadenopathy is noted. Oropharynx is clear. Moist mucous membranes. Neck has full range of motion without eliciting any pain. EYES: The sclera were anicteric and conjunctiva were pink and moist. Extraocular mov ements were intact and pupils were equal round and reactive to light. Eyelids were unremarkable. PULMONARY: Unlabored respirations. Good breath sounds bilaterally. No audible rales rhonchi or wheezing was noted. CARDIOVASCULAR: There is a regular rate and rhythm without any murmurs gallops or rubs. ABDOMEN: Soft and nontender with normal bowel sounds. SKIN: Skin is clear with no lesions or rashes and otherwise unremarkable. NEUROLOGIC: Patient is alert and oriented x3. Cranial nerves II through XII are grossly intact. Motor and sensory are also intact. Normal speech, volume and content. Symmetrical smile. MUSCULOSKELETAL: Normal extremities with adequate strength and full range of motion. LYMPHATICS: No significant lymphadenopathy is noted PSYCHIATRIC: Normal psychiatric evaluation. Limitations: no limitations Course Vital Signs 01/25/25 01/25/25 01/25/25 14:19 15:30 17:11 Temperature 98.6 F Pulse Rate 104 H 93 87 Respiratory 20 18 Rate Blood Pressure 223/97 164/100 143/86 O2 Sat by Pulse 96 96 Oximetry Medical Decision Making - Medical Decision Making EKG is interpreted by myself EKG shows sinus tachycardia at 100 bpm ID is [id number] QRS is 93 QT interval is 334 QTc is 391. Patient's EKG shows no ST segment elevation or depression. Patient does have Q waves in the inferior leads III and aVF Was pt. sent in by a medical professional or institution (, PA, [employer], urgent care, hospital, or [facility]...) When possible be specific @ -No Did you speak to anyone other than the patient for history (EMS, parent, family, police, friend...)? What history was obtained from this source @ -No Did you review nursing and triage notes (agree or disagree)? Why? @ -I reviewed and agree with nursing and triage notes Were old charts reviewed (outside hosp., previous admission, EMS record, old EKG, old radiological studies, urgent care reports/EKG's, [facility] records)? Report findings @ -No old charts were reviewed Differential Diagnosis? @ -Differential Dyspnea: Coronary syndrome, arrhythmia, tamponade, asthma, COPD, pulmonary embolism, pneumonia, pneumothorax, pulmonary effusion, anaphylaxis, diabetic ketoacidosis, flailed chest, pulmonary contusion, diaphragmatic rupture, anemia, neuromuscular, this is not meant to be an all-inclusive list. EKG interpreted by me (3pts min.). @ -As above X-rays interpreted by me (1pt min.). @ -Chest x-ray shows no acute abnormality CT interpreted by me (1pt min.). @ -CT scan shows no obvious pulmonary embolism U/S interpreted by me (1pt. min.). @ -None done What testing was considered but not performed or refused? (CT, X-rays, U/S, labs)? Why? @ -None What meds were considered but not given or refused? Why? @ -None Did you discuss the management of the patient with other professionals (professionals i.e. , PA, [employer], lab, RT, psych nurse, licensed master social worker, radiation technician, teacher, svp chief marketing officer, immigration case manager)? Give summary @ -Patient will be admitted to [facility] hosp[facility] whom I spoke with Was smoking cessation discussed for >3mins.? @ -No Was critical care preformed (if so, how long)? @ -No Were there social determinants of health that impacted care today? How? (Homelessness, low income, unemployed, alcoholism, drug addiction, transportation, low edu. Level, literacy, decrease access to med. care, prison, rehab)? @ -No Was there de-escalation of care discussed even if they declined (Discuss DNR or withdrawal of care, Hospice)? DNR status @ -No What co-morbidities impacted this encounter? (DM, HTN, Smoking, COPD, CAD, Cancer, CVA, ARF, Chemo, Hep., AIDS, mental health diagnosis, sleep apnea, morbid obesity)? @ -None Was patient admitted / discharged? Hospital course, mention meds given and route, prescriptions, significant lab abnormalities, going to OR and other pertinent info. @ -Patient stated the Nitropaste seemed to help his pain. Patient will be admitted with consult cardiology Undiagnosed new problem with uncertain prognosis? @ -No Drug Therapy requiring intensive monitoring for toxicity (Heparin, Nitro, Insulin, Cardizem)? @ -No Were any procedures done? @ -No Diagnosis/symptom? @ -Chest pain, dyspnea Acute, or Chronic, or Acute on Chronic? @ -Acute Uncomplicated (without systemic symptoms) or Complicated (systemic symptoms)? @ -Complicated Side effects of treatment? @ -No Exacerbation, Progression, or Severe Exacerbation? @ -No Poses a threat to life or bodily function? How? (Chest pain, [place], [place], pneumonia, PE, COPD, DKA, ARF, appy, cholecystitis, CVA, Diverticulitis, Homicidal, Suicidal, threat to staff... and all critical care pts) @ -Yes this can lead to an MN and endorgan dysfunction Diagnosis/symptom? @ -Polycythemia Acute, or Chronic, or Acute on Chronic? @ -Acute on chronic Uncomplicated (without systemic symptoms) or Complicated (systemic symptoms)? @ -Complicated Side effects of treatment? @ -None Exacerbation, Progression, or Severe Exacerbation] @ -No Poses a threat to life or bodily function? @ -No - Lab Data Result diagrams: 01/25/25 14:54 01/25/25 14:54 Lab Results 01/25/25 01/25/25 01/25/25 Range/Units 14:54 14:54 14:54 WBC 16.05 H (4.50-10.00) 10*3/uL RBC 5.97 H (4.40-5.60) 10*6/uL Hgb 19.0 H (13.0-17.0) g/dL Hct 54.7 H (39.6-50.0) % MCV 91.6 (80.0-97.0) fL MCH 31.8 (27.0-32.0) pg MCHC 34.7 (32.0-37.0) g/dL Plt Count 238 (140-440) 10*3/uL MPV 9.6 (9.5-12.2) fL Immature Gran % (Auto) 1.4 % Neutrophils % 75.2 % Lymphocytes % 13.7 % Monocytes % 8.8 % Eosinophils % 0.5 % Basophils % 0.4 % Immature Gran # 0.22 H (0.00-0.04) 10*3/uL Neutrophils # 12.08 H (1.80-7.70) 10*3/uL Lymphocytes # 2.20 (0.90-5.00) 10*3/uL Monocytes # 1.41 H (0.20-1.00) 10*3/uL Eosinophils # 0.08 (0.04-0.35) 10*3/uL Basophils # 0.06 (0.00-0.10) 10*3/uL PT 11.3 (10.0-12.5) sec INR 1.0 (<1.2) APTT 23.4 (22.0-30.0) sec D-Dimer 0.96 H (<0.60) mg/L FEU Sodium 139 (137-145) mmol/L Potassium 4.4 (3.5-5.1) mmol/L Chloride 103 (98-107) mmol/L Carbon Dioxide 23 (22-30) mmol/L Anion Gap 13 mmol/L BUN 24 H (9-20) mg/dL Creatinine 1.11 (0.66-1.25) mg/dL Est GFR (CKD-EPI)AfAm 87 (>60 ml/min/1.73 sqM) Est GFR (CKD-EPI)NonAf 75 (>60 ml/min/1.73 sqM) Glucose 89 (74-99) mg/dL Calcium 10.2 (8.4-10.2) mg/dL Magnesium 2.0 (1.6-2.3) mg/dL Total Bilirubin 1.1 (0.2-1.3) mg/dL AST 34 (17-59) U/L ALT 33 (4-49) U/L Alkaline Phosphatase 68 (38-126) U/L Troponin I (0.000-0.034) ng/mL Total Protein 7.2 (6.3-8.2) g/dL Albumin 4.3 (3.5-5.0) g/dL 01/25/25 Range/Units 14:54 WBC (4.50-10.00) 10*3/uL RBC (4.40-5.60) 10*6/uL Hgb (13.0-17.0) g/dL Hct (39.6-50.0) % MCV (80.0-97.0) fL MCH (27.0-32.0) pg MCHC (32.0-37.0) g/dL Plt Count (140-440) 10*3/uL MPV (9.5-12.2) fL Immature Gran % (Auto) % Neutrophils % % Lymphocytes % % Monocytes % % Eosinophils % % Basophils % % Immature Gran # (0.00-0.04) 10*3/uL Neutrophils # (1.80-7.70) 10*3/uL Lymphocytes # (0.90-5.00) 10*3/uL Monocytes # (0.20-1.00) 10*3/uL Eosinophils # (0.04-0.35) 10*3/uL Basophils # (0.00-0.10) 10*3/uL PT (10.0-12.5) sec INR (<1.2) APTT (22.0-30.0) sec D-Dimer (<0.60) mg/L FEU Sodium (137-145) mmol/L Potassium (3.5-5.1) mmol/L Chloride (98-107) mmol/L Carbon Dioxide (22-30) mmol/L Anion Gap mmol/L BUN (9-20) mg/dL Creatinine (0.66-1.25) mg/dL Est GFR (CKD-EPI)AfAm (>60 ml/min/1.73 sqM) Est GFR (CKD-EPI)NonAf (>60 ml/min/1.73 sqM) Glucose (74-99) mg/dL Calcium (8.4-10.2) mg/dL Magnesium (1.6-2.3) mg/dL Total Bilirubin (0.2-1.3) mg/dL AST (17-59) U/L ALT (4-49) U/L Alkaline Phosphatase (38-126) U/L Troponin I <0.012 (0.000-0.034) ng/mL Total Protein (6.3-8.2) g/dL Albumin (3.5-5.0) g/dL Disposition Clinical Impression: Chest pain, Polycythemia Disposition: ADMITTED IP TO THIS HOSP Referrals: Merna,Cristopher, MD [Primary Care Provider] - 1-2 days Time of Disposition: 18:21
[2025-01-25] MEDS ORDERED: NITROGLYCERIN SL TABS 0.4 MG TAB SUBLINGUAL PRN (18:22)
[2025-01-25] MEDS: GABAPENTIN 300 MG CAP PO SCH (21:36)
[2025-01-25] MEDS: NITROGLYCERIN OINT 1 INCH/GM PACKET TOPICAL SCH (23:28)
[2025-01-26] MEDS: HYDROcodone/APAP 10-325MG 1 EACH TAB PO PRN (00:52)
[2025-01-26] MEDS: CYCLOBENZAPRINE 10 MG TAB PO PRN (02:59)
[2025-01-26] MEDS: BUTALB/APAP/CAFF 50-325-40MG TAB PO STA (05:42)
[2025-01-26] MEDS ORDERED: DOBUTamine DRIP for NUC MED 500 MG/250 ML BAG IV ONE (08:00)
[2025-01-26] MEDS: ASPIRIN 325 MG TAB PO SCH (08:59)
[2025-01-26] MEDS: amLODIPine 5 MG TAB PO SCH (08:59)
[2025-01-26] MEDS ORDERED: DOBUTamine DRIP for NUC MED 500 MG in DEXTROSE/WATER 1 250ML.BAG IV PRN (09:00)
[2025-01-26 09:13] LABS: Chol/HDL Ratio 4.37 Ratio; LDL Cholesterol,Calculated 101.1 mg/dL (0.0-131.0); VLDL Calculation 19.18 mg/dL (5.00-40.00)
--- NOTE | 2025-01-26 11:51 | P.CRDCN ---
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 He has a past medical history of spondylosis with significant low back pain and has been off work for the past month and receiving physical therapy. He states he was at physical therapy yesterday and he walked and had a weird sensation with pinching in his chest on the left side. He felt he needed to go to the bathroom and due to the ongoing problem with his back, he has difficulty defecating. He states he was in the bathroom for about 10 minutes and then he walked back out to the physical therapist. He states he was not feeling well at that time and the therapist thought he did not look good. They checked his blood pressure which was elevated and he was sent into the emergency center for further evaluation. No history is episode of acute uvulitis requiring intubation mechanical ventilation, TIA, hypertension, obstructive sleep apnea but noncompliant with machine. Patient is a non-smoker. He drinks Mountain Dew throughout the day. He has rare alcohol intake. Candace florence presented with a blood pressure up to 223/97 currently 148/98. Heart rate is running in the 80s, pulse ox 98% on room air. Patient is been afebrile. -EKG: Sinus rhythm with no acute ST-T wave changes. -Chest x-ray: No acute process. -CTA chest: No pulmonary embolism. -Laboratory studies: WBC 16, hemoglobin 19, D-dimer 0.96. Electrolytes are normal. BUN 24 creatinine 1.11. Troponin negative x 3. Triglycerides 95, cholesterol 156, LDL 101. -Home cardiac medications: Amlodipine 5 mg daily. -Stress echocardiogram performed at [facility] 10/11/2020 revealed good exercise tolerance. Negative stress test by EKG criteria. Negative stress echocardiogram. -Echocardiogram performed at [facility] on 10/11/2020 revealed EF of 50 to 55%, moderate concentric left ventricular hypertrophy, mild mitral regurgitation, mild tricuspid regurgitation. -Event monitor performed 09/21 - 2020, revealed sinus mechanism. No atrial fibrillation or ventricular ectopy. Review Of Systems: At the time of my exam: CONSTITUTIONAL: Denies fever or chills. HEENT: Denies blurred vision, vision changes, or eye pain. Denies hemoptysis CARDIOVASCULAR: Denies chest pain. Denies orthopnea. Denies PND. Denies palpitations RESPIRATORY: Denies shortness of breath. GASTROINTESTINAL: Denies abdominal pain. Denies nausea or vomiting. HEMATOLOGIC: Denies bleeding disorders. GENITOURINARY: Denies any blood in urine. SKIN: Denies puritis. Denies rash. Physical examination: Gen: This is a 54-year-old male appears uncomfortable due to back pain VS: reviewed HEENT: Head is atraumatic, normocephalic. Pupils equal, round. Sclerae is anicteric. NECK: Supple. No JVD. LUNGS: Clear to auscultation. No wheezes or rhonchi. No intercostal retractions. HEART: Regular rate and rhythm. No murmur. ABDOMEN: Soft No tenderness. EXTREMITIES: No pedal edema. No calf tenderness. NEUROLOGICAL: Patient is awake, alert and oriented x3. Assessment: Atypical chest pain, acute coronary syndrome ruled out Polycythemia Chronic leukocytosis History of DVT, left upper extremity History of acute uvulitis requiring intubation and mechanical ventilation TIA Cervical spine stenosis Spondylosis of the lumbar spine History of Hirschsprung's disease status post multiple abdominal surgeries Plan: Resume amlodipine but increase to 10 mg daily. Obtain dobutamine stress echocardiogram today Obtain 2-D echocardiogram and Doppler study to assess cardiac structure and function If above testing is unremarkable, patient is cleared for discharge by cardiology and may follow-up in the office with Dr. Ramsey in 1 to 2 weeks. Recommend outpatient evaluation of polycythemia and leukocytosis Thank you kindly for this consultation. Nurse practitioner note has been reviewed, I agree with documented findings and plan of care. Patient was seen and examined. Past Medical History Past Medical History: No Reported History Additional Past Medical History / Comment(s): hirshprung disease, HTN,. Per pts daughter, pt takes testosterone shots, he was also in stage 3 kidney failure at one time. History of Any Multi-Drug Resistant Organisms: None Reported Past Surgical History: Orthopedic Surgery Additional Past Surgical History / Comment(s): five abdominal surgery, BL knees, right forearm, right ring finger, left shoulder Past Anesthesia/Blood Transfusion Reactions: No Reported Reaction Past Psychological History: Anxiety, PTSD Smoking Status: Never smoker Past Alcohol Use History: Occasional Past Drug Use History: None Reported Medications and Allergies Home Medications Medication Instructions Recorded Confirmed Type amLODIPine [Norvasc] 5 mg PO DAILY 05/29/21 01/25/25 History Cyclobenzaprine [Flexeril] 10 mg PO TID PRN #15 tab 01/08/25 01/25/25 Rx HYDROcodone/APAP 10-325MG [[place] 1 tab PO Q6HR PRN 3 Days #12 tab 01/08/25 01/25/25 Rx 10-325] Gabapentin 300 mg PO TID 01/25/25 01/25/25 History Allergies Allergy/AdvReac Type Severity Reaction Status Date / Time morphine AdvReac Itching Verified 01/25/25 19:39 Physical Exam Vitals: Vital Signs Temp Pulse Resp BP Pulse Ox 01/26/25 07:42 68 16 142/72 98 01/26/25 05:45 94 18 142/72 96 01/26/25 02:40 93 150/90 01/25/25 23:39 90 17 170/92 98 01/25/25 18:00 95 20 151/74 96 01/25/25 17:11 87 18 143/86 96 01/25/25 15:30 93 164/100 01/25/25 14:19 98.6 F 104 H 20 223/97 96 Results 01/25/25 14:54 01/25/25 14:54 Cardiac Enzymes 01/25/25 01/25/25 01/25/25 Range/Units 14:54 14:54 18:41 AST 34 (17-59) U/L Troponin I <0.012 <0.012 (0.000-0.034) ng/mL 01/25/25 Range/Units 21:03 AST (17-59) U/L Troponin I <0.012 (0.000-0.034) ng/mL Coagulation 01/25/25 Range/Units 14:54 PT 11.3 (10.0-12.5) sec APTT 23.4 (22.0-30.0) sec CBC 01/25/25 Range/Units 14:54 WBC 16.05 H (4.50-10.00) 10*3/uL RBC 5.97 H (4.40-5.60) 10*6/uL Hgb 19.0 H (13.0-17.0) g/dL Hct 54.7 H (39.6-50.0) % Plt Count 238 (140-440) 10*3/uL Comprehensive Metabolic Panel 01/25/25 Range/Units 14:54 Sodium 139 (137-145) mmol/L Potassium 4.4 (3.5-5.1) mmol/L Chloride 103 (98-107) mmol/L Carbon Dioxide 23 (22-30) mmol/L BUN 24 H (9-20) mg/dL Creatinine 1.11 (0.66-1.25) mg/dL Glucose 89 (74-99) mg/dL Calcium 10.2 (8.4-10.2) mg/dL AST 34 (17-59) U/L ALT 33 (4-49) U/L Alkaline Phosphatase 68 (38-126) U/L Total Protein 7.2 (6.3-8.2) g/dL Albumin 4.3 (3.5-5.0) g/dL Current Medications Generic Name Dose Route Start Last Admin Trade Name Freq PRN Reason Stop Dose Admin Hydrocodone Bitart/Acetaminophen 1 each 01/25/25 21:09 01/26/25 00:52 Hydrocodone/Apap 10-325mg 1 Each Tab PO 1 each Q6HR PRN Administration Pain Amlodipine Besylate 5 mg 01/26/25 09:00 Amlodipine 5 Mg Tab PO DAILY [facility] Aspirin 325 mg 01/26/25 09:00 Aspirin 325 Mg Tab PO DAILY [facility] Cyclobenzaprine HCl 10 mg 01/25/25 21:09 01/26/25 02:59 Cyclobenzaprine 10 Mg Tab PO 10 mg TID PRN Administration Muscle Spasm Gabapentin 300 mg 01/25/25 22:00 01/25/25 21:36 Gabapentin 300 Mg Cap PO 300 mg TID [facility] Administration Nitroglycerin 0.4 mg 01/25/25 18:22 Nitroglycerin Sl Tabs 0.4 Mg Tab SUBLINGUAL Q5M PRN Chest Pain 01/25/25 14:54 01/25/25 14:54
[2025-01-26 12:15] VITALS: RESP 16
--- NOTE | 2025-01-26 12:31 | CA ---
Dobutamine Stress Echocardiogram Report Efra Oquendo Age: 54 Gender: M : 1970 Exam Date: 01/26/2025 11:04 Exam Location: [facility] Ordering Physician: Tiffany Camp Referring Physician: [id number] Theorist And Author Of: NINO [employer] Technologist: Ht (in): 71 Wt (lb): 285 Procedure CPT: Indication: Chest Pain ICD-9 Codes: Rhythm: Patient History: Cardiac Medications: SEE CHART Medications in past 24 hours: Contrast: N/A Total Dose (mL): NA Stress Results Protocol: Dobutamine Peak Dose (???g/kg/min): 40 Duration (min:sec): Atropine:(mg) Target HR: 141 Double Product: [id number] Resting HR: 80 Resting BP: 149 / 95 Peak HR: 141 Peak BP: 204 / 58 Max Predicted HR: 166 85 % Max Predicted HR Stress Summary: The hemodynamic response to stress was normal. BP Response: Normal Reason for Termination: Target HR Cardiac Symptoms: SOB ECG Analysis Resting EKG: Normal sinus rhythm, normal ECG Stress EKG: No abnormal ST/T wave changes with exercise Arrhythmia: Echo Analysis Base Echo Analysis: Normal resting echocardiogram. Low Echo Anaylsis: Normal wall thickening and motion Peak Echo Analysis: Normal wall motion augmentation with decrease in the cavity size Recovery Echo: Normal segmental wall motion MEASUREMENTS (Male/Female) Normal Values CONCLUSIONS Normal electrocardiographic response to dobutamine infusion Normal stress echocardiogram with no evidence of stress induced Dr. Carlo Ramsey MD (Electronically Signed) Final Date: 26 January 2025 12:30
[2025-01-26] MEDS: amLODIPine 5 MG TAB PO STA (12:37)
--- NOTE | 2025-01-26 12:55 | P.HPIM ---
History of Present Illness H&P Date: 01/26/25 This is a pleasant 54-year-old male with medical history significant for high blood pressure, chronic back pain from Spondylosis. patient is maintained on amlodipine 5 mg daily blood pressure is usually fair well-controlled. Yesterday he was at his second session of physical therapy had not even been started yet and he became diaphoretic and reported left-sided chest pain nonradiating. Blood pressure was taken by the physical therapist was noted to be in the 200s systolic. He was sent over to the hospital for further evaluation. He has no prior history of heart attack or heart failure. He does have a history of stroke with left-sided deficits that have since resolved. Patient states that he was in the intensive care unit for uvulitis when he had a stroke. He is a never smoker reports no alcohol use. He denies any shortness of breath no palpitations or dizziness and lightheadedness. At the time he is currently chest pain-free. He was admitted to the hospital with a consult placed to cardiology and went for dobutamine stress echo with reports currently pending at this time. REVIEW OF SYSTEMS: CONSTITUTIONAL: No fever, no malaise, no fatigue. HEENT: No recent visual problems or hearing problems. Denied any sore throat. CARDIOVASCULAR: No chest pain, orthopnea, PND, no palpitations, no syncope. PULMONARY: No shortness of breath, no cough, no hemoptysis. GASTROINTESTINAL: No diarrhea, no nausea, no vomiting, no abdominal pain. NEUROLOGICAL: No headaches, no weakness, no numbness. HEMATOLOGICAL: Denies any bleeding or petechiae. GENITOURINARY: Denies any burning micturition, frequency, or urgency. MUSCULOSKELETAL/RHEUMATOLOGICAL: Denies any joint pain, swelling, or any muscle pain. ENDOCRINE: Denies any polyuria or polydipsia. The rest of the 14-point review of systems is negative. PHYSICAL EXAMINATION: GENERAL: The patient is alert and oriented x3, not in any acute distress. Well developed, well nourished. HEENT: Pupils are round and equally reacting to light. EOMI. No scleral icterus. No conjunctival pallor. Normocephalic, atraumatic. No pharyngeal erythema. No thyromegaly. CARDIOVASCULAR: S1 and S2 present. No murmurs, rubs, or gallops. PULMONARY: Chest is clear to auscultation, no wheezing or crackles. ABDOMEN: Soft, nontender, nondistended, normoactive bowel sounds. No palpable organomegaly. MUSCULOSKELETAL: No joint swelling or deformity. EXTREMITIES: No cyanosis, clubbing, or pedal edema. NEUROLOGICAL: Gross neurological examination did not reveal any focal deficits. SKIN: No rashes. Assessment Chest pain, atypical, rule out acute coronary syndrome Hypertension uncontrolled Chronic back pain and spondylosis history of stroke GI prophylaxis Plan Pending dobutamine stress echocardiogram Cardiology following Amlodipine increased to 10 mg daily Resumed on gabapentin and flexeril Resumed on home dose of norco. If patients stress test comes back negative he can be discharged home later today on increased dose of amlodipine and close follow up with Dr Ramsey in the office. The impression and plan of care has been dictated by Vera Lin, Nurse Practitioner as directed. Dr. Enmanuel MD I have performed a history and physical examination and medical decision making of this patient, discussed the same with the dictator, and agree with the dictators assessment and plan as written, documented as a scribe. Based on total visit time, I have performed more than 50% of this visit. Past Medical History Past Medical History: No Reported History Additional Past Medical History / Comment(s): hirshprung disease, HTN,. Per pts daughter, pt takes testosterone shots, he was also in stage 3 kidney failure at one time. History of Any Multi-Drug Resistant Organisms: None Reported Past Surgical History: Orthopedic Surgery Additional Past Surgical History / Comment(s): five abdominal surgery, BL knees, right forearm, right ring finger, left shoulder Past Anesthesia/Blood Transfusion Reactions: No Reported Reaction Past Psychological History: Anxiety, PTSD Smoking Status: Never smoker Past Alcohol Use History: Occasional Past Drug Use History: None Reported Medications and Allergies Home Medications Medication Instructions Recorded Confirmed Type amLODIPine [Norvasc] 5 mg PO DAILY 05/29/21 01/25/25 History Cyclobenzaprine [Flexeril] 10 mg PO TID PRN #15 tab 01/08/25 01/25/25 Rx HYDROcodone/APAP 10-325MG [[place] 1 tab PO Q6HR PRN 3 Days #12 tab 01/08/25 01/25/25 Rx 10-325] Gabapentin 300 mg PO TID 01/25/25 01/25/25 History Allergies Allergy/AdvReac Type Severity Reaction Status Date / Time morphine AdvReac Itching Verified 01/25/25 19:39 Physical Exam Vitals: Vital Signs Temp Pulse Resp BP Pulse Ox 01/26/25 10:00 82 20 148/98 98 01/26/25 09:00 78 16 178/96 98 01/26/25 07:42 68 16 142/72 98 01/26/25 05:45 94 18 142/72 96 01/26/25 02:40 93 150/90 01/25/25 23:39 90 17 170/92 98 01/25/25 18:00 95 20 151/74 96 01/25/25 17:11 87 18 143/86 96 01/25/25 15:30 93 164/100 01/25/25 14:19 98.6 F 104 H 20 223/97 96 Results CBC & Chem 7: 01/25/25 14:54 01/25/25 14:54 Labs: Abnormal Lab Results - Last 24 Hours (Table) 01/25/25 01/25/25 01/25/25 Range/Units 14:54 14:54 14:54 WBC 16.05 H (4.50-10.00) 10*3/uL RBC 5.97 H (4.40-5.60) 10*6/uL Hgb 19.0 H (13.0-17.0) g/dL Hct 54.7 H (39.6-50.0) % Immature Gran # 0.22 H (0.00-0.04) 10*3/uL Neutrophils # 12.08 H (1.80-7.70) 10*3/uL Monocytes # 1.41 H (0.20-1.00) 10*3/uL D-Dimer 0.96 H (<0.60) mg/L FEU BUN 24 H (9-20) mg/dL HDL Cholesterol (40.00-60.00) mg/dL 01/25/25 Range/Units 14:54 WBC (4.50-10.00) 10*3/uL RBC (4.40-5.60) 10*6/uL Hgb (13.0-17.0) g/dL Hct (39.6-50.0) % Immature Gran # (0.00-0.04) 10*3/uL Neutrophils # (1.80-7.70) 10*3/uL Monocytes # (0.20-1.00) 10*3/uL D-Dimer (<0.60) mg/L FEU BUN (9-20) mg/dL HDL Cholesterol 35.70 L (40.00-60.00) mg/dL Assessment and Plan Time with Patient: Greater than 30
[2025-01-26 14:56] VITALS: BP 156/90; PULSE 65
--- NOTE | 2025-01-26 18:04 | CA ---
Transthoracic Echo Report Name: Efra Oquendo Age: 54 Gender: M : 1970 Exam Date: 01/26/2025 11:38 Exam Location: [facility] Ht (in): 71 Wt (lb): 185 Ordering Physician: Tiffany Camp Attending/Referring Phys: [id number], Obdulioy Registered Mail Clerk Marzena Oconnor, IMELDA Procedure CPT: Indications: LVF, CP Cardiac Hx: Technical Quality: Good Contrast 1: Total Dose (mL): Contrast 2: Total Dose (mL): MEASUREMENTS (Male / Female) Normal Values 2D ECHO LV Diastolic Diameter PLAX 4.9 cm 4.2 - 5.9 / 3.9 - 5.3 cm LV Systolic Diameter PLAX 2.7 cm IVS Diastolic Thickness 1.5 cm 0.6 - 1.0 / 0.6 - 0.9 cm LVPW Diastolic Thickness 1.5 cm 0.6 - 1.0 / 0.6 - 0.9 cm LV Relative Wall Thickness 0.6 RV Internal Dim ED PLAX 4.0 cm LA Systolic Diameter LX 3.9 cm 3.0 - 4.0 / 2.7 - 3.8 cm LV Diastolic Volume MOD BP 208.9 cm??? 67 - 155 / 56 - 104 cm??? LV Systolic Volume MOD BP 84.4 cm??? 22 - 58 / 19 - 49 cm??? LV Ejection Fraction MOD BP 59.6 % >= 55 % LV Cardiac Index MOD BP 5679.9 cm???/min???m??? LV Diastolic Volume MOD 4C 229.9 cm??? LV Systolic Volume MOD 4C 110.9 cm??? LV Ejection Fraction MOD 4C 51.8 % LV Cardiac Index MOD 4C 5428.4 cm???/min???m??? LV Diastolic Length 4C 10.6 cm LV Systolic Length 4C 9.0 cm LV Diastolic Volume MOD 2C 207.3 cm??? LV Systolic Volume MOD 2C 71.8 cm??? LV Ejection Fraction MOD 2C 65.4 % LV Cardiac Index MOD 2C 6181.1 cm???/min???m??? LV Diastolic Length 2C 10.4 cm LV Systolic Length 2C 8.3 cm M-MODE Aortic Root Diameter MM 3.6 cm LA Systolic Diameter MM 2.5 cm LA Ao Ratio MM 0.7 DOPPLER AV Peak Velocity 147.4 cm/s AV Peak Gradient 8.7 mmHg Mitral E Point Velocity 93.2 cm/s Mitral A Point Velocity 116.6 cm/s Mitral E to A Ratio 0.8 MV Deceleration Time 129.3 ms MV E' Velocity 7.5 cm/s Mitral E to MV E' Ratio 12.4 FINDINGS Left Ventricle Left ventricular ejection fraction is estimated at 55-60 %.Normal left ventricular systolic function with no obvious regional wall motion abnormalities. Moderately increased left ventricular wall thickness. Right Ventricle Right ventricular dilatation. Unable to estimate the right ventricular systolic pressure. Right Atrium Normal right atrial size. No right atrial thrombus or mass seen. Left Atrium Normal left atrial size. No left atrial thrombus or mass present. Mitral Valve Structurally normal mitral valve. No mitral stenosis,or prolapse.mild mitral regurgitation. Aortic Valve Trileaflet aortic valve. No aortic valve stenosis or regurgitation. Tricuspid Valve Structurally normal tricuspid valve. No tricuspid stenosis, regurgitation or prolapse. Pulmonic Valve Structurally normal pulmonic valve. No pulmonic regurgitation. Pericardium No pericardial effusion. Aorta Normal size aortic root and proximal ascending aorta. CONCLUSIONS 1. Normal left ventricular size and systolic function 2. Mild mitral regurgitation Previewed by: Dr. Carlo Ramsey MD (Electronically Signed) Final Date: 26 January 2025 18:03
[2025-01-27] MEDS ORDERED: amLODIPine 10 MG TAB PO SCH (09:00)
--- NOTE | 2025-01-28 19:27 | P.DS ---
Providers Date of admission: 01/25/25 18:22 Attending physician: Namrata Conti Consults: 01/25/25 18:22 Consult Physician Urgent Consulting Provider: [facility] Consult Reason/Comments: Chest pain, polycythemia Do you want consulting provider notified?: Yes Primary care physician: Cristopher Bauman Hospital Course: Final Diagnosis Chest pain, atypical, ruled out acute coronary syndrome Hypertension uncontrolled Chronic back pain and spondylosis history of stroke Discharge Disposition Patient is stable for discharge home. Continue on increased dose of amlodipine. Recommend close follow up with cardiology on discharge. Patient to follow up with Dr Ramsey in one week. Hospital Course This is a pleasant 54-year-old male with medical history significant for high blood pressure, chronic back pain from Spondylosis. patient is maintained on amlodipine 5 mg daily blood pressure is usually fair well-controlled. Yesterday he was at his second session of physical therapy had not even been started yet and he became diaphoretic and reported left-sided chest pain nonradiating. Blood pressure was taken by the physical therapist was noted to be in the 200s systolic. He was sent over to the hospital for further evaluation. He has no prior history of heart attack or heart failure. He does have a history of stroke with left-sided deficits that have since resolved. Patient states that he was in the intensive care unit for uvulitis when he had a stroke. He is a never smoker reports no alcohol use. He denies any shortness of breath no palpitations or dizziness and lightheadedness. At the time he is currently chest pain-free. He was admitted to the hospital with a consult placed to cardiology and went for dobutamine stress echo. He has no further reports of chest pain at this time. His amlopidine has been increased to 10 mg daily. Echocardiogram reveals EF 55-60% mild MR. He has been cleared for discharge home as his dobutamine stress echo was negative for ischemia. Please see medication reconciliation for a list of current medications. Thank you for allowing us to participate in the care of this patient. The impression and plan of care has been dictated by Vera Lin, Nurse Practitioner as directed. Dr. Enmanuel MD I have performed a history and physical examination and medical decision making of this patient, discussed the same with the dictator, and agree with the dictators assessment and plan as written, documented as a scribe. Based on total visit time, I have performed more than 50% of this visit. Patient Condition at Discharge: Stable Plan - Discharge Summary New Discharge Prescriptions: New amLODIPine [Norvasc] 10 mg PO DAILY #30 tab Continue Gabapentin 300 mg PO TID Cyclobenzaprine [Flexeril] 10 mg PO TID PRN #15 tab PRN Reason: Muscle Spasm HYDROcodone/APAP 10-325MG [[place] 10-325] 1 tab PO Q6HR PRN 3 Days #12 tab PRN Reason: Pain Discontinued amLODIPine [Norvasc] 5 mg PO DAILY Discharge Medication List Cyclobenzaprine [Flexeril] 10 mg PO TID PRN #15 tab 01/08/25 [Rx] HYDROcodone/APAP 10-325MG [[place] 10-325] 1 tab PO Q6HR PRN 3 Days #12 tab 01/08/25 [Rx] Gabapentin 300 mg PO TID 01/25/25 [History] amLODIPine [Norvasc] 10 mg PO DAILY #30 tab 01/26/25 [Rx] Follow up Appointment(s)/Referral(s): Carlo Ramsey MD [STAFF PHYSICIAN] - 1 Week Cristopher Bauman MD [Primary Care Provider] - 1-2 days Patient Instructions/Handouts: Chest Pain (DC) Activity/Diet/Wound Care/Special Instructions: Activity limited until follow up Check your blood pressure at the same time daily and keep log for follow up with your family doctor and microstrategy architect Continue on increased dose of amlodipine 10 mg daily Discharge Disposition: HOME SELF-CARE
== END 2025-01-26 14:57 | disposition home or self-care (01) ==
LOC: EC 14:07 → 6NMEDSUR 18:22
PROVIDERS: ADMIT Hospitalist; ATTEND Hospitalist
DX: R07.89 Other chest pain (principal); I10 Essential (primary) hypertension; F41.9 Anxiety disorder, unspecified; F43.10 Post-traumatic stress disorder, unspecified; D75.1 Secondary polycythemia; G47.33 Obstructive sleep apnea (adult) (pediatric); D72.829 Elevated white blood cell count, unspecified; M48.02 Spinal stenosis, cervical region; M47.816 Spondylosis without myelopathy or radiculopathy, lumbar region; Z86.718 Personal history of other venous thrombosis and embolism; Z86.73 Personal history of transient ischemic attack (TIA), and cerebral infarction without residual deficits; Z79.899 Other long term (current) drug therapy; Z88.5 Allergy status to narcotic agent
CPT/HCPCS: 99285; 36415; 93005; 93306; 93351; 85379; 80061; 80053; 83735; 84484; 85025; 85610; 85730; 71046; 71275; G0378 ×2; Q9967